=== PATIENT | male | born 1950 | race Caucasian/White ===

== ENCOUNTER → 2019-11-12 00:01 | Outpatient (RCR) | payer MEDICARE, SELFPAY | LOC: ONCMED 05:52 | PROVIDERS: Family Provider Family Medicine; Visit Provider Internal Medicine Hematology & Oncology | DX: C25.0 Malignant neoplasm of head of pancreas (principal); C77.2 Secondary and unspecified malignant neoplasm of intra-abdominal lymph nodes; I25.2 Old myocardial infarction; I25.10 Atherosclerotic heart disease of native coronary artery without angina pectoris; E87.6 Hypokalemia; Z95.5 Presence of coronary angioplasty implant and graft; Z79.02 Long term (current) use of antithrombotics/antiplatelets; Z79.82 Long term (current) use of aspirin; Z79.899 Other long term (current) drug therapy; Z90.410 Acquired total absence of pancreas; Z92.21 Personal history of antineoplastic chemotherapy | CPT/HCPCS: 36591; 80053; 82607; 82728; 83540; 83550; 85025; 99214; J1642 ==

== ENCOUNTER 2019-12-13 05:48 | Outpatient (RCR) | payer MEDICARE, SELFPAY ==
--- NOTE | 2019-11-25 | CT_ITS ---
Radation Therapy Planning CT images; total exam DLP: 935.27 mGy-cm MTDD
[2019-12-09 15:35] LABS: Alanine Aminotransferase 93 U/L (0-41); Albumin Level 3.7 g/dL (3.5-5.2); Alkaline Phosphatase 125 IU/L (40-130); Anion Gap 13.9 (5-19); Aspartate Amino Transferase 142 U/L (0-40); Blood Urea Nitrogen 6 mg/dL (8-23); Calcium 9.1 mg/dL (8.5-10.5); Carbon Dioxide 25 mmol/L (22-29); Chloride 105 mmol/L (98-107); Globulin 2.5 g/dL (1.3-4.6); Glucose 139 mg/dL (74-106); Potassium 3.9 mmol/L (3.5-5.1); Sodium 140 mmol/L (136-145); Total Bilirubin 0.3 mg/dL (0.15-1.2); Total Protein 6.2 g/dL (6.6-8.7)
[2019-12-09 15:36] LABS: Basophils % 0.8 %; Eosinophils # 0.1 10^3/uL (0.0-0.8); Eosinophils % 2.4 %; Hemoglobin 9.4 g/dL (11.7-16.6); Lymphocytes # 0.7 10^3/uL (0.8-4.8); Lymphocytes % 19.3 %; Mean Corpuscular HGB Conc 31.3 g/dL (30.0-36.0); Mean Corpuscular Hemoglobin 30.4 pg (28.0-34.0); Mean Corpuscular Volume 97.1 fL (80-94); Mean Platelet Volume 10.8 fL (7.4-10.4); Monocytes # 0.5 10^3/uL (0.2-0.9); Monocytes % 12.7 %; Neutrophils # 2.5 10^3/uL (1.8-7.7); Neutrophils % 64.8 %; Nucleated Red Blood Cells % 0 %; Platelet Count 150 10^3/cmm (130-400); Red Blood Count 3.09 10^6/uL (4.1-5.3); Red Cell Distribution Width 14.6 % (12.1-15.1); White Blood Count 3.8 10^3/uL (4.0-10.0)
--- NOTE | 2019-12-11 15:32 | ONCRAD TMN_ITS ---
Radiation Oncology Weekly Treatment Management Patient: Elieser Powell MR#: [id number] : 1950 Age: 69 Sex: Male Dictated by: Dr. Emile Ulloa Date of Service: 12/11/2019 Referring Physician(s) : Dr. 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 ID: [id number], Energy: 6X, Dose/Fx (cGy): 180, #Fx: 3 , Dose Correction (cGy): 0, Total Dose (cGy): 540, Start Date: 12/09/2019, Elapsed Days: 2 Current Complaints/Interval History: Constitutional Denies lack of appetite, fatigue, fever and night sweats. Integumentary No redness to the skin in the area of treatment Gastrointestinal Denies abdominal pain, diarrhea, nausea and vomiting. Current Medications: Aspirin, atorvastatin Calcium, carvedilol, chlorproMAZINE HCl, claritin, gas Relief, humuLIN R, imodium A-D, k-Tab, lansoprazole, lisinopril, lomotil, lomotil, lORazepam, neulasta, potassium Chloride ER, prochlorperazine Maleate, prochlorperazine Maleate, ticagrelor, zofran. Allergies: No Known Allergies Vital Signs: Performed on 12/11/2019 10:03 AM BMI - 24.12 kg/m2 (high), Height - 67.00 in, Weight - 154.0 lbs, Temperature - 97.8 f, Pulse - 49, Respiration - 18, O2 Sat - 100 %, Pain - 0 and BP - 143/ 74 mm(hg)(high/). Physical Exam: Appears stable, no skin erythema or desquamation. Performance Status: 1 - No physically strenuous activity, but ambulatory and able to carry out light or sedentary work (e.g. office work, light house work). (ECOG) Lab: None pending in Radiation Oncology. Imaging: No new diagnostic imaging was performed since the last weekly treatment visit. All radiation therapy related imaging (including but not limited to CBCT generated images) was reviewed. Appropriate changes, if any, were made to assure accurate target localization. Impression/Plan: Tolerating treatment well. Continue treatment as planned. CPT: 36238 Signed by: Dr. Emile Ulloa>12/11/2019 3:30:43 PM <<Signature on File>>
== END 2019-12-13 23:59 | disposition home or self-care (01) ==
LOC: ONCMED 05:48
PROVIDERS: Internal Medicine Hematology & Oncology; Family Provider Family Medicine; Visit Provider Radiology Radiation Oncology
DX: Z51.0 Encounter for antineoplastic radiation therapy (principal); C25.0 Malignant neoplasm of head of pancreas; C77.2 Secondary and unspecified malignant neoplasm of intra-abdominal lymph nodes; L30.9 Dermatitis, unspecified; K21.9 Gastro-esophageal reflux disease without esophagitis; E78.00 Pure hypercholesterolemia, unspecified; I25.2 Old myocardial infarction; Z79.82 Long term (current) use of aspirin; Z79.4 Long term (current) use of insulin; Z90.410 Acquired total absence of pancreas; Z95.5 Presence of coronary angioplasty implant and graft; Z92.21 Personal history of antineoplastic chemotherapy
CPT/HCPCS: 36591; 77280; 77290; 77300; 77301; 77334; 77338; 77386; 77470; 80053; 85025; 99205; Q9967

== ENCOUNTER 2020-01-10 05:43 | Outpatient (RCR) | payer MEDICARE, SELFPAY ==
[2019-12-16 11:41] LABS: Basophils % 0.5 %; Eosinophils # 0.1 10^3/uL (0.0-0.8); Eosinophils % 2.9 %; Hemoglobin 9.5 g/dL (11.7-16.6); Lymphocytes # 0.5 10^3/uL (0.8-4.8); Lymphocytes % 12.2 %; Mean Corpuscular HGB Conc 31.7 g/dL (30.0-36.0); Mean Corpuscular Hemoglobin 30.3 pg (28.0-34.0); Mean Corpuscular Volume 95.5 fL (80-94); Mean Platelet Volume 10.9 fL (7.4-10.4); Monocytes # 0.4 10^3/uL (0.2-0.9); Monocytes % 10.1 %; Neutrophils # 2.8 10^3/uL (1.8-7.7); Nucleated Red Blood Cells % 0 %; Platelet Count 138 10^3/cmm (130-400); Red Blood Count 3.14 10^6/uL (4.1-5.3); Red Cell Distribution Width 14.6 % (12.1-15.1); White Blood Count 3.8 10^3/uL (4.0-10.0)
[2019-12-16 11:53] LABS: Alanine Aminotransferase 43 U/L (0-41); Albumin Level 3.2 g/dL (3.5-5.2); Alkaline Phosphatase 106 IU/L (40-130); Anion Gap 12.8 (5-19); Aspartate Amino Transferase 39 U/L (0-40); Blood Urea Nitrogen 6 mg/dL (8-23); Carbon Dioxide 25 mmol/L (22-29); Chloride 104 mmol/L (98-107); Globulin 2.8 g/dL (1.3-4.6); Glucose 128 mg/dL (74-106); Potassium 3.8 mmol/L (3.5-5.1); Sodium 138 mmol/L (136-145); Total Bilirubin 0.2 mg/dL (0.15-1.2)
--- NOTE | 2019-12-17 11:48 | ONCRAD TMN_ITS ---
Radiation Oncology Weekly Treatment Management Patient: Elieser Powell MR#: [id number] : 1950> Age: 69> Sex: Male Dictated by: Dr. Emile Ulloa Date of Service: 12/17/2019 Referring Physician(s) : Dr. 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 ID: [id number], Energy: 6X, Dose/Fx (cGy): 180, #Fx: , Dose Correction (cGy): 0, Total Dose (cGy): 1,260, Start Date: 12/09/2019, Elapsed Days: 8 Current Complaints/Interval History: Constitutional Complains of mild fatigue. Denies lack of appetite, fever and night sweats. Gastrointestinal Complains of occasional diarrhea which is characterized as loose, semisolid. Denies abdominal pain, constipation, heartburn / dyspepsia, melena / GI bleeding, nausea and vomiting. Current Medications: Aspirin, carvedilol, chlorproMAZINE HCl, claritin, gas Relief, humuLIN R, imodium A-D, k-Tab, lansoprazole, lisinopril, lomotil, lomotil, lORazepam, neulasta, potassium Chloride ER, prochlorperazine Maleate, prochlorperazine Maleate, ticagrelor, zofran. Allergies: No Known Allergies Vital Signs: Performed on 12/17/2019 10:05 AM Height - 67.00 in, Weight - 162.2 lbs (high), BSA - 1.85 sq.m, BMI - 25.40, Temperature - 97.8 f (low), Pulse - 54 /min (low), Respiration - 20 /min, O2 Sat - 100 %, Pain - 0 and BP - 138/ 76 mm(hg). Physical Exam: Appears stable, no skin erythema or desquamation. Performance Status: 1 - No physically strenuous activity, but ambulatory and able to carry out light or sedentary work (e.g. office work, light house work). (ECOG) Lab: Test performed on 12/16/2019 11:05 AM WBC - 3.8 10 3/ul (low), RBC - 3.14 10 6/ul (low), HGB - 9.5 g/dl (low), HCT - 30.0 % (low), MCV - 95.5 fl (high), MPV - 10.9 fl (high), Lymphocytes - 0.5 10 3/ul (low), BUN - 6 mg/dl (low), Creatinine - 0.6 mg/dl (low), Glucose - 128 mg/dl (high), Protein, Total - 6.0 g/dl (low), Albumin - 3.2 g/dl (low) and ALT (SGPT) - 43 u/l (high). Imaging: No new diagnostic imaging was performed since the last weekly treatment visit. All radiation therapy related imaging (including but not limited to CBCT generated images) was reviewed. Appropriate changes, if any, were made to assure accurate target localization. Impression/Plan: Tolerating treatment well with expected side effects. Continue treatment as planned. CPT: 12089 Signed by: Dr. Emile Ulloa>12/17/2019 11:46:10 AM <<Signature on File>>
--- NOTE | 2019-12-18 09:44 | ONC FU_ITS ---
Re[facility] Velaz[facility] Patient Note Patient: Elieser Powell < Unit #: [id number]: 1950 Dictated By: Anamaria AnguianoDate of Visit: Dec 17, 2019 Onc MED Follow-Up/Prog Note Chief Complaint: Pancreatic cancer History of Present Illness: Mr. Powell is a 69-year-old gentleman with history of progressive weakness and fatigue, acid reflux and loss of appetite. He subsequently noted change in his stool and urine color and jaundice. He also had about 25 pounds weight loss due to poor appetite and early fullness. Patient underwent CT scan of abdomen on 03/25/2019 which showed 3.3 x 2.9 x 2.9 cm soft tissue mass involving inferior pancreatic head and uncinate process. This mass was causing obstruction of common bile duct and probably also pancreatic duct and pancreatic mass abuts and distorts and may invade the medial duodenal C-loop. Patient was referred to [place] where he underwent endoscopic ultrasound and FNA done on 03/29/2019 and it confirmed adenocarcinoma subsequently underwent metal bile duct stent placement with that his jaundice improved but continued to have early fullness nausea finally underwent duodenal stent placement. Mr Powell was referred to Dr. Barbosa and as per patient, Dr. Barbosa suggested neoadjuvant chemotherapy prior to the surgery. Patient and his family decided to take second opinion and went to [facility] for evaluation. He then underwent an attempted ERCP at [facility], which was not possible due to significant luminal stenosis. The endoscopic ultrasound revealed obstructing 3.2 cm pancreatic head mass and the biopsy was positive for adenocarcinoma. Due to inability to perform ERCP, patient underwent percutaneous internal biliary stent. Later patient developed nausea vomiting for which he was readmitted to [facility] in [place] on 04/03/2019 and diagnosed with gastric outlet obstruction for that he underwent EGD with duodenal stent placement on 04/12/2019 . He then underwent pancreas protocol CT scan at [facility] as per patient he was told there could be vascular involvement with tumor so neoadjuvant chemotherapy with folfirinox was recommended. He began his first cycle on 05/27/2019. On 07/03/2019 he was admitted to [facility] with high-grade fever and diarrhea jaundice and abnormal LFTs subsequently diagnosed with sepsis being hypotensive patient was treated with IV antibiotics and CT scan of abdomen pelvis done on 07/04/2019 which showed marked biliary tract dilatation subsequently patient was transferred to [facility] in [place] for further management but his condition continued to improve GI was consulted but his LFTs continued to improve and he was discharged home on Cipro and Flagyl. Patient said he went back to [facility] and this time he underwent ERCP and not sure whether stent was replaced or cleaned. He had MRI MRCP done on 07/17/2019 which showed marked biliary tract dilatation with moderate dilatation of pancreatic duct similar to CT scan of 07/04/2019 and metallic stents obscure with radiation of pancreatic mass. Patient was on oral antibiotics ciprofloxacin and Flagyl till 07/27/2019. Mr Powell completed 6 cycles of neoadjuvant chemotherapy with folfirinox on 09/04/2019. He then underwent pancreaticoduodenectomy, resection and reconstruction of' superior mesenteric vein portal vein using Bovine pericardium patch and abdominal lymphadenectomy on 10/02/2019. His postop course was complicated by NSTEMI and he required intra-aortic balloon pump and ultimately underwent cardiac cath with placement of 4 stents (2 overlapping stents in the left main/proximal LAD and 2 overlapping stents in the RCA). Now on Brilinta and aspirin. 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 Lymphovascular, including large vessel and perineural invasion identified. Tumor invades into adjoining portal vein And superior mesenteric vein but various margins are negative for the tumor. Tumor present at uncinate margin, as foci of vascular invasion. Tumor is less than 1 cm from posterior surface; A small focus of perineural invasion is identified less than 1 cm from the bile duct margin. Pancreatic parenchymal, proximal and distal duodenal resection margins are negative for the tumor. Metastatic carcinoma involving 4 out of 25 lymph nodes ypN2. Adjuvant chemotherapy/chemoradiation was recommended at [facility], but at the same time cardiology had a concern about bone marrow suppressing chemotherapy regimens and recommended avoiding these regimens as patient will require at least 6 months of continued DAPT due to recent NSTEMI and high risk PCI. Based on his final pathology report after Whipple's procedure, patient is a high risk for local recurrence and distant recurrence as there was a minimum response to the neoadjuvant chemotherapy. Lymph node positive disease with close surgical margins was identified. At that point, Mr Powell was referred to radiation oncology for adjuvant radiation therapy. He was also under consideration of low-dose Xeloda concurrently with radiation as patient is not a candidate for adjuvant chemotherapy due to high risk for bone marrow suppression and treatment rendered complication. Considering Risk versus benefit, Dr Root recommended modified dose Xeloda concurrent with radiation therapy and monitor his blood counts on weekly basis and adjust chemotherapy dose accordingly to minimize bone marrow suppression. He began concurrent therapy with radiation and dose reduced Xeloda on 12/10/2019. Mr. Powell is here today for follow-up. He has been on Xeloda 625 mg twice daily on the days of radiation since December 10, 2019. Overall he seems to be tolerating it well although he has had some increase in his stools. He states that some of the time they are actually diarrhea and sometimes just increased stools with normal formation. He denies any fever or chills. He has had no mouth sores, sore throat or difficulty swallowing. He denies any nausea or vomiting. He denies any abdominal pain or cramping. He states the bowel movements overall seem to be about the same but he has tried Imodium for the diarrhea and does not seem to think it is helping tremendously but does have Lomotil but has not tried it yet. He is getting his prescription filled and plans to try it if he has any further episodes of diarrhea. He states currently his bowels are normal. He states his appetite is better. He is eating some better overall. His energy is fair. He denies any urinary symptoms. He denies any peripheral neuropathy symptoms. He denies any pain currently. His ECOG is 1. Past Medical History: Eczema Gastroesophageal reflux disease Hypercholesterolemia Past Surgical History: Stent replacement in the biliary duct in 2019 Fna of pancreas in 2019 Eyelid surgery in 1959 Tonsillectomy in 1954 Allergies: No Known Allergies. Medications: Aspirin 1 Tablet (of 81 mg) Tablet Oral daily Carvedilol 1 Tablet (of 6.25 mg) Oral daily Claritin 1 Tablet (of 10 mg) Oral daily PRN Gas Relief 1 Capsule (of 180 mg) Oral PRN Imodium A-D 1 Capsule (of 2 mg) Oral PRN K-Tab 1 Tablet (of 10 meq) Tablet, controlled release Oral daily PRN Lisinopril 1 Tablet (of 5 mg) Oral daily Lomotil 1 Tablet (of 2.5-0.025 mg) Oral daily PRN LORazepam 0.5 - 1 Tablet (of 1 mg) Oral t.i.d. PRN Prochlorperazine Maleate 1 Tablet (of 10 mg) Oral q 4 hours PRN Ticagrelor 1 Tablet (of 90 mg) Oral b.i.d. Zofran 1 Tablet (of 4 mg) Oral q 6 hours PRN Family History: Mr. Powell's mother at age 92: Alzheimer's Disease, and cervical cancer. Mr. Powell's father at age 63: heart disease. Social History: Mr. Powell is and he is retired. Mr. Powell has never smoked. He has no history of drinking. He has indicated exposure to the following products: marijuana. Review Of Symptoms: Constitutional Denies fevers, chills, night sweats, excessive fatigue. Allergic/Immunologic No reactions. Eyes Denies significant visual changes. No diplopia. No amaurosis. ENMT Denies changes in hearing, sore throat, mouth sores, difficulty or changes in swallowing ability, and/or sinus drainage. Endocrine No diabetes, thyroid disease or hormone replacement. Denies hot flashes or night sweats. Hematologic/Lymphatic Denies easy bruising or bleeding. The patient denies any tender or palpable lymph nodes. Respiratory Denies dyspnea on exertion, chest pain, cough or hemoptysis. Denies orthopnea. Cardiovascular Denies anginal chest pain, palpitations or orthopnea. Gastrointestinal Denies nausea, vomiting, diarrhea, GI bleeding, or constipation with treatment. Denies heartburn or early satiety. Genitourinary (M) Denies hematuria, dysuria, increased frequency, urgency, hesitancy or incontinence. Musculoskeletal Denies joint pain, swelling or redness. No decreased range of motion. Integumentary Denies chronic rashes, inflammation, ulcerations or skin changes. Neurologic Denies headache, blurred vision, and no areas of focal weakness or numbness. Normal gait. No current sensory problems. Psychiatric Denies insomnia, depression, kathya or mood swings. Constitutional Complains of mild fatigue. Denies lack of appetite, fever and night sweats. Gastrointestinal Complains of occasional diarrhea which is characterized as loose, semisolid. Denies abdominal pain, constipation, heartburn / dyspepsia, melena / GI bleeding, nausea and vomiting. Genitourinary (M) Complains of nocturia gets up 1 to 3 times per night. Denies dysuria, frequency, hematuria and urgency. Vital Signs: Performed on Dec 17, 2019 11:19 Height - 67.00 in Weight - 162.2 lbs Temperature - 97.8 F Pulse - 54 Respiration - 20 BP - 138/76 mm(hg) O2 Sat - 100 % Pain - 0 Performed on Dec 17, 2019 11:19 BMI - 25.404 kg/m2 (HIGH) Performed on Dec 17, 2019 10:05 Height - 67.00 in Weight - 162.2 lbs (HIGH) BSA - 1.85 sq.m BMI - 25.40 Temperature - 97.8 F (LOW) Pulse - 54 /min (LOW) Respiration - 20 /min BP - 138/76 mm(hg) O2 Sat - 100 % Pain - 0,1 - No physically strenuous activity, but ambulatory and able to carry out light or sedentary work (e.g. office work, light house work). (ECOG) Physical Examination: Constitutional Alert, oriented, no acute distress. Skin pink, warm and dry. Head Normocephalic; atraumatic. Eyes Conjunctivae and sclerae are clear and without icterus. Pupils are reactive and equal. ENMT Sinuses are nontender. No oral exudates, ulcers, masses, thrush or mucositis. Oropharynx clear. Tongue normal. Neck Supple without masses or thyromegaly. No jugular venous distension. Hematologic/Lymphatic No petechiae or purpura. No tender or palpable lymph nodes in the cervical or supraclavicular areas. Respiratory Lungs are clear to auscultation without rhonchi or wheezing. Cardiovascular Regular rate and rhythm of heart without murmurs,clicks, gallops or rubs. Abdomen Non-tender, non-distended, no masses, ascites. Good bowel sounds noted in all quads. Back/Spine Non-tender to palpation. Extremities No visible deformities, no cyanosis, clubbing or edema. Musculoskeletal No tenderness or swelling, normal range of motion without obvious weakness. Integumentary No rashes or lesions. Neurologic No sensory or motor deficits, normal cerebellar function, normal gait. Psychiatric Alert and oriented times three. Coherent speech. Verbalizes understanding of our discussions today. Laboratory:Test performed on Dec 16, 2019 11:05 Sodium 138 mmol/L Potassium 3.8 mmol/L Chloride 104 mmol/L CO2 25 mmol/L Anion Gap 12.8 BUN 6 mg/dL Creatinine 0.6 mg/dL Cr Clearance (Est) 117.6600 mL/min Glucose 128 mg/dL Calcium 9.0 mg/dL Protein, Total 6.0 g/dL Albumin 3.2 g/dL Globulin 2.8 g/dL Bilirubin, Total 0.2 mg/dL ALT (SGPT) 43 U/L AST (SGOT) 39 U/L Alkaline Phosphatase 106 IU/L WBC 3.8 10 3/uL RBC 3.14 10 6/uL HGB 9.5 g/dL HCT 30.0 % MCV 95.5 fL MCH 30.3 pg MCHC 31.7 g/dL RDW 14.6 % Platelet Count 138 10 3/cmm MPV 10.9 fL Neutrophils 2.8 10 3/uL Lymphocytes 0.5 10 3/uL Monocytes 0.4 10 3/uL Eosinophils 0.1 10 3/uL Basophils 0.0 10 3/uL Neutrophil % 74.0 % Lymphocyte % 12.2 % Monocyte % 10.1 % Eosinophil % 2.9 % Basophils % 0.5 % Impression: Status post pancreaticoduodenectomy, resection and reconstruction of superior mesenteric vein/portal vein using bovine pericardium patch. Abdominal lymph node dissection and excision of left hepatic lobe lesion and peritoneal lesion and myofascial abdominal wall flap on 10/02/2019 final pathology report showed ypT3 and 4 out of 25 positive lymph node ypN2 Postop course was complicated by NSTEMI status post complex PCI to andTXD in September 2019. Adenocarcinoma involving head of pancreas and uncinate process per EUS guided FNA done on 03/29/2019 and metal bile duct stent placement for obstructive jaundice with resolution of jaundice CT scan of abdomen pelvis done on 03/25/2019 showed pancreatic head/uncinate process mass measuring 3.3 x 2.9 x 3.9 cm causing biliary system dilatation scan due to pancreatic head mass. Possible invasion into medial duodenal C-loop. No adenopathy or ascites noted Gastric outlet obstruction Status post duodenal stent placement Mr Powell was seen by Dr. Barbosa, surgeon and neoadjuvant chemotherapy was recommended prior to the surgery. He obtained a second opinion from [facility]. On 04/30/2019, he was evaluated at [facility] GI surgery clinic and underwent a pancreas protocol CT scan. The patient reports that he was told that tumor may be involving adjustment vascular structures so neoadjuvant chemotherapy with folfirinox was recommended. Mr Powell began his first cycle of FOLFIRINOX on 05/27/2019. Cycle 2 was given on 06/10/2019. He completed 6 cycles of neoadjuvant chemotherapy on 09/04/2019. Mr Powell completed 6 cycles of neoadjuvant chemotherapy with folfirinox on 09/04/2019. He then underwent pancreaticoduodenectomy, resection and reconstruction of' superior mesenteric vein portal vein using Bovine pericardium patch and abdominal lymphadenectomy on 10/02/2019. His postop course was complicated by NSTEMI and he required intra-aortic balloon pump and ultimately underwent cardiac cath with placement of 4 stents (2 overlapping stents in the left main/proximal LAD and 2 overlapping stents in the RCA). Now on Brilinta and aspirin. 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 Lymphovascular, including large vessel and perineural invasion identified. Tumor invades into adjoining portal vein And superior mesenteric vein but various margins are negative for the tumor. Tumor present at uncinate margin, as foci of vascular invasion. Tumor is less than 1 cm from posterior surface. A small focus of perineural invasion is identified less than 1 cm from the bile duct margin. Pancreatic parenchymal, proximal and distal duodenal resection margins are negative for the tumor. Metastatic carcinoma involving 4 out of 25 lymph nodes ypN2. Adjuvant chemotherapy/chemoradiation was recommended at [facility], but at the same time cardiology had a concern about bone marrow suppressing chemotherapy regimens and recommended avoiding these regimens as patient will require at least 6 months of continued DAPT due to recent NSTEMI and high risk PCI. Based on his final pathology report after Whipple's procedure, patient is a high risk for local recurrence and distant recurrence as there was a minimum response to the neoadjuvant chemotherapy. Lymph node positive disease with close surgical margins was identified. At that point, Mr Powell was referred to radiation oncology for adjuvant radiation therapy. He was also under consideration of low-dose Xeloda concurrently with radiation as patient is not a candidate for adjuvant chemotherapy due to high risk for bone marrow suppression and treatment rendered complication. Considering Risk versus benefit, Dr Root recommended modified dose Xeloda concurrent with radiation therapy and monitor his blood counts on weekly basis and adjust chemotherapy dose accordingly to minimize bone marrow suppression. He began concurrent therapy with radiation and dose reduced Xeloda on 12/10/2019. He is following with Dr Jefferson, local human resources representative, for follow-up of NSTEMI status post PCI to LAD and LM. Plan: 1. Proceed with current dosing of Xeloda at 650 mg twice daily on the days of radiation only. We will plan for this dose 1 more week to see how his diarrhea plays out. 2. He may use Compazine or Zofran as needed for nausea. 3. We have discussed him using Lomotil as needed for diarrhea. He can still use the Imodium if he feels he gets any benefit from it. If that is not working he is instructed to let us know. 4. We did discuss that if he has diarrhea that he will need hydration if the diarrhea is significant. He verbalized understanding. 5. He states Dr. Jefferson had requested a fasting lipid panel and wondered if we could do that with the labs that we obtained here. We have arranged for him to do fasting labs next week with his CBC CMP. This is for evaluation of his CAD. He states Dr. Jefferson stopped his atorvastatin presumably due to elevated liver function. 6. Labs from December 16, 2019 were reviewed in detail and discussed with Mr. Powell and a copy was given to him. WBC 3.8, hemoglobin 9.5, platelets 138,000 ANC is 2800. Potassium 3.8. Random glucose 128 creatinine 0.6 albumin 3.2 ALT is improved at 43 AST is 39 alk phos is 106. 7. Mr. Powell was instructed to continue his potassium supplement as his potassium is holding well currently. 8. He inquired about participating in cardiac rehab and I told him I thought this was an excellent idea he may just need modified exercising but would least be monitored under cardiac rehab. This would help build up his strength and possibly help him tolerate treatment better overall. We encourage patients to participate in cancer rehab but it is not a monitored setting and with his recent NSTEMI, he requires cardiac monitoring. 9. We will plan to see him back in 1 week with CBC CMP for evaluation of Xeloda. 10. He instructed to contact us in the interim should questions or problems arise. Signed By: Anamaria Anguiano-, CN Danielle Root MD <<Signature on File>>
[2019-12-23 09:38] LABS: Basophils % 0.3 %; Eosinophils # 0.2 10^3/uL (0.0-0.8); Eosinophils % 5.2 %; Hematocrit 30.1 % (42.0-52.0); Hemoglobin 9.5 g/dL (11.7-16.6); Lymphocytes # 0.4 10^3/uL (0.8-4.8); Lymphocytes % 11.7 %; Mean Corpuscular HGB Conc 31.6 g/dL (30.0-36.0); Mean Corpuscular Hemoglobin 29.9 pg (28.0-34.0); Mean Corpuscular Volume 94.7 fL (80-94); Mean Platelet Volume 10.7 fL (7.4-10.4); Monocytes # 0.4 10^3/uL (0.2-0.9); Monocytes % 11.7 %; Neutrophils # 2.2 10^3/uL (1.8-7.7); Neutrophils % 70.8 %; Nucleated Red Blood Cells % 0 %; Platelet Count 139 10^3/cmm (130-400); Red Blood Count 3.18 10^6/uL (4.1-5.3); Red Cell Distribution Width 14.8 % (12.1-15.1); White Blood Count 3.1 10^3/uL (4.0-10.0)
[2019-12-23 10:01] LABS: Alanine Aminotransferase 29 U/L (0-41); Albumin Level 3.3 g/dL (3.5-5.2); Alkaline Phosphatase 105 IU/L (40-130); Aspartate Amino Transferase 30 U/L (0-40); Blood Urea Nitrogen 5 mg/dL (8-23); Calcium 8.9 mg/dL (8.5-10.5); Carbon Dioxide 24 mmol/L (22-29); Chloride 104 mmol/L (98-107); Chol HDL Ratio 2.49 mg/dL (1.0-5.00); Cholesterol 102 mg/dL (0-200); Ferritin 31 ng/mL (30-400); Globulin 2.3 g/dL (1.3-4.6); Glucose 120 mg/dL (65-115); HDL Cholesterol 41 mg/dL (60-100); Iron 48 ug/dL (59-158); LDL Cholesterol Calculated 45 mg/dL (50-129); Percent Saturation 18.1 % (20-50); Sodium 140 mmol/L (136-145); Total Bilirubin 0.2 mg/dL (0.15-1.2); Total Iron Binding Capacity 264 mcg/dl; Total Protein 5.6 g/dL (6.6-8.7); Triglycerides 79 mg/dL (0-150); Unsaturated Iron Binding 216 ug/dL (112-347)
[2019-12-23 10:35] LABS: Estmated Average Glucose 123; Hemoglobin A1C 5.9 % (4.0-6.0)
--- NOTE | 2019-12-24 12:08 | ONCRAD TMN_ITS ---
Radiation Oncology Weekly Treatment Management Patient: Elieser Powell MR#: [id number] : 1950> Age: 69> Sex: Male Dictated by: Dr. Emile Ulloa Date of Service: 12/24/2019 Referring Physician(s) : Dr. 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 ID: [id number], Energy: 6X, Dose/Fx (cGy): 180, #Fx: , Dose Correction (cGy): 0, Total Dose (cGy): 2,160, Start Date: 12/09/2019, Elapsed Days: 15 Current Complaints/Interval History: Constitutional Complains of mild fatigue. Denies lack of appetite, fever and night sweats. Integumentary No redness to the area of treatment Gastrointestinal Notes occasional diarrhea with loose stool. Denies abdominal pain, heartburn / dyspepsia, GI bleeding, nausea and vomiting. Genitourinary (M) Complains of nocturia gets up about 1 time per night. Denies dysuria, frequency and urgency. Current Medications: Aspirin, carvedilol, chlorproMAZINE HCl, claritin, gas Relief, humuLIN R, imodium A-D, k-Tab, lansoprazole, lisinopril, lomotil, lomotil, lORazepam, neulasta, potassium Chloride ER, prochlorperazine Maleate, prochlorperazine Maleate, ticagrelor, zofran. Allergies: No Known Allergies Vital Signs: Performed on 12/24/2019 11:53 AM Height - 67.00 in, Weight - 163.6 lbs, BSA - 1.86 sq.m, BMI - 25.62, Temperature - 97.4 f (low), Pulse - 45 /min (low), Respiration - 18 /min, O2 Sat - 100 %, Pain - 0 and BP - 148/ 81 mm(hg)(high/). Physical Exam: Appears stable, no skin erythema or desquamation. Performance Status: 1 - No physically strenuous activity, but ambulatory and able to carry out light or sedentary work (e.g. office work, light house work). (ECOG) Lab: Test performed on 12/23/2019 8:50 AM WBC - 3.1 10 3/ul (low), RBC - 3.18 10 6/ul (low), HGB - 9.5 g/dl (low), HCT - 30.1 % (low), MCV - 94.7 fl (high), MPV - 10.7 fl (high), Lymphocytes - 0.4 10 3/ul (low), Potassium - 3.0 mmol/l (low), BUN - 5 mg/dl (low), Creatinine - 0.5 mg/dl (low), Cr Clearance (Est) - 141.0200 ml/min (high), Glucose - 120 mg/dl (high), Protein, Total - 5.6 g/dl (low), Albumin - 3.3 g/dl (low), Iron - 48 ug/dl (low), LDL Cholesterol - 45 mg/dl (low) and HDL Cholesterol - 41 mg/dl (low). Imaging: No new diagnostic imaging was performed since the last weekly treatment visit. All radiation therapy related imaging (including but not limited to CBCT generated images) was reviewed. Appropriate changes, if any, were made to assure accurate target localization. Impression/Plan: Tolerating treatment well with expected side effects. Continue treatment as planned. CPT: 14177 Signed by: Dr. Emile Ulloa>12/24/2019 12:07:57 PM <<Signature on File>>
[2019-12-24 13:40] LABS: Magnesium 2.1 mg/dL (1.7-2.3)
--- NOTE | 2019-12-24 16:10 | ONC FU_ITS ---
Rebekah Velazquez Patient Note Patient: Elieser Powell < Unit #: [id number]: 1950 Dictated By: Anamaria AnguianoDate of Visit: Dec 24, 2019 Onc MED Follow-Up/Prog Note Chief Complaint: Pancreatic cancer History of Present Illness: Mr. Powell is a 69-year-old gentleman with history of progressive weakness and fatigue, acid reflux and loss of appetite. He subsequently noted change in his stool and urine color and jaundice. He also had about 25 pounds weight loss due to poor appetite and early fullness. Patient underwent CT scan of abdomen on 03/25/2019 which showed 3.3 x 2.9 x 2.9 cm soft tissue mass involving inferior pancreatic head and uncinate process. This mass was causing obstruction of common bile duct and probably also pancreatic duct and pancreatic mass abuts and distorts and may invade the medial duodenal C-loop. Patient was referred to [place] where he underwent endoscopic ultrasound and FNA done on 03/29/2019 and it confirmed adenocarcinoma subsequently underwent metal bile duct stent placement with that his jaundice improved but continued to have early fullness nausea finally underwent duodenal stent placement. Mr Powell was referred to Dr. Barbosa and as per patient, Dr. Barbosa suggested neoadjuvant chemotherapy prior to the surgery. Patient and his family decided to take second opinion and went to [facility] for evaluation. He then underwent an attempted ERCP at [facility], which was not possible due to significant luminal stenosis. The endoscopic ultrasound revealed obstructing 3.2 cm pancreatic head mass and the biopsy was positive for adenocarcinoma. Due to inability to perform ERCP, patient underwent percutaneous internal biliary stent. Later patient developed nausea vomiting for which he was readmitted to [facility] in [place] on 04/03/2019 and diagnosed with gastric outlet obstruction for that he underwent EGD with duodenal stent placement on 04/12/2019 . He then underwent pancreas protocol CT scan at [facility] as per patient he was told there could be vascular involvement with tumor so neoadjuvant chemotherapy with folfirinox was recommended. He began his first cycle on 05/27/2019. On 07/03/2019 he was admitted to [facility] with high-grade fever and diarrhea jaundice and abnormal LFTs subsequently diagnosed with sepsis being hypotensive patient was treated with IV antibiotics and CT scan of abdomen pelvis done on 07/04/2019 which showed marked biliary tract dilatation subsequently patient was transferred to [facility] in [place] for further management but his condition continued to improve GI was consulted but his LFTs continued to improve and he was discharged home on Cipro and Flagyl. Patient said he went back to [facility] and this time he underwent ERCP and not sure whether stent was replaced or cleaned. He had MRI MRCP done on 07/17/2019 which showed marked biliary tract dilatation with moderate dilatation of pancreatic duct similar to CT scan of 07/04/2019 and metallic stents obscure with radiation of pancreatic mass. Patient was on oral antibiotics ciprofloxacin and Flagyl till 07/27/2019. Mr Powell completed 6 cycles of neoadjuvant chemotherapy with folfirinox on 09/04/2019. He then underwent pancreaticoduodenectomy, resection and reconstruction of' superior mesenteric vein portal vein using Bovine pericardium patch and abdominal lymphadenectomy on 10/02/2019. His postop course was complicated by NSTEMI and he required intra-aortic balloon pump and ultimately underwent cardiac cath with placement of 4 stents (2 overlapping stents in the left main/proximal LAD and 2 overlapping stents in the RCA). Now on Brilinta and aspirin. 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 Lymphovascular, including large vessel and perineural invasion identified. Tumor invades into adjoining portal vein And superior mesenteric vein but various margins are negative for the tumor. Tumor present at uncinate margin, as foci of vascular invasion. Tumor is less than 1 cm from posterior surface; A small focus of perineural invasion is identified less than 1 cm from the bile duct margin. Pancreatic parenchymal, proximal and distal duodenal resection margins are negative for the tumor. Metastatic carcinoma involving 4 out of 25 lymph nodes ypN2. Adjuvant chemotherapy/chemoradiation was recommended at [place], but at the same time cardiology had a concern about bone marrow suppressing chemotherapy regimens and recommended avoiding these regimens as patient will require at least 6 months of continued DAPT due to recent NSTEMI and high risk PCI. Based on his final pathology report after Whipple's procedure, patient is a high risk for local recurrence and distant recurrence as there was a minimum response to the neoadjuvant chemotherapy. Lymph node positive disease with close surgical margins was identified. At that point, Mr Powell was referred to radiation oncology for adjuvant radiation therapy. He was also under consideration of low-dose Xeloda concurrently with radiation as patient is not a candidate for adjuvant chemotherapy due to high risk for bone marrow suppression and treatment rendered complication. Considering Risk versus benefit, Dr Root recommended modified dose Xeloda concurrent with radiation therapy and monitor his blood counts on weekly basis and adjust chemotherapy dose accordingly to minimize bone marrow suppression. He began concurrent therapy with radiation and dose reduced Xeloda on 12/10/2019. Mr. Powell is here today for follow-up. He has been on Xeloda 625 mg twice daily on the days of radiation since December 10, 2019. Overall he seems to be tolerating it well although he has had some increase in his stools. He states that some of the time they are actually diarrhea and sometimes just increased stools with normal formation. He denies any fever or chills. He has had no mouth sores, sore throat or difficulty swallowing. He denies any nausea or vomiting. He denies any abdominal pain or cramping. He states the bowel movements overall seem to be betteral Lomotil but has not tried it yet. He is getting his prescription filled and plans to try it if he has any further episodes of diarrhea. He states currently his bowels are normal. He states his appetite is better. He is eating some better overall. His energy is fair-he remains very acti He denies any urinary symptoms. He denies any peripheral neuropathy symptoms. He denies any pain currently. His ECOG is 1. Past Medical History: Eczema Gastroesophageal reflux disease Hypercholesterolemia Past Surgical History: Stent replacement in the biliary duct in 2019 Fna of pancreas in 2019 Eyelid surgery in 1959 Tonsillectomy in 5 Allergies: No Known Allergies. Medications: Aspirin 1 Tablet (of 81 mg) Tablet Oral daily Carvedilol 1 Tablet (of 6.25 mg) Oral daily Claritin 1 Tablet (of 10 mg) Oral daily PRN Gas Relief 1 Capsule (of 180 mg) Oral PRN Imodium A-D 1 Capsule (of 2 mg) Oral PRN K-Tab 1 Tablet (of 10 meq) Tablet, controlled release Oral daily PRN Lisinopril 1 Tablet (of 5 mg) Oral daily Lomotil 1 Tablet (of 2.5-0.025 mg) Oral daily PRN LORazepam 0.5 - 1 Tablet (of 1 mg) Oral t.i.d. PRN Prochlorperazine Maleate 1 Tablet (of 10 mg) Oral q 4 hours PRN Ticagrelor 1 Tablet (of 90 mg) Oral b.i.d. Zofran 1 Tablet (of 4 mg) Oral q 6 hours PRN Family History: Mr. Powell's mother at age 92: Alzheimer's Disease, and cervical cancer. Mr. Powell's father at age 63: heart disease. Social History: Mr. Powell is and he is retired. Mr. Powell has never smoked. He has no history of drinking. He has indicated exposure to the following products: marijuana. Review Of Symptoms: Constitutional Denies fevers, chills, night sweats, excessive fatigue. Allergic/Immunologic No reactions. Eyes Denies significant visual changes. No diplopia. No amaurosis. ENMT Denies changes in hearing, sore throat, mouth sores, difficulty or changes in swallowing ability, and/or sinus drainage. Hematologic/Lymphatic Denies easy bruising or bleeding. The patient denies any tender or palpable lymph nodes. Respiratory Denies dyspnea on exertion, chest pain, cough or hemoptysis. Denies orthopnea. Cardiovascular Denies anginal chest pain, palpitations or orthopnea. Gastrointestinal Denies nausea, vomiting, diarrhea, GI bleeding, or constipation with treatment. Denies heartburn or early satiety. Genitourinary (M) Denies hematuria, dysuria, increased frequency, urgency, hesitancy or incontinence. Musculoskeletal Denies joint pain, swelling or redness. No decreased range of motion. Denies leg cramps. Legs get tired, but much better after he started wearing 'CORINA hose . Integumentary Denies chronic rashes, inflammation, ulcerations or skin changes. Neurologic Denies headache, blurred vision, and no areas of focal weakness or numbness. Normal gait. No current sensory problems. Psychiatric Denies insomnia, depression, kathya or mood swings. Constitutional Complains of mild fatigue. Denies lack of appetite, fever and night sweats. Integumentary No redness to the area of treatment Gastrointestinal Complains of intermittent constipation. Complains of occasional diarrhea. Denies abdominal pain, heartburn / dyspepsia, melena / GI bleeding, nausea and vomiting. Genitourinary (M) Complains of nocturia gets up about 1 time per night. Denies dysuria, frequency and urgency. Vital Signs: Performed on Dec 24, 2019 11:53 Height - 67.00 in Weight - 163.6 lbs BSA - 1.86 sq.m BMI - 25.62 Temperature - 97.4 F (LOW) Pulse - 45 /min (LOW) Respiration - 18 /min BP - 148/81 mm(hg) (HIGH) O2 Sat - 100 % Pain - 0 Performed on Dec 24, 2019 11:38 Height - 67.00 in Weight - 163.6 lbs Temperature - 97.4 F Pulse - 45 Respiration - 18 BP - 148/81 mm(hg) (HIGH) O2 Sat - 100 % Pain - 0 Performed on Dec 24, 2019 11:38 BMI - 25.624 kg/m2 (HIGH),1 - No physically strenuous activity, but ambulatory and able to carry out light or sedentary work (e.g. office work, light house work). (ECOG) Physical Examination: Constitutional Alert, oriented, no acute distress. Skin pink, warm and dry. Head Normocephalic; atraumatic. Eyes Conjunctivae and sclerae are clear and without icterus. Pupils are reactive and equal. ENMT Sinuses are nontender. No oral exudates, ulcers, masses, thrush or mucositis. Oropharynx clear. Tongue normal. Neck Supple without masses or thyromegaly. No jugular venous distension. Hematologic/Lymphatic No petechiae or purpura. No tender or palpable lymph nodes in the cervical or supraclavicular areas. Respiratory Lungs are clear to auscultation without rhonchi or wheezing. Cardiovascular Regular rate and rhythm of heart without murmurs,clicks, gallops or rubs. Abdomen Non-tender, non-distended, no masses, ascites. Good bowel sounds noted in all quads. Back/Spine Non-tender to palpation. Extremities No visible deformities, no cyanosis, clubbing or edema. Musculoskeletal No tenderness or swelling, normal range of motion without obvious weakness. Integumentary No rashes or lesions. Neurologic No sensory or motor deficits, normal cerebellar function, normal gait. Psychiatric Alert and oriented times three. Coherent speech. Verbalizes understanding of our discussions today. Laboratory:Test performed on Dec 23, 2019 08:50 Cholesterol, Total 102 mg/dL Ferritin 31 ng/mL Iron 48 ug/dL Sodium 140 mmol/L Potassium 3.0 mmol/L Triglycerides 79 mg/dL Chloride 104 mmol/L LDL Cholesterol 45 mg/dL CO2 24 mmol/L UIBC 216 ug/dL Anion Gap 15.0 HDL Cholesterol 41 mg/dL BUN 5 mg/dL Cholesterol/HDL Ratio 2.49 mg/dL Creatinine 0.5 mg/dL LDL / HDL Ratio 1.10 RATIO Cr Clearance (Est) 141.0200 mL/min Glucose 120 mg/dL Calcium 8.9 mg/dL Protein, Total 5.6 g/dL Albumin 3.3 g/dL Globulin 2.3 g/dL Bilirubin, Total 0.2 mg/dL ALT (SGPT) 29 U/L AST (SGOT) 30 U/L Alkaline Phosphatase 105 IU/L Hemoglobin A1C % 5.9 % WBC 3.1 10 3/uL RBC 3.18 10 6/uL HGB 9.5 g/dL HCT 30.1 % MCV 94.7 fL MCH 29.9 pg MCHC 31.6 g/dL RDW 14.8 % Platelet Count 139 10 3/cmm MPV 10.7 fL Neutrophils 2.2 10 3/uL Lymphocytes 0.4 10 3/uL Monocytes 0.4 10 3/uL Eosinophils 0.2 10 3/uL Basophils 0.0 10 3/uL Neutrophil % 70.8 % Lymphocyte % 11.7 % Monocyte % 11.7 % Eosinophil % 5.2 % Basophils % 0.3 % Test performed on Sep 03, 2019 09:55 Magnesium 1.7 mg/dL Impression: Status post pancreaticoduodenectomy, resection and reconstruction of superior mesenteric vein/portal vein using bovine pericardium patch. Abdominal lymph node dissection and excision of left hepatic lobe lesion and peritoneal lesion and myofascial abdominal wall flap on 10/02/2019 final pathology report showed ypT3 and 4 out of 25 positive lymph node ypN2 Postop course was complicated by NSTEMI status post complex PCI to LM andLAD in September 2019 Adenocarcinoma involving head of pancreas and uncinate process per EUS guided FNA done on 03/29/2019 and metal bile duct stent placement for obstructive jaundice with resolution of jaundice CT scan of abdomen pelvis done on 03/25/2019 showed pancreatic head/uncinate process mass measuring 3.3 x 2.9 x 3.9 cm causing biliary system dilatation scan due to pancreatic head mass. Possible invasion into medial duodenal C-loop. No adenopathy or ascites noted Gastric outlet obstruction Status post duodenal stent placement Mr Powell was seen by Dr. Barbosa, surgeon and neoadjuvant chemotherapy was recommended prior to the surgery. He obtained a second opinion from [facility]. On 04/30/2019, he was evaluated at [facility] surgery clinic and underwent a pancreas protocol CT scan. The patient reports that he was told that tumor may be involving adjustment vascular structures so neoadjuvant chemotherapy with folfirinox was recommended. Mr Powell began his first cycle of FOLFIRINOX on 05/27/2019. Cycle 2 was given on 06/10/2019. He completed 6 cycles of neoadjuvant chemotherapy on 09/04/2019. Mr Powell completed 6 cycles of neoadjuvant chemotherapy with folfirinox on 09/04/2019. He then underwent pancreaticoduodenectomy, resection and reconstruction of' superior mesenteric vein portal vein using Bovine pericardium patch and abdominal lymphadenectomy on 10/02/2019. His postop course was complicated by NSTEMI and he required intra-aortic balloon pump and ultimately underwent cardiac cath with placement of 4 stents (2 overlapping stents in the left main/proximal LAD and 2 overlapping stents in the RCA). Now on Brilinta and aspirin. 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 Lymphovascular, including large vessel and perineural invasion identified. Tumor invades into adjoining portal vein And superior mesenteric vein but various margins are negative for the tumor. Tumor present at uncinate margin, as foci of vascular invasion. Tumor is less than 1 cm from posterior surface. A small focus of perineural invasion is identified less than 1 cm from the bile duct margin. Pancreatic parenchymal, proximal and distal duodenal resection margins are negative for the tumor. Metastatic carcinoma involving 4 out of 25 lymph nodes ypN2. Adjuvant chemotherapy/chemoradiation was recommended at [place], but at the same time cardiology had a concern about bone marrow suppressing chemotherapy regimens and recommended avoiding these regimens as patient will require at least 6 months of continued DAPT due to recent NSTEMI and high risk PCI. Based on his final pathology report after Whipple's procedure, patient is a high risk for local recurrence and distant recurrence as there was a minimum response to the neoadjuvant chemotherapy. Lymph node positive disease with close surgical margins was identified. At that point, Mr Powell was referred to radiation oncology for adjuvant radiation therapy. He was also under consideration of low-dose Xeloda concurrently with radiation as patient is not a candidate for adjuvant chemotherapy due to high risk for bone marrow suppression and treatment rendered complication. Considering Risk versus benefit, Dr Root recommended modified dose Xeloda concurrent with radiation therapy and monitor his blood counts on weekly basis and adjust chemotherapy dose accordingly to minimize bone marrow suppression. He began concurrent therapy with radiation and dose reduced Xeloda on 12/10/2019. He is following with Dr Jefferson, local [employer], for follow-up of NSTEMI status post PCI to LAD and LM. Mr Escamilla is tolerating chemotheapy well thus far. Plan: 1. Proceed with current dosing of Xeloda at 650 mg twice daily on the days of radiation only. He has 3 more weeks of treatment after today. 2. We have discussed him using Lomotil as needed for diarrhea. He can still use the Imodium if he feels he gets any benefit from it. If that is not working he was instructed to let us know. He and Mrs Cobb were instructd to call [facility] as soon as the diarrhea startes. 4. We did discuss that if he has diarrhea that he will need hydration if the diarrhea is significant. He verbalized understanding. 5. He states Dr. Jefferson had requested a fasting lipid panel and wondered if we could do that with the labs that we obtained here. We have arranged for him to do fasting labs next week with his CBC CMP. This is for evaluation of his CAD. He states Dr. Jefferson stopped his atorvastatin presumably due to elevated liver function. 6. Labs from December 16, 2019 were reviewed in detail and discussed with Mr. Powell and a copy was given to him. WBC 3.8, hemoglobin 9.5, platelets 138,000 ANC is 2800. Potassium 3.8. Random glucose 128 creatinine 0.6 albumin 3.2 ALT is improved at 43 AST is 39 alk phos is 106. 7. Mr. Powell was instructed to continue his potassium supplement unless he gets s/s of low potassium-such as leg cramps or palpitations or worsening fatigue. 8. We will plan to see him back in 1 week with CBC CMP for evaluation of Xeloda. 9. He instructed to contact us in the interim should questions or problems arise. 10. He was 9.5 today and his irons are just borderline low. His iron level is 48 and iron saturation was 18.5% his ferritin 31. He wanted to try to improve the iron levels with diet first and if that is not working he may consider treatment at that time. Signed By: Viry AnguianoNAndry-, AOCNP Danielle Root MD <<Signature on File>>
[2019-12-30 11:10] LABS: Basophils % 0.6 %; Eosinophils # 0.2 10^3/uL (0.0-0.8); Eosinophils % 7.4 %; Hematocrit 29.1 % (42.0-52.0); Hemoglobin 9.3 g/dL (11.7-16.6); Lymphocytes # 0.3 10^3/uL (0.8-4.8); Lymphocytes % 7.7 %; Mean Corpuscular Hemoglobin 30.5 pg (28.0-34.0); Mean Corpuscular Volume 95.4 fL (80-94); Mean Platelet Volume 10.5 fL (7.4-10.4); Monocytes # 0.4 10^3/uL (0.2-0.9); Monocytes % 12.4 %; Neutrophils # 2.3 10^3/uL (1.8-7.7); Neutrophils % 71.6 %; Nucleated Red Blood Cells % 0 %; Platelet Count 147 10^3/cmm (130-400); Red Blood Count 3.05 10^6/uL (4.1-5.3); Red Cell Distribution Width 15.5 % (12.1-15.1); White Blood Count 3.2 10^3/uL (4.0-10.0)
[2019-12-30 11:29] LABS: Alanine Aminotransferase 32 U/L (0-41); Albumin Level 3.2 g/dL (3.5-5.2); Alkaline Phosphatase 94 IU/L (40-130); Anion Gap 11.7 (5-19); Aspartate Amino Transferase 33 U/L (0-40); Blood Urea Nitrogen 8 mg/dL (8-23); Calcium 8.7 mg/dL (8.5-10.5); Carbon Dioxide 25 mmol/L (22-29); Chloride 105 mmol/L (98-107); Globulin 2.5 g/dL (1.3-4.6); Glucose 107 mg/dL (65-115); Potassium 3.7 mmol/L (3.5-5.1); Sodium 138 mmol/L (136-145); Total Bilirubin 0.2 mg/dL (0.15-1.2); Total Protein 5.7 g/dL (6.6-8.7)
--- NOTE | 2019-12-31 13:05 | ONCRAD TMN_ITS ---
Radiation Oncology Weekly Treatment Management Patient: Elieser Powell MR#: [id number] : 1950> Age: 69> Sex: Male Dictated by: Dr. Emile Ulloa Date of Service: 12/31/2019 Referring Physician(s) : Dr. 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 ID: [id number], Energy: 6X, Dose/Fx (cGy): 180, #Fx: , Dose Correction (cGy): 0, Total Dose (cGy): 2,880, Start Date: 12/09/2019, Elapsed Days: 22 Current Complaints/Interval History: Constitutional Complains of mild fatigue. Denies lack of appetite, fever, night sweats and change in weight. Integumentary Has slight redness to the incisional scar with tenderness Respiratory Denies cough, dyspnea, hiccoughs and wheezing. Gastrointestinal Complains of intermittent diarrhea. Denies abdominal pain, constipation, heartburn / dyspepsia, nausea and vomiting. Current Medications: Aspirin, carvedilol, chlorproMAZINE HCl, claritin, gas Relief, humuLIN R, imodium A-D, k-Tab, lansoprazole, lisinopril, lomotil, lomotil, lORazepam, neulasta, potassium Chloride ER, prochlorperazine Maleate, prochlorperazine Maleate, ticagrelor, zofran. Allergies: No Known Allergies Vital Signs: Performed on 12/31/2019 10:00 AM Height - 67.00 in, Weight - 164.4 lbs (high), BSA - 1.86 sq.m, BMI - 25.75, Temperature - 97.4 f (low), Pulse - 56 /min (low), Respiration - 16 /min, O2 Sat - 98 %, Pain - 0, Fatigue - 2 and BP - 155/ 84 mm(hg)(high/). Physical Exam: Appears stable, skin erythema w/o desquamation along incisional scar on upper abdomen. Performance Status: 1 - No physically strenuous activity, but ambulatory and able to carry out light or sedentary work (e.g. office work, light house work). (ECOG) Lab: No Test performed on 12/23/2019 8:50 AM WBC - 3.1 10 3/ul (low), RBC - 3.18 10 6/ul (low), HGB - 9.5 g/dl (low), HCT - 30.1 % (low), MCV - 94.7 fl (high), MPV - 10.7 fl (high), Lymphocytes - 0.4 10 3/ul (low), Potassium - 3.0 mmol/l (low), BUN - 5 mg/dl (low), Creatinine - 0.5 mg/dl (low), Cr Clearance (Est) - 141.0200 ml/min (high), Glucose - 120 mg/dl (high), Protein, Total - 5.6 g/dl (low), Albumin - 3.3 g/dl (low), Iron - 48 ug/dl (low), LDL Cholesterol - 45 mg/dl (low) and HDL Cholesterol - 41 mg/dl (low). Imaging: No new diagnostic imaging was performed since the last weekly treatment visit. All radiation therapy related imaging (including but not limited to CBCT generated images) was reviewed. Appropriate changes, if any, were made to assure accurate target localization. Impression/Plan: Tolerating treatment well with expected side effects. Continue treatment as planned. Apply aquaphor to incisional scar area. Imodium prn diarrhea CPT: 97529 Signed by: Dr. Emile Ulloa>12/31/2019 1:04:31 PM <<Signature on File>>
--- NOTE | 2020-01-02 13:10 | ONC FU_ITS ---
Rebekah Velazquez Patient Note Patient: Elieser Powell < Unit #: [id number]: 1950 Dictated By: Anamaria AnguianoDate of Visit: Dec 31, 2019 Onc MED Follow-Up/Prog Note Chief Complaint: Pancreatic cancer History of Present Illness: Mr. Powell is a 69-year-old gentleman with history of progressive weakness and fatigue, acid reflux and loss of appetite. He subsequently noted change in his stool and urine color and jaundice. He also had about 25 pounds weight loss due to poor appetite and early fullness. Patient underwent CT scan of abdomen on 03/25/2019 which showed 3.3 x 2.9 x 2.9 cm soft tissue mass involving inferior pancreatic head and uncinate process. This mass was causing obstruction of common bile duct and probably also pancreatic duct and pancreatic mass abuts and distorts and may invade the medial duodenal C-loop. Patient was referred to [place] where he underwent endoscopic ultrasound and FNA done on 03/29/2019 and it confirmed adenocarcinoma subsequently underwent metal bile duct stent placement with that his jaundice improved but continued to have early fullness nausea finally underwent duodenal stent placement. Mr Powell was referred to Dr. Barbosa and as per patient, Dr. Barbosa suggested neoadjuvant chemotherapy prior to the surgery. Patient and his family decided to take second opinion and went to [facility] for evaluation. He then underwent an attempted ERCP at [facility], which was not possible due to significant luminal stenosis. The endoscopic ultrasound revealed obstructing 3.2 cm pancreatic head mass and the biopsy was positive for adenocarcinoma. Due to inability to perform ERCP, patient underwent percutaneous internal biliary stent. Later patient developed nausea vomiting for which he was readmitted to [facility] in [place] on 04/03/2019 and diagnosed with gastric outlet obstruction for that he underwent EGD with duodenal stent placement on 04/12/2019 . He then underwent pancreas protocol CT scan at [facility] as per patient he was told there could be vascular involvement with tumor so neoadjuvant chemotherapy with folfirinox was recommended. He began his first cycle on 05/27/2019. On 07/03/[address] [facility] with high-grade fever and diarrhea jaundice and abnormal LFTs subsequently diagnosed with sepsis being hypotensive patient was treated with IV antibiotics and CT scan of abdomen pelvis done on 07/04/2019 which showed marked biliary tract dilatation subsequently patient was transferred to [facility] in [place] for further management but his condition continued to improve GI was consulted but his LFTs continued to improve and he was discharged home on Cipro and Flagyl. Patient said he went back to [facility] and this time he underwent ERCP and not sure whether stent was replaced or cleaned. He had MRI MRCP done on 07/17/2019 which showed marked biliary tract dilatation with moderate dilatation of pancreatic duct similar to CT scan of 07/04/2019 and metallic stents obscure with radiation of pancreatic mass. Patient was on oral antibiotics ciprofloxacin and Flagyl till 07/27/2019. Mr Powell completed 6 cycles of neoadjuvant chemotherapy with folfirinox on 09/04/2019. He then underwent pancreaticoduodenectomy, resection and reconstruction of' superior mesenteric vein portal vein using Bovine pericardium patch and abdominal lymphadenectomy on 10/02/2019. His postop course was complicated by NSTEMI and he required intra-aortic balloon pump and ultimately underwent cardiac cath with placement of 4 stents (2 overlapping stents in the left main/proximal LAD and 2 overlapping stents in the RCA). Now on Brilinta and aspirin. 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 Lymphovascular, including large vessel and perineural invasion identified. Tumor invades into adjoining portal vein And superior mesenteric vein but various margins are negative for the tumor. Tumor present at uncinate margin, as foci of vascular invasion. Tumor is less than 1 cm from posterior surface; A small focus of perineural invasion is identified less than 1 cm from the bile duct margin. Pancreatic parenchymal, proximal and distal duodenal resection margins are negative for the tumor. Metastatic carcinoma involving 4 out of 25 lymph nodes ypN2. Adjuvant chemotherapy/chemoradiation was recommended at [facility], but at the same time cardiology had a concern about bone marrow suppressing chemotherapy regimens and recommended avoiding these regimens as patient will require at least 6 months of continued DAPT due to recent NSTEMI and high risk PCI. Based on his final pathology report after Whipple's procedure, patient is a high risk for local recurrence and distant recurrence as there was a minimum response to the neoadjuvant chemotherapy. Lymph node positive disease with close surgical margins was identified. At that point, Mr Powell was referred to radiation oncology for adjuvant radiation therapy. He was also under consideration of low-dose Xeloda concurrently with radiation as patient is not a candidate for adjuvant chemotherapy due to high risk for bone marrow suppression and treatment rendered complication. Considering Risk versus benefit, Dr Root recommended modified dose Xeloda concurrent with radiation therapy and monitor his blood counts on weekly basis and adjust chemotherapy dose accordingly to minimize bone marrow suppression. He began concurrent therapy with radiation and dose reduced Xeloda on 12/10/2019. Mr. Powell is here today for follow-up. He has been on Xeloda 625 mg twice daily on the days of radiation since December 10, 2019. Overall he seems to be tolerating it well although he has had some increase in his stools. He states the Lomotil has helped with his diarrhea and he feels it is controlled at present. He has no new concerns today and states he is feeling good overall. His energy is fair-he remains very active. He denies any urinary symptoms. He denies any peripheral neuropathy symptoms. He denies any pain currently. He has not had mouth sores or any skin changes. His ECOG is 1. Past Medical History: Eczema Gastroesophageal reflux disease Hypercholesterolemia Past Surgical History: Stent replacement in the biliary duct in 2019 Fna of pancreas in 2019 Eyelid surgery in 1960 Tonsillectomy in 1955 Allergies: No Known Allergies. Medications: Aspirin 1 Tablet (of 81 mg) Tablet Oral daily Carvedilol 1 Tablet (of 6.25 mg) Oral daily Claritin 1 Tablet (of 10 mg) Oral daily PRN Gas Relief 1 Capsule (of 180 mg) Oral PRN Imodium A-D 1 Capsule (of 2 mg) Oral PRN K-Tab 1 Tablet (of 10 meq) Tablet, controlled release Oral daily PRN Lisinopril 1 Tablet (of 5 mg) Oral daily Lomotil 1 Tablet (of 2.5-0.025 mg) Oral daily PRN LORazepam 0.5 - 1 Tablet (of 1 mg) Oral t.i.d. PRN Prochlorperazine Maleate 1 Tablet (of 10 mg) Oral q 4 hours PRN Ticagrelor 1 Tablet (of 90 mg) Oral b.i.d. Zofran 1 Tablet (of 4 mg) Oral q 6 hours PRN Family History: Mr. Powell's mother at age 92: Alzheimer's Disease, and cervical cancer. Mr. Powell's father at age 63: heart disease. Social History: Mr. Powell is and he is retired. Mr. Powell has never smoked. He has no history of drinking. He has indicated exposure to the following products: marijuana. Review Of Symptoms: Constitutional Denies fevers, chills, night sweats, excessive fatigue. Allergic/Immunologic No reactions. Eyes Denies significant visual changes. No diplopia. No amaurosis. ENMT Denies changes in hearing, sore throat, mouth sores, difficulty or changes in swallowing ability, and/or sinus drainage. Hematologic/Lymphatic Denies easy bruising or bleeding. The patient denies any tender or palpable lymph nodes. Respiratory Denies dyspnea on exertion, chest pain, cough or hemoptysis. Denies orthopnea. Cardiovascular Denies anginal chest pain, palpitations or orthopnea. Gastrointestinal Denies nausea, vomiting, diarrhea, GI bleeding, or constipation with treatment. Denies heartburn or early satiety. Genitourinary (M) Denies hematuria, dysuria, increased frequency, urgency, hesitancy or incontinence. Musculoskeletal Denies joint pain, swelling or redness. No decreased range of motion. Denies leg cramps. Legs get tired, but much better after he started wearing 'CORINA hose . Integumentary Denies chronic rashes, inflammation, ulcerations or skin changes. Neurologic Denies headache, blurred vision, and no areas of focal weakness or numbness. Normal gait. No current sensory problems. Psychiatric Denies insomnia, depression, kathya or mood swings. Constitutional Complains of mild fatigue. Denies lack of appetite, fever, night sweats and change in weight. Integumentary Has slight redness to the insicional line with tenderness Cardiovascular Denies chest pain. Respiratory Denies cough, dyspnea, hiccoughs and wheezing. Gastrointestinal Complains of intermittent diarrhea. Denies abdominal pain, constipation, heartburn / dyspepsia, nausea and vomiting. Vital Signs: Performed on Dec 31, 2019 11:07 Height - 67.00 in Weight - 164.4 lbs Temperature - 97.4 F Pulse - 56 Respiration - 16 BP - 155/84 mm(hg) (HIGH) O2 Sat - 98 % Pain - 0 Fatigue - 2 Performed on Dec 31, 2019 11:07 BMI - 25.749 kg/m2 (HIGH) Performed on Dec 31, 2019 10:00 Height - 67.00 in Weight - 164.4 lbs (HIGH) BSA - 1.86 sq.m BMI - 25.75 Temperature - 97.4 F (LOW) Pulse - 56 /min (LOW) Respiration - 16 /min BP - 155/84 mm(hg) (HIGH) O2 Sat - 98 % Pain - 0 Fatigue - 2,1 - No physically strenuous activity, but ambulatory and able to carry out light or sedentary work (e.g. office work, light house work). (ECOG) Physical Examination: Constitutional Alert, oriented, no acute distress. Skin pink, warm and dry. Head Normocephalic; atraumatic. Eyes Conjunctivae and sclerae are clear and without icterus. Pupils are reactive and equal. ENMT Sinuses are nontender. No oral exudates, ulcers, masses, thrush or mucositis. Oropharynx clear. Tongue normal. Neck Supple without masses or thyromegaly. No jugular venous distension. Hematologic/Lymphatic No petechiae or purpura. No tender or palpable lymph nodes in the cervical or supraclavicular areas. Respiratory Lungs are clear to auscultation without rhonchi or wheezing. Cardiovascular Regular rate and rhythm of heart without murmurs,clicks, gallops or rubs. Abdomen Non-tender, non-distended, no masses, ascites. Good bowel sounds noted in all quads. Back/Spine Non-tender to palpation. Extremities No visible deformities, no cyanosis, clubbing or edema. Musculoskeletal No tenderness or swelling, normal range of motion without obvious weakness. Integumentary No rashes or lesions. Neurologic No sensory or motor deficits, normal cerebellar function, normal gait. Psychiatric Alert and oriented times three. Coherent speech. Verbalizes understanding of our discussions today. Laboratory:Test performed on Dec 23, 2019 08:50 Cholesterol, Total 102 mg/dL Ferritin 31 ng/mL Iron 48 ug/dL Sodium 140 mmol/L Potassium 3.0 mmol/L Triglycerides 79 mg/dL Chloride 104 mmol/L LDL Cholesterol 45 mg/dL CO2 24 mmol/L UIBC 216 ug/dL Anion Gap 15.0 HDL Cholesterol 41 mg/dL BUN 5 mg/dL Cholesterol/HDL Ratio 2.49 mg/dL Creatinine 0.5 mg/dL LDL / HDL Ratio 1.10 RATIO Cr Clearance (Est) 141.0200 mL/min Glucose 120 mg/dL Calcium 8.9 mg/dL Protein, Total 5.6 g/dL Albumin 3.3 g/dL Globulin 2.3 g/dL Bilirubin, Total 0.2 mg/dL ALT (SGPT) 29 U/L AST (SGOT) 30 U/L Alkaline Phosphatase 105 IU/L Hemoglobin A1C % 5.9 % WBC 3.1 10 3/uL RBC 3.18 10 6/uL HGB 9.5 g/dL HCT 30.1 % MCV 94.7 fL MCH 29.9 pg MCHC 31.6 g/dL RDW 14.8 % Platelet Count 139 10 3/cmm MPV 10.7 fL Neutrophils 2.2 10 3/uL Lymphocytes 0.4 10 3/uL Monocytes 0.4 10 3/uL Eosinophils 0.2 10 3/uL Basophils 0.0 10 3/uL Neutrophil % 70.8 % Lymphocyte % 11.7 % Monocyte % 11.7 % Eosinophil % 5.2 % Basophils % 0.3 % Impression: Status post pancreaticoduodenectomy, resection and reconstruction of superior mesenteric vein/portal vein using bovine pericardium patch. Abdominal lymph node dissection and excision of left hepatic lobe lesion and peritoneal lesion and myofascial abdominal wall flap on 10/02/2019 final pathology report showed ypT3 and 4 out of 25 positive lymph node ypN2 Postop course was complicated by NSTEMI status post complex PCI to LM and LAD in September 2019 Adenocarcinoma involving head of pancreas and uncinate process per EUS guided FNA done on 03/29/2019 and metal bile duct stent placement for obstructive jaundice with resolution of jaundice CT scan of abdomen pelvis done on 03/25/2019 showed pancreatic head/uncinate process mass measuring 3.3 x 2.9 x 3.9 cm causing biliary system dilatation scan due to pancreatic head mass. Possible invasion into medial duodenal C-loop. No adenopathy or ascites noted Gastric outlet obstruction Status post duodenal stent placement Mr Powell was seen by Dr. Barbosa, surgeon and neoadjuvant chemotherapy was recommended prior to the surgery. He obtained a second opinion from [facility]. On 04/30/2019, he was evaluated at [facility] GI surgery clinic and underwent a pancreas protocol CT scan. The patient reports that he was told that tumor may be involving adjustment vascular structures so neoadjuvant chemotherapy with folfirinox was recommended. Mr Powell began his first cycle of FOLFIRINOX on 05/27/2019. Cycle 2 was given on 06/10/2019. He completed 6 cycles of neoadjuvant chemotherapy on 09/04/2019. Mr Powell completed 6 cycles of neoadjuvant chemotherapy with folfirinox on 09/04/2019. He then underwent pancreaticoduodenectomy, resection and reconstruction of' superior mesenteric vein portal vein using Bovine pericardium patch and abdominal lymphadenectomy on 10/02/2019. His postop course was complicated by NSTEMI and he required intra-aortic balloon pump and ultimately underwent cardiac cath with placement of 4 stents (2 overlapping stents in the left main/proximal LAD and 2 overlapping stents in the RCA). Now on Brilinta and aspirin. 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 Lymphovascular, including large vessel and perineural invasion identified. Tumor invades into adjoining portal vein And superior mesenteric vein but various margins are negative for the tumor. Tumor present at uncinate margin, as foci of vascular invasion. Tumor is less than 1 cm from posterior surface. A small focus of perineural invasion is identified less than 1 cm from the bile duct margin. Pancreatic parenchymal, proximal and distal duodenal resection margins are negative for the tumor. Metastatic carcinoma involving 4 out of 25 lymph nodes ypN2. Adjuvant chemotherapy/chemoradiation was recommended at [facility], but at the same time cardiology had a concern about bone marrow suppressing chemotherapy regimens and recommended avoiding these regimens as patient will require at least 6 months of continued DAPT due to recent NSTEMI and high risk PCI. Based on his final pathology report after Whipple's procedure, patient is a high risk for local recurrence and distant recurrence as there was a minimum response to the neoadjuvant chemotherapy. Lymph node positive disease with close surgical margins was identified. At that point, Mr Powlel was referred to radiation oncology for adjuvant radiation therapy. He was also under consideration of low-dose Xeloda concurrently with radiation as patient is not a candidate for adjuvant chemotherapy due to high risk for bone marrow suppression and treatment rendered complication. Considering Risk versus benefit, Dr Root recommended modified dose Xeloda concurrent with radiation therapy and monitor his blood counts on weekly basis and adjust chemotherapy dose accordingly to minimize bone marrow suppression. He began concurrent therapy with radiation and dose reduced Xeloda on 12/10/2019. He is following with Dr Jefferson, local [employer], for follow-up of NSTEMI status post PCI to LAD and LM. Mr Powell is tolerating chemotheapy well thus far. Plan: 1. Proceed with current dosing of Xeloda at 650 mg twice daily on the days of radiation only. He has 2 more weeks of treatment after today. 2. We have discussed him using Lomotil as needed for diarrhea. He can still use the Imodium if he feels he gets any benefit from it. If that is not working he was instructed to let us know. He and Mrs Cobb were instructd to call [facility] as soon as the diarrhea startes. 4. We did discuss that if he has diarrhea that he will need hydration if the diarrhea is significant. He verbalized understanding. 5. Labs from December 30, 2019 were reviewed in detail and discussed with Mr. Powell and a copy was given to him. WBC 3.2, hemoglobin 9.3, platelets 147,000 ANC is 2300. Potassium 3.7. Random glucose 107 creatinine 0.6 albumin 3.2. 6. We will plan to see him back in 1 week with CBC CMP for evaluation of Xeloda. 7. He was instructed to contact us in the interim should questions or problems arise. Signed By: Anamaria Anguiano MD <<Signature on File>>
[2020-01-06 11:46] LABS: Basophils % 0.3 %; Eosinophils # 0.2 10^3/uL (0.0-0.8); Hematocrit 29.6 % (42.0-52.0); Hemoglobin 9.4 g/dL (11.7-16.6); Lymphocytes # 0.2 10^3/uL (0.8-4.8); Lymphocytes % 6.6 %; Mean Corpuscular HGB Conc 31.8 g/dL (30.0-36.0); Mean Corpuscular Hemoglobin 30.7 pg (28.0-34.0); Mean Corpuscular Volume 96.7 fL (80-94); Mean Platelet Volume 10.5 fL (7.4-10.4); Monocytes # 0.5 10^3/uL (0.2-0.9); Monocytes % 12.9 %; Neutrophils # 2.7 10^3/uL (1.8-7.7); Neutrophils % 74.9 %; Nucleated Red Blood Cells % 0 %; Platelet Count 155 10^3/cmm (130-400); Red Blood Count 3.06 10^6/uL (4.1-5.3); Red Cell Distribution Width 16.1 % (12.1-15.1); White Blood Count 3.6 10^3/uL (4.0-10.0)
[2020-01-06 11:58] LABS: Alanine Aminotransferase 21 U/L (0-41); Albumin Level 3.2 g/dL (3.5-5.2); Alkaline Phosphatase 89 IU/L (40-130); Anion Gap 12.7 (5-19); Aspartate Amino Transferase 22 U/L (0-40); Blood Urea Nitrogen 6 mg/dL (8-23); Calcium 8.8 mg/dL (8.5-10.5); Carbon Dioxide 25 mmol/L (22-29); Chloride 105 mmol/L (98-107); Globulin 2.7 g/dL (1.3-4.6); Glucose 107 mg/dL (65-115); Potassium 3.7 mmol/L (3.5-5.1); Sodium 139 mmol/L (136-145); Total Bilirubin 0.2 mg/dL (0.15-1.2); Total Protein 5.9 g/dL (6.6-8.7)
[2020-01-06 12:08] LABS: Cancer Antigen 19 9 25.48 U/mL (0-35)
--- NOTE | 2020-01-08 09:16 | ONC FU_ITS ---
Dr. Root follow up note Patient: Elieser Powell < Unit #: [id number]: 1950 Dicatated By: Danielle Root M.D.Date of Visit:Jan 07, 2020 Onc Med Follow-up/Prog Note History of Present Illness: Mr. Powell is a 69-year-old gentleman with history of progressive weakness and fatigue, acid reflux and loss of appetite. He subsequently noted change in his stool and urine color and jaundice. He also had about 25 pounds weight loss due to poor appetite and early fullness. Patient underwent CT scan of abdomen on 03/25/2019 which showed 3.3 x 2.9 x 2.9 cm soft tissue mass involving inferior pancreatic head and uncinate process. This mass was causing obstruction of common bile duct and probably also pancreatic duct and pancreatic mass abuts and distorts and may invade the medial duodenal C-loop. Patient was referred to [facility] where he underwent endoscopic ultrasound and FNA done on 03/29/2019 and it confirmed adenocarcinoma subsequently underwent metal bile duct stent placement with that his jaundice improved but continued to have early fullness nausea finally underwent duodenal stent placement. Mr Powell was referred to Dr. Barbosa and as per patient, Dr. Barbosa suggested neoadjuvant chemotherapy prior to the surgery. Patient and his family decided to take second opinion and went to [facility] for evaluation. He then underwent an attempted ERCP at [facility], which was not possible due to significant luminal stenosis. The endoscopic ultrasound revealed obstructing 3.2 cm pancreatic head mass and the biopsy was positive for adenocarcinoma. Due to inability to perform ERCP, patient underwent percutaneous internal biliary stent. Later patient developed nausea vomiting for which he was readmitted to [facility] in [place] on 04/03/2019 and diagnosed with gastric outlet obstruction for that he underwent EGD with duodenal stent placement on 04/12/2019 . He then underwent pancreas protocol CT scan at [facility] as per patient he was told there could be vascular involvement with tumor so neoadjuvant chemotherapy with folfirinox was recommended. He began his first cycle on 05/27/2019. On 07/03/2019 he was admitted to [facility] with high-grade fever and diarrhea jaundice and abnormal LFTs subsequently diagnosed with sepsis being hypotensive patient was treated with IV antibiotics and CT scan of abdomen pelvis done on 07/04/2019 which showed marked biliary tract dilatation subsequently patient was transferred to [facility] in [place] for further management but his condition continued to improve GI was consulted but his LFTs continued to improve and he was discharged home on Cipro and Flagyl. Patient said he went back to [facility] and this time he underwent ERCP and not sure whether stent was replaced or cleaned. He had MRI MRCP done on 07/17/2019 which showed marked biliary tract dilatation with moderate dilatation of pancreatic duct similar to CT scan of 07/04/2019 and metallic stents obscure with radiation of pancreatic mass. Patient was on oral antibiotics ciprofloxacin and Flagyl till 07/27/2019. Mr Powell completed 6 cycles of neoadjuvant chemotherapy with folfirinox on 09/04/2019. He then underwent pancreaticoduodenectomy, resection and reconstruction of' superior mesenteric vein portal vein using Bovine pericardium patch and abdominal lymphadenectomy on 10/02/2019. His postop course was complicated by NSTEMI and he required intra-aortic balloon pump and ultimately underwent cardiac cath with placement of 4 stents (2 overlapping stents in the left main/proximal LAD and 2 overlapping stents in the RCA). Now on Brilinta and aspirin. 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 Lymphovascular, including large vessel and perineural invasion identified. Tumor invades into adjoining portal vein And superior mesenteric vein but various margins are negative for the tumor. Tumor present at uncinate margin, as foci of vascular invasion. Tumor is less than 1 cm from posterior surface; A small focus of perineural invasion is identified less than 1 cm from the bile duct margin. Pancreatic parenchymal, proximal and distal duodenal resection margins are negative for the tumor. Metastatic carcinoma involving 4 out of 25 lymph nodes ypN2. Adjuvant chemotherapy/chemoradiation was recommended at [place], but at the same time cardiology had a concern about bone marrow suppressing chemotherapy regimens and recommended avoiding these regimens as patient will require at least 6 months of continued DAPT due to recent NSTEMI and high risk PCI. Based on his final pathology report after Whipple's procedure, patient is a high risk for local recurrence and distant recurrence as there was a minimum response to the neoadjuvant chemotherapy. Lymph node positive disease with close surgical margins was identified. At that point, Mr Powell was referred to radiation oncology for adjuvant radiation therapy. He was also under consideration of low-dose Xeloda concurrently with radiation as patient is not a candidate for adjuvant chemotherapy due to high risk for bone marrow suppression and treatment rendered complication. Considering Risk versus benefit, recommended modified dose Xeloda concurrent with radiation therapy and monitor his blood counts on weekly basis and adjust chemotherapy dose accordingly to minimize bone marrow suppression. He began concurrent therapy with radiation and dose reduced Xeloda on 12/10/2019. He has been on Xeloda 625 mg twice daily on the days of radiation Came for follow-up, denies any specific complaints except generalized weakness and fatigue but no fever or chills, no nausea or vomiting, no melena or hematochezia, off and on diarrhea but under control with antidiarrheal. Tolerating combined chemoradiation with modified dose oral Xeloda well. No chest pain, no shortness of breath no palpitation. Patient will complete his combined chemoradiation therapy next week. Medications: Aspirin 1 Tablet (of 81 mg) Tablet Oral daily, Carvedilol 1 Tablet (of 6.25 mg) Oral daily, Claritin 1 Tablet (of 10 mg) Oral daily PRN, Gas Relief 1 Capsule (of 180 mg) Oral PRN, Imodium A-D 1 Capsule (of 2 mg) Oral PRN, K-Tab 1 Tablet (of 10 meq) Tablet, controlled release Oral daily PRN, Lisinopril 1 Tablet (of 5 mg) Oral daily, Lomotil 1 Tablet (of 2.5-0.025 mg) Oral daily PRN, LORazepam 0.5 - 1 Tablet (of 1 mg) Oral t.i.d. PRN, Prochlorperazine Maleate 1 Tablet (of 10 mg) Oral q 4 hours PRN, Ticagrelor 1 Tablet (of 90 mg) Oral b.i.d., Xeloda 1 Tablet (of 150 mg) Oral b.i.d., Xeloda 1 Tablet (of 500 mg) Oral b.i.d., Zofran 1 Tablet (of 4 mg) Oral q 6 hours PRN Allergies: No Known Allergies. Review of Systems: Constitutional - Appetite is fair and weight is decreasing. No fever, chills, hot flashes, or night sweats. Energy level is poor, ENMT - No sinus congestion/drainage. No mouth sores. No sore throat or difficulty swallowing, Hematologic/Lymphatic - No abnormal bruising or bleeding, Respiratory - No shortness of breath. No cough. No pleuritic pain or hemoptysis, Cardiovascular - No angina pain. No palpitations, Gastrointestinal - No nausea or vomiting. Negative for heartburn and acid reflux. Positive for loose, greasy stool, Genitourinary (M) - No dysuria or hematuria. No urinary frequency. No urgency. Pt reports occasional incontinence, Musculoskeletal - No joint or bone pain, Neurologic - No headache or dizziness. No numbness/paresthesias or other focal neurologic symptoms, Psychiatric - No anxiety or depression. No insomnia. Vital Signs: Performed on Jan 07, 2020 10:57 Height - 67.00 in Weight - 159.6 lbs (LOW) BSA - 1.84 sq.m BMI - 25.00 Temperature - 97.7 F (LOW) Pulse - 48 /min (LOW) Respiration - 18 /min BP - 148/80 mm(hg) (HIGH) O2 Sat - 100 % Pain - 0 Performance Status: 1 - No physically strenuous activity, but ambulatory and able to carry out light or sedentary work (e.g. office work, light house work). (ECOG) Physical Examination: ENMT - No oral exudates, ulcers, masses, thrush or mucositis. Oropharynx clear. Tongue normal, Respiratory - Lungs are clear to auscultation without rhonchi or wheezing, Cardiovascular - Regular rate and rhythm of heart, Abdomen - Non-tender, non-distended, Good bowel sounds. No guarding or rebound tenderness. No pulsatile masses, Extremities - no edema. Lab/Imaging: Test performed on Dec 23, 2019 08:50 Ferritin 31 ng/mL Cholesterol, Total 102 mg/dL Iron 48 ug/dL Sodium 140 mmol/L Potassium 3.0 mmol/L Triglycerides 79 mg/dL Chloride 104 mmol/L LDL Cholesterol 45 mg/dL CO2 24 mmol/L UIBC 216 ug/dL Anion Gap 15.0 HDL Cholesterol 41 mg/dL BUN 5 mg/dL Cholesterol/HDL Ratio 2.49 mg/dL Creatinine 0.5 mg/dL LDL / HDL Ratio 1.10 RATIO Cr Clearance (Est) 141.0200 mL/min Glucose 120 mg/dL Calcium 8.9 mg/dL Protein, Total 5.6 g/dL Albumin 3.3 g/dL Globulin 2.3 g/dL Bilirubin, Total 0.2 mg/dL ALT (SGPT) 29 U/L AST (SGOT) 30 U/L Alkaline Phosphatase 105 IU/L Hemoglobin A1C % 5.9 % WBC 3.1 10 3/uL RBC 3.18 10 6/uL HGB 9.5 g/dL HCT 30.1 % MCV 94.7 fL MCH 29.9 pg MCHC 31.6 g/dL RDW 14.8 % Platelet Count 139 10 3/cmm MPV 10.7 fL Neutrophils 2.2 10 3/uL Lymphocytes 0.4 10 3/uL Monocytes 0.4 10 3/uL Eosinophils 0.2 10 3/uL Basophils 0.0 10 3/uL Neutrophil % 70.8 % Lymphocyte % 11.7 % Monocyte % 11.7 % Eosinophil % 5.2 % Basophils % 0.3 % Test performed on Sep 03, 2019 09:55 Magnesium 1.7 mg/dL Impression: Status post pancreaticoduodenectomy, resection and reconstruction of superior mesenteric vein/portal vein using bovine pericardium patch. Abdominal lymph node dissection and excision of left hepatic lobe lesion and peritoneal lesion and myofascial abdominal wall flap on 10/02/2019 final pathology report showed ypT3 and 4 out of 25 positive lymph node ypN2 Postop course was complicated by NSTEMI status post complex PCI to LM andLAD in September 2019 Adenocarcinoma involving head of pancreas and uncinate process per EUS guided FNA done on 03/29/2019 and metal bile duct stent placement for obstructive jaundice with resolution of jaundice CT scan of abdomen pelvis done on 03/25/2019 showed pancreatic head/uncinate process mass measuring 3.3 x 2.9 x 3.9 cm causing biliary system dilatation scan due to pancreatic head mass. Possible invasion into medial duodenal C-loop. No adenopathy or ascites noted Gastric outlet obstruction Status post duodenal stent placement Mr Powell was seen by Dr. Barbosa, surgeon and neoadjuvant chemotherapy was recommended prior to the surgery. He obtained a second opinion from [facility]. On 04/30/2019, he was evaluated at [facility] GI surgery clinic and underwent a pancreas protocol CT scan. The patient reports that he was told that tumor may be involving adjustment vascular structures so neoadjuvant chemotherapy with folfirinox was recommended. Mr Powell began his first cycle of FOLFIRINOX on 05/27/2019. Cycle 2 was given on 06/10/2019. He completed 6 cycles of neoadjuvant chemotherapy on 09/04/2019. Mr Powell completed 6 cycles of neoadjuvant chemotherapy with folfirinox on 09/04/2019. He then underwent pancreaticoduodenectomy, resection and reconstruction of' superior mesenteric vein portal vein using Bovine pericardium patch and abdominal lymphadenectomy on 10/02/2019. His postop course was complicated by NSTEMI and he required intra-aortic balloon pump and ultimately underwent cardiac cath with placement of 4 stents (2 overlapping stents in the left main/proximal LAD and 2 overlapping stents in the RCA). Now on Brilinta and aspirin. 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 Lymphovascular, including large vessel and perineural invasion identified. Tumor invades into adjoining portal vein And superior mesenteric vein but various margins are negative for the tumor. Tumor present at uncinate margin, as foci of vascular invasion. Tumor is less than 1 cm from posterior surface. A small focus of perineural invasion is identified less than 1 cm from the bile duct margin. Pancreatic parenchymal, proximal and distal duodenal resection margins are negative for the tumor. Metastatic carcinoma involving 4 out of 25 lymph nodes ypN2. Adjuvant chemotherapy/chemoradiation was recommended at [place], but at the same time cardiology had a concern about bone marrow suppressing chemotherapy regimens and recommended avoiding these regimens as patient will require at least 6 months of continued DAPT due to recent NSTEMI and high risk PCI. Based on his final pathology report after Whipple's procedure, patient is a high risk for local recurrence and distant recurrence as there was a minimum response to the neoadjuvant chemotherapy. Lymph node positive disease with close surgical margins was identified. At that point, Mr Powell was referred to radiation oncology for adjuvant radiation therapy. He was also under consideration of low-dose Xeloda concurrently with radiation as patient is not a candidate for adjuvant chemotherapy due to high risk for bone marrow suppression and treatment rendered complication. Considering Risk versus benefit, Dr Root recommended modified dose Xeloda concurrent with radiation therapy and monitor his blood counts on weekly basis and adjust chemotherapy dose accordingly to minimize bone marrow suppression. He began concurrent therapy with radiation and dose reduced Xeloda on 12/10/2019. He is following with Dr Jefferson, local technician assistant, for follow-up of NSTEMI status post PCI to LAD and LM. Mr Powell is tolerating chemotheapy well thus far. Plan: . Discussed with patient regarding his labs white blood count 3.6 hemoglobin 9.4 crit 29.6 platelets 155,000 ANC 2700 CMP within normal limits CA 19???9 25.48 which is within normal limits Clinically, patient is doing well, tolerating combined chemoradiation with modified dose of Xeloda well but with expected side effects., Patient will complete his combined chemoradiation next week. His blood counts looks reasonable, patient has persistent anemia, his anemia workup done on 12/23/2019 showed ferritin 31, iron 48 which is low, patient has mild to moderate symptoms due to anemia, his anemia workup is consistent with iron deficiency, also due to chemoradiation. But patient has underlying cardiac condition so We will consider dose of Injectafer 750 mg IV ???1 and also start him on [id number] multivitamins. Hopefully with this his hemoglobin will improve, And follow his H&H and if hemoglobin drops below 8 consider blood transfusion. Return to clinic in 1 week with CBC CMP and for dose of Injectafer, will obtain approval from his insurance. And also monitor his potassium level, patient is on potassium supplements and if stay within normal limits then repeat in 2 weeks and if stay within normal range may consider changing potassium supplement to as needed. Signed By: Danielle Root M.D. <<Signature on File>>
--- NOTE | 2020-01-08 15:07 | ONCRAD TMN_ITS ---
Radiation Oncology Weekly Treatment Management Patient: Elieser Powell MR#: [id number] : 1950> Age: 69> Sex: Male Dictated by: Dr. Emile Ulloa Date of Service: 01/08/2020 Referring Physician(s) : Dr. 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 ID: [id number], Energy: 6X, Dose/Fx (cGy): 180, #Fx: , Dose Correction (cGy): 0, Total Dose (cGy): 3,960, Start Date: 12/09/2019, Elapsed Days: 30 Current Complaints/Interval History: Constitutional Complains of mild fatigue. Denies lack of appetite, fever, night sweats and change in weight. Gastrointestinal Complains of occasional diarrhea which is characterized as loose, semisolid. Denies abdominal pain, constipation, heartburn / dyspepsia, nausea and vomiting. Current Medications: Aspirin, carvedilol, chlorproMAZINE HCl, claritin, gas Relief, humuLIN R, imodium A-D, k-Tab, lansoprazole, lisinopril, lomotil, lomotil, lORazepam, neulasta, potassium Chloride ER, prochlorperazine Maleate, prochlorperazine Maleate, ticagrelor, xeloda, xeloda, zofran. Allergies: No Known Allergies Vital Signs: Performed on 01/08/2020 10:48 AM BMI - 25.091 kg/m2 (high), Height - 67.00 in, Weight - 160.2 lbs, Temperature - 97.2 f, Pulse - 55, Respiration - 18, O2 Sat - 100 %, Pain - 0 and BP - 138/ 78 mm(hg). Physical Exam: Appears stable, no skin erythema or desquamation. Abdomen soft and nontender Performance Status: 1 - No physically strenuous activity, but ambulatory and able to carry out light or sedentary work (e.g. office work, light house work). (ECOG) Lab: Test performed on 12/23/2019 8:50 AM WBC - 3.1 10 3/ul (low), RBC - 3.18 10 6/ul (low), HGB - 9.5 g/dl (low), HCT - 30.1 % (low), MCV - 94.7 fl (high), MPV - 10.7 fl (high), Lymphocytes - 0.4 10 3/ul (low), Potassium - 3.0 mmol/l (low), BUN - 5 mg/dl (low), Creatinine - 0.5 mg/dl (low), Cr Clearance (Est) - 141.0200 ml/min (high), Glucose - 120 mg/dl (high), Protein, Total - 5.6 g/dl (low), Albumin - 3.3 g/dl (low), Iron - 48 ug/dl (low), LDL Cholesterol - 45 mg/dl (low) and HDL Cholesterol - 41 mg/dl (low). Imaging: No new diagnostic imaging was performed since the last weekly treatment visit. All radiation therapy related imaging (including but not limited to CBCT generated images) was reviewed. Appropriate changes, if any, were made to assure accurate target localization. Impression/Plan: Tolerating treatment well. Continue treatment as planned. CPT: 04908 Signed by: Dr. Emile Ulloa>01/08/2020 3:05:31 PM <<Signature on File>>
== END 2020-01-11 23:59 | disposition home or self-care (01) ==
LOC: ONCMED 05:43
PROVIDERS: Nurse Practitioner; Absent Provider Radiology Radiation Oncology; Family Provider Family Medicine; Visit Provider Radiology Radiation Oncology
DX: Z51.0 Encounter for antineoplastic radiation therapy (principal); C25.0 Malignant neoplasm of head of pancreas; C77.2 Secondary and unspecified malignant neoplasm of intra-abdominal lymph nodes; D50.9 Iron deficiency anemia, unspecified; I25.2 Old myocardial infarction; Z79.899 Other long term (current) drug therapy; I25.10 Atherosclerotic heart disease of native coronary artery without angina pectoris; K21.9 Gastro-esophageal reflux disease without esophagitis; E78.00 Pure hypercholesterolemia, unspecified; L30.9 Dermatitis, unspecified; F12.90 Cannabis use, unspecified, uncomplicated; Z79.02 Long term (current) use of antithrombotics/antiplatelets; Z79.82 Long term (current) use of aspirin; Z95.5 Presence of coronary angioplasty implant and graft; Z90.410 Acquired total absence of pancreas
CPT/HCPCS: 36591; 77336; 77386; 80053; 80061; 82728; 83036; 83540; 83550; 83735; 85025; 86301; 99214; G0463

== ENCOUNTER 2020-01-31 05:45 | Outpatient (RCR) | payer MEDICARE, SELFPAY ==
--- NOTE | 2020-01-13 11:48 | ONCRAD TMN_ITS ---
Radiation Oncology Weekly Treatment Management Patient: Elieser Powell MR#: [id number] : 1950 Age: 69 Sex: Male Dictated by: Dr. Emile Ulloa Date of Service: 01/13/2020 Referring Physician(s) : Dr. 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 ID: [id number], Energy: 6X, Dose/Fx (cGy): 180, #Fx: 25 / 25, Dose Correction (cGy): 0, Total Dose (cGy): 4,500, Start Date: 12/09/2019, End Date: 01/13/2020, Elapsed Days: 35 Current Complaints/Interval History: Constitutional Complains of mild fatigue. Denies lack of appetite, fever and night sweats. Gastrointestinal Complains of occasional diarrhea which is characterized as loose, semisolid. Complains of nausea occasionally. Denies abdominal pain, constipation, melena / GI bleeding and vomiting. Current Medications: Aspirin, carvedilol, chlorproMAZINE HCl, claritin, gas Relief, humuLIN R, imodium A-D, k-Tab, lansoprazole, lisinopril, lomotil, lomotil, lORazepam, neulasta, potassium Chloride ER, prochlorperazine Maleate, prochlorperazine Maleate, ticagrelor, xeloda, xeloda, zofran. Allergies: No Known Allergies Vital Signs: Performed on 01/13/2020 11:03 AM BMI - 24.746 kg/m2 (high), Height - 67.00 in, Weight - 158.0 lbs, Temperature - 98.2 f, Pulse - 49, Respiration - 20, O2 Sat - 99 %, Pain - 0 and BP - 135/ 82 mm(hg). Physical Exam: Appears stable, no skin erythema or desquamation. Performance Status: 1 - No physically strenuous activity, but ambulatory and able to carry out light or sedentary work (e.g. office work, light house work). (ECOG) Lab: None pending in Radiation Oncology. Imaging: No new diagnostic imaging was performed since the last weekly treatment visit. All radiation therapy related imaging (including but not limited to CBCT generated images) was reviewed. Appropriate changes, if any, were made to assure accurate target localization. Impression/Plan: Tolerating treatment well with expected side effects. Continue treatment as planned. Recommended Prilosec x 2 weeks. Imodium prn watery diarrhea. CPT: 64829 Signed by: Dr. Emile Ulloa>01/13/2020 11:46:56 AM <<Signature on File>>
[2020-01-13 12:06] LABS: Basophils % 0.6 %; Eosinophils # 0.2 10^3/uL (0.0-0.8); Eosinophils % 5.7 %; Hematocrit 27.2 % (42.0-52.0); Hemoglobin 8.9 g/dL (11.7-16.6); Lymphocytes # 0.2 10^3/uL (0.8-4.8); Lymphocytes % 5.4 %; Mean Corpuscular HGB Conc 32.7 g/dL (30.0-36.0); Mean Corpuscular Hemoglobin 31.1 pg (28.0-34.0); Mean Corpuscular Volume 95.1 fL (80-94); Mean Platelet Volume 10.1 fL (7.4-10.4); Monocytes # 0.5 10^3/uL (0.2-0.9); Monocytes % 16.2 %; Neutrophils # 2.4 10^3/uL (1.8-7.7); Neutrophils % 71.8 %; Nucleated Red Blood Cells % 0 %; Platelet Count 131 10^3/cmm (130-400); Red Blood Count 2.86 10^6/uL (4.1-5.3); Red Cell Distribution Width 16.6 % (12.1-15.1); White Blood Count 3.3 10^3/uL (4.0-10.0)
[2020-01-13 12:23] LABS: Alanine Aminotransferase 20 U/L (0-41); Albumin Level 3.4 g/dL (3.5-5.2); Alkaline Phosphatase 94 IU/L (40-130); Anion Gap 12.5 (5-19); Aspartate Amino Transferase 23 U/L (0-40); Blood Urea Nitrogen 8 mg/dL (8-23); Calcium 8.7 mg/dL (8.5-10.5); Carbon Dioxide 25 mmol/L (22-29); Chloride 106 mmol/L (98-107); Globulin 2.2 g/dL (1.3-4.6); Glucose 99 mg/dL (65-115); Potassium 3.5 mmol/L (3.5-5.1); Sodium 140 mmol/L (136-145); Total Bilirubin 0.2 mg/dL (0.15-1.2); Total Protein 5.6 g/dL (6.6-8.7)
--- NOTE | 2020-01-19 14:46 | ONC FU_ITS ---
Rebekah Velazquez Patient Note Patient: Elieser Powell < Unit #: [id number]: 1950 Dictated By: Anamaria AnguianoDate of Visit: Jan 14, 2020 Onc MED Follow-Up/Prog Note Chief Complaint: Pancreatic cancer History of Present Illness: Mr. oPwell is a 69-year-old gentleman with history of progressive weakness and fatigue, acid reflux and loss of appetite. He subsequently noted change in his stool and urine color and jaundice. He also had about 25 pounds weight loss due to poor appetite and early fullness. Patient underwent CT scan of abdomen on 03/25/2019 which showed 3.3 x 2.9 x 2.9 cm soft tissue mass involving inferior pancreatic head and uncinate process. This mass was causing obstruction of common bile duct and probably also pancreatic duct and pancreatic mass abuts and distorts and may invade the medial duodenal C-loop. Patient was referred to [place] where he underwent endoscopic ultrasound and FNA done on 03/29/2019 and it confirmed adenocarcinoma subsequently underwent metal bile duct stent placement with that his jaundice improved but continued to have early fullness nausea finally underwent duodenal stent placement. Mr Powell was referred to Dr. Barbosa and as per patient, Dr. Barbosa suggested neoadjuvant chemotherapy prior to the surgery. Patient and his family decided to take second opinion and went to [facility] for evaluation. He then underwent an attempted ERCP at [facility], which was not possible due to significant luminal stenosis. The endoscopic ultrasound revealed obstructing 3.2 cm pancreatic head mass and the biopsy was positive for adenocarcinoma. Due to inability to perform ERCP, patient underwent percutaneous internal biliary stent. Later patient developed nausea vomiting for which he was readmitted to [facility] in [place] on 04/03/2019 and diagnosed with gastric outlet obstruction for that he underwent EGD with duodenal stent placement on 04/12/2019 . He then underwent pancreas protocol CT scan at [facility] as per patient he was told there could be vascular involvement with tumor so neoadjuvant chemotherapy with folfirinox was recommended. He began his first cycle on 05/27/2019. On 07/03/2019 he was admitted to [facility] with high-grade fever and diarrhea jaundice and abnormal LFTs subsequently diagnosed with sepsis being hypotensive patient was treated with IV antibiotics and CT scan of abdomen pelvis done on 07/04/2019 which showed marked biliary tract dilatation subsequently patient was transferred to [facility] in [place] for further management but his condition continued to improve GI was consulted but his LFTs continued to improve and he was discharged home on Cipro and Flagyl. Patient said he went back to [facility] and this time he underwent ERCP and not sure whether stent was replaced or cleaned. He had MRI MRCP done on 07/17/2019 which showed marked biliary tract dilatation with moderate dilatation of pancreatic duct similar to CT scan of 07/04/2019 and metallic stents obscure with radiation of pancreatic mass. Patient was on oral antibiotics ciprofloxacin and Flagyl till 07/27/2019. Mr Powell completed 6 cycles of neoadjuvant chemotherapy with folfirinox on 09/04/2019. He then underwent pancreaticoduodenectomy, resection and reconstruction of' superior mesenteric vein portal vein using Bovine pericardium patch and abdominal lymphadenectomy on 10/02/2019. His postop course was complicated by NSTEMI and he required intra-aortic balloon pump and ultimately underwent cardiac cath with placement of 4 stents (2 overlapping stents in the left main/proximal LAD and 2 overlapping stents in the RCA). Now on Brilinta and aspirin. 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 Lymphovascular, including large vessel and perineural invasion identified. Tumor invades into adjoining portal vein And superior mesenteric vein but various margins are negative for the tumor. Tumor present at uncinate margin, as foci of vascular invasion. Tumor is less than 1 cm from posterior surface; A small focus of perineural invasion is identified less than 1 cm from the bile duct margin. Pancreatic parenchymal, proximal and distal duodenal resection margins are negative for the tumor. Metastatic carcinoma involving 4 out of 25 lymph nodes ypN2. Adjuvant chemotherapy/chemoradiation was recommended at [place], but at the same time cardiology had a concern about bone marrow suppressing chemotherapy regimens and recommended avoiding these regimens as patient will require at least 6 months of continued DAPT due to recent NSTEMI and high risk PCI. Based on his final pathology report after Whipple's procedure, patient is a high risk for local recurrence and distant recurrence as there was a minimum response to the neoadjuvant chemotherapy. Lymph node positive disease with close surgical margins was identified. At that point, Mr Powell was referred to radiation oncology for adjuvant radiation therapy. He was also under consideration of low-dose Xeloda concurrently with radiation as patient is not a candidate for adjuvant chemotherapy due to high risk for bone marrow suppression and treatment rendered complication. Considering Risk versus benefit, recommended modified dose Xeloda concurrent with radiation therapy and monitor his blood counts on weekly basis and adjust chemotherapy dose accordingly to minimize bone marrow suppression. He began concurrent therapy with radiation and dose reduced Xeloda on 12/10/2019. Mr Powell has been on Xeloda 625 mg twice daily on the days of radiation and has tolerated it well overall. He will complete his combination therapy on of this week. He is here today for follow-up and review of his labs from January 13, 2020. He has no new concerns. He has developed a little fatigue and slight shortness of breath. He states that he rested a little more frequently than normal. He denies any fever or chills. He denies any mouth sores, sore throat or difficulty swallowing. He states his bowels have been well controlled and he does not feel he has been having any diarrhea. He states he is eating good. His energy is good and that he can get things done around the house but has to rest intermittently. He denies any pain. He has had no nausea or vomiting. He denies any skin changes. His ECOG is 1. Past Medical History: Eczema Gastroesophageal reflux disease Hypercholesterolemia Past Surgical History: Stent replacement in the biliary duct in 2019 Fna of pancreas in 2019 Eyelid surgery in 1959 Tonsillectomy in 1954 Allergies: No Known Allergies. Medications: Aspirin 1 Tablet (of 81 mg) Tablet Oral daily Carvedilol 1 Tablet (of 6.25 mg) Oral daily Claritin 1 Tablet (of 10 mg) Oral daily PRN Gas Relief 1 Capsule (of 180 mg) Oral PRN Imodium A-D 1 Capsule (of 2 mg) Oral PRN K-Tab 1 Tablet (of 10 meq) Tablet, controlled release Oral daily PRN Lisinopril 1 Tablet (of 5 mg) Oral daily Lomotil 1 Tablet (of 2.5-0.025 mg) Oral daily PRN LORazepam 0.5 - 1 Tablet (of 1 mg) Oral t.i.d. PRN Multivitamin Adult Tablet Oral Prochlorperazine Maleate 1 Tablet (of 10 mg) Oral q 4 hours PRN Ticagrelor 1 Tablet (of 90 mg) Oral b.i.d. Xeloda 1 Tablet (of 150 mg) Oral b.i.d. Xeloda 1 Tablet (of 500 mg) Oral b.i.d. Zofran 1 Tablet (of 4 mg) Oral q 6 hours PRN Family History: Mr. Powell's mother at age 92: Alzheimer's Disease, and cervical cancer. Mr. Powell's father at age 63: heart disease. Social History: Mr. Powell is and he is retired. Mr. Powell has never smoked. He has no history of drinking. He has indicated exposure to the following products: marijuana. Review Of Symptoms: Constitutional Denies fevers, chills, night sweats, excessive fatigue. Allergic/Immunologic No reactions. Eyes Denies significant visual changes. No diplopia. No amaurosis. ENMT Denies changes in hearing, sore throat, mouth sores, difficulty or changes in swallowing ability, and/or sinus drainage. Endocrine No diabetes, thyroid disease or hormone replacement. Denies hot flashes or night sweats. Hematologic/Lymphatic Denies easy bruising or bleeding. The patient denies any tender or palpable lymph nodes. Respiratory Denies dyspnea on exertion, chest pain, cough or hemoptysis. Denies orthopnea. Cardiovascular Denies anginal chest pain, palpitations or orthopnea. Gastrointestinal Denies nausea, vomiting, diarrhea, GI bleeding, or constipation with treatment. Denies heartburn or early satiety. Genitourinary (M) Denies hematuria, dysuria, increased frequency, urgency, hesitancy or incontinence. Musculoskeletal Denies joint pain, swelling or redness. No decreased range of motion. Denies leg cramps. Legs get tired, but much better after he started wearing 'CORINA hose . Integumentary Denies chronic rashes, inflammation, ulcerations or skin changes. Neurologic Denies headache, blurred vision, and no areas of focal weakness or numbness. Normal gait. No current sensory problems. Psychiatric Denies insomnia, depression, ktahya or mood swings. Vital Signs: Performed on Jan 14, 2020 14:11 Height - 67.00 in Weight - 157.6 lbs (LOW) BSA - 1.83 sq.m BMI - 24.68 Temperature - 97.7 F (LOW) Pulse - 52 /min (LOW) Respiration - 18 /min BP - 146/76 mm(hg) (HIGH) O2 Sat - 99 % Pain - 0,1 - No physically strenuous activity, but ambulatory and able to carry out light or sedentary work (e.g. office work, light house work). (ECOG) Physical Examination: Constitutional Alert, oriented, no acute distress. Skin pink, warm and dry. Head Normocephalic; atraumatic. Eyes Conjunctivae and sclerae are clear and without icterus. Pupils are reactive and equal. ENMT Sinuses are nontender. No oral exudates, ulcers, masses, thrush or mucositis. Oropharynx clear. Tongue normal. Neck Supple without masses or thyromegaly. No jugular venous distension. Hematologic/Lymphatic No petechiae or purpura. No tender or palpable lymph nodes in the cervical or supraclavicular areas. Respiratory Lungs are clear to auscultation without rhonchi or wheezing. Cardiovascular Regular rate and rhythm of heart without murmurs,clicks, gallops or rubs. Abdomen Non-tender, non-distended, no masses, ascites. Good bowel sounds noted in all quads. Back/Spine Non-tender to palpation. Extremities No visible deformities, no cyanosis, clubbing or edema. Musculoskeletal No tenderness or swelling, normal range of motion without obvious weakness. Integumentary No rashes or lesions. Neurologic No sensory or motor deficits, normal cerebellar function, normal gait. Psychiatric Alert and oriented times three. Coherent speech. Verbalizes understanding of our discussions today. Laboratory:see below Impression: Status post pancreaticoduodenectomy, resection and reconstruction of superior mesenteric vein/portal vein using bovine pericardium patch. Abdominal lymph node dissection and excision of left hepatic lobe lesion and peritoneal lesion and myofascial abdominal wall flap on 10/02/2019 final pathology report showed ypT3 and 4 out of 25 positive lymph node ypN2 Postop course was complicated by NSTEMI status post complex PCI to LM andLAD in September 2019 Adenocarcinoma involving head of pancreas and uncinate process per EUS guided FNA done on 03/29/2019 and metal bile duct stent placement for obstructive jaundice with resolution of jaundice CT scan of abdomen pelvis done on 03/25/2019 showed pancreatic head/uncinate process mass measuring 3.3 x 2.9 x 3.9 cm causing biliary system dilatation scan due to pancreatic head mass. Possible invasion into medial duodenal C-loop. No adenopathy or ascites noted Gastric outlet obstruction Status post duodenal stent placement Mr Powell was seen by Dr. Barbosa, surgeon and neoadjuvant chemotherapy was recommended prior to the surgery. He obtained a second opinion from [facility]. On 04/30/2019, he was evaluated at [facility] GI surgery clinic and underwent a pancreas protocol CT scan. The patient reports that he was told that tumor may be involving adjustment vascular structures so neoadjuvant chemotherapy with folfirinox was recommended. Mr Powell began his first cycle of FOLFIRINOX on 05/27/2019. Cycle 2 was given on 06/10/2019. He completed 6 cycles of neoadjuvant chemotherapy on 09/04/2019. Mr Powell completed 6 cycles of neoadjuvant chemotherapy with folfirinox on 09/04/2019. He then underwent pancreaticoduodenectomy, resection and reconstruction of' superior mesenteric vein portal vein using Bovine pericardium patch and abdominal lymphadenectomy on 10/02/2019. His postop course was complicated by NSTEMI and he required intra-aortic balloon pump and ultimately underwent cardiac cath with placement of 4 stents (2 overlapping stents in the left main/proximal LAD and 2 overlapping stents in the RCA). Now on Brilinta and aspirin. 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 Lymphovascular, including large vessel and perineural invasion identified. Tumor invades into adjoining portal vein And superior mesenteric vein but various margins are negative for the tumor. Tumor present at uncinate margin, as foci of vascular invasion. Tumor is less than 1 cm from posterior surface. A small focus of perineural invasion is identified less than 1 cm from the bile duct margin. Pancreatic parenchymal, proximal and distal duodenal resection margins are negative for the tumor. Metastatic carcinoma involving 4 out of 25 lymph nodes ypN2. Adjuvant chemotherapy/chemoradiation was recommended at [place], but at the same time cardiology had a concern about bone marrow suppressing chemotherapy regimens and recommended avoiding these regimens as patient will require at least 6 months of continued DAPT due to recent NSTEMI and high risk PCI. Based on his final pathology report after Whipple's procedure, patient is a high risk for local recurrence and distant recurrence as there was a minimum response to the neoadjuvant chemotherapy. Lymph node positive disease with close surgical margins was identified. At that point, Mr Powell was referred to radiation oncology for adjuvant radiation therapy. He was also under consideration of low-dose Xeloda concurrently with radiation as patient is not a candidate for adjuvant chemotherapy due to high risk for bone marrow suppression and treatment rendered complication. Considering Risk versus benefit, Dr Root recommended modified dose Xeloda concurrent with radiation therapy and monitor his blood counts on weekly basis and adjust chemotherapy dose accordingly to minimize bone marrow suppression. He began concurrent therapy with radiation and dose reduced Xeloda on 12/10/2019. He is following with Dr Jefferson, local terminal block assembler, for follow-up of NSTEMI status post PCI to LAD and LM. Mr Powell is tolerating chemotheapy well thus far. He has two days left. He has had iron deficieny anemia develop and could benefit from Injectafer but will plan for 1 dose due to his cardiac history. We are awaiting approval from his insurance for the Injectafer. Plan: 1. Proceed with current dosing of Xeloda at 650 mg twice daily on the days of radiation only. He has 2 more days of treatment after today. 2. We have discussed him using Lomotil as needed for diarrhea. He can still use the Imodium if he feels he gets any benefit from it. If that is not working he was instructed to let us know. 3. We are waiting on [place] for 1 dose of Injectafer for iron deficiency anemia. 4. Labs from January 13, 2020 were reviewed in detail and discussed with Mr. Powell and a copy was given to him. WBC 3.3, hemoglobin 8.9, platelets 131,000 ANC is 2400. Potassium 3.5. Random glucose 99 creatinine 0.6 albumin 3.4. 5. We will plan to see him back in 1 week with CBC CMP for evaluation of Xeloda completion and reassess his blood counts. Hopefully, we will have more information on approval for Injectafer at that time. 6. He was instructed to contact us in the interim should questions or problems arise. 7. Mr Powell will be due for followup imaging in February 2020. Signed By: Anamaria Anguiano-, AOCNTasia Root MD <<Signature on File>>
[2020-01-23] MEDS: alteplase 1 mg/mL SDV 2 mL 2 MG INTRACATH (12:19)
[2020-01-23 13:01] LABS: Basophils % 0.7 %; Eosinophils # 0.2 10^3/uL (0.0-0.8); Eosinophils % 4.9 %; Hematocrit 23.9 % (42.0-52.0); Hemoglobin 7.7 g/dL (11.7-16.6); Lymphocytes # 0.3 10^3/uL (0.8-4.8); Lymphocytes % 8.9 %; Mean Corpuscular HGB Conc 32.2 g/dL (30.0-36.0); Mean Corpuscular Hemoglobin 31.3 pg (28.0-34.0); Mean Corpuscular Volume 97.2 fL (80-94); Mean Platelet Volume 10.6 fL (7.4-10.4); Monocytes # 0.3 10^3/uL (0.2-0.9); Monocytes % 10.8 %; Neutrophils # 2.3 10^3/uL (1.8-7.7); Neutrophils % 74.4 %; Nucleated Red Blood Cells % 0 %; Platelet Count 116 10^3/cmm (130-400); Red Blood Count 2.46 10^6/uL (4.1-5.3); Red Cell Distribution Width 17.4 % (12.1-15.1); White Blood Count 3.1 10^3/uL (4.0-10.0)
[2020-01-23 13:13] LABS: Alanine Aminotransferase 21 U/L (0-41); Alkaline Phosphatase 96 IU/L (40-130); Anion Gap 12.5 (5-19); Aspartate Amino Transferase 26 U/L (0-40); Blood Urea Nitrogen 7 mg/dL (8-23); Calcium 8.4 mg/dL (8.5-10.5); Carbon Dioxide 25 mmol/L (22-29); Chloride 107 mmol/L (98-107); Globulin 1.9 g/dL (1.3-4.6); Glucose 162 mg/dL (65-115); Osmolality Calculated 291 mOsm/kg (285-295); Potassium 3.5 mmol/L (3.5-5.1); Sodium 141 mmol/L (136-145); Total Bilirubin 0.2 mg/dL (0.15-1.2); Total Protein 4.9 g/dL (6.6-8.7)
--- NOTE | 2020-01-23 16:12 | ONC FU_ITS ---
Dr. Root follow up note Patient: Elieser Powell < Unit #: [id number]: 1950 Dicatated By: Danielle Root M.D.Date of Visit:Jan 23, 2020 Onc Med Follow-up/Prog Note History of Present Illness: Mr. Powell is a 69-year-old gentleman with history of progressive weakness and fatigue, acid reflux and loss of appetite. He subsequently noted change in his stool and urine color and jaundice. He also had about 25 pounds weight loss due to poor appetite and early fullness. Patient underwent CT scan of abdomen on 03/25/2019 which showed 3.3 x 2.9 x 2.9 cm soft tissue mass involving inferior pancreatic head and uncinate process. This mass was causing obstruction of common bile duct and probably also pancreatic duct and pancreatic mass abuts and distorts and may invade the medial duodenal C-loop. Patient was referred to [place] where he underwent endoscopic ultrasound and FNA done on 03/29/2019 and it confirmed adenocarcinoma subsequently underwent metal bile duct stent placement with that his jaundice improved but continued to have early fullness nausea finally underwent duodenal stent placement. Mr Powell was referred to Dr. Barbosa and as per patient, Dr. Barbosa suggested neoadjuvant chemotherapy prior to the surgery. Patient and his family decided to take second opinion and went to [facility] for evaluation. He then underwent an attempted ERCP at [facility], which was not possible due to significant luminal stenosis. The endoscopic ultrasound revealed obstructing 3.2 cm pancreatic head mass and the biopsy was positive for adenocarcinoma. Due to inability to perform ERCP, patient underwent percutaneous internal biliary stent. Later patient developed nausea vomiting for which he was readmitted to [facility] in [place] on 04/03/2019 and diagnosed with gastric outlet obstruction for that he underwent EGD with duodenal stent placement on 04/12/2019 . He then underwent pancreas protocol CT scan at [facility] as per patient he was told there could be vascular involvement with tumor so neoadjuvant chemotherapy with folfirinox was recommended. He began his first cycle on 05/27/2019. On 07/03/2019 he was admitted to [facility] with high-grade fever and diarrhea jaundice and abnormal LFTs subsequently diagnosed with sepsis being hypotensive patient was treated with IV antibiotics and CT scan of abdomen pelvis done on 07/04/2019 which showed marked biliary tract dilatation subsequently patient was transferred to [facility] in [place] for further management but his condition continued to improve GI was consulted but his LFTs continued to improve and he was discharged home on Cipro and Flagyl. Patient said he went back to [facility] and this time he underwent ERCP and not sure whether stent was replaced or cleaned. He had MRI MRCP done on 07/17/2019 which showed marked biliary tract dilatation with moderate dilatation of pancreatic duct similar to CT scan of 07/04/2019 and metallic stents obscure with radiation of pancreatic mass. Patient was on oral antibiotics ciprofloxacin and Flagyl till 07/27/2019. Mr Powell completed 6 cycles of neoadjuvant chemotherapy with folfirinox on 09/04/2019. He then underwent pancreaticoduodenectomy, resection and reconstruction of' superior mesenteric vein portal vein using Bovine pericardium patch and abdominal lymphadenectomy on 10/02/2019. His postop course was complicated by NSTEMI and he required intra-aortic balloon pump and ultimately underwent cardiac cath with placement of 4 stents (2 overlapping stents in the left main/proximal LAD and 2 overlapping stents in the RCA). Now on Brilinta and aspirin. 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 Lymphovascular, including large vessel and perineural invasion identified. Tumor invades into adjoining portal vein And superior mesenteric vein but various margins are negative for the tumor. Tumor present at uncinate margin, as foci of vascular invasion. Tumor is less than 1 cm from posterior surface; A small focus of perineural invasion is identified less than 1 cm from the bile duct margin. Pancreatic parenchymal, proximal and distal duodenal resection margins are negative for the tumor. Metastatic carcinoma involving 4 out of 25 lymph nodes ypN2. Adjuvant chemotherapy/chemoradiation was recommended at [place], but at the same time cardiology had a concern about bone marrow suppressing chemotherapy regimens and recommended avoiding these regimens as patient will require at least 6 months of continued DAPT due to recent NSTEMI and high risk PCI. Based on his final pathology report after Whipple's procedure, patient is a high risk for local recurrence and distant recurrence as there was a minimum response to the neoadjuvant chemotherapy. Lymph node positive disease with close surgical margins was identified. At that point, Mr Powell was referred to radiation oncology for adjuvant radiation therapy. He was also under consideration of low-dose Xeloda concurrently with radiation as patient is not a candidate for adjuvant chemotherapy due to high risk for bone marrow suppression and treatment rendered complication. Considering Risk versus benefit, recommended modified dose Xeloda concurrent with radiation therapy and monitor his blood counts on weekly basis and adjust chemotherapy dose accordingly to minimize bone marrow suppression. He began concurrent therapy with radiation and dose reduced Xeloda on 12/10/2019.completed on 01/16/2020. came for follow-up, denies any specific complaints, except off and on dark colored stools. But no melena hematochezia no jaundice, no shortness of breath or palpitation at rest or on exertion. No fever or chills no nausea or vomiting but still has mild off and on diarrhea and excessive gas. Patient has completed combined chemoradiation with modified dose oral Xeloda on 01/16/2020 Medications: Aspirin 1 Tablet (of 81 mg) Tablet Oral daily, Carvedilol 1 Tablet (of 6.25 mg) Oral daily, Claritin 1 Tablet (of 10 mg) Oral daily PRN, Gas Relief 1 Capsule (of 180 mg) Oral PRN, Imodium A-D 1 Capsule (of 2 mg) Oral PRN, K-Tab 1 Tablet (of 10 meq) Tablet, controlled release Oral daily PRN, Lisinopril 1 Tablet (of 5 mg) Oral daily, Lomotil 1 Tablet (of 2.5-0.025 mg) Oral daily PRN, LORazepam 0.5 - 1 Tablet (of 1 mg) Oral t.i.d. PRN, Multivitamin Adult 1 Tablet Oral daily, Prochlorperazine Maleate 1 Tablet (of 10 mg) Oral q 4 hours PRN, Ticagrelor 1 Tablet (of 90 mg) Oral b.i.d., Xeloda 1 Tablet (of 150 mg) Oral b.i.d., Xeloda 1 Tablet (of 500 mg) Oral b.i.d., Zofran 1 Tablet (of 4 mg) Oral q 6 hours PRN Allergies: No Known Allergies. Review of Systems: Constitutional - Appetite is fair and weight has increased slightly. No fever, chills, hot flashes, or night sweats. Energy level is fair today, ENMT - No sinus congestion/drainage. No mouth sores. No sore throat or difficulty swallowing, Hematologic/Lymphatic - No abnormal bruising or bleeding, Respiratory - No shortness of breath. No cough. No pleuritic pain or hemoptysis, Cardiovascular - No angina pain. No palpitations, Gastrointestinal - No nausea or vomiting. Negative for heartburn and acid reflux. Positive for diarrhea, Genitourinary (M) - No dysuria or hematuria. No urinary frequency. No urgency. Pt reports occasional incontinence, Musculoskeletal - No joint or bone pain, Neurologic - No headache or dizziness. No numbness/paresthesias or other focal neurologic symptoms, Psychiatric - No anxiety or depression. No insomnia. Vital Signs: Performed on Jan 23, 2020 12:30 Height - 67.00 in Weight - 164.6 lbs (HIGH) BSA - 1.86 sq.m BMI - 25.78 Temperature - 97.4 F (LOW) Pulse - 58 /min (LOW) Respiration - 16 /min BP - 130/71 mm(hg) O2 Sat - 100 % Pain - 0 Performance Status: 0 - Fully active, able to carry on all predisease activities without restrictions. (ECOG) Physical Examination: ENMT - No oral exudates, ulcers, masses, thrush or mucositis. Oropharynx clear. Tongue normal, Respiratory - Lungs are clear t, Cardiovascular - Regular rate and rhythm of heart, Extremities - no edema. Lab/Imaging: Test performed on Dec 23, 2019 08:50 Ferritin 31 ng/mL Cholesterol, Total 102 mg/dL Iron 48 ug/dL Sodium 140 mmol/L Potassium 3.0 mmol/L Triglycerides 79 mg/dL Chloride 104 mmol/L LDL Cholesterol 45 mg/dL CO2 24 mmol/L UIBC 216 ug/dL Anion Gap 15.0 HDL Cholesterol 41 mg/dL BUN 5 mg/dL Cholesterol/HDL Ratio 2.49 mg/dL Creatinine 0.5 mg/dL LDL / HDL Ratio 1.10 RATIO Cr Clearance (Est) 141.0200 mL/min Glucose 120 mg/dL Calcium 8.9 mg/dL Protein, Total 5.6 g/dL Albumin 3.3 g/dL Globulin 2.3 g/dL Bilirubin, Total 0.2 mg/dL ALT (SGPT) 29 U/L AST (SGOT) 30 U/L Alkaline Phosphatase 105 IU/L Hemoglobin A1C % 5.9 % WBC 3.1 10 3/uL RBC 3.18 10 6/uL HGB 9.5 g/dL HCT 30.1 % MCV 94.7 fL MCH 29.9 pg MCHC 31.6 g/dL RDW 14.8 % Platelet Count 139 10 3/cmm MPV 10.7 fL Neutrophils 2.2 10 3/uL Lymphocytes 0.4 10 3/uL Monocytes 0.4 10 3/uL Eosinophils 0.2 10 3/uL Basophils 0.0 10 3/uL Neutrophil % 70.8 % Lymphocyte % 11.7 % Monocyte % 11.7 % Eosinophil % 5.2 % Basophils % 0.3 % Test performed on Sep 03, 2019 09:55 Magnesium 1.7 mg/dL Impression: Status post pancreaticoduodenectomy, resection and reconstruction of superior mesenteric vein/portal vein using bovine pericardium patch. Abdominal lymph node dissection and excision of left hepatic lobe lesion and peritoneal lesion and myofascial abdominal wall flap on 10/02/2019 final pathology report showed ypT3 and 4 out of 25 positive lymph node ypN2 Postop course was complicated by NSTEMI status post complex PCI to [facility] in September 2019 Adenocarcinoma involving head of pancreas and uncinate process per EUS guided FNA done on 03/29/2019 and metal bile duct stent placement for obstructive jaundice with resolution of jaundice CT scan of abdomen pelvis done on 03/25/2019 showed pancreatic head/uncinate process mass measuring 3.3 x 2.9 x 3.9 cm causing biliary system dilatation scan due to pancreatic head mass. Possible invasion into medial duodenal C-loop. No adenopathy or ascites noted Gastric outlet obstruction Status post duodenal stent placement Mr Powell was seen by Dr. Barbosa, surgeon and neoadjuvant chemotherapy was recommended prior to the surgery. He obtained a second opinion from [facility]. On 04/30/2019, he was evaluated at [facility] GI surgery clinic and underwent a pancreas protocol CT scan. The patient reports that he was told that tumor may be involving adjustment vascular structures so neoadjuvant chemotherapy with folfirinox was recommended. Mr Powell began his first cycle of FOLFIRINOX on 05/27/2019. Cycle 2 was given on 06/10/2019. He completed 6 cycles of neoadjuvant chemotherapy on 09/04/2019. Mr Powell completed 6 cycles of neoadjuvant chemotherapy with folfirinox on 09/04/2019. He then underwent pancreaticoduodenectomy, resection and reconstruction of' superior mesenteric vein portal vein using Bovine pericardium patch and abdominal lymphadenectomy on 10/02/2019. His postop course was complicated by NSTEMI and he required intra-aortic balloon pump and ultimately underwent cardiac cath with placement of 4 stents (2 overlapping stents in the left main/proximal LAD and 2 overlapping stents in the RCA). Now on Brilinta and aspirin. 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 Lymphovascular, including large vessel and perineural invasion identified. Tumor invades into adjoining portal vein And superior mesenteric vein but various margins are negative for the tumor. Tumor present at uncinate margin, as foci of vascular invasion. Tumor is less than 1 cm from posterior surface. A small focus of perineural invasion is identified less than 1 cm from the bile duct margin. Pancreatic parenchymal, proximal and distal duodenal resection margins are negative for the tumor. Metastatic carcinoma involving 4 out of 25 lymph nodes ypN2. Adjuvant chemotherapy/chemoradiation was recommended at [place], but at the same time cardiology had a concern about bone marrow suppressing chemotherapy regimens and recommended avoiding these regimens as patient will require at least 6 months of continued DAPT due to recent NSTEMI and high risk PCI. Based on his final pathology report after Whipple's procedure, patient is a high risk for local recurrence and distant recurrence as there was a minimum response to the neoadjuvant chemotherapy. Lymph node positive disease with close surgical margins was identified. At that point, Mr Powell was referred to radiation oncology for adjuvant radiation therapy. He was also under consideration of low-dose Xeloda concurrently with radiation as patient is not a candidate for adjuvant chemotherapy due to high risk for bone marrow suppression and treatment rendered complication. Considering Risk versus benefit, recommended modified dose Xeloda concurrent with radiation therapy and monitor his blood counts on weekly basis and adjust chemotherapy dose accordingly to minimize bone marrow suppression. 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 Mr Andre is tolerating chemotheapy well thus far. He has two days left. He has had iron deficieny anemia develop and could benefit from Injectafer but will plan for 1 dose due to his cardiac history. We are awaiting approval from his insurance for the Injectafer. Plan: Discussed with patient regarding his labs white blood count 3.1 hemoglobin 7.7 hematocrit 23.9 platelets 116,000 CMP within normal limit except glucose 162 Clinically, patient is doing well, now recovering from adjuvant combined chemoradiation therapy for resected pancreatic cancer. Patient has functional iron deficiency anemia for which he is being treated with Injectafer 750 mg IV ???1 today, his follow-up lab shows further drop in his hemoglobin from 8.9 g to 7.7 g, patient denies any gross bleeding or jaundice, but complaining of darker stools, patient never had EGD or colonoscopy done, so we'll refer him for EGD and colonoscopy evaluation to rule out GI source of chronic blood loss causing iron deficiency anemia. Patient has underlying coronary artery disease, status post [place], now with progressive anemia, patient was offered packed RBCs as his hemoglobin is below 8 g but patient is reluctant to consider blood transfusion in fact denies any significant symptoms due to anemia. Patient was advised to rest well not to exert too much until hemoglobin improves we will repeat his CBC in a week if it shows further drop in his hemoglobin may consider blood transfusion otherwise continue monitor and he will return to clinic in one month with CBC and iron studies in the meantime we'll refer him to gastroenterology for colonoscopy and EGD. Patient is supposed to go back to [facility] GI Surgery Department for evaluation at the end of this month and also schedule see Dr. Jefferson cardiology here for evaluation. As for the pancreatic cancer is concern, patient has completed adjuvant combined chemoradiation with modified dose of oral Xeloda on 01/16/2020. Patient said he is scheduled to get his follow-up scans at [facility] during his next visit. Signed By: Danielle Root M.D. <<Signature on File>>
[2020-01-31 08:55] LABS: Basophils % 0.7 %; Eosinophils # 0.1 10^3/uL (0.0-0.8); Hematocrit 25.6 % (42.0-52.0); Hemoglobin 8.1 g/dL (11.7-16.6); Lymphocytes # 0.2 10^3/uL (0.8-4.8); Mean Corpuscular HGB Conc 31.6 g/dL (30.0-36.0); Mean Corpuscular Hemoglobin 31.6 pg (28.0-34.0); Mean Platelet Volume 10.6 fL (7.4-10.4); Monocytes # 0.3 10^3/uL (0.2-0.9); Neutrophils # 2.3 10^3/uL (1.8-7.7); Neutrophils % 75.6 %; Nucleated Red Blood Cells % 0 %; Platelet Count 118 10^3/cmm (130-400); Red Blood Count 2.56 10^6/uL (4.1-5.3); Red Cell Distribution Width 18.2 % (12.1-15.1)
== END 2020-02-11 23:59 | disposition home or self-care (01) ==
LOC: ONCMED 05:45
PROVIDERS: Absent Provider Radiology Radiation Oncology; Family Provider Family Medicine; PCP Family Medicine; Visit Provider Internal Medicine Hematology & Oncology
DX: Z51.0 Encounter for antineoplastic radiation therapy (principal); C25.0 Malignant neoplasm of head of pancreas; T82.594A Other mechanical complication of infusion catheter, initial encounter; Y80.1 Therapeutic (nonsurgical) and rehabilitative physical medicine devices associated with adverse incidents; D50.9 Iron deficiency anemia, unspecified; R19.7 Diarrhea, unspecified; Z90.410 Acquired total absence of pancreas; I25.2 Old myocardial infarction; K21.9 Gastro-esophageal reflux disease without esophagitis; E78.00 Pure hypercholesterolemia, unspecified; F12.90 Cannabis use, unspecified, uncomplicated; Z79.899 Other long term (current) drug therapy; Z79.82 Long term (current) use of aspirin; Z95.5 Presence of coronary angioplasty implant and graft
CPT/HCPCS: 36415; 36591; 36593; 77300; 77336; 77338; 77386; 80053; 85025; 96365; 96375; 99214; J1439; J2997

== ENCOUNTER 2020-02-27 07:28 | Outpatient (RCR) | payer MEDICARE, SELFPAY ==
[2020-02-27 13:57] LABS: Basophils % 0.5 %; Eosinophils # 0.1 10^3/uL (0.0-0.8); Eosinophils % 1.9 %; Hematocrit 27.4 % (42.0-52.0); Hemoglobin 8.5 g/dL (11.7-16.6); Lymphocytes # 0.3 10^3/uL (0.8-4.8); Lymphocytes % 7.2 %; Mean Corpuscular Hemoglobin 31.6 pg (28.0-34.0); Mean Corpuscular Volume 101.9 fL (80-94); Mean Platelet Volume 9.8 fL (7.4-10.4); Monocytes # 0.5 10^3/uL (0.2-0.9); Monocytes % 11.3 %; Neutrophils # 3.3 10^3/uL (1.8-7.7); Neutrophils % 78.9 %; Nucleated Red Blood Cells % 0 %; Platelet Count 158 10^3/cmm (130-400); Red Blood Count 2.69 10^6/uL (4.1-5.3); Red Cell Distribution Width 17.1 % (12.1-15.1); White Blood Count 4.2 10^3/uL (4.0-10.0)
[2020-02-27 16:06] LABS: Anion Gap 11.1 (5-19); Blood Urea Nitrogen 11 mg/dL (8-23); Calcium 8.9 mg/dL (8.5-10.5); Carbon Dioxide 26 mmol/L (22-29); Chloride 105 mmol/L (98-107); Glucose 102 mg/dL (65-115); Osmolality Calculated 282 mOsm/kg (285-295); Potassium 4.1 mmol/L (3.5-5.1); Sodium 138 mmol/L (136-145)
[2020-02-27 20:11] LABS: Vitamin B12 324 pg/mL (232-1245)
--- NOTE | 2020-02-28 17:16 | ONC FU_ITS ---
Dr. Root follow up note Patient: Elieser Powell < Unit #: [id number]: [id number] Dicatated By: Danielle Root M.D.Date of Visit:Feb 27, 2020 Onc Med Follow-up/Prog Note History of Present Illness: Mr. Powell is a 69-year-old gentleman with history of progressive weakness and fatigue, acid reflux and loss of appetite. He subsequently noted change in his stool and urine color and jaundice. He also had about 25 pounds weight loss due to poor appetite and early fullness. Patient underwent CT scan of abdomen on 03/25/2019 which showed 3.3 x 2.9 x 2.9 cm soft tissue mass involving inferior pancreatic head and uncinate process. This mass was causing obstruction of common bile duct and probably also pancreatic duct and pancreatic mass abuts and distorts and may invade the medial duodenal C-loop. Patient was referred to [place] where he underwent endoscopic ultrasound and FNA done on 03/29/2019 and it confirmed adenocarcinoma subsequently underwent metal bile duct stent placement with that his jaundice improved but continued to have early fullness nausea finally underwent duodenal stent placement. Mr Powell was referred to Dr. Barbosa and as per patient, Dr. Barbosa suggested neoadjuvant chemotherapy prior to the surgery. Patient and his family decided to take second opinion and went to [facility] for evaluation. He then underwent an attempted ERCP at [facility], which was not possible due to significant luminal stenosis. The endoscopic ultrasound revealed obstructing 3.2 cm pancreatic head mass and the biopsy was positive for adenocarcinoma. Due to inability to perform ERCP, patient underwent percutaneous internal biliary stent. Later patient developed nausea vomiting for which he was readmitted to [facility] in [place] on 04/03/2019 and diagnosed with gastric outlet obstruction for that he underwent EGD with duodenal stent placement on 04/12/2019 . He then underwent pancreas protocol CT scan at [facility] as per patient he was told there could be vascular involvement with tumor so neoadjuvant chemotherapy with folfirinox was recommended. He began his first cycle on 05/27/2019. On 07/03/2019 he was admitted to [facility] with high-grade fever and diarrhea jaundice and abnormal LFTs subsequently diagnosed with sepsis being hypotensive patient was treated with IV antibiotics and CT scan of abdomen pelvis done on 07/04/2019 which showed marked biliary tract dilatation subsequently patient was transferred to [facility] in [place] for further management but his condition continued to improve GI was consulted but his LFTs continued to improve and he was discharged home on Cipro and Flagyl. Patient said he went back to [facility] and this time he underwent ERCP and not sure whether stent was replaced or cleaned. He had MRI MRCP done on 07/17/2019 which showed marked biliary tract dilatation with moderate dilatation of pancreatic duct similar to CT scan of 07/04/2019 and metallic stents obscure with radiation of pancreatic mass. Patient was on oral antibiotics ciprofloxacin and Flagyl till 07/27/2019. Mr Powell completed 6 cycles of neoadjuvant chemotherapy with folfirinox on 09/04/2019. He then underwent pancreaticoduodenectomy, resection and reconstruction of' superior mesenteric vein portal vein using Bovine pericardium patch and abdominal lymphadenectomy on 10/02/2019. His postop course was complicated by NSTEMI and he required intra-aortic balloon pump and ultimately underwent cardiac cath with placement of 4 stents (2 overlapping stents in the left main/proximal LAD and 2 overlapping stents in the RCA). Now on Brilinta and aspirin. 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 Lymphovascular, including large vessel and perineural invasion identified. Tumor invades into adjoining portal vein And superior mesenteric vein but various margins are negative for the tumor. Tumor present at uncinate margin, as foci of vascular invasion. Tumor is less than 1 cm from posterior surface; A small focus of perineural invasion is identified less than 1 cm from the bile duct margin. Pancreatic parenchymal, proximal and distal duodenal resection margins are negative for the tumor. Metastatic carcinoma involving 4 out of 25 lymph nodes ypN2. Adjuvant chemotherapy/chemoradiation was recommended at [place], but at the same time cardiology had a concern about bone marrow suppressing chemotherapy regimens and recommended avoiding these regimens as patient will require at least 6 months of continued DAPT due to recent NSTEMI and high risk PCI. Based on his final pathology report after Whipple's procedure, patient is a high risk for local recurrence and distant recurrence as there was a minimum response to the neoadjuvant chemotherapy. Lymph node positive disease with close surgical margins was identified. At that point, Mr Powell was referred to radiation oncology for adjuvant radiation therapy. He was also under consideration of low-dose Xeloda concurrently with radiation as patient is not a candidate for adjuvant chemotherapy due to high risk for bone marrow suppression and treatment rendered complication. Considering Risk versus benefit, recommended modified dose Xeloda concurrent with radiation therapy and monitor his blood counts on weekly basis and adjust chemotherapy dose accordingly to minimize bone marrow suppression. He began concurrent therapy with radiation and dose reduced Xeloda on 12/10/2019.completed on 01/16/2020. Came for follow-up, denies any specific complaints except off and on diarrhea otherwise no fever or chills, no nausea or vomiting, no abdominal pain, no jaundice, no melena or hematochezia, no new bony pains. No shortness of breath or palpitation. Tolerated Injectafer given on 01/23/2020 well Medications: Aspirin 1 Tablet (of 81 mg) Tablet Oral daily, Carvedilol 1 Tablet (of 6.25 mg) Oral daily, Claritin 1 Tablet (of 10 mg) Oral daily PRN, Gas Relief 1 Capsule (of 180 mg) Oral PRN, Imodium A-D 1 Capsule (of 2 mg) Oral PRN, Lisinopril 1 Tablet (of 5 mg) Oral daily, Lomotil 1 Tablet (of 2.5-0.025 mg) Oral daily PRN, Multivitamin Adult 1 Tablet Oral daily, Prochlorperazine Maleate 1 Tablet (of 10 mg) Oral q 4 hours PRN Allergies: No Known Allergies. Review of Systems: Constitutional - Appetite is fair and weight has increased slightly. No fever, chills, hot flashes, or night sweats. Energy level is fair today, ENMT - No sinus congestion/drainage. No mouth sores. No sore throat or difficulty swallowing, Hematologic/Lymphatic - No abnormal bruising or bleeding, Respiratory - No shortness of breath. No cough. No pleuritic pain or hemoptysis, Cardiovascular - No angina pain. No palpitations, Gastrointestinal - No nausea or vomiting. Negative for heartburn and acid reflux. Positive for diarrhea, Genitourinary (M) - No dysuria or hematuria. No urinary frequency. No urgency. Pt reports occasional incontinence, Musculoskeletal - No joint or bone pain, Neurologic - No headache or dizziness. No numbness/paresthesias or other focal neurologic symptoms, Psychiatric - No anxiety or depression. No insomnia, Constitutional - Denies lack of appetite, fatigue and night sweats, Integumentary - Denies rash, Cardiovascular - Denies chest pain, dyspnea and palpitations, Respiratory - Denies cough and dyspnea, Gastrointestinal - Denies abdominal pain, change in bowel habits, heartburn / dyspepsia, nausea and vomiting, Genitourinary (M) - Denies frequency, hematuria and incontinence, Musculoskeletal - Denies bone pain, joint pain and muscle weakness, Neurologic - Denies dizziness and headaches, Psychiatric - Denies depression. Vital Signs: Performed on Feb 27, 2020 15:11 Weight - 154 lbs Temperature - 97.5 F Pulse - 56 Respiration - 16 BP - 126/65 6 mL O2 Sat - 100 % Pain - 0 Performed on Feb 27, 2020 15:02 Height - 67.00 in Weight - 154 lbs (LOW) BSA - 1.81 sq.m BMI - 24.12 Temperature - 97.5 F (LOW) Pulse - 56 /min (LOW) Respiration - 16 /min BP - 126/65 mm(hg) O2 Sat - 100 % Pain - 0 Performance Status: 0 - Fully active, able to carry on all predisease activities without restrictions. (ECOG) Physical Examination: ENMT - denies any mouth sores or thrush, Respiratory - patient denies any shortness of breath or wheezing, Cardiovascular - patient denies tachycardia, Abdomen - patient denies abdominal pain or fullness, Extremities - no visible edema. Lab/Imaging: Test performed on Jan 31, 2020 08:38 WBC 3.0 10 3/uL RBC 2.56 10 6/uL HGB 8.1 g/dL HCT 25.6 % MCV 100.0 fL MCH 31.6 pg MCHC 31.6 g/dL RDW 18.2 % Platelet Count 118 10 3/cmm MPV 10.6 fL Neutrophils 2.3 10 3/uL Lymphocytes 0.2 10 3/uL Monocytes 0.3 10 3/uL Eosinophils 0.1 10 3/uL Basophils 0.0 10 3/uL Neutrophil % 75.6 % Lymphocyte % 8.0 % Monocyte % 11.0 % Eosinophil % 4.0 % Basophils % 0.7 % Test performed on Jan 23, 2020 12:41 Sodium 141 mmol/L Potassium 3.5 mmol/L Chloride 107 mmol/L CO2 25 mmol/L Anion Gap 12.5 BUN 7 mg/dL Creatinine 0.6 mg/dL Cr Clearance (Est) 119.25 mL/min Glucose 162 mg/dL Calcium 8.4 mg/dL Protein, Total 4.9 g/dL Albumin 3.0 g/dL Globulin 1.9 g/dL Bilirubin, Total 0.2 mg/dL ALT (SGPT) 21 U/L AST (SGOT) 26 U/L Alkaline Phosphatase 96 IU/L Test performed on Dec 23, 2019 08:50 Ferritin 31 ng/mL Cholesterol, Total 102 mg/dL Iron 48 ug/dL Triglycerides 79 mg/dL LDL Cholesterol 45 mg/dL UIBC 216 ug/dL HDL Cholesterol 41 mg/dL Cholesterol/HDL Ratio 2.49 mg/dL LDL / HDL Ratio 1.10 RATIO Hemoglobin A1C % 5.9 % Test performed on Sep 03, 2019 09:55 Magnesium 1.7 mg/dL Impression: Status post pancreaticoduodenectomy, resection and reconstruction of superior mesenteric vein/portal vein using bovine pericardium patch. Abdominal lymph node dissection and excision of left hepatic lobe lesion and peritoneal lesion and myofascial abdominal wall flap on 10/02/2019 final pathology report showed ypT3 and 4 out of 25 positive lymph node ypN2 Postop course was complicated by NSTEMI status post complex PCI to LM andLAD in September 2019 Adenocarcinoma involving head of pancreas and uncinate process per EUS guided FNA done on 03/29/2019 and metal bile duct stent placement for obstructive jaundice with resolution of jaundice CT scan of abdomen pelvis done on 03/25/2019 showed pancreatic head/uncinate process mass measuring 3.3 x 2.9 x 3.9 cm causing biliary system dilatation scan due to pancreatic head mass. Possible invasion into medial duodenal C-loop. No adenopathy or ascites noted Gastric outlet obstruction Status post duodenal stent placement Mr Powell was seen by Dr. Barbosa, surgeon and neoadjuvant chemotherapy was recommended prior to the surgery. He obtained a second opinion from [facility]. On 04/30/2019, he was evaluated at [facility] GI surgery clinic and underwent a pancreas protocol CT scan. The patient reports that he was told that tumor may be involving adjustment vascular structures so neoadjuvant chemotherapy with folfirinox was recommended. Mr Powell began his first cycle of FOLFIRINOX on 05/27/2019. Cycle 2 was given on 06/10/2019. He completed 6 cycles of neoadjuvant chemotherapy on 09/04/2019. Mr Powell completed 6 cycles of neoadjuvant chemotherapy with folfirinox on 09/04/2019. He then underwent pancreaticoduodenectomy, resection and reconstruction of' superior mesenteric vein portal vein using Bovine pericardium patch and abdominal lymphadenectomy on 10/02/2019. His postop course was complicated by NSTEMI and he required intra-aortic balloon pump and ultimately underwent cardiac cath with placement of 4 stents (2 overlapping stents in the left main/proximal LAD and 2 overlapping stents in the RCA). Now on Brilinta and aspirin. 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 Lymphovascular, including large vessel and perineural invasion identified. Tumor invades into adjoining portal vein And superior mesenteric vein but various margins are negative for the tumor. Tumor present at uncinate margin, as foci of vascular invasion. Tumor is less than 1 cm from posterior surface. A small focus of perineural invasion is identified less than 1 cm from the bile duct margin. Pancreatic parenchymal, proximal and distal duodenal resection margins are negative for the tumor. Metastatic carcinoma involving 4 out of 25 lymph nodes ypN2. Adjuvant chemotherapy/chemoradiation was recommended at [place], but at the same time cardiology had a concern about bone marrow suppressing chemotherapy regimens and recommended avoiding these regimens as patient will require at least 6 months of continued DAPT due to recent NSTEMI and high risk PCI. Based on his final pathology report after Whipple's procedure, patient is a high risk for local recurrence and distant recurrence as there was a minimum response to the neoadjuvant chemotherapy. Lymph node positive disease with close surgical margins was identified. At that point, Mr Powell was referred to radiation oncology for adjuvant radiation therapy. He was also under consideration of low-dose Xeloda concurrently with radiation as patient is not a candidate for adjuvant chemotherapy due to high risk for bone marrow suppression and treatment rendered complication. Considering Risk versus benefit, recommended modified dose Xeloda concurrent with radiation therapy and monitor his blood counts on weekly basis and adjust chemotherapy dose accordingly to minimize bone marrow suppression. He began concurrent therapy with radiation and dose reduced Xeloda on 12/10/2019.and completed on 01/16/2020 He is following with Dr Jefferson, local dairy farm worker, for follow-up of NSTEMI status post PCI to LAD and LM. Mr Powell is tolerating chemotheapy well thus far. He has two days left. He has had iron deficieny anemia develop and could benefit from Injectafer but will plan for 1 dose due to his cardiac history. We are awaiting approval from his insurance for the Injectafer. Plan: Discussed with patient regarding his labs white blood count 4.2 hemoglobin 8.5 hematocrit 27.4 platelets 158,000 Clinically, patient is doing well, no new signs symptom suggestive of recurrence of disease. Patient was supposed to go GI surgical oncology clinic at [facility] last week but appointment has been rescheduled for May 2020 for follow-up scans and evaluation. And patient will also see his dairy farm worker there, in the meantime he has seen Dr. Jefferson, dairy farm worker in [place] regarding his cardiac care. As far as anemia is concerned, hemoglobin has improved some with Injectafer but clinically he has well compensated anemia so we'll continue to monitor his blood counts, and will also check his B12 level if no we'll consider supplement. If is no improvement then will consider bone marrow evaluation to rule out underlying myelodysplasia. As far as of unknown diabetes concern could be due to malabsorption due to pancreatic enzyme deficiency, and due to certain foods, patient was advised to monitor his diet and avoid food causing diarrhea but if it persist then will consider pancreas enzyme supplement. Patient said he will discuss with his surgeon at [place]. We will also check his BMP and if potassium level is normal then he will take potassium supplement on as-needed basis otherwise we will continue and patient return to clinic in one month with CBC CMP Signed By: Danielle Root M.D. <<Signature on File>>
== END 2020-03-12 23:59 | disposition home or self-care (01) ==
LOC: ONCMED 07:28
PROVIDERS: Family Provider Family Medicine; PCP Family Medicine; Visit Provider Internal Medicine Hematology & Oncology
DX: C25.0 Malignant neoplasm of head of pancreas (principal); Z85.068 Personal history of other malignant neoplasm of small intestine; I25.2 Old myocardial infarction; D64.9 Anemia, unspecified; E53.8 Deficiency of other specified B group vitamins; Z90.411 Acquired partial absence of pancreas; Z90.49 Acquired absence of other specified parts of digestive tract; Z92.21 Personal history of antineoplastic chemotherapy; Z92.3 Personal history of irradiation; Z79.899 Other long term (current) drug therapy
CPT/HCPCS: 36591; 80048; 82607; 85025; 99214

== ENCOUNTER 2020-03-27 07:05 | Outpatient (RCR) | payer MEDICARE, SELFPAY ==
[2020-03-27 08:51] LABS: Basophils % 0.2 %; Eosinophils # 0.2 10^3/uL (0.0-0.8); Eosinophils % 3.3 %; Hematocrit 28.5 % (42.0-52.0); Hemoglobin 9.1 g/dL (11.7-16.6); Lymphocytes # 0.3 10^3/uL (0.8-4.8); Lymphocytes % 6.7 %; Mean Corpuscular HGB Conc 31.9 g/dL (30.0-36.0); Mean Corpuscular Hemoglobin 32.6 pg (28.0-34.0); Mean Corpuscular Volume 102.2 fL (80-94); Mean Platelet Volume 9.3 fL (7.4-10.4); Monocytes # 0.5 10^3/uL (0.2-0.9); Monocytes % 11.3 %; Neutrophils # 3.5 10^3/uL (1.8-7.7); Neutrophils % 78.3 %; Nucleated Red Blood Cells % 0 %; Platelet Count 152 10^3/cmm (130-400); Red Blood Count 2.79 10^6/uL (4.1-5.3); White Blood Count 4.5 10^3/uL (4.0-10.0)
[2020-03-27 09:06] LABS: Alanine Aminotransferase 38 U/L (0-41); Albumin Level 3.6 g/dL (3.5-5.2); Alkaline Phosphatase 149 IU/L (40-130); Aspartate Amino Transferase 47 U/L (0-40); Blood Urea Nitrogen 5 mg/dL (8-23); Carbon Dioxide 23 mmol/L (22-29); Chloride 106 mmol/L (98-107); Globulin 2.6 g/dL (1.3-4.6); Glucose 150 mg/dL (65-115); Osmolality Calculated 287 mOsm/kg (285-295); Sodium 139 mmol/L (136-145); Total Bilirubin 0.2 mg/dL (0.15-1.2); Total Protein 6.2 g/dL (6.6-8.7)
[2020-03-27 09:18] LABS: Cancer Antigen 19 9 46.17 U/mL (0-35)
--- NOTE | 2020-03-27 14:26 | ONC FU_ITS ---
Dr. Root follow up note Patient: Elieser Powell Unit #: [id number]: [id number] Dicatated By: Danielle Root M.D.Date of Visit:March 27, 2020 Onc Med Follow-up/Prog Note History of Present Illness: Mr. Powell is a 70-year-old gentleman with history of progressive weakness and fatigue, acid reflux and loss of appetite. He subsequently noted change in his stool and urine color and jaundice. He also had about 25 pounds weight loss due to poor appetite and early fullness. Patient underwent CT scan of abdomen on 03/25/2019 which showed 3.3 x 2.9 x 2.9 cm soft tissue mass involving inferior pancreatic head and uncinate process. This mass was causing obstruction of common bile duct and probably also pancreatic duct and pancreatic mass abuts and distorts and may invade the medial duodenal C-loop. Patient was referred to [facility] where he underwent endoscopic ultrasound and FNA done on 03/29/2019 and it confirmed adenocarcinoma subsequently underwent metal bile duct stent placement with that his jaundice improved but continued to have early fullness nausea finally underwent duodenal stent placement. Mr Powell was referred to Dr. Barbosa and as per patient, Dr. Barbosa suggested neoadjuvant chemotherapy prior to the surgery. Patient and his family decided to take second opinion and went to [facility] for evaluation. He then underwent an attempted ERCP at [facility], which was not possible due to significant luminal stenosis. The endoscopic ultrasound revealed obstructing 3.2 cm pancreatic head mass and the biopsy was positive for adenocarcinoma. Due to inability to perform ERCP, patient underwent percutaneous internal biliary stent. Later patient developed nausea vomiting for which he was readmitted to [facility] in [place] on 04/03/2019 and diagnosed with gastric outlet obstruction for that he underwent EGD with duodenal stent placement on 04/12/2019 . He then underwent pancreas protocol CT scan at [facility] as per patient he was told there could be vascular involvement with tumor so neoadjuvant chemotherapy with folfirinox was recommended. He began his first cycle on 05/27/2019. On 07/03/2019 he was admitted to [facility] with high-grade fever and diarrhea jaundice and abnormal LFTs subsequently diagnosed with sepsis being hypotensive patient was treated with IV antibiotics and CT scan of abdomen pelvis done on 07/04/2019 which showed marked biliary tract dilatation subsequently patient was transferred to [facility] in [place] for further management but his condition continued to improve GI was consulted but his LFTs continued to improve and he was discharged home on Cipro and Flagyl. Patient said he went back to [facility] and this time he underwent ERCP and not sure whether stent was replaced or cleaned. He had MRI MRCP done on 07/17/2019 which showed marked biliary tract dilatation with moderate dilatation of pancreatic duct similar to CT scan of 07/04/2019 and metallic stents obscure with radiation of pancreatic mass. Patient was on oral antibiotics ciprofloxacin and Flagyl till 07/27/2019. Mr Powell completed 6 cycles of neoadjuvant chemotherapy with folfirinox on 09/04/2019. He then underwent pancreaticoduodenectomy, resection and reconstruction of' superior mesenteric vein portal vein using Bovine pericardium patch and abdominal lymphadenectomy on 10/02/2019. His postop course was complicated by NSTEMI and he required intra-aortic balloon pump and ultimately underwent cardiac cath with placement of 4 stents (2 overlapping stents in the left main/proximal LAD and 2 overlapping stents in the RCA). Now on Brilinta and aspirin. 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 Lymphovascular, including large vessel and perineural invasion identified. Tumor invades into adjoining portal vein And superior mesenteric vein but various margins are negative for the tumor. Tumor present at uncinate margin, as foci of vascular invasion. Tumor is less than 1 cm from posterior surface; A small focus of perineural invasion is identified less than 1 cm from the bile duct margin. Pancreatic parenchymal, proximal and distal duodenal resection margins are negative for the tumor. Metastatic carcinoma involving 4 out of 25 lymph nodes ypN2. Adjuvant chemotherapy/chemoradiation was recommended at [facility], but at the same time cardiology had a concern about bone marrow suppressing chemotherapy regimens and recommended avoiding these regimens as patient will require at least 6 months of continued DAPT due to recent NSTEMI and high risk PCI. Based on his final pathology report after Whipple's procedure, patient is a high risk for local recurrence and distant recurrence as there was a minimum response to the neoadjuvant chemotherapy. Lymph node positive disease with close surgical margins was identified. At that point, Mr Powell was referred to radiation oncology for adjuvant radiation therapy. He was also under consideration of low-dose Xeloda concurrently with radiation as patient is not a candidate for adjuvant chemotherapy due to high risk for bone marrow suppression and treatment rendered complication. Considering Risk versus benefit, recommended modified dose Xeloda concurrent with radiation therapy and monitor his blood counts on weekly basis and adjust chemotherapy dose accordingly to minimize bone marrow suppression. He began concurrent therapy with radiation and dose reduced Xeloda on 12/10/2019.completed on 01/16/2020. Tolerated Injectafer given on 01/23/2020 , for functional iron deficiency anemia Came for follow-up, denies any specific complaints, chronic diarrhea has improved, take Lomotil or Imodium once a week. Gaining weight, appetite is good. Denies any fever chills denies any nausea vomiting. Denies any jaundice. Overall feeling much better and more energetic. He has follow-up appointment with surgery at [facility] in [place] in May 2020 Medications: Aspirin 1 Tablet (of 81 mg) Tablet Oral daily, Brilinta 1 Tablet (of 90 mg) Oral b.i.d., Carvedilol 1 Tablet (of 6.25 mg) Oral daily, Claritin 1 Tablet (of 10 mg) Oral daily PRN, Gas Relief 1 Capsule (of 180 mg) Oral PRN, Imodium A-D 1 Capsule (of 2 mg) Oral PRN, Lisinopril 1 Tablet (of 5 mg) Oral daily, Lomotil 1 Tablet (of 2.5-0.025 mg) Oral daily PRN, Multivitamin Adult 1 Tablet Oral daily Allergies: No Known Allergies. Review of Systems: Constitutional - Appetite is fair and weight has increased slightly. No fever, chills, hot flashes, or night sweats. Energy level is fair today, ENMT - No sinus congestion/drainage. No mouth sores. No sore throat or difficulty swallowing, Hematologic/Lymphatic - No abnormal bruising or bleeding, Respiratory - No shortness of breath. No cough. No pleuritic pain or hemoptysis, Cardiovascular - No angina pain. No palpitations, Gastrointestinal - No nausea or vomiting. Negative for heartburn and acid reflux. Positive for diarrhea, Genitourinary (M) - No dysuria or hematuria. No urinary frequency. No urgency. Pt reports occasional incontinence, Musculoskeletal - No joint or bone pain, Neurologic - No headache or dizziness. No numbness/paresthesias or other focal neurologic symptoms, Psychiatric - No anxiety or depression. No insomnia. Vital Signs: Performed on March 27, 2020 09:43 Height - 67.00 in Weight - 156.6 lbs (HIGH) BSA - 1.82 sq.m BMI - 24.53 Temperature - 98.5 F Pulse - 61 /min Respiration - 18 /min BP - 135/73 mm(hg) O2 Sat - 93 % (LOW) Pain - 0 Performance Status: 0 - Fully active, able to carry on all predisease activities without restrictions. (ECOG) Physical Examination: ENMT - no mouth sores, Respiratory - Lungs are clear, Cardiovascular - Regular rate and rhythm of heart, Abdomen - soft, bowel sounds present, Extremities - no edema or rash. Lab/Imaging: Test performed on March 27, 2020 08:30 Sodium 139 mmol/L Potassium 4.0 mmol/L Chloride 106 mmol/L CO2 23 mmol/L Anion Gap 14.0 BUN 5 mg/dL Creatinine 0.7 mg/dL Cr Clearance (Est) 95.84 mL/min Glucose 150 mg/dL Calcium 9.0 mg/dL Protein, Total 6.2 g/dL Albumin 3.6 g/dL Globulin 2.6 g/dL Bilirubin, Total 0.2 mg/dL ALT (SGPT) 38 U/L AST (SGOT) 47 U/L Alkaline Phosphatase 149 IU/L WBC 4.5 10 3/uL RBC 2.79 10 6/uL HGB 9.1 g/dL HCT 28.5 % MCV 102.2 fL MCH 32.6 pg MCHC 31.9 g/dL RDW 15.0 % Platelet Count 152 10 3/cmm MPV 9.3 fL Neutrophils 3.5 10 3/uL Lymphocytes 0.3 10 3/uL Monocytes 0.5 10 3/uL Eosinophils 0.2 10 3/uL Basophils 0.0 10 3/uL Neutrophil % 78.3 % Lymphocyte % 6.7 % Monocyte % 11.3 % Eosinophil % 3.3 % Basophils % 0.2 % CA 19-9 46.17 U/mL Test performed on Feb 27, 2020 13:41 Vitamin B12 324 pg/mL Test performed on Dec 23, 2019 08:50 Ferritin 31 ng/mL Cholesterol, Total 102 mg/dL Iron 48 ug/dL Triglycerides 79 mg/dL LDL Cholesterol 45 mg/dL UIBC 216 ug/dL HDL Cholesterol 41 mg/dL Cholesterol/HDL Ratio 2.49 mg/dL LDL / HDL Ratio 1.10 RATIO Hemoglobin A1C % 5.9 % Impression: Status post pancreaticoduodenectomy, resection and reconstruction of superior mesenteric vein/portal vein using bovine pericardium patch. Abdominal lymph node dissection and excision of left hepatic lobe lesion and peritoneal lesion and myofascial abdominal wall flap on 10/02/2019 final pathology report showed ypT3 and 4 out of 25 positive lymph node ypN2 Postop course was complicated by NSTEMI status post complex PCI to LM andLAD in September 2019 Adenocarcinoma involving head of pancreas and uncinate process per EUS guided FNA done on 03/29/2019 and metal bile duct stent placement for obstructive jaundice with resolution of jaundice CT scan of abdomen pelvis done on 03/25/2019 showed pancreatic head/uncinate process mass measuring 3.3 x 2.9 x 3.9 cm causing biliary system dilatation scan due to pancreatic head mass. Possible invasion into medial duodenal C-loop. No adenopathy or ascites noted Gastric outlet obstruction Status post duodenal stent placement Mr Powell was seen by Dr. Barbosa, surgeon and neoadjuvant chemotherapy was recommended prior to the surgery. He obtained a second opinion from [facility]. On 04/30/2019, he was evaluated at [facility] GI surgery clinic and underwent a pancreas protocol CT scan. The patient reports that he was told that tumor may be involving adjustment vascular structures so neoadjuvant chemotherapy with folfirinox was recommended. Mr Powell began his first cycle of FOLFIRINOX on 05/27/2019. Cycle 2 was given on 06/10/2019. He completed 6 cycles of neoadjuvant chemotherapy on 09/04/2019. Mr Powell completed 6 cycles of neoadjuvant chemotherapy with folfirinox on 09/04/2019. He then underwent pancreaticoduodenectomy, resection and reconstruction of' superior mesenteric vein portal vein using Bovine pericardium patch and abdominal lymphadenectomy on 10/02/2019. His postop course was complicated by NSTEMI and he required intra-aortic balloon pump and ultimately underwent cardiac cath with placement of 4 stents (2 overlapping stents in the left main/proximal LAD and 2 overlapping stents in the RCA). Now on Brilinta and aspirin. 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 Lymphovascular, including large vessel and perineural invasion identified. Tumor invades into adjoining portal vein And superior mesenteric vein but various margins are negative for the tumor. Tumor present at uncinate margin, as foci of vascular invasion. Tumor is less than 1 cm from posterior surface. A small focus of perineural invasion is identified less than 1 cm from the bile duct margin. Pancreatic parenchymal, proximal and distal duodenal resection margins are negative for the tumor. Metastatic carcinoma involving 4 out of 25 lymph nodes ypN2. Adjuvant chemotherapy/chemoradiation was recommended at [facility], but at the same time cardiology had a concern about bone marrow suppressing chemotherapy regimens and recommended avoiding these regimens as patient will require at least 6 months of continued DAPT due to recent NSTEMI and high risk PCI. Based on his final pathology report after Whipple's procedure, patient is a high risk for local recurrence and distant recurrence as there was a minimum response to the neoadjuvant chemotherapy. Lymph node positive disease with close surgical margins was identified. At that point, Mr Powell was referred to radiation oncology for adjuvant radiation therapy. He was also under consideration of low-dose Xeloda concurrently with radiation as patient is not a candidate for adjuvant chemotherapy due to high risk for bone marrow suppression and treatment rendered complication. Considering Risk versus benefit, recommended modified dose Xeloda concurrent with radiation therapy and monitor his blood counts on weekly basis and adjust chemotherapy dose accordingly to minimize bone marrow suppression. He began concurrent therapy with radiation and dose reduced Xeloda on 12/10/2019.and completed on 01/16/2020 He is following with Dr [facility], local school childcare [facility], for follow-up of NSTEMI status post PCI to LAD and LM. He has had iron deficieny anemia develop , improved with Injectafer Plan: Discussed with patient regarding his labs white blood count 4.5 hemoglobin 9.1 hematocrit 28.5 platelets 152,000 CMP within normal limit except glucose 152 and AST 47 and CA 19???9 is 46.17 compared to 25.8 on 01/06/2020 Clinically, patient is doing well, with no new signs symptoms suggestive of recurrence of disease but his follow-up lab shows is a mild increase in his CA 19???9, today, it is 46.17 compared to 25.48 on 01/06/2020 with normal range is less than 35. Patient has a follow-up appointment with GI surgery at [facility] in May 2020 and is scheduled for follow-up scans. Overall patient is feeling better, with improvement in performance status, and gaining weight. His hemoglobin is also improving since he was given Injectafer. He will return to clinic 1 week after his visit to GI surgery in [place]. With CBC CMP Signed By: Danielle Root M.D. <<Signature on File>>
== END 2020-04-12 23:59 | disposition home or self-care (01) ==
LOC: ONCMED 07:05
PROVIDERS: PCP Family Medicine; Visit Provider Internal Medicine Hematology & Oncology
DX: C25.0 Malignant neoplasm of head of pancreas (principal); C77.8 Secondary and unspecified malignant neoplasm of lymph nodes of multiple regions; E78.00 Pure hypercholesterolemia, unspecified; K21.9 Gastro-esophageal reflux disease without esophagitis; Z92.21 Personal history of antineoplastic chemotherapy; Z92.3 Personal history of irradiation; Z79.899 Other long term (current) drug therapy
CPT/HCPCS: 36591; 80053; 85025; 86301; G0463

== ENCOUNTER 2020-06-03 11:17 | Outpatient (CLI) | payer MEDICARE, SELFPAY ==
[2020-06-03 12:24] LABS: Basophils % 0.6 %; Eosinophils # 0.2 10^3/uL (0.0-0.8); Eosinophils % 3.1 %; Lymphocytes # 0.4 10^3/uL (0.8-4.8); Lymphocytes % 8.2 %; Mean Corpuscular HGB Conc 31.3 g/dL (30.0-36.0); Mean Corpuscular Volume 96.1 fL (80-94); Mean Platelet Volume 9.8 fL (7.4-10.4); Monocytes # 0.5 10^3/uL (0.2-0.9); Monocytes % 10.8 %; Neutrophils # 3.78 10^3/uL (1.8-7.7); Neutrophils % 77.1 %; Nucleated Red Blood Cells % 0 %; Platelet Count 170 10^3/cmm (130-400); Red Blood Count 3.33 10^6/uL (4.1-5.3); Red Cell Distribution Width 14.6 % (12.1-15.1); White Blood Count 4.9 10^3/uL (4.0-10.0)
[2020-06-03 12:37] LABS: Alanine Aminotransferase 27 U/L (0-41); Alkaline Phosphatase 125 IU/L (40-130); Aspartate Amino Transferase 31 U/L (0-40); Blood Urea Nitrogen 11 mg/dL (8-23); Calcium 8.9 mg/dL (8.5-10.5); Carbon Dioxide 23 mmol/L (22-29); Chloride 107 mmol/L (98-107); Globulin 2.4 g/dL (1.3-4.6); Glucose 160 mg/dL (65-115); Osmolality Calculated 289 mOsm/kg (285-295); Sodium 140 mmol/L (136-145); Total Bilirubin 0.2 mg/dL (0.15-1.2); Total Protein 6.4 g/dL (6.6-8.7)
--- NOTE | 2020-06-03 15:41 | ONC FU_ITS ---
Dr. Root follow up note Patient: Mauricio Powell Unit #: [id number]: [id number] Dicatated By: Danielle Root M.D.Date of Visit:Jun 03, 2020 Onc Med Follow-up/Prog Note History of Present Illness: Mr. Powell is a 70-year-old gentleman with history of progressive weakness and fatigue, acid reflux and loss of appetite. He subsequently noted change in his stool and urine color and jaundice. He also had about 25 pounds weight loss due to poor appetite and early fullness. Patient underwent CT scan of abdomen on 03/25/2019 which showed 3.3 x 2.9 x 2.9 cm soft tissue mass involving inferior pancreatic head and uncinate process. This mass was causing obstruction of common bile duct and probably also pancreatic duct and pancreatic mass abuts and distorts and may invade the medial duodenal C-loop. Patient was referred to [place] where he underwent endoscopic ultrasound and FNA done on 03/29/2019 and it confirmed adenocarcinoma subsequently underwent metal bile duct stent placement with that his jaundice improved but continued to have early fullness nausea finally underwent duodenal stent placement. Mr Powell was referred to Dr. Barbosa and as per patient, Dr. Barbosa suggested neoadjuvant chemotherapy prior to the surgery. Patient and his family decided to take second opinion and went to [facility] for evaluation. He then underwent an attempted ERCP at [facility], which was not possible due to significant luminal stenosis. The endoscopic ultrasound revealed obstructing 3.2 cm pancreatic head mass and the biopsy was positive for adenocarcinoma. Due to inability to perform ERCP, patient underwent percutaneous internal biliary stent. Later patient developed nausea vomiting for which he was readmitted to [facility] in [place] on 04/03/2019 and diagnosed with gastric outlet obstruction for that he underwent EGD with duodenal stent placement on 04/12/2019 . He then underwent pancreas protocol CT scan at [facility] as per patient he was told there could be vascular involvement with tumor so neoadjuvant chemotherapy with folfirinox was recommended. He began his first cycle on 05/27/2019. On 07/03/2019 he was admitted to [facility] with high-grade fever and diarrhea jaundice and abnormal LFTs subsequently diagnosed with sepsis being hypotensive patient was treated with IV antibiotics and CT scan of abdomen pelvis done on 07/04/2019 which showed marked biliary tract dilatation subsequently patient was transferred to [facility] in [place] for further management but his condition continued to improve GI was consulted but his LFTs continued to improve and he was discharged home on Cipro and Flagyl. Patient said he went back to [facility] and this time he underwent ERCP and not sure whether stent was replaced or cleaned. He had MRI MRCP done on 07/17/2019 which showed marked biliary tract dilatation with moderate dilatation of pancreatic duct similar to CT scan of 07/04/2019 and metallic stents obscure with radiation of pancreatic mass. Patient was on oral antibiotics ciprofloxacin and Flagyl till 07/27/2019. Mr Powell completed 6 cycles of neoadjuvant chemotherapy with folfirinox on 09/04/2019. He then underwent pancreaticoduodenectomy, resection and reconstruction of' superior mesenteric vein portal vein using Bovine pericardium patch and abdominal lymphadenectomy on 10/02/2019. His postop course was complicated by NSTEMI and he required intra-aortic balloon pump and ultimately underwent cardiac cath with placement of 4 stents (2 overlapping stents in the left main/proximal LAD and 2 overlapping stents in the RCA). Now on Brilinta and aspirin. 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 Lymphovascular, including large vessel and perineural invasion identified. Tumor invades into adjoining portal vein And superior mesenteric vein but various margins are negative for the tumor. Tumor present at uncinate margin, as foci of vascular invasion. Tumor is less than 1 cm from posterior surface; A small focus of perineural invasion is identified less than 1 cm from the bile duct margin. Pancreatic parenchymal, proximal and distal duodenal resection margins are negative for the tumor. Metastatic carcinoma involving 4 out of 25 lymph nodes ypN2. Adjuvant chemotherapy/chemoradiation was recommended at [facility], but at the same time cardiology had a concern about bone marrow suppressing chemotherapy regimens and recommended avoiding these regimens as patient will require at least 6 months of continued DAPT due to recent NSTEMI and high risk PCI. Based on his final pathology report after Whipple's procedure, patient is a high risk for local recurrence and distant recurrence as there was a minimum response to the neoadjuvant chemotherapy. Lymph node positive disease with close surgical margins was identified. At that point, Mr Powell was referred to radiation oncology for adjuvant radiation therapy. He was also under consideration of low-dose Xeloda concurrently with radiation as patient is not a candidate for adjuvant chemotherapy due to high risk for bone marrow suppression and treatment rendered complication. Considering Risk versus benefit, recommended modified dose Xeloda concurrent with radiation therapy and monitor his blood counts on weekly basis and adjust chemotherapy dose accordingly to minimize bone marrow suppression. He began concurrent therapy with radiation and dose reduced Xeloda on 12/10/2019.completed on 01/16/2020. Tolerated Injectafer given on 01/23/2020 , for functional iron deficiency anemia Came for follow-up, denies any specific complaints, no fever chills, no nausea or vomiting, no diarrhea constipation patient has seen Dr. Anthony, surgical oncologist at [facility] recently underwent scans of the abdomen, as per patient did not show any evidence of disease and he was told he is cancer free. As per patient he was given prescription for Creon for possible pancreatic insufficiency causing chronic diarrhea and with that his diarrhea resolved but then he started taking rosuvastatin with that patient had generalized weakness and fatigue and diarrhea recurred patient said during that time his lisinopril dose was also doubled. Other than that no fever chills, no nausea or vomiting, no diarrhea constipation now, no jaundice, no abdominal pain, eating well and gaining weight. Medications: Albuterol Sulfate (sensor) 1 (108 (90 base) mcg/act) Aerosol Powder, Breath Activated Inhalation daily PRN, Aspirin 1 Tablet (of 81 mg) Tablet Oral daily, Brilinta 1 Tablet (of 90 mg) Oral b.i.d., Carvedilol 1 Tablet (of 6.25 mg) Oral b.i.d., Claritin 1 Tablet (of 10 mg) Oral daily PRN, Creon 1 Capsule (of 16957 Units) Capsule Delayed Release Particles Oral t.i.d., Gas Relief 1 Capsule (of 180 mg) Oral PRN, Imodium A-D 1 Capsule (of 2 mg) Oral PRN, Lisinopril 1 Tablet (of 5 mg) Oral b.i.d., Lomotil 1 Tablet (of 2.5-0.025 mg) Oral daily PRN, Multivitamin Adult 1 Tablet Oral daily, Rosuvastatin Calcium 1 Tablet (of 10 mg) Oral at bedtime Allergies: No Known Allergies. Review of Systems: Constitutional - Appetite is fair and weight has increased slightly. No fever, chills, hot flashes, or night sweats. Energy level is fair today, ENMT - No sinus congestion/drainage. No mouth sores. No sore throat or difficulty swallowing, Hematologic/Lymphatic - No abnormal bruising or bleeding, Respiratory - No shortness of breath. No cough. No pleuritic pain or hemoptysis, Cardiovascular - No angina pain. No palpitations, Gastrointestinal - No nausea or vomiting. Negative for heartburn and acid reflux. Positive for diarrhea, Genitourinary (M) - No dysuria or hematuria. No urinary frequency. No urgency. Pt reports occasional incontinence, Musculoskeletal - No joint or bone pain, Neurologic - No headache or dizziness. No numbness/paresthesias or other focal neurologic symptoms, Psychiatric - No anxiety or depression. No insomnia. Vital Signs: Performed on Jun 03, 2020 12:51 Height - 67.00 in Weight - 154.2 lbs (LOW) BSA - 1.81 sq.m BMI - 24.15 Temperature - 99.4 F (HIGH) Pulse - 57 /min (LOW) Respiration - 18 /min BP - 115/61 mm(hg) O2 Sat - 99 % Pain - 0 Performance Status: 0 - Fully active, able to carry on all predisease activities without restrictions. (ECOG) Physical Examination: ENMT - No mouth sores, no thrush, no jaundice, Respiratory - Lungs are clear, Cardiovascular - Regular rate and rhythm of heart, Abdomen - Soft, bowel sounds present, Extremities - No visible edema. Lab/Imaging: Test performed on March 27, 2020 08:30 Sodium 139 mmol/L Potassium 4.0 mmol/L Chloride 106 mmol/L CO2 23 mmol/L Anion Gap 14.0 BUN 5 mg/dL Creatinine 0.7 mg/dL Cr Clearance (Est) 95.84 mL/min Glucose 150 mg/dL Calcium 9.0 mg/dL Protein, Total 6.2 g/dL Albumin 3.6 g/dL Globulin 2.6 g/dL Bilirubin, Total 0.2 mg/dL ALT (SGPT) 38 U/L AST (SGOT) 47 U/L Alkaline Phosphatase 149 IU/L WBC 4.5 10 3/uL RBC 2.79 10 6/uL HGB 9.1 g/dL HCT 28.5 % MCV 102.2 fL MCH 32.6 pg MCHC 31.9 g/dL RDW 15.0 % Platelet Count 152 10 3/cmm MPV 9.3 fL Neutrophils 3.5 10 3/uL Lymphocytes 0.3 10 3/uL Monocytes 0.5 10 3/uL Eosinophils 0.2 10 3/uL Basophils 0.0 10 3/uL Neutrophil % 78.3 % Lymphocyte % 6.7 % Monocyte % 11.3 % Eosinophil % 3.3 % Basophils % 0.2 % CA 19-9 46.17 U/mL Test performed on Feb 27, 2020 13:41 Vitamin B12 324 pg/mL Test performed on Dec 23, 2019 08:50 Ferritin 31 ng/mL Cholesterol, Total 102 mg/dL Iron 48 ug/dL Triglycerides 79 mg/dL LDL Cholesterol 45 mg/dL UIBC 216 ug/dL HDL Cholesterol 41 mg/dL Cholesterol/HDL Ratio 2.49 mg/dL LDL / HDL Ratio 1.10 RATIO Hemoglobin A1C % 5.9 % Impression: Status post pancreaticoduodenectomy, resection and reconstruction of superior mesenteric vein/portal vein using bovine pericardium patch. Abdominal lymph node dissection and excision of left hepatic lobe lesion and peritoneal lesion and myofascial abdominal wall flap on 10/02/2019 final pathology report showed ypT3 and 4 out of 25 positive lymph node ypN2 Postop course was complicated by NSTEMI status post complex PCI to andLAD in September 2019 Adenocarcinoma involving head of pancreas and uncinate process per EUS guided FNA done on 03/29/2019 and metal bile duct stent placement for obstructive jaundice with resolution of jaundice CT scan of abdomen pelvis done on 03/25/2019 showed pancreatic head/uncinate process mass measuring 3.3 x 2.9 x 3.9 cm causing biliary system dilatation scan due to pancreatic head mass. Possible invasion into medial duodenal C-loop. No adenopathy or ascites noted Gastric outlet obstruction Status post duodenal stent placement Mr Powell was seen by Dr. Barbosa, surgeon and neoadjuvant chemotherapy was recommended prior to the surgery. He obtained a second opinion from [facility]. On 04/30/2019, he was evaluated at [facility] GI surgery clinic and underwent a pancreas protocol CT scan. The patient reports that he was told that tumor may be involving adjustment vascular structures so neoadjuvant chemotherapy with folfirinox was recommended. Mr Powell began his first cycle of FOLFIRINOX on 05/27/2019. Cycle 2 was given on 06/10/2019. He completed 6 cycles of neoadjuvant chemotherapy on 09/04/2019. Mr Powell completed 6 cycles of neoadjuvant chemotherapy with folfirinox on 09/04/2019. He then underwent pancreaticoduodenectomy, resection and reconstruction of' superior mesenteric vein portal vein using Bovine pericardium patch and abdominal lymphadenectomy on 10/02/2019. His postop course was complicated by NSTEMI and he required intra-aortic balloon pump and ultimately underwent cardiac cath with placement of 4 stents (2 overlapping stents in the left main/proximal LAD and 2 overlapping stents in the RCA). Now on Brilinta and aspirin. 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 Lymphovascular, including large vessel and perineural invasion identified. Tumor invades into adjoining portal vein And superior mesenteric vein but various margins are negative for the tumor. Tumor present at uncinate margin, as foci of vascular invasion. Tumor is less than 1 cm from posterior surface. A small focus of perineural invasion is identified less than 1 cm from the bile duct margin. Pancreatic parenchymal, proximal and distal duodenal resection margins are negative for the tumor. Metastatic carcinoma involving 4 out of 25 lymph nodes ypN2. Adjuvant chemotherapy/chemoradiation was recommended at [facility], but at the same time cardiology had a concern about bone marrow suppressing chemotherapy regimens and recommended avoiding these regimens as patient will require at least 6 months of continued DAPT due to recent NSTEMI and high risk PCI. Based on his final pathology report after Whipple's procedure, patient is a high risk for local recurrence and distant recurrence as there was a minimum response to the neoadjuvant chemotherapy. Lymph node positive disease with close surgical margins was identified. At that point, Mr Powell was referred to radiation oncology for adjuvant radiation therapy. He was also under consideration of low-dose Xeloda concurrently with radiation as patient is not a candidate for adjuvant chemotherapy due to high risk for bone marrow suppression and treatment rendered complication. Considering Risk versus benefit, recommended modified dose Xeloda concurrent with radiation therapy and monitor his blood counts on weekly basis and adjust chemotherapy dose accordingly to minimize bone marrow suppression. He began concurrent therapy with radiation and dose reduced Xeloda on 12/10/2019.and completed on 01/16/2020 He is following with Dr Jefferson, local weight shifter, for follow-up of NSTEMI status post PCI to LAD and LM. He has had iron deficieny anemia develop , improved with Injectafer Plan: Discussed with patient regarding his labs white blood count 4.9 hemoglobin 10 g compared to 9.1 g on March 27, 2020 hematocrit 32 platelets 170,000 CMP within normal limits Clinically, patient is doing well with no new signs symptom suggestive of recurrence of disease, in fact recently underwent follow-up work-up including abdominal scans at [facility], as per patient Dr. Anthony, his surgical oncologist has informed them that there is no sign of disease. Patient had chronic diarrhea and recently started on Creon, pancreatic enzyme supplement, with that diarrhea resolved and patient is feeling much better As far as mild/moderate anemia is concerned patient was given dose of Injectafer on January 23, 2020 since then his hemoglobin has been improving gradually from 7.7 g on January 23, 2020 and now 10 g. We will continue to monitor Return to clinic in 3 months with CBC CMP. Patient said he will go back to [facility] in 6 months for follow-up with Dr. Anthony. Signed By: Danielle Root M.D. <<Signature on File>>
== END 2020-06-03 11:18 | disposition home or self-care (01) ==
LOC: ONCMED 11:22
PROVIDERS: PCP Family Medicine; Visit Provider Internal Medicine Hematology & Oncology
DX: Z08 Encounter for follow-up examination after completed treatment for malignant neoplasm (principal); Z85.07 Personal history of malignant neoplasm of pancreas; D50.9 Iron deficiency anemia, unspecified; I25.2 Old myocardial infarction; Z79.899 Other long term (current) drug therapy; Z90.49 Acquired absence of other specified parts of digestive tract
CPT/HCPCS: 36591; 80053; 85025; G0463

== ENCOUNTER 2020-07-03 06:00 | Outpatient (CLI) | payer MEDICARE, SELFPAY | END 2020-07-03 06:01 | disposition home or self-care (01) | LOC: ONCMED 07-06 10:47 | PROVIDERS: PCP Family Medicine; Visit Provider Internal Medicine Medical Oncology | DX: Z45.2 Encounter for adjustment and management of vascular access device (principal) | CPT/HCPCS: 96523 ==

== ENCOUNTER 2020-08-03 05:52 | Outpatient (CLI) | payer MEDICARE, SELFPAY | END 2020-08-03 05:53 | disposition home or self-care (01) | LOC: ONCMED 05:54 | PROVIDERS: PCP Family Medicine; Visit Provider Internal Medicine Hematology & Oncology | DX: Z45.2 Encounter for adjustment and management of vascular access device (principal) | CPT/HCPCS: 96523 ==

== ENCOUNTER 2020-08-25 14:00 | Outpatient (CLI) | payer MEDICARE, SELFPAY ==
[2020-08-25 14:34] LABS: Basophils % 0.2 %; Eosinophils # 0.2 10^3/uL (0.0-0.8); Eosinophils % 4.2 %; Hematocrit 33.3 % (42.0-52.0); Hemoglobin 10.7 g/dL (11.7-16.6); Lymphocytes # 0.5 10^3/uL (0.8-4.8); Lymphocytes % 13.3 %; Mean Corpuscular HGB Conc 32.1 g/dL (30.0-36.0); Mean Corpuscular Hemoglobin 30.7 pg (28.0-34.0); Mean Corpuscular Volume 95.4 fL (80-94); Mean Platelet Volume 9.6 fL (7.4-10.4); Monocytes # 0.7 10^3/uL (0.2-0.9); Monocytes % 16.5 %; Neutrophils # 2.66 10^3/uL (1.8-7.7); Neutrophils % 65.6 %; Nucleated Red Blood Cells % 0 %; Platelet Count 145 10^3/cmm (130-400); Red Blood Count 3.49 10^6/uL (4.1-5.3); Red Cell Distribution Width 15.4 % (12.1-15.1); White Blood Count 4.1 10^3/uL (4.0-10.0)
[2020-08-25 14:47] LABS: Alanine Aminotransferase 34 U/L (0-41); Albumin Level 3.7 g/dL (3.5-5.2); Alkaline Phosphatase 134 IU/L (40-130); Anion Gap 15.9 (5-19); Aspartate Amino Transferase 41 U/L (0-40); Blood Urea Nitrogen 9 mg/dL (8-23); Calcium 8.9 mg/dL (8.5-10.5); Carbon Dioxide 21 mmol/L (22-29); Chloride 108 mmol/L (98-107); Globulin 2.6 g/dL (1.3-4.6); Glucose 114 mg/dL (65-115); Osmolality Calculated 292 mOsm/kg (285-295); Potassium 3.9 mmol/L (3.5-5.1); Sodium 141 mmol/L (136-145); Total Bilirubin 0.2 mg/dL (0.15-1.2); Total Protein 6.3 g/dL (6.6-8.7)
--- NOTE | 2020-08-25 17:09 | ONC FU_ITS ---
Dr. Root follow up note Patient: Mauricio Powell Unit #: [id number]: 1950 Dicatated By: Danielle Root M.D.Date of Visit:Aug 25, 2020 Onc Med Follow-up/Prog Note History of Present Illness: Mr. Powell is a 70-year-old gentleman with history of progressive weakness and fatigue, acid reflux and loss of appetite. He subsequently noted change in his stool and urine color and jaundice. He also had about 25 pounds weight loss due to poor appetite and early fullness. Patient underwent CT scan of abdomen on 03/25/2019 which showed 3.3 x 2.9 x 2.9 cm soft tissue mass involving inferior pancreatic head and uncinate process. This mass was causing obstruction of common bile duct and probably also pancreatic duct and pancreatic mass abuts and distorts and may invade the medial duodenal C-loop. Patient was referred to [place] where he underwent endoscopic ultrasound and FNA done on 03/29/2019 and it confirmed adenocarcinoma subsequently underwent metal bile duct stent placement with that his jaundice improved but continued to have early fullness nausea finally underwent duodenal stent placement. Mr Powell was referred to Dr. Barbosa and as per patient, Dr. Barbosa suggested neoadjuvant chemotherapy prior to the surgery. Patient and his family decided to take second opinion and went to [facility] for evaluation. He then underwent an attempted ERCP at [facility], which was not possible due to significant luminal stenosis. The endoscopic ultrasound revealed obstructing 3.2 cm pancreatic head mass and the biopsy was positive for adenocarcinoma. Due to inability to perform ERCP, patient underwent percutaneous internal biliary stent. Later patient developed nausea vomiting for which he was readmitted to [facility] in [place] on 04/03/2019 and diagnosed with gastric outlet obstruction for that he underwent EGD with duodenal stent placement on 04/12/2019 . He then underwent pancreas protocol CT scan at [facility] as per patient he was told there could be vascular involvement with tumor so neoadjuvant chemotherapy with folfirinox was recommended. He began his first cycle on 05/27/2019. On 07/03/2019 he was admitted to [facility] with high-grade fever and diarrhea jaundice and abnormal LFTs subsequently diagnosed with sepsis being hypotensive patient was treated with IV antibiotics and CT scan of abdomen pelvis done on 07/04/2019 which showed marked biliary tract dilatation subsequently patient was transferred to [facility] in [place] for further management but his condition continued to improve GI was consulted but his LFTs continued to improve and he was discharged home on Cipro and Flagyl. Patient said he went back to [facility] and this time he underwent ERCP and not sure whether stent was replaced or cleaned. He had MRI MRCP done on 07/17/2019 which showed marked biliary tract dilatation with moderate dilatation of pancreatic duct similar to CT scan of 07/04/2019 and metallic stents obscure with radiation of pancreatic mass. Patient was on oral antibiotics ciprofloxacin and Flagyl till 07/27/2019. Mr Powell completed 6 cycles of neoadjuvant chemotherapy with folfirinox on 09/04/2019. He then underwent pancreaticoduodenectomy, resection and reconstruction of' superior mesenteric vein portal vein using Bovine pericardium patch and abdominal lymphadenectomy on 10/02/2019. His postop course was complicated by NSTEMI and he required intra-aortic balloon pump and ultimately underwent cardiac cath with placement of 4 stents (2 overlapping stents in the left main/proximal LAD and 2 overlapping stents in the RCA). Now on Brilinta and aspirin. 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 Lymphovascular, including large vessel and perineural invasion identified. Tumor invades into adjoining portal vein And superior mesenteric vein but various margins are negative for the tumor. Tumor present at uncinate margin, as foci of vascular invasion. Tumor is less than 1 cm from posterior surface; A small focus of perineural invasion is identified less than 1 cm from the bile duct margin. Pancreatic parenchymal, proximal and distal duodenal resection margins are negative for the tumor. Metastatic carcinoma involving 4 out of 25 lymph nodes ypN2. Adjuvant chemotherapy/chemoradiation was recommended at [place], but at the same time cardiology had a concern about bone marrow suppressing chemotherapy regimens and recommended avoiding these regimens as patient will require at least 6 months of continued DAPT due to recent NSTEMI and high risk PCI. Based on his final pathology report after Whipple's procedure, patient is a high risk for local recurrence and distant recurrence as there was a minimum response to the neoadjuvant chemotherapy. Lymph node positive disease with close surgical margins was identified. At that point, Mr Powell was referred to radiation oncology for adjuvant radiation therapy. He was also under consideration of low-dose Xeloda concurrently with radiation as patient is not a candidate for adjuvant chemotherapy due to high risk for bone marrow suppression and treatment rendered complication. Considering Risk versus benefit, recommended modified dose Xeloda concurrent with radiation therapy and monitor his blood counts on weekly basis and adjust chemotherapy dose accordingly to minimize bone marrow suppression. He began concurrent therapy with radiation and dose reduced Xeloda on 12/10/2019.completed on 01/16/2020. Tolerated Injectafer given on 01/23/2020 , for functional iron deficiency anemia patient has seen Dr. Anthony, surgical oncologist at [facility] recently underwent scans of the abdomen, as per patient did not show any evidence of disease and he was told he is cancer free. As per patient he was given prescription for Creon for possible pancreatic insufficiency causing chronic diarrhea Came for follow-up, denies any specific complaints, no fever chills, no nausea or vomiting, no diarrhea constipation, no abdominal pain, no jaundice, appetite is good, more energetic. Medications: Albuterol Sulfate (sensor) 1 (108 (90 base) mcg/act) Aerosol Powder, Breath Activated Inhalation daily PRN, Brilinta 1 Tablet (of 90 mg) Oral b.i.d., Carvedilol 1 Tablet (of 6.25 mg) Oral b.i.d., Claritin 1 Tablet (of 10 mg) Oral daily PRN, Creon 1 Capsule (of 20214 Units) Capsule Delayed Release Particles Oral t.i.d., Gas Relief 1 Capsule (of 180 mg) Oral PRN, Imodium A-D 1 Capsule (of 2 mg) Oral PRN, Lomotil 1 Tablet (of 2.5-0.025 mg) Oral daily PRN, Multivitamin Adult 1 Tablet Oral daily, Rosuvastatin Calcium 1 Tablet (of 5 mg) Oral at bedtime, Sacubitril-Valsartan 1 Tablet (of 24-26 mg) Oral b.i.d. Allergies: No Known Allergies. Review of Systems: Review of Systems is not available for this patient. Vital Signs: Performed on Aug 25, 2020 15:27 Height - 67.00 in Weight - 158.2 lbs (HIGH) BSA - 1.83 sq.m BMI - 24.78 Temperature - 98.6 F Pulse - 55 /min (LOW) Respiration - 18 /min BP - 108/67 mm(hg) O2 Sat - 99 % Pain - 0 Performance Status: 0 - Fully active, able to carry on all predisease activities without restrictions. (ECOG) Physical Examination: ENMT - No mouth sores, no thrush, no jaundice, Respiratory - Lungs are clear to auscultation, Cardiovascular - Regular rate and rhythm of heart, Abdomen - Soft, bowel sounds present, Extremities - No visible edema. Lab/Imaging: Test performed on Jun 03, 2020 11:38 Sodium 140 mmol/L Potassium 4.0 mmol/L Chloride 107 mmol/L CO2 23 mmol/L Anion Gap 14.0 BUN 11 mg/dL Creatinine 0.8 mg/dL Cr Clearance (Est) 82.57 mL/min Glucose 160 mg/dL Calcium 8.9 mg/dL Protein, Total 6.4 g/dL Albumin 4.0 g/dL Globulin 2.4 g/dL Bilirubin, Total 0.2 mg/dL ALT (SGPT) 27 U/L AST (SGOT) 31 U/L Alkaline Phosphatase 125 IU/L WBC 4.9 10 3/uL RBC 3.33 10 6/uL HGB 10.0 g/dL HCT 32.0 % MCV 96.1 fL MCH 30.0 pg MCHC 31.3 g/dL RDW 14.6 % Platelet Count 170 10 3/cmm MPV 9.8 fL Neutrophils 3.78 10 3/uL Lymphocytes 0.4 10 3/uL Monocytes 0.5 10 3/uL Eosinophils 0.2 10 3/uL Basophils 0.0 10 3/uL Neutrophil % 77.1 % Lymphocyte % 8.2 % Monocyte % 10.8 % Eosinophil % 3.1 % Basophils % 0.6 % NRBC % 0 % Test performed on March 27, 2020 08:30 CA 19-9 46.17 U/mL Test performed on Feb 27, 2020 13:41 Vitamin B12 324 pg/mL Impression: Status post pancreaticoduodenectomy, resection and reconstruction of superior mesenteric vein/portal vein using bovine pericardium patch. Abdominal lymph node dissection and excision of left hepatic lobe lesion and peritoneal lesion and myofascial abdominal wall flap on 10/02/2019 final pathology report showed ypT3 and 4 out of 25 positive lymph node ypN2 Postop course was complicated by NSTEMI status post complex PCI to LM andLAD in September 2019 Adenocarcinoma involving head of pancreas and uncinate process per EUS guided FNA done on 03/29/2019 and metal bile duct stent placement for obstructive jaundice with resolution of jaundice CT scan of abdomen pelvis done on 03/25/2019 showed pancreatic head/uncinate process mass measuring 3.3 x 2.9 x 3.9 cm causing biliary system dilatation scan due to pancreatic head mass. Possible invasion into medial duodenal C-loop. No adenopathy or ascites noted Gastric outlet obstruction Status post duodenal stent placement Mr Powell was seen by Dr. Barbosa, surgeon and neoadjuvant chemotherapy was recommended prior to the surgery. He obtained a second opinion from [facility]. On 04/30/2019, he was evaluated at [facility] GI surgery clinic and underwent a pancreas protocol CT scan. The patient reports that he was told that tumor may be involving adjustment vascular structures so neoadjuvant chemotherapy with folfirinox was recommended. Mr Powell began his first cycle of FOLFIRINOX on 05/27/2019. Cycle 2 was given on 06/10/2019. He completed 6 cycles of neoadjuvant chemotherapy on 09/04/2019. Mr Powell completed 6 cycles of neoadjuvant chemotherapy with folfirinox on 09/04/2019. He then underwent pancreaticoduodenectomy, resection and reconstruction of' superior mesenteric vein portal vein using Bovine pericardium patch and abdominal lymphadenectomy on 10/02/2019. His postop course was complicated by NSTEMI and he required intra-aortic balloon pump and ultimately underwent cardiac cath with placement of 4 stents (2 overlapping stents in the left main/proximal LAD and 2 overlapping stents in the RCA). Now on Brilinta and aspirin. 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 Lymphovascular, including large vessel and perineural invasion identified. Tumor invades into adjoining portal vein And superior mesenteric vein but various margins are negative for the tumor. Tumor present at uncinate margin, as foci of vascular invasion. Tumor is less than 1 cm from posterior surface. A small focus of perineural invasion is identified less than 1 cm from the bile duct margin. Pancreatic parenchymal, proximal and distal duodenal resection margins are negative for the tumor. Metastatic carcinoma involving 4 out of 25 lymph nodes ypN2. Adjuvant chemotherapy/chemoradiation was recommended at [facility], but at the same time cardiology had a concern about bone marrow suppressing chemotherapy regimens and recommended avoiding these regimens as patient will require at least 6 months of continued DAPT due to recent NSTEMI and high risk PCI. Based on his final pathology report after Whipple's procedure, patient is a high risk for local recurrence and distant recurrence as there was a minimum response to the neoadjuvant chemotherapy. Lymph node positive disease with close surgical margins was identified. At that point, Mr Powell was referred to radiation oncology for adjuvant radiation therapy. He was also under consideration of low-dose Xeloda concurrently with radiation as patient is not a candidate for adjuvant chemotherapy due to high risk for bone marrow suppression and treatment rendered complication. Considering Risk versus benefit, recommended modified dose Xeloda concurrent with radiation therapy and monitor his blood counts on weekly basis and adjust chemotherapy dose accordingly to minimize bone marrow suppression. He began concurrent therapy with radiation and dose reduced Xeloda on 12/10/2019.and completed on 01/16/2020 He is following with Dr Jefferson, local noteman, for follow-up of NSTEMI status post PCI to LAD and LM. He has had iron deficieny anemia develop , improved with Injectafer Plan: Discussed with patient regarding his labs white blood count 4.1 hemoglobin 10.7 hematocrit 33.3 platelets 145,000 CMP within normal limits Clinically, patient is doing well with no signs symptom suggestive of recurrence of disease his follow-up labs shows hemoglobin continued to improve. Patient return to clinic in 3 months with CBC CMP in the meantime, as per patient he has follow-up appointment with Dr. Anthony at [facility] in the first week of November, and will get follow-up scan at that time. Signed By: Danielle Root M.D. <<Signature on File>>
== END 2020-08-25 14:01 | disposition home or self-care (01) ==
LOC: ONCMED 14:03
PROVIDERS: PCP Family Medicine; Visit Provider Internal Medicine Hematology & Oncology
DX: C25.0 Malignant neoplasm of head of pancreas (principal); C77.8 Secondary and unspecified malignant neoplasm of lymph nodes of multiple regions; Z23 Encounter for immunization; D50.9 Iron deficiency anemia, unspecified; I25.2 Old myocardial infarction; Z79.899 Other long term (current) drug therapy; Z92.3 Personal history of irradiation; Z90.411 Acquired partial absence of pancreas; Z90.49 Acquired absence of other specified parts of digestive tract
CPT/HCPCS: 36591; 80053; 85025; 90471; 90686; G0463

== ENCOUNTER 2020-10-28 10:16 | Outpatient (CLI) | payer MEDICARE, SELFPAY | END 2020-10-28 10:17 | disposition home or self-care (01) | LOC: ONCMED 10:19 | PROVIDERS: PCP Family Medicine; Visit Provider Internal Medicine Hematology & Oncology | DX: Z45.2 Encounter for adjustment and management of vascular access device (principal) | CPT/HCPCS: 96523 ==

== ENCOUNTER 2020-11-19 14:53 | Outpatient (CLI) | payer MEDICARE, SELFPAY ==
--- NOTE | 2020-11-19 15:00 | USCV_ITS ---
Mauricio Powell Age: 70 Gender: M : 1950 Exam Date: 11/19/2020 15:20 Ordering Phys: Alec Jefferson MD ([email or web address]) Technologist: All Brown [place] [facility] [place]ication: CHEST PAIN BP: 121 / 57 HR: 49 Rhythm: Sinus Technical Quality: Good MEASUREMENTS (Male / Female) Normal Values 2D ECHO LV Diastolic Diameter PLAX 5.3 cm 4.2 - 5.9 / 3.9 - 5.3 cm LV Systolic Diameter PLAX 3.5 cm LV Chamber Size 4.5 cm IVS Diastolic Thickness 1.5 cm 0.6 - 1.0 / 0.6 - 0.9 cm IVS Systolic Thickness 1.7 cm LVPW Diastolic Thickness 0.9 cm 0.6 - 1.0 / 0.6 - 0.9 cm LVPW Systolic Thickness 1.6 cm RV Chamber Size 3.7 cm LVOT Diameter 2.0 cm LV Ejection Fraction 2D Teich 62.7 % LV Ejection Fraction MOD 2C 30.5 % LV Ejection Fraction 2C AL 27.8 % LA Diameter 3.7 cm LA Width 3.8 cm LA Height 4.3 cm RA Width 3.1 cm RA Height 3.8 cm Aorta at Sinotubular Diameter 2.6 cm M-MODE LV Diastolic Diameter MM 7.0 cm 4.2 - 5.9 / 3.9 - 5.3 cm LV Systolic Diameter MM 5.0 cm LV Ejection Fraction MM Teich 54.3 % IVS Diastolic Thickness MM 0.9 cm 0.6 - 1.0 / 0.6 - 0.9 cm IVS Systolic Thickness MM 1.2 cm LVPW Diastolic Thickness MM 0.9 cm 0.6 - 1.0 / 0.6 - 0.9 cm LVPW Systolic Thickness MM 1.7 cm Aortic Annulus Diameter 3.3 cm LA Ao Ratio MM 1.1 MV E Point Septal Separation 0.9 cm DOPPLER AV Peak Velocity 169.0 cm/s LVOT Peak Velocity 104.0 cm/s AV Area Cont Eq vti 1.6 cm squared AV Area Cont Eq pk 1.9 cm squared MV Area PHT 2.1 cm squared Mitral E to A Ratio 0.7 MV E' Velocity 29.0 cm/s Mitral E to MV E' Ratio 7.2 Mitral E to LV E' Lateral Ratio 6.2 Mitral E to LV E' Septal Ratio 8.6 TR Peak Velocity 232.0 cm/s TR Peak Gradient 21.5 mmHg Right Atrial Pressure 3.0 mmHg Pulmonary Artery Systolic Pressu 24.5 mmHg PV Peak Velocity 53.0 cm/s RV Acceleration Time 0.1 s RV Ejection Time 0.3 s RV AcT/ET 0.3 FINDINGS Left Ventricle Diffuse hypokinesia of the left ventricle with ejection fraction of 40 to 45%.Mild left ventricular hypertrophy. Grade I/IV diastolic dysfunction (abnormal relaxation filling pattern), normal to mildly elevated filling pressures. Right Ventricle The right ventricle is normal in size and function. Right Atrium The right atrium is normal in size. Left Atrium The left atrium is normal in size. Mitral Valve Thickened mitral valve. Mild-moderate mitral valve regurgitation. Aortic Valve Thickened aortic valve. Aortic valve sclerosis. Tricuspid Valve Thickened tricuspid valve. Mild tricuspid valve regurgitation. Estimated pulmonary artery peak systolic pressure of 25 mmHg Pulmonic Valve No gross abnormalities noted Pericardium Normal pericardium without effusion. Aorta Normal ascending aorta dimension. CONCLUSIONS Diffuse hypokinesia of the left ventricle with an ejection fraction of 40 to 45%. Mild left ventricular hypertrophy. Grade I/IV diastolic dysfunction (abnormal relaxation filling pattern), normal to mildly elevated filling pressures. Thickened mitral valve. Mild-moderate mitral valve regurgitation. Thickened tricuspid valve. Mild tricuspid valve regurgitation. Estimated pulmonary artery peak systolic pressure of 25 mmHg. There is no pericardial effusion. There are no intracardiac masses. No previous study is available for comparison. Dr Alec Jefferson MD [facility] (Electronically Signed) Final Date: 19 November 2020 19:34 S
== END 2020-11-19 14:54 | disposition home or self-care (01) ==
LOC: RAD 14:58
PROVIDERS: PCP Family Medicine; Visit Provider Internal Medicine Cardiovascular Disease
DX: R07.89 Other chest pain (principal); I08.1 Rheumatic disorders of both mitral and tricuspid valves
CPT/HCPCS: 93306

== ENCOUNTER 2020-12-09 13:51 | Outpatient (CLI) | payer MEDICARE, SELFPAY ==
[2020-12-09 14:30] LABS: Basophils % 0.7 %; Eosinophils # 0.1 10^3/uL (0.0-0.8); Eosinophils % 3.1 %; Hematocrit 34.3 % (42.0-52.0); Hemoglobin 11.2 g/dL (11.7-16.6); Lymphocytes # 0.7 10^3/uL (0.8-4.8); Lymphocytes % 15.5 %; Mean Corpuscular HGB Conc 32.7 g/dL (30.0-36.0); Mean Corpuscular Hemoglobin 30.9 pg (28.0-34.0); Mean Corpuscular Volume 94.5 fL (80-94); Monocytes # 0.5 10^3/uL (0.2-0.9); Monocytes % 9.9 %; Neutrophils % 70.6 %; Nucleated Red Blood Cells % 0 %; Platelet Count 141 10^3/cmm (130-400); Red Blood Count 3.63 10^6/uL (4.1-5.3); Red Cell Distribution Width 14.3 % (12.1-15.1); White Blood Count 4.5 10^3/uL (4.0-10.0)
[2020-12-09 14:58] LABS: Alanine Aminotransferase 35 U/L (0-41); Albumin Level 3.8 g/dL (3.5-5.2); Alkaline Phosphatase 132 IU/L (40-130); Anion Gap 11.1 (5-19); Aspartate Amino Transferase 33 U/L (0-40); Blood Urea Nitrogen 11 mg/dL (8-23); Calcium 9.1 mg/dL (8.5-10.5); Carbon Dioxide 27 mmol/L (22-29); Chloride 107 mmol/L (98-107); Globulin 2.8 g/dL (1.3-4.6); Glucose 145 mg/dL (65-115); Osmolality Calculated 294 mOsm/kg (285-295); Potassium 4.1 mmol/L (3.5-5.1); Sodium 141 mmol/L (136-145); Total Bilirubin 0.2 mg/dL (0.15-1.2); Total Protein 6.6 g/dL (6.6-8.7)
--- NOTE | 2020-12-10 08:59 | ONC FU_ITS ---
Dr. Root follow up note Patient: Mauricio Powell Unit #: [id number]: 1950 Dicatated By: Danielle Root M.D.Date of Visit:Dec 09, 2020 Onc Med Follow-up/Prog Note History of Present Illness: Mr. Powell is a 70-year-old gentleman with history of progressive weakness and fatigue, acid reflux and loss of appetite. He subsequently noted change in his stool and urine color and jaundice. He also had about 25 pounds weight loss due to poor appetite and early fullness. Patient underwent CT scan of abdomen on 03/25/2019 which showed 3.3 x 2.9 x 2.9 cm soft tissue mass involving inferior pancreatic head and uncinate process. This mass was causing obstruction of common bile duct and probably also pancreatic duct and pancreatic mass abuts and distorts and may invade the medial duodenal C-loop. Patient was referred to [facility] where he underwent endoscopic ultrasound and FNA done on 03/29/2019 and it confirmed adenocarcinoma subsequently underwent metal bile duct stent placement with that his jaundice improved but continued to have early fullness nausea finally underwent duodenal stent placement. Mr Powell was referred to Dr. Barbosa and as per patient, Dr. Barbosa suggested neoadjuvant chemotherapy prior to the surgery. Patient and his family decided to take second opinion and went to [facility] for evaluation. He then underwent an attempted ERCP at [facility], which was not possible due to significant luminal stenosis. The endoscopic ultrasound revealed obstructing 3.2 cm pancreatic head mass and the biopsy was positive for adenocarcinoma. Due to inability to perform ERCP, patient underwent percutaneous internal biliary stent. Later patient developed nausea vomiting for which he was readmitted to [facility] in [place] on 04/03/2019 and diagnosed with gastric outlet obstruction for that he underwent EGD with duodenal stent placement on 04/12/2019 . He then underwent pancreas protocol CT scan at [facility] as per patient he was told there could be vascular involvement with tumor so neoadjuvant chemotherapy with folfirinox was recommended. He began his first cycle on 05/27/2019. On 07/03/[address] [facility] with high-grade fever and diarrhea jaundice and abnormal LFTs subsequently diagnosed with sepsis being hypotensive patient was treated with IV antibiotics and CT scan of abdomen pelvis done on 07/04/2019 which showed marked biliary tract dilatation subsequently patient was transferred to [facility] in [place] for further management but his condition continued to improve GI was consulted but his LFTs continued to improve and he was discharged home on Cipro and Flagyl. Patient said he went back to [facility] and this time he underwent ERCP and not sure whether stent was replaced or cleaned. He had MRI MRCP done on 07/17/2019 which showed marked biliary tract dilatation with moderate dilatation of pancreatic duct similar to CT scan of 07/04/2019 and metallic stents obscure with radiation of pancreatic mass. Patient was on oral antibiotics ciprofloxacin and Flagyl till 07/27/2019. Mr Powell completed 6 cycles of neoadjuvant chemotherapy with folfirinox on 09/04/2019. He then underwent pancreaticoduodenectomy, resection and reconstruction of' superior mesenteric vein portal vein using Bovine pericardium patch and abdominal lymphadenectomy on 10/02/2019. His postop course was complicated by NSTEMI and he required intra-aortic balloon pump and ultimately underwent cardiac cath with placement of 4 stents (2 overlapping stents in the left main/proximal LAD and 2 overlapping stents in the RCA). Now on Brilinta and aspirin. 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 Lymphovascular, including large vessel and perineural invasion identified. Tumor invades into adjoining portal vein And superior mesenteric vein but various margins are negative for the tumor. Tumor present at uncinate margin, as foci of vascular invasion. Tumor is less than 1 cm from posterior surface; A small focus of perineural invasion is identified less than 1 cm from the bile duct margin. Pancreatic parenchymal, proximal and distal duodenal resection margins are negative for the tumor. Metastatic carcinoma involving 4 out of 25 lymph nodes ypN2. Adjuvant chemotherapy/chemoradiation was recommended at [facility], but at the same time cardiology had a concern about bone marrow suppressing chemotherapy regimens and recommended avoiding these regimens as patient will require at least 6 months of continued DAPT due to recent NSTEMI and high risk PCI. Based on his final pathology report after Whipple's procedure, patient is a high risk for local recurrence and distant recurrence as there was a minimum response to the neoadjuvant chemotherapy. Lymph node positive disease with close surgical margins was identified. At that point, Mr Powell was referred to radiation oncology for adjuvant radiation therapy. He was also under consideration of low-dose Xeloda concurrently with radiation as patient is not a candidate for adjuvant chemotherapy due to high risk for bone marrow suppression and treatment rendered complication. Considering Risk versus benefit, recommended modified dose Xeloda concurrent with radiation therapy and monitor his blood counts on weekly basis and adjust chemotherapy dose accordingly to minimize bone marrow suppression. He began concurrent therapy with radiation and dose reduced Xeloda on 12/10/2019.completed on 01/16/2020. Tolerated Injectafer given on 01/23/2020 , for functional iron deficiency anemia patient has seen Dr. Anthony, surgical oncologist at [facility] recently underwent scans of the abdomen, as per patient did not show any evidence of disease and he was told he is cancer free. As per patient he was given prescription for Creon for possible pancreatic insufficiency causing chronic diarrhea Came for follow-up, denies any specific complaints, no fever chills, no nausea or vomiting, no diarrhea constipation, no abdominal pain, no jaundice, no diarrhea or constipation, patient has seen Dr. Anthony couple of weeks ago at [facility] and underwent radiological studies of abdomen, as per patient he was informed that there is no evidence of disease and he would go back to see him in 6 months. Patient has also seen Dr. 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 Medications: Albuterol Sulfate (sensor) 1 (108 (90 base) mcg/act) Aerosol Powder, Breath Activated Inhalation daily PRN, Brilinta 1 Tablet (of 90 mg) Oral b.i.d., Carvedilol 1 Tablet (of 6.25 mg) Oral b.i.d., Claritin 1 Tablet (of 10 mg) Oral daily PRN, Creon 1 Capsule (of 17223 Units) Capsule Delayed Release Particles Oral t.i.d., Gas Relief 1 Capsule (of 180 mg) Oral PRN, Imodium A-D 1 Capsule (of 2 mg) Oral PRN, Lomotil 1 Tablet (of 2.5-0.025 mg) Oral daily PRN, Multivitamin Adult 1 Tablet Oral daily, Rosuvastatin Calcium 1 Tablet (of 5 mg) Oral at bedtime, Sacubitril-Valsartan 1 Tablet (of 24-26 mg) Oral b.i.d. Allergies: No Known Allergies. Review of Systems: Review of Systems is not available for this patient. Vital Signs: Performed on Dec 09, 2020 15:27 Height - 67.00 in Weight - 164.1 lbs (HIGH) BSA - 1.86 sq.m BMI - 25.70 Temperature - 97.4 F (LOW) Pulse - 54 /min (LOW) Respiration - 16 /min BP - 134/68 mm(hg) O2 Sat - 99 % Pain - 0 Performance Status: 0 - Fully active, able to carry on all predisease activities without restrictions. (ECOG) Physical Examination: ENMT - No mouth sores, no thrush, no jaundice, Respiratory - Lungs are clear to auscultation, Cardiovascular - Regular rate and rhythm of heart, Abdomen - Soft, bowel sounds present, Extremities - No visible edema. Lab/Imaging: Test performed on Aug 25, 2020 14:18 Sodium 141 mmol/L Potassium 3.9 mmol/L Chloride 108 mmol/L CO2 21 mmol/L Anion Gap 15.9 BUN 9 mg/dL Creatinine 0.8 mg/dL Cr Clearance (Est) 84.72 mL/min Glucose 114 mg/dL Osmolality - Calculated 292 mOsm/kg Calcium 8.9 mg/dL Protein, Total 6.3 g/dL Albumin 3.7 g/dL Globulin 2.6 g/dL Bilirubin, Total 0.2 mg/dL ALT (SGPT) 34 U/L AST (SGOT) 41 U/L Alkaline Phosphatase 134 IU/L WBC 4.1 10 3/uL RBC 3.49 10 6/uL HGB 10.7 g/dL HCT 33.3 % MCV 95.4 fL MCH 30.7 pg MCHC 32.1 g/dL RDW 15.4 % Platelet Count 145 10 3/cmm MPV 9.6 fL Neutrophils 2.66 10 3/uL Lymphocytes 0.5 10 3/uL Monocytes 0.7 10 3/uL Eosinophils 0.2 10 3/uL Basophils 0.0 10 3/uL Neutrophil % 65.6 % Lymphocyte % 13.3 % Monocyte % 16.5 % Eosinophil % 4.2 % Basophils % 0.2 % NRBC % 0 % Impression: Status post pancreaticoduodenectomy, resection and reconstruction of superior mesenteric vein/portal vein using bovine pericardium patch. Abdominal lymph node dissection and excision of left hepatic lobe lesion and peritoneal lesion and myofascial abdominal wall flap on 10/02/2019 final pathology report showed ypT3 and 4 out of 25 positive lymph node ypN2 Postop course was complicated by NSTEMI status post complex PCI to LM andLAD in September 2019 Adenocarcinoma involving head of pancreas and uncinate process per EUS guided FNA done on 03/29/2019 and metal bile duct stent placement for obstructive jaundice with resolution of jaundice CT scan of abdomen pelvis done on 03/25/2019 showed pancreatic head/uncinate process mass measuring 3.3 x 2.9 x 3.9 cm causing biliary system dilatation scan due to pancreatic head mass. Possible invasion into medial duodenal C-loop. No adenopathy or ascites noted Gastric outlet obstruction Status post duodenal stent placement Mr Powell was seen by Dr. Barbosa, surgeon and neoadjuvant chemotherapy was recommended prior to the surgery. He obtained a second opinion from [facility]. On 04/30/2019, he was evaluated at [facility] GI surgery clinic and underwent a pancreas protocol CT scan. The patient reports that he was told that tumor may be involving adjustment vascular structures so neoadjuvant chemotherapy with folfirinox was recommended. Mr Powell began his first cycle of FOLFIRINOX on 05/27/2019. Cycle 2 was given on 06/10/2019. He completed 6 cycles of neoadjuvant chemotherapy on 09/04/2019. Mr Powell completed 6 cycles of neoadjuvant chemotherapy with folfirinox on 09/04/2019. He then underwent pancreaticoduodenectomy, resection and reconstruction of' superior mesenteric vein portal vein using Bovine pericardium patch and abdominal lymphadenectomy on 10/02/2019. His postop course was complicated by NSTEMI and he required intra-aortic balloon pump and ultimately underwent cardiac cath with placement of 4 stents (2 overlapping stents in the left main/proximal LAD and 2 overlapping stents in the RCA). Now on Brilinta and aspirin. 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 Lymphovascular, including large vessel and perineural invasion identified. Tumor invades into adjoining portal vein And superior mesenteric vein but various margins are negative for the tumor. Tumor present at uncinate margin, as foci of vascular invasion. Tumor is less than 1 cm from posterior surface. A small focus of perineural invasion is identified less than 1 cm from the bile duct margin. Pancreatic parenchymal, proximal and distal duodenal resection margins are negative for the tumor. Metastatic carcinoma involving 4 out of 25 lymph nodes ypN2. Adjuvant chemotherapy/chemoradiation was recommended at [facility], but at the same time cardiology had a concern about bone marrow suppressing chemotherapy regimens and recommended avoiding these regimens as patient will require at least 6 months of continued DAPT due to recent NSTEMI and high risk PCI. Based on his final pathology report after Whipple's procedure, patient is a high risk for local recurrence and distant recurrence as there was a minimum response to the neoadjuvant chemotherapy. Lymph node positive disease with close surgical margins was identified. At that point, Mr Powell was referred to radiation oncology for adjuvant radiation therapy. He was also under consideration of low-dose Xeloda concurrently with radiation as patient is not a candidate for adjuvant chemotherapy due to high risk for bone marrow suppression and treatment rendered complication. Considering Risk versus benefit, recommended modified dose Xeloda concurrent with radiation therapy and monitor his blood counts on weekly basis and adjust chemotherapy dose accordingly to minimize bone marrow suppression. He began concurrent therapy with radiation and dose reduced Xeloda on 12/10/2019.and completed on 01/16/2020 He is following with Dr Jefferson, local carpet yarn winder operator, for follow-up of NSTEMI status post PCI to LAD and LM. He has had iron deficieny anemia develop , improved with Injectafer Plan: Discussed with patient regarding his labs white blood count 4.5 hemoglobin 11.2 hematocrit 34.3 platelets 141,000 CMP within normal limits Clinically, patient doing well with no signs symptom suggestive of recurrence of disease, patient was recently seen by Dr. Anthony GI surgical oncologist at [facility], as per patient he underwent radiological studies, which confirmed no evidence of disease. And his follow-up lab work-up is also within desirable range and with further improvement in his mild anemia e.g. hemoglobin 11.2 g compared to 10 g on June 03, 2020. Patient will return to clinic in 4 months with CBC CMP. Signed By: Danielle Root M.D. <<Signature on File>>
== END 2020-12-09 13:52 | disposition home or self-care (01) ==
LOC: ONCMED 13:53
PROVIDERS: PCP Family Medicine; Visit Provider Internal Medicine Hematology & Oncology
DX: Z08 Encounter for follow-up examination after completed treatment for malignant neoplasm (principal); Z85.07 Personal history of malignant neoplasm of pancreas; I25.2 Old myocardial infarction; D50.9 Iron deficiency anemia, unspecified; Z92.21 Personal history of antineoplastic chemotherapy; Z90.411 Acquired partial absence of pancreas; Z90.49 Acquired absence of other specified parts of digestive tract; Z92.3 Personal history of irradiation
CPT/HCPCS: 36591; 80053; 85025; G0463

== ENCOUNTER 2021-01-08 09:54 | Outpatient (CLI) | payer MEDICARE, SELFPAY | END 2021-01-08 09:55 | disposition home or self-care (01) | LOC: ONCMED 09:57 | PROVIDERS: PCP Family Medicine; Visit Provider Nurse Practitioner | DX: Z45.2 Encounter for adjustment and management of vascular access device (principal) | CPT/HCPCS: 96523 ==

== ENCOUNTER 2021-02-05 09:47 | Outpatient (CLI) | payer MEDICARE, SELFPAY | END 2021-02-05 09:48 | disposition home or self-care (01) | PROVIDERS: PCP Family Medicine; Visit Provider Internal Medicine Hematology & Oncology | DX: Z45.2 Encounter for adjustment and management of vascular access device (principal) | CPT/HCPCS: 96523 ==

== ENCOUNTER 2021-03-05 09:54 | Outpatient (CLI) | payer MEDICARE, SELFPAY | END 2021-03-05 09:55 | disposition home or self-care (01) | LOC: ONCMED 09:55 | PROVIDERS: PCP Family Medicine; Visit Provider Internal Medicine Hematology & Oncology | DX: Z45.2 Encounter for adjustment and management of vascular access device (principal) | CPT/HCPCS: 96523 ==

== ENCOUNTER 2021-04-08 10:46 | Outpatient (CLI) | payer MEDICARE, SELFPAY ==
[2021-04-08 12:33] LABS: Basophils % 0.7 %; Eosinophils # 0.2 10^3/uL (0.0-0.8); Eosinophils % 4.5 %; Hematocrit 34.6 % (42.0-52.0); Hemoglobin 11.1 g/dL (11.7-16.6); Lymphocytes # 0.7 10^3/uL (0.8-4.8); Lymphocytes % 15.2 %; Mean Corpuscular HGB Conc 32.1 g/dL (30.0-36.0); Mean Corpuscular Hemoglobin 30.7 pg (28.0-34.0); Mean Corpuscular Volume 95.6 fL (80-94); Mean Platelet Volume 10.5 fL (7.4-10.4); Monocytes # 0.6 10^3/uL (0.2-0.9); Monocytes % 12.7 %; Neutrophils # 2.94 10^3/uL (1.8-7.7); Neutrophils % 66.7 %; Nucleated Red Blood Cells % 0 %; Platelet Count 147 10^3/cmm (130-400); Red Blood Count 3.62 10^6/uL (4.1-5.3); Red Cell Distribution Width 14.2 % (12.1-15.1); White Blood Count 4.4 10^3/uL (4.0-10.0)
[2021-04-08 12:55] LABS: Alanine Aminotransferase 42 U/L (0-41); Albumin Level 4.2 g/dL (3.5-5.2); Alkaline Phosphatase 154 IU/L (40-130); Aspartate Amino Transferase 39 U/L (0-40); Blood Urea Nitrogen 12 mg/dL (8-23); Calcium 8.4 mg/dL (8.5-10.5); Carbon Dioxide 20 mmol/L (22-29); Chloride 108 mmol/L (98-107); Globulin 2.2 g/dL (1.3-4.6); Glucose 118 mg/dL (65-115); Osmolality Calculated 289 mOsm/kg (285-295); Sodium 139 mmol/L (136-145); Total Bilirubin 0.3 mg/dL (0.15-1.2); Total Protein 6.4 g/dL (6.6-8.7)
--- NOTE | 2021-04-08 16:29 | ONC FU_ITS ---
Dr. Root follow up note Patient: Mauricio Powell Unit #: [id number]: 1950 Dicatated By: Danielle Root M.D.Date of Visit:April 08, 2021 Onc Med Follow-up/Prog Note History of Present Illness: Mr. Powell is a 70-year-old gentleman with history of progressive weakness and fatigue, acid reflux and loss of appetite. He subsequently noted change in his stool and urine color and jaundice. He also had about 25 pounds weight loss due to poor appetite and early fullness. Patient underwent CT scan of abdomen on 03/25/2019 which showed 3.3 x 2.9 x 2.9 cm soft tissue mass involving inferior pancreatic head and uncinate process. This mass was causing obstruction of common bile duct and probably also pancreatic duct and pancreatic mass abuts and distorts and may invade the medial duodenal C-loop. Patient was referred to [facility] where he underwent endoscopic ultrasound and FNA done on 03/29/2019 and it confirmed adenocarcinoma subsequently underwent metal bile duct stent placement with that his jaundice improved but continued to have early fullness nausea finally underwent duodenal stent placement. Mr Powell was referred to Dr. Barbosa and as per patient, Dr. Barbosa suggested neoadjuvant chemotherapy prior to the surgery. Patient and his family decided to take second opinion and went to [facility] for evaluation. He then underwent an attempted ERCP at [facility], which was not possible due to significant luminal stenosis. The endoscopic ultrasound revealed obstructing 3.2 cm pancreatic head mass and the biopsy was positive for adenocarcinoma. Due to inability to perform ERCP, patient underwent percutaneous internal biliary stent. Later patient developed nausea vomiting for which he was readmitted to [facility] in [place] on 04/03/2019 and diagnosed with gastric outlet obstruction for that he underwent EGD with duodenal stent placement on 04/12/2019 . He then underwent pancreas protocol CT scan at [facility] as per patient he was told there could be vascular involvement with tumor so neoadjuvant chemotherapy with folfirinox was recommended. He began his first cycle on 05/27/2019. On 07/03/2019 he was admitted to [facility] with high-grade fever and diarrhea jaundice and abnormal LFTs subsequently diagnosed with sepsis being hypotensive patient was treated with IV antibiotics and CT scan of abdomen pelvis done on 07/04/2019 which showed marked biliary tract dilatation subsequently patient was transferred to [facility] in [place] for further management but his condition continued to improve GI was consulted but his LFTs continued to improve and he was discharged home on Cipro and Flagyl. Patient said he went back to [facility] and this time he underwent ERCP and not sure whether stent was replaced or cleaned. He had MRI MRCP done on 07/17/2019 which showed marked biliary tract dilatation with moderate dilatation of pancreatic duct similar to CT scan of 07/04/2019 and metallic stents obscure with radiation of pancreatic mass. Patient was on oral antibiotics ciprofloxacin and Flagyl till 07/27/2019. Mr Powell completed 6 cycles of neoadjuvant chemotherapy with folfirinox on 09/04/2019. He then underwent pancreaticoduodenectomy, resection and reconstruction of' superior mesenteric vein portal vein using Bovine pericardium patch and abdominal lymphadenectomy on 10/02/2019. His postop course was complicated by NSTEMI and he required intra-aortic balloon pump and ultimately underwent cardiac cath with placement of 4 stents (2 overlapping stents in the left main/proximal LAD and 2 overlapping stents in the RCA). Now on Brilinta and aspirin. 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 Lymphovascular, including large vessel and perineural invasion identified. Tumor invades into adjoining portal vein And superior mesenteric vein but various margins are negative for the tumor. Tumor present at uncinate margin, as foci of vascular invasion. Tumor is less than 1 cm from posterior surface; A small focus of perineural invasion is identified less than 1 cm from the bile duct margin. Pancreatic parenchymal, proximal and distal duodenal resection margins are negative for the tumor. Metastatic carcinoma involving 4 out of 25 lymph nodes ypN2. Adjuvant chemotherapy/chemoradiation was recommended at [facility], but at the same time cardiology had a concern about bone marrow suppressing chemotherapy regimens and recommended avoiding these regimens as patient will require at least 6 months of continued DAPT due to recent NSTEMI and high risk PCI. Based on his final pathology report after Whipple's procedure, patient is a high risk for local recurrence and distant recurrence as there was a minimum response to the neoadjuvant chemotherapy. Lymph node positive disease with close surgical margins was identified. At that point, Mr Powell was referred to radiation oncology for adjuvant radiation therapy. He was also under consideration of low-dose Xeloda concurrently with radiation as patient is not a candidate for adjuvant chemotherapy due to high risk for bone marrow suppression and treatment rendered complication. Considering Risk versus benefit, recommended modified dose Xeloda concurrent with radiation therapy and monitor his blood counts on weekly basis and adjust chemotherapy dose accordingly to minimize bone marrow suppression. He began concurrent therapy with radiation and dose reduced Xeloda on 12/10/2019.completed on 01/16/2020. Tolerated Injectafer given on 01/23/2020 , for functional iron deficiency anemia patient has seen Dr. Anthony, surgical oncologist at [facility] recently underwent scans of the abdomen, as per patient did not show any evidence of disease and he was told he is cancer free. As per patient he was given prescription for Creon for possible pancreatic insufficiency causing chronic diarrhea Came for follow-up, denies any specific complaints, no fever chills, no nausea or vomiting, no diarrhea or constipation, no abdominal pain, no jaundice, appetite is good Medications: Albuterol Sulfate (sensor) 1 (108 (90 base) mcg/act) Aerosol Powder, Breath Activated Inhalation daily PRN, Brilinta 1 Tablet (of 90 mg) Oral b.i.d., Carvedilol 1 Tablet (of 6.25 mg) Oral b.i.d., Claritin 1 Tablet (of 10 mg) Oral daily PRN, Creon 1 Capsule (of 46671 Units) Capsule Delayed Release Particles Oral t.i.d., Gas Relief 1 Capsule (of 180 mg) Oral PRN, Imodium A-D 1 Capsule (of 2 mg) Oral PRN, Lomotil 1 Tablet (of 2.5-0.025 mg) Oral daily PRN, Multivitamin Adult 1 Tablet Oral daily, Rosuvastatin Calcium 1 Tablet (of 5 mg) Oral at bedtime, Sacubitril-Valsartan 1 Tablet (of 24-26 mg) Oral b.i.d. Allergies: No Known Allergies. Review of Systems: Review of Systems is not available for this patient. Vital Signs: Performed on April 08, 2021 15:45 Height - 67.00 in Weight - 161.8 lbs (LOW) BSA - 1.85 sq.m BMI - 25.34 Temperature - 97.9 F (LOW) Pulse - 77 /min Respiration - 18 /min BP - 109/62 mm(hg) O2 Sat - 99 % Pain - 0 Performance Status: 0 - Fully active, able to carry on all predisease activities without restrictions. (ECOG) Physical Examination: ENMT - No mouth sores, no thrush, no jaundice, Respiratory - Lungs are clear to auscultation, Cardiovascular - Regular rate and rhythm of heart, Abdomen - Soft, bowel sounds present, Extremities - No visible edema or rash. Lab/Imaging: Test performed on Dec 09, 2020 14:11 Sodium 141 mmol/L Potassium 4.1 mmol/L Chloride 107 mmol/L CO2 27 mmol/L Anion Gap 11.1 BUN 11 mg/dL Creatinine 0.9 mg/dL Cr Clearance (Est) 78.11 mL/min Glucose 145 mg/dL Osmolality - Calculated 294 mOsm/kg Calcium 9.1 mg/dL Protein, Total 6.6 g/dL Albumin 3.8 g/dL Globulin 2.8 g/dL Bilirubin, Total 0.2 mg/dL ALT (SGPT) 35 U/L AST (SGOT) 33 U/L Alkaline Phosphatase 132 IU/L WBC 4.5 10 3/uL RBC 3.63 10 6/uL HGB 11.2 g/dL HCT 34.3 % MCV 94.5 fL MCH 30.9 pg MCHC 32.7 g/dL RDW 14.3 % Platelet Count 141 10 3/cmm MPV 10.0 fL Neutrophils 3.20 10 3/uL Lymphocytes 0.7 10 3/uL Monocytes 0.5 10 3/uL Eosinophils 0.1 10 3/uL Basophils 0.0 10 3/uL Neutrophil % 70.6 % Lymphocyte % 15.5 % Monocyte % 9.9 % Eosinophil % 3.1 % Basophils % 0.7 % NRBC % 0 % Impression: Status post pancreaticoduodenectomy, resection and reconstruction of superior mesenteric vein/portal vein using bovine pericardium patch. Abdominal lymph node dissection and excision of left hepatic lobe lesion and peritoneal lesion and myofascial abdominal wall flap on 10/02/2019 final pathology report showed ypT3 and 4 out of 25 positive lymph node ypN2 Postop course was complicated by NSTEMI status post complex PCI to LM andLAD in September 2019 Adenocarcinoma involving head of pancreas and uncinate process per EUS guided FNA done on 03/29/2019 and metal bile duct stent placement for obstructive jaundice with resolution of jaundice CT scan of abdomen pelvis done on 03/25/2019 showed pancreatic head/uncinate process mass measuring 3.3 x 2.9 x 3.9 cm causing biliary system dilatation scan due to pancreatic head mass. Possible invasion into medial duodenal C-loop. No adenopathy or ascites noted Gastric outlet obstruction Status post duodenal stent placement Mr Powell was seen by Dr. Barbosa, surgeon and neoadjuvant chemotherapy was recommended prior to the surgery. He obtained a second opinion from [facility]. On 04/30/2019, he was evaluated at [facility] GI surgery clinic and underwent a pancreas protocol CT scan. The patient reports that he was told that tumor may be involving adjustment vascular structures so neoadjuvant chemotherapy with folfirinox was recommended. Mr Powell began his first cycle of FOLFIRINOX on 05/27/2019. Cycle 2 was given on 06/10/2019. He completed 6 cycles of neoadjuvant chemotherapy on 09/04/2019. Mr Powell completed 6 cycles of neoadjuvant chemotherapy with folfirinox on 09/04/2019. He then underwent pancreaticoduodenectomy, resection and reconstruction of' superior mesenteric vein portal vein using Bovine pericardium patch and abdominal lymphadenectomy on 10/02/2019. His postop course was complicated by NSTEMI and he required intra-aortic balloon pump and ultimately underwent cardiac cath with placement of 4 stents (2 overlapping stents in the left main/proximal LAD and 2 overlapping stents in the RCA). Now on Brilinta and aspirin. 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 Lymphovascular, including large vessel and perineural invasion identified. Tumor invades into adjoining portal vein And superior mesenteric vein but various margins are negative for the tumor. Tumor present at uncinate margin, as foci of vascular invasion. Tumor is less than 1 cm from posterior surface. A small focus of perineural invasion is identified less than 1 cm from the bile duct margin. Pancreatic parenchymal, proximal and distal duodenal resection margins are negative for the tumor. Metastatic carcinoma involving 4 out of 25 lymph nodes ypN2. Adjuvant chemotherapy/chemoradiation was recommended at [facility], but at the same time cardiology had a concern about bone marrow suppressing chemotherapy regimens and recommended avoiding these regimens as patient will require at least 6 months of continued DAPT due to recent NSTEMI and high risk PCI. Based on his final pathology report after Whipple's procedure, patient is a high risk for local recurrence and distant recurrence as there was a minimum response to the neoadjuvant chemotherapy. Lymph node positive disease with close surgical margins was identified. At that point, Mr Powell was referred to radiation oncology for adjuvant radiation therapy. He was also under consideration of low-dose Xeloda concurrently with radiation as patient is not a candidate for adjuvant chemotherapy due to high risk for bone marrow suppression and treatment rendered complication. Considering Risk versus benefit, recommended modified dose Xeloda concurrent with radiation therapy and monitor his blood counts on weekly basis and adjust chemotherapy dose accordingly to minimize bone marrow suppression. He began concurrent therapy with radiation and dose reduced Xeloda on 12/10/2019.and completed on 01/16/2020 He is following with Dr Jefferson, local nut tightener, for follow-up of NSTEMI status post PCI to LAD and LM. He has had iron deficieny anemia develop , improved with Injectafer Plan: Discussed with patient regarding his labs white blood count 4.4 hemoglobin 11.1 g compared to 11.2 g previously, hematocrit 34.6 platelets 147,000 CMP within normal limits except ALT 42 compared to 35 previously alk phos 164 Clinically, patient doing well with no new signs symptom suggestive of recurrence of disease, his follow-up lab work-up is within normal range except mildly elevated ALT and alk phos patient denies any abdominal pain or discomfort or jaundice, patient denies alcohol use. Patient said he is going back to [facility] in May 2021 for follow-up scans, in that case we will see him back in 3 months with CBC CMP and CA 19???9 and follow-up scan reports from [facility] in the meantime we will continue with monthly port maintenance Signed By: Danielle Root M.D. <<Signature on File>>
== END 2021-04-08 10:47 | disposition home or self-care (01) ==
LOC: ONCMED 10:50
PROVIDERS: PCP Family Medicine; Visit Provider Internal Medicine Hematology & Oncology
DX: Z08 Encounter for follow-up examination after completed treatment for malignant neoplasm (principal); Z85.07 Personal history of malignant neoplasm of pancreas; R18.8 Other ascites; K31.1 Adult hypertrophic pyloric stenosis; Z79.899 Other long term (current) drug therapy; Z92.21 Personal history of antineoplastic chemotherapy
CPT/HCPCS: 36591; 80053; 85025; 99214

== ENCOUNTER 2021-05-07 11:02 | Outpatient (CLI) | payer MEDICARE, SELFPAY | END 2021-05-07 11:03 | disposition home or self-care (01) | LOC: ONCMED 11:05 | PROVIDERS: PCP Family Medicine; Visit Provider Internal Medicine Hematology & Oncology | DX: Z45.2 Encounter for adjustment and management of vascular access device (principal) | CPT/HCPCS: 96523 ==

== ENCOUNTER 2021-06-08 13:41 | Outpatient (CLI) | payer MEDICARE, SELFPAY ==
[2021-06-08 14:52] LABS: Basophils % 0.9 %; Eosinophils # 0.2 10^3/uL (0.0-0.8); Eosinophils % 4.2 %; Hematocrit 34.4 % (42.0-52.0); Hemoglobin 10.9 g/dL (11.7-16.6); Lymphocytes % 22.7 %; Mean Corpuscular HGB Conc 31.7 g/dL (30.0-36.0); Mean Corpuscular Hemoglobin 30.6 pg (28.0-34.0); Mean Corpuscular Volume 96.6 fL (80-94); Mean Platelet Volume 10.3 fL (7.4-10.4); Monocytes # 0.5 10^3/uL (0.2-0.9); Monocytes % 11.4 %; Neutrophils # 2.59 10^3/uL (1.8-7.7); Neutrophils % 60.6 %; Nucleated Red Blood Cells % 0 %; Platelet Count 149 10^3/cmm (130-400); Red Blood Count 3.56 10^6/uL (4.1-5.3); Red Cell Distribution Width 14.2 % (12.1-15.1); White Blood Count 4.3 10^3/uL (4.0-10.0)
[2021-06-08 15:28] LABS: Alanine Aminotransferase 27 U/L (0-41); Albumin Level 3.9 g/dL (3.5-5.2); Alkaline Phosphatase 141 IU/L (40-130); Anion Gap 17.7 (5-19); Aspartate Amino Transferase 26 U/L (0-40); Blood Urea Nitrogen 18 mg/dL (8-23); Calcium 8.5 mg/dL (8.5-10.5); Carbon Dioxide 21 mmol/L (22-29); Chloride 105 mmol/L (98-107); Globulin 2.6 g/dL (1.3-4.6); Glucose 101 mg/dL (65-115); Osmolality Calculated 290 mOsm/kg (285-295); Potassium 4.7 mmol/L (3.5-5.1); Sodium 139 mmol/L (136-145); Thyroid Stimulating Hormone 3.19 uIU/mL (0.27-4.20); Total Bilirubin 0.3 mg/dL (0.15-1.2); Total Protein 6.5 g/dL (6.6-8.7)
[2021-06-08 15:56] LABS: INR 1.08 (0.8-1.2)
[2021-06-08 15:58] LABS: Partial Thromboplastin Time 51.3 SECONDS (23.9-36.7)
[2021-06-08 20:01] LABS: Estmated Average Glucose 151; Hemoglobin A1C 6.9 % (4.0-6.0)
== END 2021-06-08 13:42 | disposition home or self-care (01) ==
PROVIDERS: PCP Family Medicine; Visit Provider Internal Medicine Hematology & Oncology
DX: C25.0 Malignant neoplasm of head of pancreas (principal); C77.8 Secondary and unspecified malignant neoplasm of lymph nodes of multiple regions; D50.9 Iron deficiency anemia, unspecified; Z79.899 Other long term (current) drug therapy
CPT/HCPCS: 36591; 80053; 83036; 84443; 85025; 85610; 85730

== ENCOUNTER → 2021-06-18 15:30 | Outpatient (BNVA) | payer MEDICARE, SELFPAY | PROVIDERS: PCP Family Medicine; Visit Provider Nurse Practitioner Family | DX: Z20.822 Contact with and (suspected) exposure to COVID-19 (principal); J06.9 Acute upper respiratory infection, unspecified | CPT/HCPCS: 87635 ==

== ENCOUNTER 2021-06-22 12:09 | Outpatient (CLI) | payer MEDICARE, SELFPAY ==
[2021-06-22 13:02] VITALS: BP 97/60; PULSE 61; RESP 18; TEMP 36.5; O2SAT 97
[2021-06-22 14:26] VITALS: BP 85/55; PULSE 55; RESP 14; TEMP 36.5; O2SAT 98
== END 2021-06-22 15:39 | disposition home or self-care (01) ==
PROVIDERS: PCP Family Medicine; Visit Provider Nurse Practitioner Family
DX: U07.1 COVID-19 (principal)
CPT/HCPCS: 96365

== ENCOUNTER 2021-07-08 13:28 | Outpatient (CLI) | payer MEDICARE, SELFPAY ==
[2021-07-08 14:18] LABS: Basophils % 0.7 %; Eosinophils # 0.2 10^3/uL (0.0-0.8); Eosinophils % 2.8 %; Hematocrit 33.4 % (42.0-52.0); Hemoglobin 10.9 g/dL (11.7-16.6); Lymphocytes # 0.9 10^3/uL (0.8-4.8); Mean Corpuscular HGB Conc 32.6 g/dL (30.0-36.0); Mean Corpuscular Hemoglobin 30.6 pg (28.0-34.0); Mean Corpuscular Volume 93.8 fl (80-94); Mean Platelet Volume 10.2 fL (7.4-10.4); Monocytes # 0.7 10^3/uL (0.2-0.9); Monocytes % 12.6 %; Neutrophils # 3.95 10^3/uL (1.8-7.7); Neutrophils % 67.9 %; Nucleated Red Blood Cells % 0 %; Platelet Count 162 10^3/cmm (130-400); Red Blood Count 3.56 10^6/uL (4.1-5.3); Red Cell Distribution Width 14.2 % (12.1-15.1); White Blood Count 5.8 10^3/uL (4.0-10.0)
[2021-07-08 15:07] LABS: Alanine Aminotransferase 39 U/L (0-41); Albumin Level 3.9 g/dL (3.5-5.2); Alkaline Phosphatase 126 IU/L (40-130); Anion Gap 12.7 (5-19); Aspartate Amino Transferase 32 U/L (0-40); Blood Urea Nitrogen 12 mg/dL (8-23); Calcium 8.7 mg/dL (8.5-10.5); Cancer Antigen 19 9 532.6 U/mL (0-35); Carbon Dioxide 25 mmol/L (22-29); Chloride 105 mmol/L (98-107); Globulin 2.7 g/dL (1.3-4.6); Glucose 92 mg/dL (65-115); Osmolality Calculated 285 mOsm/kg (285-295); Potassium 4.7 mmol/L (3.5-5.1); Sodium 138 mmol/L (136-145); Total Bilirubin 0.3 mg/dL (0.15-1.2); Total Protein 6.6 g/dL (6.6-8.7)
--- NOTE | 2021-07-08 17:55 | ONC FU_ITS ---
Dr. Root follow up note Patient: Mauricio Powell Unit #: [id number]: [id number] Dicatated By: Danielle Root M.D.Date of Visit:Jul 08, 2021 Onc Med Follow-up/Prog Note History of Present Illness: Mr. Powell is a 71-year-old gentleman with history of progressive weakness and fatigue, acid reflux and loss of appetite. He subsequently noted change in his stool and urine color and jaundice. He also had about 25 pounds weight loss due to poor appetite and early fullness. Patient underwent CT scan of abdomen on 03/25/2019 which showed 3.3 x 2.9 x 2.9 cm soft tissue mass involving inferior pancreatic head and uncinate process. This mass was causing obstruction of common bile duct and probably also pancreatic duct and pancreatic mass abuts and distorts and may invade the medial duodenal C-loop. Patient was referred to [facility] where he underwent endoscopic ultrasound and FNA done on 03/29/2019 and it confirmed adenocarcinoma subsequently underwent metal bile duct stent placement with that his jaundice improved but continued to have early fullness nausea finally underwent duodenal stent placement. Mr Powell was referred to Dr. Barbosa and as per patient, Dr. Barbosa suggested neoadjuvant chemotherapy prior to the surgery. Patient and his family decided to take second opinion and went to [facility] for evaluation. He then underwent an attempted ERCP at [facility], which was not possible due to significant luminal stenosis. The endoscopic ultrasound revealed obstructing 3.2 cm pancreatic head mass and the biopsy was positive for adenocarcinoma. Due to inability to perform ERCP, patient underwent percutaneous internal biliary stent. Later patient developed nausea vomiting for which he was readmitted to [facility] in [place] on 04/03/2019 and diagnosed with gastric outlet obstruction for that he underwent EGD with duodenal stent placement on 04/12/2019 . He then underwent pancreas protocol CT scan at [facility] as per patient he was told there could be vascular involvement with tumor so neoadjuvant chemotherapy with folfirinox was recommended. He began his first cycle on 05/27/2019. On 07/03/2019 he was admitted to [facility] with high-grade fever and diarrhea jaundice and abnormal LFTs subsequently diagnosed with sepsis being hypotensive patient was treated with IV antibiotics and CT scan of abdomen pelvis done on 07/04/2019 which showed marked biliary tract dilatation subsequently patient was transferred to [facility] in [place] for further management but his condition continued to improve GI was consulted but his LFTs continued to improve and he was discharged home on Cipro and Flagyl. Patient said he went back to [facility] and this time he underwent ERCP and not sure whether stent was replaced or cleaned. He had MRI MRCP done on 07/17/2019 which showed marked biliary tract dilatation with moderate dilatation of pancreatic duct similar to CT scan of 07/04/2019 and metallic stents obscure with radiation of pancreatic mass. Patient was on oral antibiotics ciprofloxacin and Flagyl till 07/27/2019. Mr Powell completed 6 cycles of neoadjuvant chemotherapy with folfirinox on 09/04/2019. He then underwent pancreaticoduodenectomy, resection and reconstruction of' superior mesenteric vein portal vein using Bovine pericardium patch and abdominal lymphadenectomy on 10/02/2019. His postop course was complicated by NSTEMI and he required intra-aortic balloon pump and ultimately underwent cardiac cath with placement of 4 stents (2 overlapping stents in the left main/proximal LAD and 2 overlapping stents in the RCA). Now on Brilinta and aspirin. 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 Lymphovascular, including large vessel and perineural invasion identified. Tumor invades into adjoining portal vein And superior mesenteric vein but various margins are negative for the tumor. Tumor present at uncinate margin, as foci of vascular invasion. Tumor is less than 1 cm from posterior surface; A small focus of perineural invasion is identified less than 1 cm from the bile duct margin. Pancreatic parenchymal, proximal and distal duodenal resection margins are negative for the tumor. Metastatic carcinoma involving 4 out of 25 lymph nodes ypN2. Adjuvant chemotherapy/chemoradiation was recommended at [place], but at the same time cardiology had a concern about bone marrow suppressing chemotherapy regimens and recommended avoiding these regimens as patient will require at least 6 months of continued DAPT due to recent NSTEMI and high risk PCI. Based on his final pathology report after Whipple's procedure, patient is a high risk for local recurrence and distant recurrence as there was a minimum response to the neoadjuvant chemotherapy. Lymph node positive disease with close surgical margins was identified. At that point, Mr Powell was referred to radiation oncology for adjuvant radiation therapy. He was also under consideration of low-dose Xeloda concurrently with radiation as patient is not a candidate for adjuvant chemotherapy due to high risk for bone marrow suppression and treatment rendered complication. Considering Risk versus benefit, recommended modified dose Xeloda concurrent with radiation therapy and monitor his blood counts on weekly basis and adjust chemotherapy dose accordingly to minimize bone marrow suppression. He began concurrent therapy with radiation and dose reduced Xeloda on 12/10/2019.completed on 01/16/2020. Tolerated Injectafer given on 01/23/2020 , for functional iron deficiency anemia patient has seen Dr. Anthony, surgical oncologist at [facility] recently underwent scans of the abdomen, as per patient did not show any evidence of disease and he was told he is cancer free. 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 Similar in size to the prior CT scan done on May 24, 2021. No additional suspicious liver lesions are identified. Postsurgical changes of Whipple procedure without findings of recurrent disease within the operative bed. As per patient his CA 19???9 was more than 400 and liver biopsy was recommended and ultrasound BX liver biopsy was attempted but on ultrasound no liver lesion was identified, now, as per patient CT-guided biopsy is under consideration if not successful may be laparoscopic approach may be considered. Came for follow-up, denies any specific complaints, no fever chills, no nausea or vomiting, no diarrhea or constipation, no abdominal pain, no jaundice, patient is concerned about liver lesions and now awaiting for CT-guided liver lesion biopsy. Patient denies any weight loss, denies any new bony pains denies any jaundice Medications: Albuterol Sulfate (sensor) 1 (108 (90 base) mcg/act) Aerosol Powder, Breath Activated Inhalation daily PRN, Brilinta 1 Tablet (of 90 mg) Oral b.i.d., Carvedilol 1 Tablet (of 6.25 mg) Oral b.i.d., Claritin 1 Tablet (of 10 mg) Oral daily PRN, Creon 1 Capsule (of 29358 Units) Capsule Delayed Release Particles Oral t.i.d., Gas Relief 1 Capsule (of 180 mg) Oral PRN, Imodium A-D 1 Capsule (of 2 mg) Oral PRN, Lomotil 1 Tablet (of 2.5-0.025 mg) Oral daily PRN, Multivitamin Adult 1 Tablet Oral daily, Rosuvastatin Calcium 1 Tablet (of 5 mg) Oral at bedtime, Sacubitril-Valsartan 1 Tablet (of 24-26 mg) Oral b.i.d. Allergies: No Known Allergies. Review of Systems: Review of Systems is not available for this patient. Vital Signs: Performed on Jul 08, 2021 15:32 Height - 67.00 in Weight - 160.4 lbs (LOW) BSA - 1.84 sq.m BMI - 25.12 Temperature - 98.3 F (LOW) Pulse - 53 /min (LOW) Respiration - 18 /min BP - 107/65 mm(hg) O2 Sat - 99 % Pain - 0 Fatigue - 2 Performance Status: 0 - Fully active, able to carry on all predisease activities without restrictions. (ECOG) Physical Examination: ENMT - No mouth sores, no thrush, no jaundice, Respiratory - Lungs are clear to auscultation, Cardiovascular - Regular rate and rhythm of heart, Abdomen - Soft, bowel sounds present, Extremities - No visible edema. Lab/Imaging: Test performed on Jun 08, 2021 14:10 Est Avg Glucose (eAG) 151 mg/dL Hemoglobin A1C % 6.9 % Impression: Status post pancreaticoduodenectomy, resection and reconstruction of superior mesenteric vein/portal vein using bovine pericardium patch. Abdominal lymph node dissection and excision of left hepatic lobe lesion and peritoneal lesion and myofascial abdominal wall flap on 10/02/2019 final pathology report showed ypT3 and 4 out of 25 positive lymph node ypN2 Postop course was complicated by NSTEMI status post complex PCI to LM andLAD in September 2019 Adenocarcinoma involving head of pancreas and uncinate process per EUS guided FNA done on 03/29/2019 and metal bile duct stent placement for obstructive jaundice with resolution of jaundice CT scan of abdomen pelvis done on 03/25/2019 showed pancreatic head/uncinate process mass measuring 3.3 x 2.9 x 3.9 cm causing biliary system dilatation scan due to pancreatic head mass. Possible invasion into medial duodenal C-loop. No adenopathy or ascites noted Gastric outlet obstruction Status post duodenal stent placement Mr Powell was seen by Dr. Barbosa, surgeon and neoadjuvant chemotherapy was recommended prior to the surgery. He obtained a second opinion from [facility]. On 04/30/2019, he was evaluated at [facility] GI surgery clinic and underwent a pancreas protocol CT scan. The patient reports that he was told that tumor may be involving adjustment vascular structures so neoadjuvant chemotherapy with folfirinox was recommended. Mr Powell began his first cycle of FOLFIRINOX on 05/27/2019. Cycle 2 was given on 06/10/2019. He completed 6 cycles of neoadjuvant chemotherapy on 09/04/2019. Mr Powell completed 6 cycles of neoadjuvant chemotherapy with folfirinox on 09/04/2019. He then underwent pancreaticoduodenectomy, resection and reconstruction of' superior mesenteric vein portal vein using Bovine pericardium patch and abdominal lymphadenectomy on 10/02/2019. His postop course was complicated by NSTEMI and he required intra-aortic balloon pump and ultimately underwent cardiac cath with placement of 4 stents (2 overlapping stents in the left main/proximal LAD and 2 overlapping stents in the RCA). Now on Brilinta and aspirin. 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 Lymphovascular, including large vessel and perineural invasion identified. Tumor invades into adjoining portal vein And superior mesenteric vein but various margins are negative for the tumor. Tumor present at uncinate margin, as foci of vascular invasion. Tumor is less than 1 cm from posterior surface. A small focus of perineural invasion is identified less than 1 cm from the bile duct margin. Pancreatic parenchymal, proximal and distal duodenal resection margins are negative for the tumor. Metastatic carcinoma involving 4 out of 25 lymph nodes ypN2. Adjuvant chemotherapy/chemoradiation was recommended at [place], but at the same time cardiology had a concern about bone marrow suppressing chemotherapy regimens and recommended avoiding these regimens as patient will require at least 6 months of continued DAPT due to recent NSTEMI and high risk PCI. Based on his final pathology report after Whipple's procedure, patient is a high risk for local recurrence and distant recurrence as there was a minimum response to the neoadjuvant chemotherapy. Lymph node positive disease with close surgical margins was identified. At that point, Mr Powell was referred to radiation oncology for adjuvant radiation therapy. He was also under consideration of low-dose Xeloda concurrently with radiation as patient is not a candidate for adjuvant chemotherapy due to high risk for bone marrow suppression and treatment rendered complication. Considering Risk versus benefit, recommended modified dose Xeloda concurrent with radiation therapy and monitor his blood counts on weekly basis and adjust chemotherapy dose accordingly to minimize bone marrow suppression. He began concurrent therapy with radiation and dose reduced Xeloda on 12/10/2019.and completed on 01/16/2020 He is following with Dr Jefferson, local security officer, for follow-up of NSTEMI status post PCI to LAD and LM. He has had iron deficieny anemia develop , improved with Injectafer Plan: Discussed with patient regarding his labs white blood count 5.8 hemoglobin 10.9 hematocrit 33.4 platelets 162,000 CMP within normal limits, CA 19???9 is 532 Clinically, patient doing well with no new symptoms but his follow-up MRI scan of the liver confirmed persistent liver lesion compared to CT scan of abdomen done in May 2021 and his tumor marker CA 19???9 is also progressive, clinically it appears patient has recurrence of disease based on tumor marker and presence of hepatic lesion, at this point we will consider CT PET scan, preferably at [place] and if it shows recurrence of disease beyond the liver and accessible for biopsy, may suggest biopsy from that area and we will also consider guardant 360 to identify any new targetable therapeutic mutation, if positive, may not need for biopsy on the other hand if negative, would prefer to have tissue for molecular profiling and PD-L1 status. We will discuss his case with Dr. Anthony regarding arranging CT PET scan if is okay with him And further planning Patient will return to clinic in 2 weeks with CBC CMP Signed By: Danielle Root M.D. <<Signature on File>>
== END 2021-07-08 13:29 | disposition home or self-care (01) ==
LOC: ONCMED 13:30
PROVIDERS: PCP Family Medicine; Visit Provider Internal Medicine Hematology & Oncology
DX: C25.0 Malignant neoplasm of head of pancreas (principal); K31.1 Adult hypertrophic pyloric stenosis; D50.9 Iron deficiency anemia, unspecified; Z79.899 Other long term (current) drug therapy; Z92.21 Personal history of antineoplastic chemotherapy; Z92.3 Personal history of irradiation
CPT/HCPCS: 36591; 80053; 85025; 86301; 99214

== ENCOUNTER 2021-07-09 10:00 | Outpatient (CLI) | payer MEDICARE, SELFPAY | END 2021-07-09 10:01 | disposition home or self-care (01) | LOC: ONCMED 07-12 10:46 | PROVIDERS: PCP Family Medicine; Visit Provider Internal Medicine Hematology & Oncology | DX: C25.0 Malignant neoplasm of head of pancreas (principal); C77.8 Secondary and unspecified malignant neoplasm of lymph nodes of multiple regions; D50.9 Iron deficiency anemia, unspecified; Z79.899 Other long term (current) drug therapy | CPT/HCPCS: 36591 ==

== ENCOUNTER 2021-08-06 09:02 | Outpatient (CLI) | payer MEDICARE, SELFPAY ==
[2021-08-06 09:28] LABS: Basophils % 0.4 %; Eosinophils # 0.2 10^3/uL (0.0-0.8); Eosinophils % 3.7 %; Hematocrit 32.6 % (42.0-52.0); Hemoglobin 10.6 g/dL (11.7-16.6); Lymphocytes # 0.6 10^3/uL (0.8-4.8); Lymphocytes % 13.3 %; Mean Corpuscular HGB Conc 32.5 g/dL (30.0-36.0); Mean Corpuscular Hemoglobin 31.8 pg (28.0-34.0); Mean Corpuscular Volume 97.9 fl (80-94); Mean Platelet Volume 9.9 fL (7.4-10.4); Monocytes # 0.5 10^3/uL (0.2-0.9); Monocytes % 11.6 %; Neutrophils # 3.24 10^3/uL (1.8-7.7); Neutrophils % 70.8 %; Nucleated Red Blood Cells % 0 %; Platelet Count 142 10^3/cmm (130-400); Red Blood Count 3.33 10^6/uL (4.1-5.3); White Blood Count 4.6 10^3/uL (4.0-10.0)
[2021-08-06 10:03] LABS: Alanine Aminotransferase 23 U/L (0-41); Albumin Level 3.9 g/dL (3.5-5.2); Alkaline Phosphatase 143 IU/L (40-130); Anion Gap 14.3 (5-19); Aspartate Amino Transferase 23 U/L (0-40); Blood Urea Nitrogen 13 mg/dL (8-23); Calcium 8.8 mg/dL (8.5-10.5); Carbon Dioxide 23 mmol/L (22-29); Chloride 108 mmol/L (98-107); Glucose 178 mg/dL (65-115); Osmolality Calculated 297 mOsm/kg (285-295); Potassium 4.3 mmol/L (3.5-5.1); Sodium 141 mmol/L (136-145); Total Bilirubin 0.3 mg/dL (0.15-1.2); Total Protein 6.9 g/dL (6.6-8.7)
--- NOTE | 2021-08-06 12:37 | ONC FU_ITS ---
Dr. Root follow up note Patient: Mauricio Powell Unit #: [id number]: [id number] Dicatated By: Danielle Root M.D.Date of Visit:Aug 06, 2021 Onc Med Follow-up/Prog Note History of Present Illness: Mr. Powell is a 71-year-old gentleman with history of progressive weakness and fatigue, acid reflux and loss of appetite. He subsequently noted change in his stool and urine color and jaundice. He also had about 25 pounds weight loss due to poor appetite and early fullness. Patient underwent CT scan of abdomen on 03/25/2019 which showed 3.3 x 2.9 x 2.9 cm soft tissue mass involving inferior pancreatic head and uncinate process. This mass was causing obstruction of common bile duct and probably also pancreatic duct and pancreatic mass abuts and distorts and may invade the medial duodenal C-loop. Patient was referred to [facility] where he underwent endoscopic ultrasound and FNA done on 03/29/2019 and it confirmed adenocarcinoma subsequently underwent metal bile duct stent placement with that his jaundice improved but continued to have early fullness nausea finally underwent duodenal stent placement. Mr Powell was referred to Dr. Barbosa and as per patient, Dr. Barbosa suggested neoadjuvant chemotherapy prior to the surgery. Patient and his family decided to take second opinion and went to [facility] for evaluation. He then underwent an attempted ERCP at [facility], which was not possible due to significant luminal stenosis. The endoscopic ultrasound revealed obstructing 3.2 cm pancreatic head mass and the biopsy was positive for adenocarcinoma. Due to inability to perform ERCP, patient underwent percutaneous internal biliary stent. Later patient developed nausea vomiting for which he was readmitted to [facility] in [place] on 04/03/2019 and diagnosed with gastric outlet obstruction for that he underwent EGD with duodenal stent placement on 04/12/2019 . He then underwent pancreas protocol CT scan at [facility] as per patient he was told there could be vascular involvement with tumor so neoadjuvant chemotherapy with folfirinox was recommended. He began his first cycle on 05/27/2019. On 07/03/2019 he was admitted to [facility] with high-grade fever and diarrhea jaundice and abnormal LFTs subsequently diagnosed with sepsis being hypotensive patient was treated with IV antibiotics and CT scan of abdomen pelvis done on 07/04/2019 which showed marked biliary tract dilatation subsequently patient was transferred to [facility] in [place] for further management but his condition continued to improve GI was consulted but his LFTs continued to improve and he was discharged home on Cipro and Flagyl. Patient said he went back to [facility] and this time he underwent ERCP and not sure whether stent was replaced or cleaned. He had MRI MRCP done on 07/17/2019 which showed marked biliary tract dilatation with moderate dilatation of pancreatic duct similar to CT scan of 07/04/2019 and metallic stents obscure with radiation of pancreatic mass. Patient was on oral antibiotics ciprofloxacin and Flagyl till 07/27/2019. Mr Poewll completed 6 cycles of neoadjuvant chemotherapy with folfirinox on 09/04/2019. He then underwent pancreaticoduodenectomy, resection and reconstruction of' superior mesenteric vein portal vein using Bovine pericardium patch and abdominal lymphadenectomy on 10/02/2019. His postop course was complicated by NSTEMI and he required intra-aortic balloon pump and ultimately underwent cardiac cath with placement of 4 stents (2 overlapping stents in the left main/proximal LAD and 2 overlapping stents in the RCA). Now on Brilinta and aspirin. 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 Lymphovascular, including large vessel and perineural invasion identified. Tumor invades into adjoining portal vein And superior mesenteric vein but various margins are negative for the tumor. Tumor present at uncinate margin, as foci of vascular invasion. Tumor is less than 1 cm from posterior surface; A small focus of perineural invasion is identified less than 1 cm from the bile duct margin. Pancreatic parenchymal, proximal and distal duodenal resection margins are negative for the tumor. Metastatic carcinoma involving 4 out of 25 lymph nodes ypN2. Adjuvant chemotherapy/chemoradiation was recommended at [place], but at the same time cardiology had a concern about bone marrow suppressing chemotherapy regimens and recommended avoiding these regimens as patient will require at least 6 months of continued DAPT due to recent NSTEMI and high risk PCI. Based on his final pathology report after Whipple's procedure, patient is a high risk for local recurrence and distant recurrence as there was a minimum response to the neoadjuvant chemotherapy. Lymph node positive disease with close surgical margins was identified. At that point, Mr Powell was referred to radiation oncology for adjuvant radiation therapy. He was also under consideration of low-dose Xeloda concurrently with radiation as patient is not a candidate for adjuvant chemotherapy due to high risk for bone marrow suppression and treatment rendered complication. Considering Risk versus benefit, recommended modified dose Xeloda concurrent with radiation therapy and monitor his blood counts on weekly basis and adjust chemotherapy dose accordingly to minimize bone marrow suppression. He began concurrent therapy with radiation and dose reduced Xeloda on 12/10/2019.completed on 01/16/2020. Tolerated Injectafer given on 01/23/2020 , for functional iron deficiency anemia patient has seen Dr. Anthony, surgical oncologist at [facility] recently underwent scans of the abdomen, as per patient did not show any evidence of disease and he was told he is cancer free. 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 Similar in size to the prior CT scan done on May 24, 2021. No additional suspicious liver lesions are identified. Postsurgical changes of Whipple procedure without findings of recurrent disease within the operative bed. As per patient his CA 19???9 was more than 400 and liver biopsy was recommended and ultrasound BX liver biopsy was attempted but on ultrasound no liver lesion was identified, now, as per patient CT-guided biopsy is under consideration if not successful may be laparoscopic approach may be considered. Came for follow-up, denies any specific complaints, no fever chills, no nausea or vomiting, no diarrhea or constipation, no jaundice, no abdominal pain, as per patient he has recently underwent CT PET scan at [place], and did not show significant findings but now being scheduled for CT-guided liver biopsy in the first week of August at [place], Medications: Albuterol Sulfate (sensor) 1 (108 (90 base) mcg/act) Aerosol Powder, Breath Activated Inhalation daily PRN, Brilinta 1 Tablet (of 90 mg) Oral b.i.d., Carvedilol 1 Tablet (of 6.25 mg) Oral b.i.d., Claritin 1 Tablet (of 10 mg) Oral daily PRN, Creon 1 Capsule (of 95885 Units) Capsule Delayed Release Particles Oral t.i.d., Gas Relief 1 Capsule (of 180 mg) Oral PRN, Imodium A-D 1 Capsule (of 2 mg) Oral PRN, Lomotil 1 Tablet (of 2.5-0.025 mg) Oral daily PRN, Multivitamin Adult 1 Tablet Oral daily, Rosuvastatin Calcium 1 Tablet (of 5 mg) Oral at bedtime, Sacubitril-Valsartan 1 Tablet (of 24-26 mg) Oral b.i.d. Allergies: No Known Allergies. Review of Systems: Review of Systems is not available for this patient. Vital Signs: Performed on Aug 06, 2021 11:03 Height - 67.00 in Weight - 164.2 lbs (HIGH) BSA - 1.86 sq.m BMI - 25.72 Temperature - 97.2 F (LOW) Pulse - 48 /min (LOW) Respiration - 18 /min BP - 122/73 mm(hg) O2 Sat - 99 % Pain - 0 Performance Status: 0 - Fully active, able to carry on all predisease activities without restrictions. (ECOG) Physical Examination: ENMT - No mouth sores, no thrush, no jaundice, Respiratory - Lungs are clear to auscultation, Cardiovascular - Regular rate and rhythm of heart, Abdomen - Soft, bowel sounds present, Extremities - No visible edema. Lab/Imaging: Test performed on Jun 08, 2021 14:10 Est Avg Glucose (eAG) 151 mg/dL Hemoglobin A1C % 6.9 % Impression: Status post pancreaticoduodenectomy, resection and reconstruction of superior mesenteric vein/portal vein using bovine pericardium patch. Abdominal lymph node dissection and excision of left hepatic lobe lesion and peritoneal lesion and myofascial abdominal wall flap on 10/02/2019 final pathology report showed ypT3 and 4 out of 25 positive lymph node ypN2 Postop course was complicated by NSTEMI status post complex PCI to LM andLAD in September 2019 Adenocarcinoma involving head of pancreas and uncinate process per EUS guided FNA done on 03/29/2019 and metal bile duct stent placement for obstructive jaundice with resolution of jaundice CT scan of abdomen pelvis done on 03/25/2019 showed pancreatic head/uncinate process mass measuring 3.3 x 2.9 x 3.9 cm causing biliary system dilatation scan due to pancreatic head mass. Possible invasion into medial duodenal C-loop. No adenopathy or ascites noted Gastric outlet obstruction Status post duodenal stent placement Mr Powell was seen by Dr. Barbosa, surgeon and neoadjuvant chemotherapy was recommended prior to the surgery. He obtained a second opinion from [facility]. On 04/30/2019, he was evaluated at [facility] GI surgery clinic and underwent a pancreas protocol CT scan. The patient reports that he was told that tumor may be involving adjustment vascular structures so neoadjuvant chemotherapy with folfirinox was recommended. Mr Powell began his first cycle of FOLFIRINOX on 05/27/2019. Cycle 2 was given on 06/10/2019. He completed 6 cycles of neoadjuvant chemotherapy on 09/04/2019. Mr Powell completed 6 cycles of neoadjuvant chemotherapy with folfirinox on 09/04/2019. He then underwent pancreaticoduodenectomy, resection and reconstruction of' superior mesenteric vein portal vein using Bovine pericardium patch and abdominal lymphadenectomy on 10/02/2019. His postop course was complicated by NSTEMI and he required intra-aortic balloon pump and ultimately underwent cardiac cath with placement of 4 stents (2 overlapping stents in the left main/proximal LAD and 2 overlapping stents in the RCA). Now on Brilinta and aspirin. 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 Lymphovascular, including large vessel and perineural invasion identified. Tumor invades into adjoining portal vein And superior mesenteric vein but various margins are negative for the tumor. Tumor present at uncinate margin, as foci of vascular invasion. Tumor is less than 1 cm from posterior surface. A small focus of perineural invasion is identified less than 1 cm from the bile duct margin. Pancreatic parenchymal, proximal and distal duodenal resection margins are negative for the tumor. Metastatic carcinoma involving 4 out of 25 lymph nodes ypN2. Adjuvant chemotherapy/chemoradiation was recommended at [place], but at the same time cardiology had a concern about bone marrow suppressing chemotherapy regimens and recommended avoiding these regimens as patient will require at least 6 months of continued DAPT due to recent NSTEMI and high risk PCI. Based on his final pathology report after Whipple's procedure, patient is a high risk for local recurrence and distant recurrence as there was a minimum response to the neoadjuvant chemotherapy. Lymph node positive disease with close surgical margins was identified. At that point, Mr Powell was referred to radiation oncology for adjuvant radiation therapy. He was also under consideration of low-dose Xeloda concurrently with radiation as patient is not a candidate for adjuvant chemotherapy due to high risk for bone marrow suppression and treatment rendered complication. Considering Risk versus benefit, recommended modified dose Xeloda concurrent with radiation therapy and monitor his blood counts on weekly basis and adjust chemotherapy dose accordingly to minimize bone marrow suppression. He began concurrent therapy with radiation and dose reduced Xeloda on 12/10/2019.and completed on 01/16/2020 He is following with Dr Jefferson, local lever operator, for follow-up of NSTEMI status post PCI to LAD and LM. He has had iron deficieny anemia develop , improved with Injectafer Plan: Discussed with patient regarding his labs white blood count 4.6 hemoglobin 10.6 hematocrit 32.6 platelets 142,000 CMP within normal limit except glucose 178 guardant 360, limited report was unremarkable Clinically, patient doing well with no new signs symptom but concern is progressive CA 19???9 for which, he underwent CT PET scan at [place], as per patient it did not show significant findings but patient is scheduled for CT-guided liver biopsy in first week of August, in the meantime we will obtain CT PET scan report from [place], patient is being evaluated and followed by Dr. Anthony, GI surgical oncologist at [place], patient was advised to return to clinic 2 weeks after liver biopsy for further discussion Signed By: Danielle Root M.D. <<Signature on File>>
== END 2021-08-06 09:03 | disposition home or self-care (01) ==
LOC: ONCMED 09:04
PROVIDERS: PCP Family Medicine; Visit Provider Internal Medicine Hematology & Oncology
DX: C25.0 Malignant neoplasm of head of pancreas (principal); C77.2 Secondary and unspecified malignant neoplasm of intra-abdominal lymph nodes; D50.9 Iron deficiency anemia, unspecified; I25.2 Old myocardial infarction; Z92.3 Personal history of irradiation; Z79.899 Other long term (current) drug therapy
CPT/HCPCS: 36591; 80053; 85025; 99214

== ENCOUNTER 2021-08-26 08:53 | Outpatient (CLI) | payer MEDICARE, SELFPAY ==
--- NOTE | 2021-08-26 18:18 | ONC FU_ITS ---
Dr. Root follow up note Patient: Mauricio Powell Unit #: [id number]: [id number] Dicatated By: Danielle Root M.D.Date of Visit:Aug 26, 2021 Onc Med Follow-up/Prog Note History of Present Illness: Mr. Powell is a 71-year-old gentleman with history of progressive weakness and fatigue, acid reflux and loss of appetite. He subsequently noted change in his stool and urine color and jaundice. He also had about 25 pounds weight loss due to poor appetite and early fullness. Patient underwent CT scan of abdomen on 03/25/2019 which showed 3.3 x 2.9 x 2.9 cm soft tissue mass involving inferior pancreatic head and uncinate process. This mass was causing obstruction of common bile duct and probably also pancreatic duct and pancreatic mass abuts and distorts and may invade the medial duodenal C-loop. Patient was referred to [facility] where he underwent endoscopic ultrasound and FNA done on 03/29/2019 and it confirmed adenocarcinoma subsequently underwent metal bile duct stent placement with that his jaundice improved but continued to have early fullness nausea finally underwent duodenal stent placement. Mr Powell was referred to Dr. Barbosa and as per patient, Dr. Barbosa suggested neoadjuvant chemotherapy prior to the surgery. Patient and his family decided to take second opinion and went to [facility] for evaluation. He then underwent an attempted ERCP at [facility], which was not possible due to significant luminal stenosis. The endoscopic ultrasound revealed obstructing 3.2 cm pancreatic head mass and the biopsy was positive for adenocarcinoma. Due to inability to perform ERCP, patient underwent percutaneous internal biliary stent. Later patient developed nausea vomiting for which he was readmitted to [facility] in [place] on 04/03/2019 and diagnosed with gastric outlet obstruction for that he underwent EGD with duodenal stent placement on 04/12/2019 . He then underwent pancreas protocol CT scan at [facility] as per patient he was told there could be vascular involvement with tumor so neoadjuvant chemotherapy with folfirinox was recommended. He began his first cycle on 05/27/2019. On 07/03/2019 he was admitted to with high-grade fever and diarrhea jaundice and abnormal LFTs subsequently diagnosed with sepsis being hypotensive patient was treated with IV antibiotics and CT scan of abdomen pelvis done on 07/04/2019 which showed marked biliary tract dilatation subsequently patient was transferred to [facility] in [place] for further management but his condition continued to improve GI was consulted but his LFTs continued to improve and he was discharged home on Cipro and Flagyl. Patient said he went back to [facility] and this time he underwent ERCP and not sure whether stent was replaced or cleaned. He had MRI MRCP done on 07/17/2019 which showed marked biliary tract dilatation with moderate dilatation of pancreatic duct similar to CT scan of 07/04/2019 and metallic stents obscure with radiation of pancreatic mass. Patient was on oral antibiotics ciprofloxacin and Flagyl till 07/27/2019. Mr Powell completed 6 cycles of neoadjuvant chemotherapy with folfirinox on 09/04/2019. He then underwent pancreaticoduodenectomy, resection and reconstruction of' superior mesenteric vein portal vein using Bovine pericardium patch and abdominal lymphadenectomy on 10/02/2019. His postop course was complicated by NSTEMI and he required intra-aortic balloon pump and ultimately underwent cardiac cath with placement of 4 stents (2 overlapping stents in the left main/proximal LAD and 2 overlapping stents in the RCA). Now on Brilinta and aspirin. 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 Lymphovascular, including large vessel and perineural invasion identified. Tumor invades into adjoining portal vein And superior mesenteric vein but various margins are negative for the tumor. Tumor present at uncinate margin, as foci of vascular invasion. Tumor is less than 1 cm from posterior surface; A small focus of perineural invasion is identified less than 1 cm from the bile duct margin. Pancreatic parenchymal, proximal and distal duodenal resection margins are negative for the tumor. Metastatic carcinoma involving 4 out of 25 lymph nodes ypN2. Adjuvant chemotherapy/chemoradiation was recommended at [facility], but at the same time cardiology had a concern about bone marrow suppressing chemotherapy regimens and recommended avoiding these regimens as patient will require at least 6 months of continued DAPT due to recent NSTEMI and high risk PCI. Based on his final pathology report after Whipple's procedure, patient is a high risk for local recurrence and distant recurrence as there was a minimum response to the neoadjuvant chemotherapy. Lymph node positive disease with close surgical margins was identified. At that point, Mr Powell was referred to radiation oncology for adjuvant radiation therapy. He was also under consideration of low-dose Xeloda concurrently with radiation as patient is not a candidate for adjuvant chemotherapy due to high risk for bone marrow suppression and treatment rendered complication. Considering Risk versus benefit, recommended modified dose Xeloda concurrent with radiation therapy and monitor his blood counts on weekly basis and adjust chemotherapy dose accordingly to minimize bone marrow suppression. He began concurrent therapy with radiation and dose reduced Xeloda on 12/10/2019.completed on 01/16/2020. Tolerated Injectafer given on 01/23/2020 , for functional iron deficiency anemia patient has seen Dr. Anthony, surgical oncologist at [facility] recently underwent scans of the abdomen, as per patient did not show any evidence of disease and he was told he is cancer free. As per patient he was given prescription for Creon for possible pancreatic insufficiency causing chronic diarrhea Patient being followed at GI surgical oncology clinic at [facility] and underwent follow-up MRI scan of abdomen liver on June 30, 2021 which showed 2 hepatic lesions with features suspicious for metastatic disease involving segment 6 and 2 respectively. Similar in size to the prior CT scan done on May 24, 2021. No additional suspicious liver lesions are identified. Postsurgical changes of Whipple procedure without findings of recurrent disease within the operative bed. As per patient his CA 19???9 was more than 400 and liver biopsy was recommended and ultrasound BX liver biopsy was attempted but on ultrasound no liver lesion was identified, now, as per patient CT-guided biopsy is under consideration if not successful may be laparoscopic approach may be considered. CT-guided liver biopsy done on August 16, 2021 shows metastatic adenocarcinoma, moderately differentiated, involving liver parenchyma compatible with patient's known history of pancreatic cancer CT PET scan done on July 27, 2021 shows new liver lesions in the hepatic segments of 2 and 6 suspicious for metastatic disease Came for follow-up, patient denies any specific complaints, no fever chills, no nausea or vomiting, no diarrhea or constipation, no abdominal pain, no jaundice, no weight loss, recently underwent CT-guided liver biopsy and he is here to discuss further planning Medications: Albuterol Sulfate (sensor) 1 (108 (90 base) mcg/act) Aerosol Powder, Breath Activated Inhalation daily PRN, Brilinta 1 Tablet (of 90 mg) Oral b.i.d., Carvedilol 1 Tablet (of 6.25 mg) Oral b.i.d., Claritin 1 Tablet (of 10 mg) Oral daily PRN, Creon 1 Capsule (of 78243 Units) Capsule Delayed Release Particles Oral t.i.d., Gas Relief 1 Capsule (of 180 mg) Oral PRN, Imodium A-D 1 Capsule (of 2 mg) Oral PRN, Lomotil 1 Tablet (of 2.5-0.025 mg) Oral daily PRN, Multivitamin Adult 1 Tablet Oral daily, Rosuvastatin Calcium 1 Tablet (of 5 mg) Oral at bedtime, Sacubitril-Valsartan 1 Tablet (of 24-26 mg) Oral b.i.d. Allergies: No Known Allergies. Review of Systems: Review of Systems is not available for this patient. Vital Signs: Performed on Aug 26, 2021 09:02 Height - 67.00 in Weight - 163.6 lbs (LOW) BSA - 1.86 sq.m BMI - 25.62 Temperature - 97.2 F (LOW) Pulse - 55 /min (LOW) Respiration - 18 /min BP - 133/76 mm(hg) O2 Sat - 99 % Pain - 0 Fatigue - 0 Performance Status: 0 - Fully active, able to carry on all predisease activities without restrictions. (ECOG) Physical Examination: ENMT - No mouth sores, no thrush, no jaundice, Respiratory - Lungs are clear to auscultation, Cardiovascular - Regular rate and rhythm of heart, Abdomen - Soft, bowel sounds present, Extremities - No visible edema. Lab/Imaging: Test performed on Jun 08, 2021 14:10 Est Avg Glucose (eAG) 151 mg/dL Hemoglobin A1C % 6.9 % Impression: Recurrent pancreatic cancer per CT-guided liver biopsy done on August 16, 2021 which confirmed metastatic adenocarcinoma, moderately differentiated, involving liver parenchyma, compatible with patient's known pancreatic primary And elevated CA 19???9 CT PET scan done At [facility] on July 27, 2021 shows new liver lesion in the hepatic segments 2 and 6 suspicious for metastatic disease Status post pancreaticoduodenectomy, resection and reconstruction of superior mesenteric vein/portal vein using bovine pericardium patch. Abdominal lymph node dissection and excision of left hepatic lobe lesion and peritoneal lesion and myofascial abdominal wall flap on 10/02/2019 final pathology report showed ypT3 and 4 out of 25 positive lymph node ypN2 Postop course was complicated by NSTEMI status post complex PCI to LM andLAD in September 2019 Adenocarcinoma involving head of pancreas and uncinate process per EUS guided FNA done on 03/29/2019 and metal bile duct stent placement for obstructive jaundice with resolution of jaundice CT scan of abdomen pelvis done on 03/25/2019 showed pancreatic head/uncinate process mass measuring 3.3 x 2.9 x 3.9 cm causing biliary system dilatation scan due to pancreatic head mass. Possible invasion into medial duodenal C-loop. No adenopathy or ascites noted Gastric outlet obstruction Status post duodenal stent placement Mr Powell was seen by Dr. Barbosa, surgeon and neoadjuvant chemotherapy was recommended prior to the surgery. He obtained a second opinion from [facility]. On 04/30/2019, he was evaluated at [facility] GI surgery clinic and underwent a pancreas protocol CT scan. The patient reports that he was told that tumor may be involving adjustment vascular structures so neoadjuvant chemotherapy with folfirinox was recommended. Mr Powell began his first cycle of FOLFIRINOX on 05/27/2019. Cycle 2 was given on 06/10/2019. He completed 6 cycles of neoadjuvant chemotherapy on 09/04/2019. Mr Powell completed 6 cycles of neoadjuvant chemotherapy with folfirinox on 09/04/2019. He then underwent pancreaticoduodenectomy, resection and reconstruction of' superior mesenteric vein portal vein using Bovine pericardium patch and abdominal lymphadenectomy on 10/02/2019. His postop course was complicated by NSTEMI and he required intra-aortic balloon pump and ultimately underwent cardiac cath with placement of 4 stents (2 overlapping stents in the left main/proximal LAD and 2 overlapping stents in the RCA). Now on Brilinta and aspirin. 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 Lymphovascular, including large vessel and perineural invasion identified. Tumor invades into adjoining portal vein And superior mesenteric vein but various margins are negative for the tumor. Tumor present at uncinate margin, as foci of vascular invasion. Tumor is less than 1 cm from posterior surface. A small focus of perineural invasion is identified less than 1 cm from the bile duct margin. Pancreatic parenchymal, proximal and distal duodenal resection margins are negative for the tumor. Metastatic carcinoma involving 4 out of 25 lymph nodes ypN2. Adjuvant chemotherapy/chemoradiation was recommended at [facility], but at the same time cardiology had a concern about bone marrow suppressing chemotherapy regimens and recommended avoiding these regimens as patient will require at least 6 months of continued DAPT due to recent NSTEMI and high risk PCI. Based on his final pathology report after Whipple's procedure, patient is a high risk for local recurrence and distant recurrence as there was a minimum response to the neoadjuvant chemotherapy. Lymph node positive disease with close surgical margins was identified. At that point, Mr Powell was referred to radiation oncology for adjuvant radiation therapy. He was also under consideration of low-dose Xeloda concurrently with radiation as patient is not a candidate for adjuvant chemotherapy due to high risk for bone marrow suppression and treatment rendered complication. Considering Risk versus benefit, recommended modified dose Xeloda concurrent with radiation therapy and monitor his blood counts on weekly basis and adjust chemotherapy dose accordingly to minimize bone marrow suppression. He began concurrent therapy with radiation and dose reduced Xeloda on 12/10/2019.and completed on 01/16/2020 He is following with Dr Jefferson, local case assistant, for follow-up of NSTEMI status post PCI to LAD and LM. He has had iron deficieny anemia develop , improved with Injectafer Plan: Discussed with patient regarding his recently done liver biopsy which confirmed recurrence of pancreatic cancer his CT PET scan done on July 27, 2021 showed 2 hepatic lesions one in segment 2 and another in [address]-guided biopsy of liver lesion on August 16, 2021 of which confirmed metastatic disease,, clinically, patient is doing well with no new signs symptoms, at this point, will request pathology at [facility] regarding molecular profiling on the recent liver biopsy to identify targetable mutations and also PD-L1 status. Also do guardant 360 and in the meantime we will consider starting him on modified FOLFIRINOX, follow-up with tumor marker CA 19???[address] PET scan after 3 cycles if it shows good response but persistent liver lesions, may consider stereotactic radiation to achieve radiological remission/cytoreduction and then if molecular profile shows BRCA1/2 mutation, may consider maintenance therapy with parp inhibitors. Patient has history of coronary artery disease, now being followed by Dr. Jefferson, will discuss with him regarding any concern with 5-FU therapy which is part of FOLFIRINOX regimen, if there is a concern, we may consider gemcitabine/Abraxane. We will also obtain baseline CBC CMP and CA 19???9 and then he will return to clinic in 1 week to start his systemic therapy, if cleared by cardiology, with FOLFIRINOX otherwise gemcitabine/Abraxane And if molecular profiling shows targetable mutation or other changes, we will review and plan Signed By: Danielle Root M.D. <<Signature on File>>
== END 2021-08-26 08:54 | disposition home or self-care (01) ==
PROVIDERS: PCP Family Medicine; Visit Provider Internal Medicine Hematology & Oncology
DX: C25.0 Malignant neoplasm of head of pancreas (principal); C78.7 Secondary malignant neoplasm of liver and intrahepatic bile duct; K31.1 Adult hypertrophic pyloric stenosis; D50.9 Iron deficiency anemia, unspecified; Z79.899 Other long term (current) drug therapy; Z92.21 Personal history of antineoplastic chemotherapy
CPT/HCPCS: 36591; 90471; 90686; 99214

== ENCOUNTER 2021-08-31 09:37 | Outpatient (RCR) | payer MEDICARE, SELFPAY ==
[2021-08-31 13:42] LABS: Basophils % 0.7 %; Eosinophils # 0.1 10^3/uL (0.0-0.8); Eosinophils % 2.5 %; Hematocrit 34.2 % (42.0-52.0); Hemoglobin 10.8 g/dL (11.7-16.6); Lymphocytes # 0.7 10^3/uL (0.8-4.8); Lymphocytes % 16.3 %; Mean Corpuscular HGB Conc 31.6 g/dL (30.0-36.0); Mean Corpuscular Hemoglobin 30.4 pg (28.0-34.0); Mean Corpuscular Volume 96.3 fl (80-94); Mean Platelet Volume 10.4 fL (7.4-10.4); Monocytes # 0.4 10^3/uL (0.2-0.9); Monocytes % 9.5 %; Neutrophils # 3.15 10^3/uL (1.8-7.7); Nucleated Red Blood Cells % 0 %; Platelet Count 196 10^3/cmm (130-400); Red Blood Count 3.55 10^6/uL (4.1-5.3); Red Cell Distribution Width 14.3 % (12.1-15.1); White Blood Count 4.4 10^3/uL (4.0-10.0)
[2021-08-31 14:24] LABS: Alanine Aminotransferase 19 U/L (0-41); Albumin Level 3.8 g/dL (3.5-5.2); Alkaline Phosphatase 171 IU/L (40-130); Anion Gap 13.4 (5-19); Aspartate Amino Transferase 26 U/L (0-40); Blood Urea Nitrogen 10 mg/dL (8-23); Calcium 8.7 mg/dL (8.5-10.5); Carbon Dioxide 26 mmol/L (22-29); Chloride 106 mmol/L (98-107); Globulin 2.8 g/dL (1.3-4.6); Glucose 161 mg/dL (65-115); Osmolality Calculated 295 mOsm/kg (285-295); Potassium 4.4 mmol/L (3.5-5.1); Sodium 141 mmol/L (136-145); Total Bilirubin 0.2 mg/dL (0.15-1.2); Total Protein 6.6 g/dL (6.6-8.7)
== END 2021-09-12 23:59 | disposition home or self-care (01) ==
LOC: ONCMED 09:37
PROVIDERS: PCP Family Medicine; Visit Provider Internal Medicine Hematology & Oncology
DX: C25.0 Malignant neoplasm of head of pancreas (principal); C77.8 Secondary and unspecified malignant neoplasm of lymph nodes of multiple regions
CPT/HCPCS: 36591; 80053; 85025; 86301

== ENCOUNTER 2021-10-12 06:32 | Outpatient (RCR) | payer MEDICARE, SELFPAY ==
[2021-09-14 14:32] LABS: Basophils % 0.4 %; Eosinophils # 0.2 10^3/uL (0.0-0.8); Eosinophils % 3.4 %; Hematocrit 34.8 % (42.0-52.0); Hemoglobin 11.3 g/dL (11.7-16.6); Lymphocytes # 0.8 10^3/uL (0.8-4.8); Lymphocytes % 14.7 %; Mean Corpuscular HGB Conc 32.5 g/dL (30.0-36.0); Mean Corpuscular Hemoglobin 31.3 pg (28.0-34.0); Mean Corpuscular Volume 96.4 fl (80-94); Mean Platelet Volume 10.2 fL (7.4-10.4); Monocytes # 0.5 10^3/uL (0.2-0.9); Monocytes % 9.2 %; Neutrophils # 3.97 10^3/uL (1.8-7.7); Neutrophils % 71.9 %; Nucleated Red Blood Cells % 0 %; Platelet Count 159 10^3/cmm (130-400); Red Blood Count 3.61 10^6/uL (4.1-5.3); Red Cell Distribution Width 14.5 % (12.1-15.1); White Blood Count 5.5 10^3/uL (4.0-10.0)
[2021-09-14 15:02] LABS: Alanine Aminotransferase 35 U/L (0-41); Alkaline Phosphatase 185 IU/L (40-130); Anion Gap 13.4 (5-19); Aspartate Amino Transferase 41 U/L (0-40); Blood Urea Nitrogen 9 mg/dL (8-23); Calcium 8.9 mg/dL (8.5-10.5); Carbon Dioxide 23 mmol/L (22-29); Chloride 107 mmol/L (98-107); Globulin 2.7 g/dL (1.3-4.6); Glucose 90 mg/dL (65-115); Osmolality Calculated 286 mOsm/kg (285-295); Potassium 4.4 mmol/L (3.5-5.1); Sodium 139 mmol/L (136-145); Total Bilirubin 0.4 mg/dL (0.15-1.2); Total Protein 6.7 g/dL (6.6-8.7)
[2021-09-15] MEDS: fosaprepitant 150 MG in sodium chloride 0.9% 150 ML 300 MG IV (09:27)
[2021-09-15] MEDS: palonosetron 0.25 mg/5 mL SDV IV (09:58)
[2021-09-15] MEDS: dextrose 5% 250 ML 75 ML IV (09:58)
[2021-09-15] MEDS: prochlorperazine 10 mg Tablet PO (15:45)
[2021-09-23 08:31] LABS: Basophils % 0.3 %; Eosinophils # 0.1 10^3/uL (0.0-0.8); Eosinophils % 3.8 %; Hematocrit 33.3 % (42.0-52.0); Lymphocytes # 0.6 10^3/uL (0.8-4.8); Lymphocytes % 17.8 %; Mean Corpuscular Hemoglobin 30.6 pg (28.0-34.0); Mean Corpuscular Volume 92.5 fl (80-94); Mean Platelet Volume 10.4 fL (7.4-10.4); Monocytes # 0.2 10^3/uL (0.2-0.9); Neutrophils # 2.32 10^3/uL (1.8-7.7); Neutrophils % 72.5 %; Nucleated Red Blood Cells % 0 %; Platelet Count 129 10^3/cmm (130-400); Red Cell Distribution Width 13.4 % (12.1-15.1); White Blood Count 3.2 10^3/uL (4.0-10.0)
[2021-09-23 08:51] LABS: Alanine Aminotransferase 29 U/L (0-41); Albumin Level 3.8 g/dL (3.5-5.2); Alkaline Phosphatase 183 IU/L (40-130); Aspartate Amino Transferase 22 U/L (0-40); Blood Urea Nitrogen 17 mg/dL (8-23); Calcium 8.7 mg/dL (8.5-10.5); Carbon Dioxide 24 mmol/L (22-29); Chloride 100 mmol/L (98-107); Globulin 2.7 g/dL (1.3-4.6); Glucose 187 mg/dL (65-115); Osmolality Calculated 282 mOsm/kg (285-295); Sodium 133 mmol/L (136-145); Total Bilirubin 0.2 mg/dL (0.15-1.2); Total Protein 6.5 g/dL (6.6-8.7)
--- NOTE | 2021-09-26 19:00 | ONC FU_ITS ---
Dr. Root follow up note Patient: Mauricio Powell Unit #: [id number]: 1950 Dicatated By: Danielle Root M.D.Date of Visit:Sep 23, 2021 Onc Med Follow-up/Prog Note History of Present Illness: Mr. Powell is a 71-year-old gentleman with history of progressive weakness and fatigue, acid reflux and loss of appetite. He subsequently noted change in his stool and urine color and jaundice. He also had about 25 pounds weight loss due to poor appetite and early fullness. Patient underwent CT scan of abdomen on 03/25/2019 which showed 3.3 x 2.9 x 2.9 cm soft tissue mass involving inferior pancreatic head and uncinate process. This mass was causing obstruction of common bile duct and probably also pancreatic duct and pancreatic mass abuts and distorts and may invade the medial duodenal C-loop. Patient was referred to [place] where he underwent endoscopic ultrasound and FNA done on 03/29/2019 and it confirmed adenocarcinoma subsequently underwent metal bile duct stent placement with that his jaundice improved but continued to have early fullness nausea finally underwent duodenal stent placement. Mr Powell was referred to Dr. Barbosa and as per patient, Dr. Barbosa suggested neoadjuvant chemotherapy prior to the surgery. Patient and his family decided to take second opinion and went to [facility] for evaluation. He then underwent an attempted ERCP at [facility], which was not possible due to significant luminal stenosis. The endoscopic ultrasound revealed obstructing 3.2 cm pancreatic head mass and the biopsy was positive for adenocarcinoma. Due to inability to perform ERCP, patient underwent percutaneous internal biliary stent. Later patient developed nausea vomiting for which he was readmitted to [facility] in [place] on 04/03/2019 and diagnosed with gastric outlet obstruction for that he underwent EGD with duodenal stent placement on 04/12/2019 . He then underwent pancreas protocol CT scan at [facility] as per patient he was told there could be vascular involvement with tumor so neoadjuvant chemotherapy with folfirinox was recommended. He began his first cycle on 05/27/2019. On 07/03/2019 he was admitted to [facility] with high-grade fever and diarrhea jaundice and abnormal LFTs subsequently diagnosed with sepsis being hypotensive patient was treated with IV antibiotics and CT scan of abdomen pelvis done on 07/04/2019 which showed marked biliary tract dilatation subsequently patient was transferred to [facility] in [place] for further management but his condition continued to improve GI was consulted but his LFTs continued to improve and he was discharged home on Cipro and Flagyl. Patient said he went back to [facility] and this time he underwent ERCP and not sure whether stent was replaced or cleaned. He had MRI MRCP done on 07/17/2019 which showed marked biliary tract dilatation with moderate dilatation of pancreatic duct similar to CT scan of 07/04/2019 and metallic stents obscure with radiation of pancreatic mass. Patient was on oral antibiotics ciprofloxacin and Flagyl till 07/27/2019. Mr Powell completed 6 cycles of neoadjuvant chemotherapy with folfirinox on 09/04/2019. He then underwent pancreaticoduodenectomy, resection and reconstruction of' superior mesenteric vein portal vein using Bovine pericardium patch and abdominal lymphadenectomy on 10/02/2019. His postop course was complicated by NSTEMI and he required intra-aortic balloon pump and ultimately underwent cardiac cath with placement of 4 stents (2 overlapping stents in the left main/proximal LAD and 2 overlapping stents in the RCA). Now on Brilinta and aspirin. 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 Lymphovascular, including large vessel and perineural invasion identified. Tumor invades into adjoining portal vein And superior mesenteric vein but various margins are negative for the tumor. Tumor present at uncinate margin, as foci of vascular invasion. Tumor is less than 1 cm from posterior surface; A small focus of perineural invasion is identified less than 1 cm from the bile duct margin. Pancreatic parenchymal, proximal and distal duodenal resection margins are negative for the tumor. Metastatic carcinoma involving 4 out of 25 lymph nodes ypN2. Adjuvant chemotherapy/chemoradiation was recommended at [facility], but at the same time cardiology had a concern about bone marrow suppressing chemotherapy regimens and recommended avoiding these regimens as patient will require at least 6 months of continued DAPT due to recent NSTEMI and high risk PCI. Based on his final pathology report after Whipple's procedure, patient is a high risk for local recurrence and distant recurrence as there was a minimum response to the neoadjuvant chemotherapy. Lymph node positive disease with close surgical margins was identified. At that point, Mr Powell was referred to radiation oncology for adjuvant radiation therapy. He was also under consideration of low-dose Xeloda concurrently with radiation as patient is not a candidate for adjuvant chemotherapy due to high risk for bone marrow suppression and treatment rendered complication. Considering Risk versus benefit, recommended modified dose Xeloda concurrent with radiation therapy and monitor his blood counts on weekly basis and adjust chemotherapy dose accordingly to minimize bone marrow suppression. He began concurrent therapy with radiation and dose reduced Xeloda on 12/10/2019.completed on 01/16/2020. Tolerated Injectafer given on 01/23/2020 , for functional iron deficiency anemia patient has seen Dr. Anthony, surgical oncologist at [facility] recently underwent scans of the abdomen, as per patient did not show any evidence of disease and he was told he is cancer free. 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 Similar in size to the prior CT scan done on May 24, 2021. No additional suspicious liver lesions are identified. Postsurgical changes of Whipple procedure without findings of recurrent disease within the operative bed. As per patient his CA 19???9 was more than 400 and liver biopsy was recommended and ultrasound BX liver biopsy was attempted but on ultrasound no liver lesion was identified, now, as per patient CT-guided biopsy is under consideration if not successful may be laparoscopic approach may be considered. CT-guided liver biopsy done on August 16, 2021 shows metastatic adenocarcinoma, moderately differentiated, involving liver parenchyma compatible with patient's known history of pancreatic cancer CT PET scan done on July 27, 2021 shows new liver lesions in the hepatic segments of 2 and 6 suspicious for metastatic disease , Patient underwent liver biopsy at [facility] which confirmed metastatic recurrent adenocarcinoma consistent with pancreatic primary,After obtaining clearance from semiconductor manufacturing technician at [facility], patient was started on systemic therapy with FOLFIRINOX on September 15, 2021 Came for follow-up, denies any specific complaint except generalized weakness and fatigue, no nausea or vomiting, no diarrhea constipation, tolerated first cycle of FOLFIRINOX well but with expected side effects Medications: Albuterol Sulfate (sensor) 1 (108 (90 base) mcg/act) Aerosol Powder, Breath Activated Inhalation daily PRN, Brilinta 1 Tablet (of 90 mg) Oral b.i.d., Carvedilol 1 Tablet (of 6.25 mg) Oral b.i.d., chlorproMAZINE HCl 1 - 2 Tablet (of 25 mg) Oral q 8 hours PRN, Claritin 1 Tablet (of 10 mg) Oral daily PRN, Creon 1 Capsule (of 66042 Units) Capsule Delayed Release Particles Oral t.i.d., Gas Relief 1 Capsule (of 180 mg) Oral PRN, Imodium A-D 1 Capsule (of 2 mg) Oral PRN, Lomotil 1 Tablet (of 2.5-0.025 mg) Oral daily PRN, Multivitamin Adult 1 Tablet Oral daily, Rosuvastatin Calcium 1 Tablet (of 5 mg) Oral at bedtime, Sacubitril-Valsartan 1 Tablet (of 24-26 mg) Oral b.i.d. Allergies: No Known Allergies. Review of Systems: Review of Systems is not available for this patient. Vital Signs: Performed on Sep 23, 2021 09:38 Height - 67.00 in Weight - 156.8 lbs (LOW) BSA - 1.82 sq.m BMI - 24.56 Temperature - 98.6 F Pulse - 69 /min Respiration - 16 /min BP - 106/65 mm(hg) O2 Sat - 99 % Pain - 0 Fatigue - 4 Performance Status: 0 - Fully active, able to carry on all predisease activities without restrictions. (ECOG) Physical Examination: ENMT - No mouth sores, no thrush, no jaundice, Respiratory - Lungs are clear to auscultation, Cardiovascular - Regular rate and rhythm of heart , Abdomen - Soft, bowel sounds present, Extremities - No visible edema. Lab/Imaging: Test performed on Aug 31, 2021 12:25 Sodium 141 mmol/L Potassium 4.4 mmol/L Chloride 106 mmol/L CO2 26 mmol/L Anion Gap 13.4 BUN 10 mg/dL Creatinine 0.8 mg/dL Cr Clearance (Est) 86.3200 mL/min Glucose 161 mg/dL Osmolality - Calculated 295 mOsm/kg Calcium 8.7 mg/dL Protein, Total 6.6 g/dL Albumin 3.8 g/dL Globulin 2.8 g/dL Bilirubin, Total 0.2 mg/dL ALT (SGPT) 19 U/L AST (SGOT) 26 U/L Alkaline Phosphatase 171 IU/L WBC 4.4 10 3/uL RBC 3.55 10 6/uL HGB 10.8 g/dL HCT 34.2 % MCV 96.3 fl MCH 30.4 pg MCHC 31.6 g/dL RDW 14.3 % Platelet Count 196 10 3/cmm MPV 10.4 fL Neutrophils 3.15 10 3/uL Lymphocytes 0.7 10 3/uL Monocytes 0.4 10 3/uL Eosinophils 0.1 10 3/uL Basophils 0.0 10 3/uL Neutrophil % 71.0 % Lymphocyte % 16.3 % Monocyte % 9.5 % Eosinophil % 2.5 % Basophils % 0.7 % NRBC % 0 % CA 19-9 763.9 U/mL Test performed on Jun 08, 2021 14:10 Est Avg Glucose (eAG) 151 mg/dL Hemoglobin A1C % 6.9 % Impression: Recurrent pancreatic cancer per CT-guided liver biopsy done on August 16, 2021 which confirmed metastatic adenocarcinoma, moderately differentiated, involving liver parenchyma, compatible with patient's known pancreatic primary And elevated CA 19???9 CT PET scan done At [facility] on July 27, 2021 shows new liver lesion in the hepatic segments 2 and 6 suspicious for metastatic disease Status post pancreaticoduodenectomy, resection and reconstruction of superior mesenteric vein/portal vein using bovine pericardium patch. Abdominal lymph node dissection and excision of left hepatic lobe lesion and peritoneal lesion and myofascial abdominal wall flap on 10/02/2019 final pathology report showed ypT3 and 4 out of 25 positive lymph node ypN2 Postop course was complicated by NSTEMI status post complex PCI to LM andLAD in September 2019 Adenocarcinoma involving head of pancreas and uncinate process per EUS guided FNA done on 03/29/2019 and metal bile duct stent placement for obstructive jaundice with resolution of jaundice CT scan of abdomen pelvis done on 03/25/2019 showed pancreatic head/uncinate process mass measuring 3.3 x 2.9 x 3.9 cm causing biliary system dilatation scan due to pancreatic head mass. Possible invasion into medial duodenal C-loop. No adenopathy or ascites noted Gastric outlet obstruction Status post duodenal stent placement Mr Powell was seen by Dr. Barbosa, surgeon and neoadjuvant chemotherapy was recommended prior to the surgery. He obtained a second opinion from [facility]. On 04/30/2019, he was evaluated at [facility] GI surgery clinic and underwent a pancreas protocol CT scan. The patient reports that he was told that tumor may be involving adjustment vascular structures so neoadjuvant chemotherapy with folfirinox was recommended. Mr Powell began his first cycle of FOLFIRINOX on 05/27/2019. Cycle 2 was given on 06/10/2019. He completed 6 cycles of neoadjuvant chemotherapy on 09/04/2019. Mr Powell completed 6 cycles of neoadjuvant chemotherapy with folfirinox on 09/04/2019. He then underwent pancreaticoduodenectomy, resection and reconstruction of' superior mesenteric vein portal vein using Bovine pericardium patch and abdominal lymphadenectomy on 10/02/2019. His postop course was complicated by NSTEMI and he required intra-aortic balloon pump and ultimately underwent cardiac cath with placement of 4 stents (2 overlapping stents in the left main/proximal LAD and 2 overlapping stents in the RCA). Now on Brilinta and aspirin. 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 Lymphovascular, including large vessel and perineural invasion identified. Tumor invades into adjoining portal vein And superior mesenteric vein but various margins are negative for the tumor. Tumor present at uncinate margin, as foci of vascular invasion. Tumor is less than 1 cm from posterior surface. A small focus of perineural invasion is identified less than 1 cm from the bile duct margin. Pancreatic parenchymal, proximal and distal duodenal resection margins are negative for the tumor. Metastatic carcinoma involving 4 out of 25 lymph nodes ypN2. Adjuvant chemotherapy/chemoradiation was recommended at [facility], but at the same time cardiology had a concern about bone marrow suppressing chemotherapy regimens and recommended avoiding these regimens as patient will require at least 6 months of continued DAPT due to recent NSTEMI and high risk PCI. Based on his final pathology report after Whipple's procedure, patient is a high risk for local recurrence and distant recurrence as there was a minimum response to the neoadjuvant chemotherapy. Lymph node positive disease with close surgical margins was identified. At that point, Mr Powell was referred to radiation oncology for adjuvant radiation therapy. He was also under consideration of low-dose Xeloda concurrently with radiation as patient is not a candidate for adjuvant chemotherapy due to high risk for bone marrow suppression and treatment rendered complication. Considering Risk versus benefit, recommended modified dose Xeloda concurrent with radiation therapy and monitor his blood counts on weekly basis and adjust chemotherapy dose accordingly to minimize bone marrow suppression. He began concurrent therapy with radiation and dose reduced Xeloda on 12/10/2019.and completed on 01/16/2020 He is following with Dr Jefferson, local semiconductor manufacturing technician, for follow-up of NSTEMI status post PCI to LAD and LM. He has had iron deficieny anemia develop , improved with Injectafer Plan: Discussed with patient regarding his labs white blood count 3.2 hemoglobin 11 hematocrit 33.3 platelets 129,000 ANC 2320 CMP within normal limit except sodium 133 Clinically, patient doing well, now being treated with FOLFIRINOX, his follow-up lab work-up shows mild pancytopenia due to chemotherapy otherwise patient tolerated well, he will return to clinic in 1 week with CBC CMP and CA 19???9. And if it looks reasonable for next cycle of chemotherapy with FOLFIRINOX. We will continue with same regimen as long as he is tolerating , As goal is to achieve maximum response and then if possible consider SBRT to hepatic lesions, followed by maintenance therapy, his vaccinations sequencing did not show any targetable mutation, PD-L1 is 0%, low tumor mutational burden, stable MSI, no evidence of BRCA one or 2 mutation. Signed By: Danielle Root M.D. <<Signature on File>>
[2021-09-28 14:55] LABS: Alanine Aminotransferase 35 U/L (0-41); Albumin Level 3.7 g/dL (3.5-5.2); Alkaline Phosphatase 193 IU/L (40-130); Anion Gap 14.8 (5-19); Aspartate Amino Transferase 28 U/L (0-40); Blood Urea Nitrogen 9 mg/dL (8-23); Calcium 8.4 mg/dL (8.5-10.5); Carbon Dioxide 20 mmol/L (22-29); Chloride 105 mmol/L (98-107); Globulin 2.5 g/dL (1.3-4.6); Glucose 124 mg/dL (65-115); Osmolality Calculated 282 mOsm/kg (285-295); Potassium 3.8 mmol/L (3.5-5.1); Sodium 136 mmol/L (136-145); Total Bilirubin 0.2 mg/dL (0.15-1.2); Total Protein 6.2 g/dL (6.6-8.7)
[2021-09-28 16:06] LABS: Basophils % 0.6 %; Eosinophils # 0.1 10^3/uL (0.0-0.8); Eosinophils % 7.1 %; Hematocrit 29.3 % (42.0-52.0); Hemoglobin 9.5 g/dL (11.7-16.6); Lymphocytes # 0.5 10^3/uL (0.8-4.8); Lymphocytes % 33.3 %; Mean Corpuscular HGB Conc 32.4 g/dL (30.0-36.0); Mean Corpuscular Hemoglobin 30.1 pg (28.0-34.0); Mean Corpuscular Volume 92.7 fl (80-94); Mean Platelet Volume 9.7 fL (7.4-10.4); Monocytes # 0.2 10^3/uL (0.2-0.9); Monocytes % 14.1 %; Neutrophils % 44.9 %; Nucleated Red Blood Cells % 0 %; Platelet Count 146 10^3/cmm (130-400); Red Blood Count 3.16 10^6/uL (4.1-5.3); Red Cell Distribution Width 13.4 % (12.1-15.1); White Blood Count 1.6 10^3/uL (4.0-10.0)
[2021-09-28 16:40] LABS: Cancer Antigen 19 9 928.6 U/mL (0-35)
[2021-10-04 08:44] LABS: Basophils # 0.1 10^3/uL (0.0-0.1); Basophils % 0.9 %; Eosinophils # 0.2 10^3/uL (0.0-0.8); Eosinophils % 2.7 %; Hematocrit 29.4 % (42.0-52.0); Hemoglobin 10.1 g/dL (11.7-16.6); Lymphocytes # 0.7 10^3/uL (0.8-4.8); Mean Corpuscular HGB Conc 34.4 g/dL (30.0-36.0); Mean Corpuscular Hemoglobin 31.4 pg (28.0-34.0); Mean Corpuscular Volume 91.3 fl (80-94); Mean Platelet Volume 9.6 fL (7.4-10.4); Monocytes # 1.2 10^3/uL (0.2-0.9); Neutrophils # 3.18 10^3/uL (1.8-7.7); Nucleated Red Blood Cells % 0 %; Platelet Count 167 10^3/cmm (130-400); Red Blood Count 3.22 10^6/uL (4.1-5.3); Red Cell Distribution Width 14.5 % (12.1-15.1); White Blood Count 5.5 10^3/uL (4.0-10.0)
[2021-10-04] MEDS: palonosetron 0.25 mg/5 mL SDV IV (08:54)
[2021-10-04] MEDS: sodium chloride 0.9% 250 ML 75 ML IV (08:55)
[2021-10-04] MEDS: dextrose 5% 250 ML 75 ML IV (08:55)
[2021-10-04] MEDS: fosaprepitant 150 MG in sodium chloride 0.9% 150 ML 300 MG IV (09:10)
[2021-10-04 09:14] LABS: Alanine Aminotransferase 34 U/L (0-41); Albumin Level 3.4 g/dL (3.5-5.2); Alkaline Phosphatase 184 IU/L (40-130); Anion Gap 15.6 (5-19); Aspartate Amino Transferase 30 U/L (0-40); Blood Urea Nitrogen 7 mg/dL (8-23); Calcium 8.1 mg/dL (8.5-10.5); Carbon Dioxide 22 mmol/L (22-29); Chloride 107 mmol/L (98-107); Globulin 2.6 g/dL (1.3-4.6); Glucose 250 mg/dL (65-115); Osmolality Calculated 298 mOsm/kg (285-295); Potassium 3.6 mmol/L (3.5-5.1); Sodium 141 mmol/L (136-145); Total Bilirubin 0.2 mg/dL (0.15-1.2)
[2021-10-06] MEDS: pegfilgrastim-bmez 6 mg/0.6 mL SYR SUBCUT (14:33)
[2021-10-12 14:48] LABS: Basophils # 0.1 10^3/uL (0.0-0.1); Eosinophils # 0.1 10^3/uL (0.0-0.8); Eosinophils % 1.6 %; Hematocrit 29.6 % (42.0-52.0); Lymphocytes # 0.5 10^3/uL (0.8-4.8); Lymphocytes % 16.6 %; Mean Corpuscular HGB Conc 33.8 g/dL (30.0-36.0); Mean Corpuscular Hemoglobin 30.7 pg (28.0-34.0); Mean Corpuscular Volume 90.8 fl (80-94); Mean Platelet Volume 11.1 fL (7.4-10.4); Monocytes # 0.5 10^3/uL (0.2-0.9); Neutrophils # 1.81 10^3/uL (1.8-7.7); Neutrophils % 58.9 %; Nucleated Red Blood Cells % 0 %; Platelet Count 87 10^3/cmm (130-400); Red Blood Count 3.26 10^6/uL (4.1-5.3); Red Cell Distribution Width 13.7 % (12.1-15.1); White Blood Count 3.1 10^3/uL (4.0-10.0)
[2021-10-12 15:47] LABS: Slide Review Slide Review Perform
--- NOTE | 2021-10-13 14:02 | ONC FU_ITS ---
Rebekah Velazquez Patient Note Patient: Mauricio Powell Unit #: [id number]: [id number] Dictated By: Anamaria AnguianoDate of Visit: Sep 29, 2021 Onc MED Follow-Up/Prog Note Chief Complaint: Pancreatic cancer History of Present Illness: Mr. Powell is a 71-year-old gentleman with history of progressive weakness and fatigue, acid reflux and loss of appetite. He subsequently noted change in his stool and urine color and jaundice. He also had about 25 pounds weight loss due to poor appetite and early fullness. Patient underwent CT scan of abdomen on 03/25/2019 which showed 3.3 x 2.9 x 2.9 cm soft tissue mass involving inferior pancreatic head and uncinate process. This mass was causing obstruction of common bile duct and probably also pancreatic duct and pancreatic mass abuts and distorts and may invade the medial duodenal C-loop. Patient was referred to [facility] where he underwent endoscopic ultrasound and FNA done on 03/29/2019 and it confirmed adenocarcinoma subsequently underwent metal bile duct stent placement with that his jaundice improved but continued to have early fullness nausea finally underwent duodenal stent placement. Mr Powell was referred to Dr. Barbosa and as per patient, Dr. Barbosa suggested neoadjuvant chemotherapy prior to the surgery. Patient and his family decided to take second opinion and went to [facility] for evaluation. He then underwent an attempted ERCP at [facility], which was not possible due to significant luminal stenosis. The endoscopic ultrasound revealed obstructing 3.2 cm pancreatic head mass and the biopsy was positive for adenocarcinoma. Due to inability to perform ERCP, patient underwent percutaneous internal biliary stent. Later patient developed nausea vomiting for which he was readmitted to [facility] in [place] on 04/03/2019 and diagnosed with gastric outlet obstruction for that he underwent EGD with duodenal stent placement on 04/12/2019 . He then underwent pancreas protocol CT scan at [facility] as per patient he was told there could be vascular involvement with tumor so neoadjuvant chemotherapy with folfirinox was recommended. He began his first cycle on 05/27/2019. On 07/03/2019 he was admitted to [facility] with high-grade fever and diarrhea jaundice and abnormal LFTs subsequently diagnosed with sepsis being hypotensive patient was treated with IV antibiotics and CT scan of abdomen pelvis done on 07/04/2019 which showed marked biliary tract dilatation subsequently patient was transferred to [facility] in [place] for further management but his condition continued to improve GI was consulted but his LFTs continued to improve and he was discharged home on Cipro and Flagyl. Patient said he went back to [facility] and this time he underwent ERCP and not sure whether stent was replaced or cleaned. He had MRI MRCP done on 07/17/2019 which showed marked biliary tract dilatation with moderate dilatation of pancreatic duct similar to CT scan of 07/04/2019 and metallic stents obscure with radiation of pancreatic mass. Patient was on oral antibiotics ciprofloxacin and Flagyl till 07/27/2019. Mr Powell completed 6 cycles of neoadjuvant chemotherapy with folfirinox on 09/04/2019. He then underwent pancreaticoduodenectomy, resection and reconstruction of' superior mesenteric vein portal vein using Bovine pericardium patch and abdominal lymphadenectomy on 10/02/2019. His postop course was complicated by NSTEMI and he required intra-aortic balloon pump and ultimately underwent cardiac cath with placement of 4 stents (2 overlapping stents in the left main/proximal LAD and 2 overlapping stents in the RCA). Now on Brilinta and aspirin. 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 Lymphovascular, including large vessel and perineural invasion identified. Tumor invades into adjoining portal vein And superior mesenteric vein but various margins are negative for the tumor. Tumor present at uncinate margin, as foci of vascular invasion. Tumor is less than 1 cm from posterior surface; A small focus of perineural invasion is identified less than 1 cm from the bile duct margin. Pancreatic parenchymal, proximal and distal duodenal resection margins are negative for the tumor. Metastatic carcinoma involving 4 out of 25 lymph nodes ypN2. Adjuvant chemotherapy/chemoradiation was recommended at [place], but at the same time cardiology had a concern about bone marrow suppressing chemotherapy regimens and recommended avoiding these regimens as patient will require at least 6 months of continued DAPT due to recent NSTEMI and high risk PCI. Based on his final pathology report after Whipple's procedure, patient is a high risk for local recurrence and distant recurrence as there was a minimum response to the neoadjuvant chemotherapy. Lymph node positive disease with close surgical margins was identified. At that point, Mr Powell was referred to radiation oncology for adjuvant radiation therapy. He was also under consideration of low-dose Xeloda concurrently with radiation as patient is not a candidate for adjuvant chemotherapy due to high risk for bone marrow suppression and treatment rendered complication. Considering Risk versus benefit, recommended modified dose Xeloda concurrent with radiation therapy and monitor his blood counts on weekly basis and adjust chemotherapy dose accordingly to minimize bone marrow suppression. He began concurrent therapy with radiation and dose reduced Xeloda on 12/10/2019 completed on 01/16/2020. He remained on observation and followup with Dr Anthony, surgical oncologist at [facility]. 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 Tolerated Injectafer given on 01/23/2020 , for functional iron deficiency anemia Mr Powell has been followed at GI surgical oncology clinic at [place]. He underwent follow-up MRI scan of abdomen/liver on June 30, 2021 which showed 2 hepatic lesions with features suspicious for metastatic disease involving segment 6 and 2 respectively. Similar in size to the prior CT scan done on May 24, 2021. No additional suspicious liver lesions are identified. Postsurgical changes of Whipple procedure without findings of recurrent disease within the operative bed. PET/CT scan done on July 27, 2021 shows new liver lesions in the hepatic segments of 2 and 6 suspicious for metastatic disease. As per patient his CA 19???9 was more than 400 and liver biopsy was recommended and ultrasound BX liver biopsy was attempted but on ultrasound no liver lesion was identified. A CT-guided liver biopsy obtained on August 16, 2021 shows metastatic adenocarcinoma, moderately differentiated, involving liver parenchyma compatible with patient's known history of pancreatic cancer. 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 He is here today for follow-up and consideration of cycle 2 FOLFIRINOX. He states he had some nausea after his last treatment but it was not too bad . He states he was really tired for 2 to 3 days after the treatment but has been splitting wood the last couple of days and tolerates this well. He has been very active around the house. He denies any fever or chills. He denies any signs or symptoms of infection. He states his nausea is gone now. He states his bowels are normal for him. He denies any diarrhea or constipation. He denies any new shortness of breath orthopnea. He denies any chest pain, palpitations or anginal symptoms. 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 His ECOG is 0. Past Medical History: Eczema Gastroesophageal reflux disease Hypercholesterolemia Past Surgical History: Flu vaccine in 2020 - left deltoid Flu vaccine [id number] in 2019 Stent replacement in the biliary duct in 2018 Fna of pancreas in 2018 Eyelid surgery in 1959 Tonsillectomy in 1954 Allergies: No Known Allergies. Medications: Albuterol Sulfate (sensor) 1 (108 (90 base) mcg/act) Aerosol Powder, Breath Activated Inhalation daily PRN Brilinta 1 Tablet (of 90 mg) Oral b.i.d. Carvedilol 1 Tablet (of 6.25 mg) Oral b.i.d. chlorproMAZINE HCl 1 - 2 Tablet (of 25 mg) Oral q 8 hours PRN Claritin 1 Tablet (of 10 mg) Oral daily PRN Creon 1 Capsule (of 16582 Units) Capsule Delayed Release Particles Oral t.i.d. Gas Relief 1 Capsule (of 180 mg) Oral PRN Imodium A-D 1 Capsule (of 2 mg) Oral PRN Lomotil 1 Tablet (of 2.5-0.025 mg) Oral daily PRN Multivitamin Adult 1 Tablet Oral daily Rosuvastatin Calcium 1 Tablet (of 5 mg) Oral at bedtime Sacubitril-Valsartan 1 Tablet (of 24-26 mg) Oral b.i.d. Family History: Mr. Powell's mother at age 92: Alzheimer's Disease, and cervical cancer. Mr. Powell's father at age 63: heart disease. Social History: Mr. Powell is and he is retired. Mr. Powell has never smoked. He has no history of drinking. He has indicated exposure to the following products: marijuana. Review Of Symptoms: <See Above> Vital Signs: Performed on Sep 29, 2021 09:21 Height - 67.00 in Weight - 130.2 lbs (LOW) BSA - 1.68 sq.m BMI - 20.39 Temperature - 97.4 F (LOW) Pulse - 60 /min Respiration - 18 /min BP - 120/72 mm(hg) O2 Sat - 99 % Pain - 0 Fatigue - 5,0 - Fully active, able to carry on all predisease activities without restrictions. (ECOG) Physical Examination: Constitutional Alert, oriented, no acute distress. Skin pink, warm and dry. Head Normocephalic; atraumatic. Eyes Conjunctivae and sclerae are clear and without icterus. Pupils are reactive and equal. ENMT Sinuses are nontender. No oral exudates, ulcers, masses, thrush or mucositis. Oropharynx clear. Tongue normal. Neck Supple without masses or thyromegaly. No jugular venous distension. Hematologic/Lymphatic No petechiae or purpura. No tender or palpable lymph nodes in the cervical or supraclavicular areas. Respiratory Lungs are clear to auscultation without rhonchi or wheezing. Cardiovascular Regular rate and rhythm of heart without murmurs,clicks, gallops or rubs. Abdomen Non-tender, non-distended, no masses, ascites. Good bowel sounds noted in all quads. Back/Spine Non-tender to palpation. Extremities No visible deformities, no cyanosis, clubbing or edema. Musculoskeletal No tenderness or swelling, normal range of motion without obvious weakness. Integumentary No rashes or lesions. Neurologic No sensory or motor deficits, normal cerebellar function, normal gait. Psychiatric Alert and oriented times three. Coherent speech. Verbalizes understanding of our discussions today. Laboratory:Test performed on Aug 31, 2021 12:25 Sodium 141 mmol/L Potassium 4.4 mmol/L Chloride 106 mmol/L CO2 26 mmol/L Anion Gap 13.4 BUN 10 mg/dL Creatinine 0.8 mg/dL Cr Clearance (Est) 86.3200 mL/min Glucose 161 mg/dL Osmolality - Calculated 295 mOsm/kg Calcium 8.7 mg/dL Protein, Total 6.6 g/dL Albumin 3.8 g/dL Globulin 2.8 g/dL Bilirubin, Total 0.2 mg/dL ALT (SGPT) 19 U/L AST (SGOT) 26 U/L Alkaline Phosphatase 171 IU/L WBC 4.4 10 3/uL RBC 3.55 10 6/uL HGB 10.8 g/dL HCT 34.2 % MCV 96.3 fl MCH 30.4 pg MCHC 31.6 g/dL RDW 14.3 % Platelet Count 196 10 3/cmm MPV 10.4 fL Neutrophils 3.15 10 3/uL Lymphocytes 0.7 10 3/uL Monocytes 0.4 10 3/uL Eosinophils 0.1 10 3/uL Basophils 0.0 10 3/uL Neutrophil % 71.0 % Lymphocyte % 16.3 % Monocyte % 9.5 % Eosinophil % 2.5 % Basophils % 0.7 % NRBC % 0 % CA 19-9 763.9 U/mL Test performed on Jun 08, 2021 14:10 Est Avg Glucose (eAG) 151 mg/dL Hemoglobin A1C % 6.9 % Impression: A. Recurrent pancreatic cancer per CT-guided liver biopsy done on August 16, 2021 which confirmed metastatic adenocarcinoma, moderately differentiated, involving liver parenchyma, compatible with patient's known pancreatic primary And elevated CA 19???9 CT PET scan done At [place] on July 27, 2021 shows new liver lesion in the hepatic segments 2 and 6 suspicious for metastatic disease B. He is following with Dr Jefferson, local leather case finisher, for follow-up of NSTEMI status post PCI to LAD and LM. C. He has had iron deficieny anemia develop , improved with Injectafer Plan/Problems Addressed at this Visit: 1. Recurrent pancreatic cancer per CT-guided liver biopsy done on August 16, 2021 which confirmed metastatic adenocarcinoma, moderately differentiated, involving liver parenchyma, compatible with patient's known pancreatic primary And elevated CA 19???9 CT PET scan done At [place] on July 27, 2021 shows new liver lesion in the hepatic segments 2 and 6 suspicious for metastatic disease Status post pancreaticoduodenectomy, resection and reconstruction of superior mesenteric vein/portal vein using bovine pericardium patch. Abdominal lymph node dissection and excision of left hepatic lobe lesion and peritoneal lesion and myofascial abdominal wall flap on 10/02/2019 final pathology report showed ypT3 and 4 out of 25 positive lymph node ypN2 Postop course was complicated by NSTEMI status post complex PCI to LM andLAD in September 2019 Adenocarcinoma involving head of pancreas and uncinate process per EUS guided FNA done on 03/29/2019 and metal bile duct stent placement for obstructive jaundice with resolution of jaundice CT scan of abdomen pelvis done on 03/25/2019 showed pancreatic head/uncinate process mass measuring 3.3 x 2.9 x 3.9 cm causing biliary system dilatation scan due to pancreatic head mass. Possible invasion into medial duodenal C-loop. No adenopathy or ascites noted Gastric outlet obstruction Status post duodenal stent placement Mr Powell was seen by Dr. Barbosa, surgeon and neoadjuvant chemotherapy was recommended prior to the surgery. He obtained a second opinion from [facility]. On 04/30/2019, he was evaluated at [facility] GI surgery clinic and underwent a pancreas protocol CT scan. The patient reports that he was told that tumor may be involving adjustment vascular structures so neoadjuvant chemotherapy with folfirinox was recommended. Mr Powell began his first cycle of FOLFIRINOX on 05/27/2019. Cycle 2 was given on 06/10/2019. He completed 6 cycles of neoadjuvant chemotherapy on 09/04/2019. Mr Powell completed 6 cycles of neoadjuvant chemotherapy with folfirinox on 09/04/2019. He then underwent pancreaticoduodenectomy, resection and reconstruction of' superior mesenteric vein portal vein using Bovine pericardium patch and abdominal lymphadenectomy on 10/02/2019. His postop course was complicated by NSTEMI and he required intra-aortic balloon pump and ultimately underwent cardiac cath with placement of 4 stents (2 overlapping stents in the left main/proximal LAD and 2 overlapping stents in the RCA). Now on Brilinta and aspirin. 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 Lymphovascular, including large vessel and perineural invasion identified. Tumor invades into adjoining portal vein And superior mesenteric vein but various margins are negative for the tumor. Tumor present at uncinate margin, as foci of vascular invasion. Tumor is less than 1 cm from posterior surface. A small focus of perineural invasion is identified less than 1 cm from the bile duct margin. Pancreatic parenchymal, proximal and distal duodenal resection margins are negative for the tumor. Metastatic carcinoma involving 4 out of 25 lymph nodes ypN2. Adjuvant chemotherapy/chemoradiation was recommended at [place], but at the same time cardiology had a concern about bone marrow suppressing chemotherapy regimens and recommended avoiding these regimens as patient will require at least 6 months of continued DAPT due to recent NSTEMI and high risk PCI. Based on his final pathology report after Whipple's procedure, patient is a high risk for local recurrence and distant recurrence as there was a minimum response to the neoadjuvant chemotherapy. Lymph node positive disease with close surgical margins was identified. At that point, Mr Powell was referred to radiation oncology for adjuvant radiation therapy. He was also under consideration of low-dose Xeloda concurrently with radiation as patient is not a candidate for adjuvant chemotherapy due to high risk for bone marrow suppression and treatment rendered complication. Considering Risk versus benefit, recommended modified dose Xeloda concurrent with radiation therapy and monitor his blood counts on weekly basis and adjust chemotherapy dose accordingly to minimize bone marrow suppression. He began concurrent therapy with radiation and dose reduced Xeloda on 12/10/2019 and completed on 01/16/2020. Mr Powell has been followed at GI surgical oncology clinic at [place]. He underwent follow-up MRI scan of abdomen/liver on June 30, 2021 which showed 2 hepatic lesions with features suspicious for metastatic disease involving segment 6 and 2 respectively. Similar in size to the prior CT scan done on May 24, 2021. No additional suspicious liver lesions are identified. Postsurgical changes of Whipple procedure without findings of recurrent disease within the operative bed. PET/CT scan done on July 27, 2021 shows new liver lesions in the hepatic segments of 2 and 6 suspicious for metastatic disease. Mr Powell reported that his CA 19???9 was more than 400 and liver biopsy was recommended and ultrasound BX liver biopsy was attempted but on ultrasound no liver lesion was identified. A CT-guided liver biopsy obtained on August 16, 2021 shows metastatic adenocarcinoma, moderately differentiated, involving liver parenchyma compatible with patient's known history of pancreatic cancer. 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 TREATMENT GOAL: We will continue with same regimen as long as he is tolerating , As goal is to achieve maximum response and then if possible consider SBRT to hepatic lesions, followed by maintenance therapy, his vaccinations sequencing did not show any targetable mutation, PD-L1 is 0%, low tumor mutational burden, stable MSI, no evidence of BRCA one or 2 mutation. A. Hold planned treatment today due to chemotherapy-induced neutropenia. His ANC today is 700. He did not have any growth factor support. B. We will obtain prior authorization for Neupogen or equivalent for 2-3 doses and request Neulasta or equivalent for his next full cycle of FOLFIRINOX. C. Today's labs reviewed in detail discussed with Mr. Powell and a copy was given to him. WBC 1.6, hemoglobin 9.5, platelets 1 48,000, ANC is 700. Potassium 3.8 random glucose 124 creatinine 0.8 and LFTs are normal alk phos is 193 which is stable. D. We will plan to recheck his labs early next week and hopefully be able to resume his chemotherapy at that time and add Neulasta with his next cycle for chemo induced neutropenia. E. Mr. Powell was encouraged to contact us in interim should questions or problems arise. He is especially advised to watch for signs or symptoms of infection and those were discussed with him. F. Will make sure that he has Levaquin 500 mg 1 daily for 7 days on hand in the event that he shows any signs or symptoms of infection arise temperature greater than or equal to 100.4. 2. Chemotherapy-induced neutropenia-acute. ANC today = 700. His ANC was 4000 on 09/14/2021, the day before his last chemotherapy treatment. A. See plan above Signed By: Anamaria Anguiano-< AOCNP Danielle Root MD <<Signature on File>>
== END 2021-10-12 23:59 | disposition home or self-care (01) ==
LOC: ONCMED 06:32
PROVIDERS: PCP Family Medicine; Visit Provider Internal Medicine Hematology & Oncology
DX: Z51.11 Encounter for antineoplastic chemotherapy (principal); C25.0 Malignant neoplasm of head of pancreas; C78.7 Secondary malignant neoplasm of liver and intrahepatic bile duct; I25.2 Old myocardial infarction; D50.9 Iron deficiency anemia, unspecified; Z79.899 Other long term (current) drug therapy
CPT/HCPCS: 36591; 80053; 85025; 86301; 96367; 96368; 96372; 96375; 96413; 96415; 96416; 96417; 96523; 99214; 99215; J0461; J0640; J1100; J1453; J2469; J7050; J9190; J9206; J9263; Q0164; Q5101; Q5120

== ENCOUNTER 2021-11-09 06:22 | Outpatient (RCR) | payer MEDICARE, SELFPAY ==
[2021-10-18 14:41] LABS: Basophils # 0.1 10^3/uL (0.0-0.1); Basophils % 0.4 %; Eosinophils # 0.1 10^3/uL (0.0-0.8); Eosinophils % 0.9 %; Hematocrit 30.4 % (42.0-52.0); Hemoglobin 10.1 g/dL (11.7-16.6); Lymphocytes % 8.1 %; Mean Corpuscular HGB Conc 33.2 g/dL (30.0-36.0); Mean Corpuscular Hemoglobin 30.5 pg (28.0-34.0); Mean Corpuscular Volume 91.8 fl (80-94); Mean Platelet Volume 10.1 fL (7.4-10.4); Monocytes # 1.1 10^3/uL (0.2-0.9); Monocytes % 8.9 %; Neutrophils # 9.65 10^3/uL (1.8-7.7); Neutrophils % 77.6 %; Nucleated Red Blood Cells % 0 %; Platelet Count 181 10^3/cmm (130-400); Red Blood Count 3.31 10^6/uL (4.1-5.3); Red Cell Distribution Width 14.6 % (12.1-15.1); White Blood Count 12.4 10^3/uL (4.0-10.0)
[2021-10-18 15:09] LABS: Alanine Aminotransferase 34 U/L (0-41); Albumin Level 3.6 g/dL (3.5-5.2); Alkaline Phosphatase 243 IU/L (40-130); Anion Gap 15.8 (5-19); Aspartate Amino Transferase 26 U/L (0-40); Blood Urea Nitrogen 5 mg/dL (8-23); Carbon Dioxide 22 mmol/L (22-29); Chloride 106 mmol/L (98-107); Globulin 2.3 g/dL (1.3-4.6); Glucose 156 mg/dL (65-115); Osmolality Calculated 290 mOsm/kg (285-295); Potassium 3.8 mmol/L (3.5-5.1); Sodium 140 mmol/L (136-145); Total Bilirubin 0.2 mg/dL (0.15-1.2); Total Protein 5.9 g/dL (6.6-8.7)
[2021-10-19 10:00] LABS: Cancer Antigen 19 9 988.6 U/mL (0-35)
[2021-10-19] MEDS: dextrose 5% 250 ML 75 ML IV (10:06)
[2021-10-19] MEDS: palonosetron 0.25 mg/5 mL SDV IV (10:06)
[2021-10-19] MEDS: fosaprepitant 150 MG in sodium chloride 0.9% 150 ML 300 MG IV (10:55)
--- NOTE | 2021-10-19 14:45 | ONC FU_ITS ---
Dr. Root follow up note Patient: Mauricio Powell Unit #: [id number]: [id number] Dicatated By: Danielle Root M.D.Date of Visit:Oct 19, 2021 Onc Med Follow-up/Prog Note History of Present Illness: Mr. Powell is a 71-year-old gentleman with history of progressive weakness and fatigue, acid reflux and loss of appetite. He subsequently noted change in his stool and urine color and jaundice. He also had about 25 pounds weight loss due to poor appetite and early fullness. Patient underwent CT scan of abdomen on 03/25/2019 which showed 3.3 x 2.9 x 2.9 cm soft tissue mass involving inferior pancreatic head and uncinate process. This mass was causing obstruction of common bile duct and probably also pancreatic duct and pancreatic mass abuts and distorts and may invade the medial duodenal C-loop. Patient was referred to [place] where he underwent endoscopic ultrasound and FNA done on 03/29/2019 and it confirmed adenocarcinoma subsequently underwent metal bile duct stent placement with that his jaundice improved but continued to have early fullness nausea finally underwent duodenal stent placement. Mr Powell was referred to Dr. Barbosa and as per patient, Dr. Barbosa suggested neoadjuvant chemotherapy prior to the surgery. Patient and his family decided to take second opinion and went to [facility] for evaluation. He then underwent an attempted ERCP at [facility], which was not possible due to significant luminal stenosis. The endoscopic ultrasound revealed obstructing 3.2 cm pancreatic head mass and the biopsy was positive for adenocarcinoma. Due to inability to perform ERCP, patient underwent percutaneous internal biliary stent. Later patient developed nausea vomiting for which he was readmitted to [facility] in [place] on 04/03/2019 and diagnosed with gastric outlet obstruction for that he underwent EGD with duodenal stent placement on 04/12/2019 . He then underwent pancreas protocol CT scan at [facility] as per patient he was told there could be vascular involvement with tumor so neoadjuvant chemotherapy with folfirinox was recommended. He began his first cycle on 05/27/2019. On 07/03/2019 he was admitted to [facility] with high-grade fever and diarrhea jaundice and abnormal LFTs subsequently diagnosed with sepsis being hypotensive patient was treated with IV antibiotics and CT scan of abdomen pelvis done on 07/04/2019 which showed marked biliary tract dilatation subsequently patient was transferred to [facility] in [place] for further management but his condition continued to improve GI was consulted but his LFTs continued to improve and he was discharged home on Cipro and Flagyl. Patient said he went back to [facility] and this time he underwent ERCP and not sure whether stent was replaced or cleaned. He had MRI MRCP done on 07/17/2019 which showed marked biliary tract dilatation with moderate dilatation of pancreatic duct similar to CT scan of 07/04/2019 and metallic stents obscure with radiation of pancreatic mass. Patient was on oral antibiotics ciprofloxacin and Flagyl till 07/27/2019. Mr Powell completed 6 cycles of neoadjuvant chemotherapy with folfirinox on 09/04/2019. He then underwent pancreaticoduodenectomy, resection and reconstruction of' superior mesenteric vein portal vein using Bovine pericardium patch and abdominal lymphadenectomy on 10/02/2019. His postop course was complicated by NSTEMI and he required intra-aortic balloon pump and ultimately underwent cardiac cath with placement of 4 stents (2 overlapping stents in the left main/proximal LAD and 2 overlapping stents in the RCA). Now on Brilinta and aspirin. 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 Lymphovascular, including large vessel and perineural invasion identified. Tumor invades into adjoining portal vein And superior mesenteric vein but various margins are negative for the tumor. Tumor present at uncinate margin, as foci of vascular invasion. Tumor is less than 1 cm from posterior surface; A small focus of perineural invasion is identified less than 1 cm from the bile duct margin. Pancreatic parenchymal, proximal and distal duodenal resection margins are negative for the tumor. Metastatic carcinoma involving 4 out of 25 lymph nodes ypN2. Adjuvant chemotherapy/chemoradiation was recommended at [facility], but at the same time cardiology had a concern about bone marrow suppressing chemotherapy regimens and recommended avoiding these regimens as patient will require at least 6 months of continued DAPT due to recent NSTEMI and high risk PCI. Based on his final pathology report after Whipple's procedure, patient is a high risk for local recurrence and distant recurrence as there was a minimum response to the neoadjuvant chemotherapy. Lymph node positive disease with close surgical margins was identified. At that point, Mr Powell was referred to radiation oncology for adjuvant radiation therapy. He was also under consideration of low-dose Xeloda concurrently with radiation as patient is not a candidate for adjuvant chemotherapy due to high risk for bone marrow suppression and treatment rendered complication. Considering Risk versus benefit, recommended modified dose Xeloda concurrent with radiation therapy and monitor his blood counts on weekly basis and adjust chemotherapy dose accordingly to minimize bone marrow suppression. He began concurrent therapy with radiation and dose reduced Xeloda on 12/10/2019 completed on 01/16/2020. He remained on observation and followup with Dr Anthony, surgical oncologist at [facility]. 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 Tolerated Injectafer given on 01/23/2020 , for functional iron deficiency anemia Mr Powell has been followed at GI surgical oncology clinic at [facility]. He underwent follow-up MRI scan of abdomen/liver on June 30, 2021 which showed 2 hepatic lesions with features suspicious for metastatic disease involving segment 6 and 2 respectively. Similar in size to the prior CT scan done on May 24, 2021. No additional suspicious liver lesions are identified. Postsurgical changes of Whipple procedure without findings of recurrent disease within the operative bed. PET/CT scan done on July 27, 2021 shows new liver lesions in the hepatic segments of 2 and 6 suspicious for metastatic disease. As per patient his CA 19???9 was more than 400 and liver biopsy was recommended and ultrasound BX liver biopsy was attempted but on ultrasound no liver lesion was identified. A CT-guided liver biopsy obtained on August 16, 2021 shows metastatic adenocarcinoma, moderately differentiated, involving liver parenchyma compatible with patient's known history of pancreatic cancer. After obtaining clearance from his sales promotion coordinator at [facility], Mr Powell was started on systemic therapy with FOLFIRINOX on September 15, 2021. Came for follow-up, denies any specific complaints, no fever chills, no nausea or vomiting, no diarrhea constipation, no melena hematochezia no hemoptysis or hematemesis, no peripheral numbness sores, no jaundice, tolerating FOLFIRINOX well otherwise Medications: Albuterol Sulfate (sensor) 1 (108 (90 base) mcg/act) Aerosol Powder, Breath Activated Inhalation daily PRN, Brilinta 1 Tablet (of 90 mg) Oral b.i.d., Carvedilol 1 Tablet (of 6.25 mg) Oral b.i.d., chlorproMAZINE HCl 1 - 2 Tablet (of 25 mg) Oral q 8 hours PRN, Claritin 1 Tablet (of 10 mg) Oral daily PRN, Creon 1 Capsule (of 04587 Units) Capsule Delayed Release Particles Oral t.i.d., Gas Relief 1 Capsule (of 180 mg) Oral PRN, Imodium A-D 1 Capsule (of 2 mg) Oral PRN, Lomotil 1 Tablet (of 2.5-0.025 mg) Oral daily PRN, Multivitamin Adult 1 Tablet Oral daily, Rosuvastatin Calcium 1 Tablet (of 5 mg) Oral at bedtime, Sacubitril-Valsartan 1 Tablet (of 24-26 mg) Oral b.i.d. Allergies: No Known Allergies. Review of Systems: Review of Systems is not available for this patient. Vital Signs: Performed on Oct 19, 2021 09:12 Height - 67.00 in Weight - 160.6 lbs (HIGH) BSA - 1.84 sq.m BMI - 25.15 Temperature - 98.6 F Pulse - 70 /min Respiration - 16 /min BP - 120/72 mm(hg) O2 Sat - 99 % Pain - 0 Fatigue - 5 Performance Status: 0 - Fully active, able to carry on all predisease activities without restrictions. (ECOG) Physical Examination: ENMT - No mouth sores, no thrush, no jaundice, Respiratory - Lungs are clear to auscultation, Cardiovascular - Regular rate and rhythm of heart, Abdomen - Soft, bowel sounds present, Extremities - No visible edema. Lab/Imaging: Test performed on Aug 31, 2021 12:25 Sodium 141 mmol/L Potassium 4.4 mmol/L Chloride 106 mmol/L CO2 26 mmol/L Anion Gap 13.4 BUN 10 mg/dL Creatinine 0.8 mg/dL Cr Clearance (Est) 86.3200 mL/min Glucose 161 mg/dL Osmolality - Calculated 295 mOsm/kg Calcium 8.7 mg/dL Protein, Total 6.6 g/dL Albumin 3.8 g/dL Globulin 2.8 g/dL Bilirubin, Total 0.2 mg/dL ALT (SGPT) 19 U/L AST (SGOT) 26 U/L Alkaline Phosphatase 171 IU/L WBC 4.4 10 3/uL RBC 3.55 10 6/uL HGB 10.8 g/dL HCT 34.2 % MCV 96.3 fl MCH 30.4 pg MCHC 31.6 g/dL RDW 14.3 % Platelet Count 196 10 3/cmm MPV 10.4 fL Neutrophils 3.15 10 3/uL Lymphocytes 0.7 10 3/uL Monocytes 0.4 10 3/uL Eosinophils 0.1 10 3/uL Basophils 0.0 10 3/uL Neutrophil % 71.0 % Lymphocyte % 16.3 % Monocyte % 9.5 % Eosinophil % 2.5 % Basophils % 0.7 % NRBC % 0 % CA 19-9 763.9 U/mL Test performed on Jun 08, 2021 14:10 Est Avg Glucose (eAG) 151 mg/dL Hemoglobin A1C % 6.9 % Impression: A. Recurrent pancreatic cancer per CT-guided liver biopsy done on August 16, 2021 which confirmed metastatic adenocarcinoma, moderately differentiated, involving liver parenchyma, compatible with patient's known pancreatic primary And elevated CA 19???9 CT PET scan done At [facility] on July 27, 2021 shows new liver lesion in the hepatic segments 2 and 6 suspicious for metastatic disease B. He is following with Dr Jefferson, local sales promotion coordinator, for follow-up of NSTEMI status post PCI to LAD and LM. C. He has had iron deficieny anemia develop , improved with Injectafer Plan: Discussed with patient regarding his labs white blood count 12.4 hemoglobin 10.1 hematocrit 30.4 platelets 181,000 ANC 9650 CMP within normal limit except glucose 156 and alk phos 243 Clinically, patient is doing well, tolerating systemic therapy with FOLFIRINOX well, will proceed with cycle #3 today and then consider follow-up CT PET scan in 2 weeks to assess response, after reviewing CT PET scan will make further planning e.g. whether to continue same regimen or switching him to Abraxane/gemcitabine if there is no response also check a CA 19???9 today Signed By: Danielle Root M.D. <<Signature on File>>
[2021-10-21] MEDS: pegfilgrastim-bmez 6 mg/0.6 mL SYR SUBCUT (14:20)
[2021-11-08 11:11] LABS: Basophils % 0.3 %; Eosinophils # 0.2 10^3/uL (0.0-0.8); Eosinophils % 1.4 %; Hematocrit 27.5 % (42.0-52.0); Hemoglobin 9.2 g/dL (11.7-16.6); Lymphocytes # 0.6 10^3/uL (0.8-4.8); Lymphocytes % 4.9 %; Mean Corpuscular HGB Conc 33.5 g/dL (30.0-36.0); Mean Corpuscular Hemoglobin 30.2 pg (28.0-34.0); Mean Corpuscular Volume 90.2 fl (80-94); Mean Platelet Volume 9.9 fL (7.4-10.4); Monocytes % 8.4 %; Neutrophils # 10.03 10^3/uL (1.8-7.7); Neutrophils % 84.4 %; Nucleated Red Blood Cells % 0 %; Platelet Count 229 10^3/cmm (130-400); Red Blood Count 3.05 10^6/uL (4.1-5.3); Red Cell Distribution Width 15.4 % (12.1-15.1); White Blood Count 11.9 10^3/uL (4.0-10.0)
[2021-11-08 11:26] LABS: Alanine Aminotransferase 21 U/L (0-41); Albumin Level 3.4 g/dL (3.5-5.2); Alkaline Phosphatase 192 IU/L (40-130); Anion Gap 10.5 (5-19); Aspartate Amino Transferase 21 U/L (0-40); Blood Urea Nitrogen 7 mg/dL (8-23); Carbon Dioxide 23 mmol/L (22-29); Chloride 107 mmol/L (98-107); Globulin 2.5 g/dL (1.3-4.6); Glucose 224 mg/dL (65-115); Osmolality Calculated 289 mOsm/kg (285-295); Potassium 3.5 mmol/L (3.5-5.1); Sodium 137 mmol/L (136-145); Total Bilirubin 0.2 mg/dL (0.15-1.2); Total Protein 5.9 g/dL (6.6-8.7)
[2021-11-09 10:38] LABS: Ferritin 81 ng/mL (30-400); Iron 40 ug/dL (59-158); Percent Saturation 15.6 % (20-50); Total Iron Binding Capacity 256 mcg/dl; Unsaturated Iron Binding 216 ug/dL (112-347)
[2021-11-09 11:38] LABS: Vitamin B12 > 2000 pg/mL (232-1245)
[2021-11-09 11:39] LABS: Folate Level > 20.0 ng/mL (4.5-32.2)
--- NOTE | 2021-11-11 15:16 | ONC FU_ITS ---
Dr. Root follow up note Patient: Mauricio Powell < Unit #: [id number]: [id number] Dicatated By: Danielle Root M.D.Date of Visit:Nov 09, 2021 Onc Med Follow-up/Prog Note History of Present Illness: Mr. Powell is a 71-year-old gentleman with history of progressive weakness and fatigue, acid reflux and loss of appetite. He subsequently noted change in his stool and urine color and jaundice. He also had about 25 pounds weight loss due to poor appetite and early fullness. Patient underwent CT scan of abdomen on 03/25/2019 which showed 3.3 x 2.9 x 2.9 cm soft tissue mass involving inferior pancreatic head and uncinate process. This mass was causing obstruction of common bile duct and probably also pancreatic duct and pancreatic mass abuts and distorts and may invade the medial duodenal C-loop. Patient was referred to [place] where he underwent endoscopic ultrasound and FNA done on 03/29/2019 and it confirmed adenocarcinoma subsequently underwent metal bile duct stent placement with that his jaundice improved but continued to have early fullness nausea finally underwent duodenal stent placement. Mr Powell was referred to Dr. Barbosa and as per patient, Dr. Barbosa suggested neoadjuvant chemotherapy prior to the surgery. Patient and his family decided to take second opinion and went to [facility] for evaluation. He then underwent an attempted ERCP at [facility], which was not possible due to significant luminal stenosis. The endoscopic ultrasound revealed obstructing 3.2 cm pancreatic head mass and the biopsy was positive for adenocarcinoma. Due to inability to perform ERCP, patient underwent percutaneous internal biliary stent. Later patient developed nausea vomiting for which he was readmitted to [facility] in [place] on 04/03/2019 and diagnosed with gastric outlet obstruction for that he underwent EGD with duodenal stent placement on 04/12/2019 . He then underwent pancreas protocol CT scan at [facility] as per patient he was told there could be vascular involvement with tumor so neoadjuvant chemotherapy with folfirinox was recommended. He began his first cycle on 05/27/2019. On 07/03/2019 he was admitted to [facility] with high-grade fever and diarrhea jaundice and abnormal LFTs subsequently diagnosed with sepsis being hypotensive patient was treated with IV antibiotics and CT scan of abdomen pelvis done on 07/04/2019 which showed marked biliary tract dilatation subsequently patient was transferred to [facility] in [place] for further management but his condition continued to improve GI was consulted but his LFTs continued to improve and he was discharged home on Cipro and Flagyl. Patient said he went back to [facility] and this time he underwent ERCP and not sure whether stent was replaced or cleaned. He had MRI MRCP done on 07/17/2019 which showed marked biliary tract dilatation with moderate dilatation of pancreatic duct similar to CT scan of 07/04/2019 and metallic stents obscure with radiation of pancreatic mass. Patient was on oral antibiotics ciprofloxacin and Flagyl till 07/27/2019. Mr Powell completed 6 cycles of neoadjuvant chemotherapy with folfirinox on 09/04/2019. He then underwent pancreaticoduodenectomy, resection and reconstruction of' superior mesenteric vein portal vein using Bovine pericardium patch and abdominal lymphadenectomy on 10/02/2019. His postop course was complicated by NSTEMI and he required intra-aortic balloon pump and ultimately underwent cardiac cath with placement of 4 stents (2 overlapping stents in the left main/proximal LAD and 2 overlapping stents in the RCA). Now on Brilinta and aspirin. 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 Lymphovascular, including large vessel and perineural invasion identified. Tumor invades into adjoining portal vein And superior mesenteric vein but various margins are negative for the tumor. Tumor present at uncinate margin, as foci of vascular invasion. Tumor is less than 1 cm from posterior surface; A small focus of perineural invasion is identified less than 1 cm from the bile duct margin. Pancreatic parenchymal, proximal and distal duodenal resection margins are negative for the tumor. Metastatic carcinoma involving 4 out of 25 lymph nodes ypN2. Adjuvant chemotherapy/chemoradiation was recommended at [place], but at the same time cardiology had a concern about bone marrow suppressing chemotherapy regimens and recommended avoiding these regimens as patient will require at least 6 months of continued DAPT due to recent NSTEMI and high risk PCI. Based on his final pathology report after Whipple's procedure, patient is a high risk for local recurrence and distant recurrence as there was a minimum response to the neoadjuvant chemotherapy. Lymph node positive disease with close surgical margins was identified. At that point, Mr Powell was referred to radiation oncology for adjuvant radiation therapy. He was also under consideration of low-dose Xeloda concurrently with radiation as patient is not a candidate for adjuvant chemotherapy due to high risk for bone marrow suppression and treatment rendered complication. Considering Risk versus benefit, recommended modified dose Xeloda concurrent with radiation therapy and monitor his blood counts on weekly basis and adjust chemotherapy dose accordingly to minimize bone marrow suppression. He began concurrent therapy with radiation and dose reduced Xeloda on 12/10/2019 completed on 01/16/2020. He remained on observation and followup with Dr Anthony, surgical oncologist at [facility]. 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 Tolerated Injectafer given on 01/23/2020 , for functional iron deficiency anemia Mr Powell has been followed at GI surgical oncology clinic at [place]. He underwent follow-up MRI scan of abdomen/liver on June 30, 2021 which showed 2 hepatic lesions with features suspicious for metastatic disease involving segment 6 and 2 respectively. Similar in size to the prior CT scan done on May 24, 2021. No additional suspicious liver lesions are identified. Postsurgical changes of Whipple procedure without findings of recurrent disease within the operative bed. PET/CT scan done on July 27, 2021 shows new liver lesions in the hepatic segments of 2 and 6 suspicious for metastatic disease. As per patient his CA 19???9 was more than 400 and liver biopsy was recommended and ultrasound BX liver biopsy was attempted but on ultrasound no liver lesion was identified. A CT-guided liver biopsy obtained on August 16, 2021 shows metastatic adenocarcinoma, moderately differentiated, involving liver parenchyma compatible with patient's known history of pancreatic cancer. After obtaining clearance from his sample mounter at [place], Mr Powell was started on systemic therapy with FOLFIRINOX on September 15, 2021. Follow-up CT PET scan done on on October 30, 2021 shows no evidence of active hepatic metastatic disease, there is 1.9 cm region of abnormal activity in the pancreatic tail with SUV of 4.8 and a vague peripancreatic lesion measuring up to 2.5 cm with SUV of 4.1, likely malignant lymph node., Tumor marker CA 19???9 checked on October 18, 2021 was 988.6 Came for follow-up, denies any specific complaint except generalized weakness and fatigue, episode of self-limiting nosebleed,. But no abdominal pain, no jaundice, no diarrhea or constipation, no mouth sores, no chest pain, no shortness of breath, no lower extremity edema, no palpitation. Tolerating FOLFIRINOX well otherwise Medications: Albuterol Sulfate (sensor) 1 (108 (90 base) mcg/act) Aerosol Powder, Breath Activated Inhalation daily PRN, Brilinta 1 Tablet (of 90 mg) Oral b.i.d., Carvedilol 1 Tablet (of 6.25 mg) Oral b.i.d., chlorproMAZINE HCl 1 - 2 Tablet (of 25 mg) Oral q 8 hours PRN, Claritin 1 Tablet (of 10 mg) Oral daily PRN, Creon 1 Capsule (of 88380 Units) Capsule Delayed Release Particles Oral t.i.d., Gas Relief 1 Capsule (of 180 mg) Oral PRN, Imodium A-D 1 Capsule (of 2 mg) Oral PRN, Lomotil 1 Tablet (of 2.5-0.025 mg) Oral daily PRN, Multivitamin Adult 1 Tablet Oral daily, Rosuvastatin Calcium 1 Tablet (of 5 mg) Oral at bedtime, Sacubitril-Valsartan 1 Tablet (of 24-26 mg) Oral b.i.d. Allergies: No Known Allergies. Review of Systems: Review of Systems is not available for this patient. Vital Signs: Performed on Nov 09, 2021 08:19 Height - 67.00 in Weight - 163.0 lbs (HIGH) BSA - 1.85 sq.m BMI - 25.53 Temperature - 98.0 F (LOW) Pulse - 66 /min Respiration - 16 /min BP - 122/73 mm(hg) O2 Sat - 99 % Pain - 0 Fatigue - 2 Performance Status: 0 - Fully active, able to carry on all predisease activities without restrictions. (ECOG) Physical Examination: ENMT - No mouth sores, no thrush, no jaundice, Respiratory - Lungs are clear to auscultation, Cardiovascular - Regular rate and rhythm of heart, Abdomen - Soft, bowel sounds present, Extremities - No visible edema. Lab/Imaging: Test performed on Aug 31, 2021 12:25 Sodium 141 mmol/L Potassium 4.4 mmol/L Chloride 106 mmol/L CO2 26 mmol/L Anion Gap 13.4 BUN 10 mg/dL Creatinine 0.8 mg/dL Cr Clearance (Est) 86.3200 mL/min Glucose 161 mg/dL Osmolality - Calculated 295 mOsm/kg Calcium 8.7 mg/dL Protein, Total 6.6 g/dL Albumin 3.8 g/dL Globulin 2.8 g/dL Bilirubin, Total 0.2 mg/dL ALT (SGPT) 19 U/L AST (SGOT) 26 U/L Alkaline Phosphatase 171 IU/L WBC 4.4 10 3/uL RBC 3.55 10 6/uL HGB 10.8 g/dL HCT 34.2 % MCV 96.3 fl MCH 30.4 pg MCHC 31.6 g/dL RDW 14.3 % Platelet Count 196 10 3/cmm MPV 10.4 fL Neutrophils 3.15 10 3/uL Lymphocytes 0.7 10 3/uL Monocytes 0.4 10 3/uL Eosinophils 0.1 10 3/uL Basophils 0.0 10 3/uL Neutrophil % 71.0 % Lymphocyte % 16.3 % Monocyte % 9.5 % Eosinophil % 2.5 % Basophils % 0.7 % NRBC % 0 % CA 19-9 763.9 U/mL Test performed on Jun 08, 2021 14:10 Est Avg Glucose (eAG) 151 mg/dL Hemoglobin A1C % 6.9 % Impression: A. Recurrent pancreatic cancer per CT-guided liver biopsy done on August 16, 2021 which confirmed metastatic adenocarcinoma, moderately differentiated, involving liver parenchyma, compatible with patient's known pancreatic primary And elevated CA 19???9 CT PET scan done At [place] on July 27, 2021 shows new liver lesion in the hepatic segments 2 and 6 suspicious for metastatic disease B. He is following with Dr Jefferson, local sample mounter, for follow-up of NSTEMI status post PCI to LAD and LM. C. He has had iron deficieny anemia develop , improved with Injectafer Plan: Discussed with patient regarding his labs white blood count 11.9 hemoglobin 9.2 hematocrit 27.5 platelets 229,000 CMP within normal limit except glucose 224 and alk phos 192 compared to 243 previously Follow-up CT PET scan done on October 30, 2021 shows resolution of hepatic metastatic disease, there is a 1.9 cm region of abnormal activity in the pancreatic tail with SUV of 4.8 and vague peripancreatic lesion roughly 2.5 cm SUV 4.1. Clinically, patient is doing reasonably well, tolerating FOLFIRINOX well but with expected side effect e.g. progressive anemia, and generalized weakness and fatigue, as per patient he is taking longer time to recover from chemotherapy now. His follow-up CT PET scan shows excellent response but somehow his his tumor marker CA 19???9 is markedly elevated, etiology unclear, patient was told possibilities could be due to active microscopic disease which is not picked up by CT PET scan, or lab handling, at this point we will repeat his tumor marker CA 19???9 from different lab and also discussed with GI oncology at [place] regarding role of MRI scan of abdomen for better assessment as he is latest CT PET scan shows only 2 active spots and upper abdomen and also refer him to radiation oncology for evaluation for SBRT or other option would be continue with FOLFIRINOX and repeat CT PET scan after 3 cycles, if resolution of these active spots/lesions then may switch him to observation or maintenance therapy. Patient has follow-up appointment with cardiology/oncology at [place] on November 18, 2021, and wishes to hold his chemotherapy till that evaluation and then decide. As for the anemia is concerned, probably multifactorial, will do anemia work-up, and consider blood transfusion if hemoglobin less than 8 g Return to clinic in 2 weeks with CBC CMP. Signed By: Danielle Root M.D. <<Signature on File>>
== END 2021-11-12 23:59 | disposition home or self-care (01) ==
LOC: ONCMED 06:22
PROVIDERS: PCP Family Medicine; Visit Provider Internal Medicine Hematology & Oncology
DX: Z51.11 Encounter for antineoplastic chemotherapy (principal); C25.0 Malignant neoplasm of head of pancreas; C78.7 Secondary malignant neoplasm of liver and intrahepatic bile duct; I25.2 Old myocardial infarction; D50.9 Iron deficiency anemia, unspecified; Z79.899 Other long term (current) drug therapy
CPT/HCPCS: 36591; 80053; 82607; 82728; 82746; 83540; 83550; 85025; 86301; 96367; 96368; 96372; 96375; 96413; 96415; 96416; 96417; 96523; 99214; 99215; J0461; J0640; J1100; J1453; J2469; J9190; J9206; J9263; Q5120

== ENCOUNTER 2021-11-26 06:29 | Outpatient (RCR) | payer MEDICARE, SELFPAY ==
[2021-11-24 13:42] LABS: Basophils # 0.1 10^3/uL (0.0-0.1); Basophils % 1.1 %; Eosinophils # 0.2 10^3/uL (0.0-0.8); Eosinophils % 4.4 %; Hematocrit 30.1 % (42.0-52.0); Hemoglobin 9.4 g/dL (11.7-16.6); Lymphocytes # 0.7 10^3/uL (0.8-4.8); Lymphocytes % 12.3 %; Mean Corpuscular HGB Conc 31.2 g/dL (30.0-36.0); Mean Corpuscular Hemoglobin 29.7 pg (28.0-34.0); Mean Corpuscular Volume 95.3 fl (80-94); Mean Platelet Volume 10.6 fL (7.4-10.4); Monocytes # 0.6 10^3/uL (0.2-0.9); Monocytes % 10.3 %; Neutrophils % 71.7 %; Nucleated Red Blood Cells % 0 %; Platelet Count 169 10^3/cmm (130-400); Red Blood Count 3.16 10^6/uL (4.1-5.3); Red Cell Distribution Width 16.4 % (12.1-15.1); White Blood Count 5.4 10^3/uL (4.0-10.0)
[2021-11-24 14:26] LABS: Alanine Aminotransferase 37 U/L (0-41); Albumin Level 3.7 g/dL (3.5-5.2); Alkaline Phosphatase 244 IU/L (40-130); Anion Gap 15.1 (5-19); Aspartate Amino Transferase 49 U/L (0-40); Blood Urea Nitrogen 8 mg/dL (8-23); Calcium 8.3 mg/dL (8.5-10.5); Carbon Dioxide 21 mmol/L (22-29); Chloride 107 mmol/L (98-107); Ferritin 31 ng/mL (30-400); Globulin 2.5 g/dL (1.3-4.6); Glucose 156 mg/dL (65-115); Iron 40 ug/dL (59-158); Osmolality Calculated 290 mOsm/kg (285-295); Percent Saturation 12.3 % (20-50); Potassium 4.1 mmol/L (3.5-5.1); Sodium 139 mmol/L (136-145); Total Bilirubin 0.2 mg/dL (0.15-1.2); Total Iron Binding Capacity 323 mcg/dl; Total Protein 6.2 g/dL (6.6-8.7); Unsaturated Iron Binding 283 ug/dL (112-347)
[2021-11-24 17:19] LABS: Cancer Antigen 19 9 930.5 U/mL (0-35)
[2021-11-24 20:26] LABS: Folate Level > 20.0 ng/mL (4.5-32.2); Vitamin B12 > 2000 pg/mL (232-1245)
--- NOTE | 2021-11-26 12:28 | ONC FU_ITS ---
Dr. Root follow up note Patient: Mauricio Powell Unit #: [id number]: [id number] Dicatated By: Danielle Root M.D.Date of Visit:Nov 26, 2021 Onc Med Follow-up/Prog Note History of Present Illness: Mr. Powell is a 71-year-old gentleman with history of progressive weakness and fatigue, acid reflux and loss of appetite. He subsequently noted change in his stool and urine color and jaundice. He also had about 25 pounds weight loss due to poor appetite and early fullness. Patient underwent CT scan of abdomen on 03/25/2019 which showed 3.3 x 2.9 x 2.9 cm soft tissue mass involving inferior pancreatic head and uncinate process. This mass was causing obstruction of common bile duct and probably also pancreatic duct and pancreatic mass abuts and distorts and may invade the medial duodenal C-loop. Patient was referred to [place] where he underwent endoscopic ultrasound and FNA done on 03/29/2019 and it confirmed adenocarcinoma subsequently underwent metal bile duct stent placement with that his jaundice improved but continued to have early fullness nausea finally underwent duodenal stent placement. Mr Powell was referred to Dr. Barbosa and as per patient, Dr. Barbosa suggested neoadjuvant chemotherapy prior to the surgery. Patient and his family decided to take second opinion and went to [facility] for evaluation. He then underwent an attempted ERCP at [facility], which was not possible due to significant luminal stenosis. The endoscopic ultrasound revealed obstructing 3.2 cm pancreatic head mass and the biopsy was positive for adenocarcinoma. Due to inability to perform ERCP, patient underwent percutaneous internal biliary stent. Later patient developed nausea vomiting for which he was readmitted to [facility] in [place] on 04/03/2019 and diagnosed with gastric outlet obstruction for that he underwent EGD with duodenal stent placement on 04/12/2019 . He then underwent pancreas protocol CT scan at [facility] as per patient he was told there could be vascular involvement with tumor so neoadjuvant chemotherapy with folfirinox was recommended. He began his first cycle on 05/27/2019. On 07/03/2019 he was admitted to [facility] with high-grade fever and diarrhea jaundice and abnormal LFTs subsequently diagnosed with sepsis being hypotensive patient was treated with IV antibiotics and CT scan of abdomen pelvis done on 07/04/2019 which showed marked biliary tract dilatation subsequently patient was transferred to [facility] in [place] for further management but his condition continued to improve GI was consulted but his LFTs continued to improve and he was discharged home on Cipro and Flagyl. Patient said he went back to [facility] and this time he underwent ERCP and not sure whether stent was replaced or cleaned. He had MRI MRCP done on 07/17/2019 which showed marked biliary tract dilatation with moderate dilatation of pancreatic duct similar to CT scan of 07/04/2019 and metallic stents obscure with radiation of pancreatic mass. Patient was on oral antibiotics ciprofloxacin and Flagyl till 07/27/2019. Mr Powell completed 6 cycles of neoadjuvant chemotherapy with folfirinox on 09/04/2019. He then underwent pancreaticoduodenectomy, resection and reconstruction of' superior mesenteric vein portal vein using Bovine pericardium patch and abdominal lymphadenectomy on 10/02/2019. His postop course was complicated by NSTEMI and he required intra-aortic balloon pump and ultimately underwent cardiac cath with placement of 4 stents (2 overlapping stents in the left main/proximal LAD and 2 overlapping stents in the RCA). Now on Brilinta and aspirin. 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 Lymphovascular, including large vessel and perineural invasion identified. Tumor invades into adjoining portal vein And superior mesenteric vein but various margins are negative for the tumor. Tumor present at uncinate margin, as foci of vascular invasion. Tumor is less than 1 cm from posterior surface; A small focus of perineural invasion is identified less than 1 cm from the bile duct margin. Pancreatic parenchymal, proximal and distal duodenal resection margins are negative for the tumor. Metastatic carcinoma involving 4 out of 25 lymph nodes ypN2. Adjuvant chemotherapy/chemoradiation was recommended at [facility], but at the same time cardiology had a concern about bone marrow suppressing chemotherapy regimens and recommended avoiding these regimens as patient will require at least 6 months of continued DAPT due to recent NSTEMI and high risk PCI. Based on his final pathology report after Whipple's procedure, patient is a high risk for local recurrence and distant recurrence as there was a minimum response to the neoadjuvant chemotherapy. Lymph node positive disease with close surgical margins was identified. At that point, Mr Powell was referred to radiation oncology for adjuvant radiation therapy. He was also under consideration of low-dose Xeloda concurrently with radiation as patient is not a candidate for adjuvant chemotherapy due to high risk for bone marrow suppression and treatment rendered complication. Considering Risk versus benefit, recommended modified dose Xeloda concurrent with radiation therapy and monitor his blood counts on weekly basis and adjust chemotherapy dose accordingly to minimize bone marrow suppression. He began concurrent therapy with radiation and dose reduced Xeloda on 12/10/2019 completed on 01/16/2020. He remained on observation and followup with Dr Anthony, surgical oncologist at [facility]. 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 Tolerated Injectafer given on 01/23/2020 , for functional iron deficiency anemia Mr Powell has been followed at GI surgical oncology clinic at [facility]. He underwent follow-up MRI scan of abdomen/liver on June 30, 2021 which showed 2 hepatic lesions with features suspicious for metastatic disease involving segment 6 and 2 respectively. Similar in size to the prior CT scan done on May 24, 2021. No additional suspicious liver lesions are identified. Postsurgical changes of Whipple procedure without findings of recurrent disease within the operative bed. PET/CT scan done on July 27, 2021 shows new liver lesions in the hepatic segments of 2 and 6 suspicious for metastatic disease. As per patient his CA 19???9 was more than 400 and liver biopsy was recommended and ultrasound BX liver biopsy was attempted but on ultrasound no liver lesion was identified. A CT-guided liver biopsy obtained on August 16, 2021 shows metastatic adenocarcinoma, moderately differentiated, involving liver parenchyma compatible with patient's known history of pancreatic cancer. 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 Follow-up CT PET scan done on on October 30, 2021 shows no evidence of active hepatic metastatic disease, there is 1.9 cm region of abnormal activity in the pancreatic tail with SUV of 4.8 and a vague peripancreatic lesion measuring up to 2.5 cm with SUV of 4.1, likely malignant lymph node., Tumor marker CA 19???9 checked on October 18, 2021 was 988.6 And repeat on November 24, 2021 was 930.5. FOLFIRINOX was discontinued after October 19, 2021 dose due to related side effect and interfering with quality of life. Came for follow-up, denies any specific complaints, no fever chills, no nausea or vomiting, no diarrhea or constipation as per patient, now he is taking longer time to recover from chemotherapy related side effects and was wondering if it can be changed to another regimen. 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 Medications: Albuterol Sulfate (sensor) 1 (108 (90 base) mcg/act) Aerosol Powder, Breath Activated Inhalation daily PRN, Brilinta 1 Tablet (of 90 mg) Oral b.i.d., Carvedilol 1 Tablet (of 6.25 mg) Oral b.i.d., chlorproMAZINE HCl 1 - 2 Tablet (of 25 mg) Oral q 8 hours PRN, Claritin 1 Tablet (of 10 mg) Oral daily PRN, Creon 1 Capsule (of 02658 Units) Capsule Delayed Release Particles Oral t.i.d., Gas Relief 1 Capsule (of 180 mg) Oral PRN, Imodium A-D 1 Capsule (of 2 mg) Oral PRN, Lomotil 1 Tablet (of 2.5-0.025 mg) Oral daily PRN, Multivitamin Adult 1 Tablet Oral daily, Rosuvastatin Calcium 1 Tablet (of 5 mg) Oral at bedtime, Sacubitril-Valsartan 1 Tablet (of 24-26 mg) Oral b.i.d. Allergies: No Known Allergies. Review of Systems: Review of Systems is not available for this patient. Vital Signs: Performed on Nov 26, 2021 08:38 Height - 67.00 in Weight - 163.8 lbs (HIGH) BSA - 1.86 sq.m BMI - 25.65 Temperature - 97.6 F (LOW) Pulse - 49 /min (LOW) Respiration - 16 /min BP - 123/73 mm(hg) O2 Sat - 99 % Pain - 0 Fatigue - 0 Performance Status: 0 - Fully active, able to carry on all predisease activities without restrictions. (ECOG) Physical Examination: ENMT - No mouth sores, no thrush, no jaundice, Respiratory - Lungs are clear to auscultation, Cardiovascular - Regular rate and rhythm of heart, Abdomen - Soft, bowel sounds present, Extremities - No visible edema. Lab/Imaging: Test performed on Aug 31, 2021 12:25 Sodium 141 mmol/L Potassium 4.4 mmol/L Chloride 106 mmol/L CO2 26 mmol/L Anion Gap 13.4 BUN 10 mg/dL Creatinine 0.8 mg/dL Cr Clearance (Est) 86.3200 mL/min Glucose 161 mg/dL Osmolality - Calculated 295 mOsm/kg Calcium 8.7 mg/dL Protein, Total 6.6 g/dL Albumin 3.8 g/dL Globulin 2.8 g/dL Bilirubin, Total 0.2 mg/dL ALT (SGPT) 19 U/L AST (SGOT) 26 U/L Alkaline Phosphatase 171 IU/L WBC 4.4 10 3/uL RBC 3.55 10 6/uL HGB 10.8 g/dL HCT 34.2 % MCV 96.3 fl MCH 30.4 pg MCHC 31.6 g/dL RDW 14.3 % Platelet Count 196 10 3/cmm MPV 10.4 fL Neutrophils 3.15 10 3/uL Lymphocytes 0.7 10 3/uL Monocytes 0.4 10 3/uL Eosinophils 0.1 10 3/uL Basophils 0.0 10 3/uL Neutrophil % 71.0 % Lymphocyte % 16.3 % Monocyte % 9.5 % Eosinophil % 2.5 % Basophils % 0.7 % NRBC % 0 % CA 19-9 763.9 U/mL Test performed on Jun 08, 2021 14:10 Est Avg Glucose (eAG) 151 mg/dL Hemoglobin A1C % 6.9 % Impression: A. Recurrent pancreatic cancer per CT-guided liver biopsy done on August 16, 2021 which confirmed metastatic adenocarcinoma, moderately differentiated, involving liver parenchyma, compatible with patient's known pancreatic primary And elevated CA 19???9 CT PET scan done At [facility] on July 27, 2021 shows new liver lesion in the hepatic segments 2 and 6 suspicious for metastatic disease B. He is following with Dr Jefferson, local odd job worker, for follow-up of NSTEMI status post PCI to LAD and LM. C. He has had iron deficieny anemia develop , improved with Injectafer Plan: Discussed with patient regarding his labs white blood count 5.4 hemoglobin 9.4 hematocrit 30.1 platelets 169,000 CMP within normal limit except glucose 156 and AST 49, anemia work-up shows iron saturation 12.3% ferritin 31 compared to 81 previously, iron 40, TIBC 323, folate more than 20, B12 more than 2000 and tumor marker CA 19???9 is 930.5 compared to 988 previously Clinically, patient is doing well with no new signs symptom, suggestive of disease progression, his follow-up labs shows improvement in his tumor marker, his recently done CT PET scan shows improvement too. Patient was tolerating FOLFIRINOX reasonably well but as per patient now is taking longer time to recover from related side effects and requesting if less stronger regimen can be used as he prefer quality of life. In that case, we will consider switching him to gemcitabine/Abraxane weekly day 1, 8 and 15 repeat every 28 days. All the side effect possible benefits associated with gemcitabine/Abraxane including but not limited to bone marrow suppression, nausea vomiting, hair loss, peripheral neuropathy especially with Abraxane, were mentioned further teaching will be done by chemotherapy nurse, will obtain approval from his insurance prior to the treatment and consider 3 cycles of gemcitabine/Abraxane based regimen, followed by CT PET scan to assess disease response. Patient return to clinic 1 week after first dose of weekly Abraxane/gemcitabine with CBC CMP. Signed By: Danielle Root M.D. <<Signature on File>>
== END 2021-12-13 23:59 | disposition home or self-care (01) ==
LOC: ONCMED 06:29
PROVIDERS: PCP Family Medicine; Visit Provider Internal Medicine Hematology & Oncology
DX: C25.0 Malignant neoplasm of head of pancreas (principal); C78.7 Secondary malignant neoplasm of liver and intrahepatic bile duct; R97.8 Other abnormal tumor markers; I25.2 Old myocardial infarction; D50.9 Iron deficiency anemia, unspecified; Z79.899 Other long term (current) drug therapy
CPT/HCPCS: 36591; 80053; 82607; 82728; 82746; 83540; 83550; 85025; 86301; 99215

== ENCOUNTER 2021-12-30 11:23 | Outpatient (RCR) | payer MEDICARE, SELFPAY ==
[2021-12-30 12:21] LABS: Alanine Aminotransferase 40 U/L (0-41); Albumin Level 4.1 g/dL (3.5-5.2); Alkaline Phosphatase 302 IU/L (40-130); Anion Gap 13.4 (5-19); Aspartate Amino Transferase 39 U/L (0-40); Blood Urea Nitrogen 9 mg/dL (8-23); Calcium 9.3 mg/dL (8.5-10.5); Carbon Dioxide 23 mmol/L (22-29); Chloride 101 mmol/L (98-107); Glucose 335 mg/dL (65-115); Osmolality Calculated 288 mOsm/kg (285-295); Potassium 4.4 mmol/L (3.5-5.1); Sodium 133 mmol/L (136-145); Total Bilirubin 0.3 mg/dL (0.15-1.2); Total Protein 7.1 g/dL (6.6-8.7)
[2021-12-30 12:25] LABS: Estmated Average Glucose 171; Hemoglobin A1C 7.6 % (4.0-6.0)
[2021-12-30 12:32] LABS: Chol HDL Ratio 2.39 mg/dL (1.0-5.00); Cholesterol 110 mg/dL (0-200); HDL Cholesterol 46 mg/dL (60-100); LDL Cholesterol Calculated 41 mg/dL (50-129); Thyroid Stimulating Hormone 5.47 uIU/mL (0.27-4.20); Triglycerides 113 mg/dL (0-150); VLDL Cholestrol Calculation 23 mg/dL (0-30)
[2021-12-30 13:12] LABS: Basophils % 0.7 %; Eosinophils # 0.1 10^3/uL (0.0-0.8); Eosinophils % 2.6 %; Hematocrit 35.2 % (42.0-52.0); Lymphocytes # 0.7 10^3/uL (0.8-4.8); Lymphocytes % 12.2 %; Mean Corpuscular HGB Conc 31.3 g/dL (30.0-36.0); Mean Corpuscular Volume 95.9 fl (80-94); Mean Platelet Volume 10.7 fL (7.4-10.4); Monocytes # 0.5 10^3/uL (0.2-0.9); Monocytes % 9.3 %; Nucleated Red Blood Cells % 0 %; Platelet Count 167 10^3/cmm (130-400); Red Blood Count 3.67 10^6/uL (4.1-5.3); Red Cell Distribution Width 15.2 % (12.1-15.1); White Blood Count 5.5 10^3/uL (4.0-10.0)
[2021-12-30 15:02] LABS: Creatinine Urine, Random 35 mg/dL (39-259); Microalbumin Random Urine 2 ug/dL (0-20)
[2021-12-30 15:03] LABS: Cancer Antigen 19 9 931.4 U/mL (0-35)
[2021-12-30 15:05] LABS: Microalbum Creatinine Ratio Ur 57 mg/dL (0-20)
--- NOTE | 2021-12-31 10:46 | ONC FU_ITS ---
Charlotte Fajardo Progress Note Patient: Mauricio Powell Unit #: [id number]: 1950 Dicatated By: Charlotte Fajardo N.P.Date of Visit:Dec 30, 2021 Onc MED Follow-up/Prog Note Chief Complaint: Pancreatic cancer History of Present Illness: Mr. Powell is a 71-year-old gentleman with history of progressive weakness and fatigue, acid reflux and loss of appetite. He subsequently noted change in his stool and urine color and jaundice. He also had about 25 pounds weight loss due to poor appetite and early fullness. Patient underwent CT scan of abdomen on 03/25/2019 which showed 3.3 x 2.9 x 2.9 cm soft tissue mass involving inferior pancreatic head and uncinate process. This mass was causing obstruction of common bile duct and probably also pancreatic duct and pancreatic mass abuts and distorts and may invade the medial duodenal C-loop. Patient was referred to [place] where he underwent endoscopic ultrasound and FNA done on 03/29/2019 and it confirmed adenocarcinoma subsequently underwent metal bile duct stent placement with that his jaundice improved but continued to have early fullness nausea finally underwent duodenal stent placement. Mr Powell was referred to Dr. Barbosa and as per patient, Dr. Barbosa suggested neoadjuvant chemotherapy prior to the surgery. Patient and his family decided to take second opinion and went to [facility] for evaluation. He then underwent an attempted ERCP at [facility], which was not possible due to significant luminal stenosis. The endoscopic ultrasound revealed obstructing 3.2 cm pancreatic head mass and the biopsy was positive for adenocarcinoma. Due to inability to perform ERCP, patient underwent percutaneous internal biliary stent. Later patient developed nausea vomiting for which he was readmitted to [facility] on 04/03/2019 and diagnosed with gastric outlet obstruction for that he underwent EGD with duodenal stent placement on 04/12/2019 . He then underwent pancreas protocol CT scan at [facility] as per patient he was told there could be vascular involvement with tumor so neoadjuvant chemotherapy with folfirinox was recommended. He began his first cycle on 05/27/2019. On 07/03/2019 he was admitted to [facility] with high-grade fever and diarrhea jaundice and abnormal LFTs subsequently diagnosed with sepsis being hypotensive patient was treated with IV antibiotics and CT scan of abdomen pelvis done on 07/04/2019 which showed marked biliary tract dilatation subsequently patient was transferred to [facility] in [place] for further management but his condition continued to improve GI was consulted but his LFTs continued to improve and he was discharged home on Cipro and Flagyl. Patient said he went back to [facility] and this time he underwent ERCP and not sure whether stent was replaced or cleaned. He had MRI MRCP done on 07/17/2019 which showed marked biliary tract dilatation with moderate dilatation of pancreatic duct similar to CT scan of 07/04/2019 and metallic stents obscure with radiation of pancreatic mass. Patient was on oral antibiotics ciprofloxacin and Flagyl till 07/27/2019. Mr Powell completed 6 cycles of neoadjuvant chemotherapy with folfirinox on 09/04/2019. He then underwent pancreaticoduodenectomy, resection and reconstruction of' superior mesenteric vein portal vein using Bovine pericardium patch and abdominal lymphadenectomy on 10/02/2019. His postop course was complicated by NSTEMI and he required intra-aortic balloon pump and ultimately underwent cardiac cath with placement of 4 stents (2 overlapping stents in the left main/proximal LAD and 2 overlapping stents in the RCA). Now on Brilinta and aspirin. 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 Lymphovascular, including large vessel and perineural invasion identified. Tumor invades into adjoining portal vein And superior mesenteric vein but various margins are negative for the tumor. Tumor present at uncinate margin, as foci of vascular invasion. Tumor is less than 1 cm from posterior surface; A small focus of perineural invasion is identified less than 1 cm from the bile duct margin. Pancreatic parenchymal, proximal and distal duodenal resection margins are negative for the tumor. Metastatic carcinoma involving 4 out of 25 lymph nodes ypN2. Adjuvant chemotherapy/chemoradiation was recommended at [place], but at the same time cardiology had a concern about bone marrow suppressing chemotherapy regimens and recommended avoiding these regimens as patient will require at least 6 months of continued DAPT due to recent NSTEMI and high risk PCI. Based on his final pathology report after Whipple's procedure, patient is a high risk for local recurrence and distant recurrence as there was a minimum response to the neoadjuvant chemotherapy. Lymph node positive disease with close surgical margins was identified. At that point, Mr Powell was referred to radiation oncology for adjuvant radiation therapy. He was also under consideration of low-dose Xeloda concurrently with radiation as patient is not a candidate for adjuvant chemotherapy due to high risk for bone marrow suppression and treatment rendered complication. Considering Risk versus benefit, recommended modified dose Xeloda concurrent with radiation therapy and monitor his blood counts on weekly basis and adjust chemotherapy dose accordingly to minimize bone marrow suppression. He began concurrent therapy with radiation and dose reduced Xeloda on 12/10/2019 completed on 01/16/2020. He remained on observation and followup with Dr Anthony, surgical oncologist at [facility]. 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 Tolerated Injectafer given on 01/23/2020 , for functional iron deficiency anemia Mr Powell has been followed at GI surgical oncology clinic at [place]. He underwent follow-up MRI scan of abdomen/liver on June 30, 2021 which showed 2 hepatic lesions with features suspicious for metastatic disease involving segment 6 and 2 respectively. Similar in size to the prior CT scan done on May 24, 2021. No additional suspicious liver lesions are identified. Postsurgical changes of Whipple procedure without findings of recurrent disease within the operative bed. PET/CT scan done on July 27, 2021 shows new liver lesions in the hepatic segments of 2 and 6 suspicious for metastatic disease. As per patient his CA 19???9 was more than 400 and liver biopsy was recommended and ultrasound BX liver biopsy was attempted but on ultrasound no liver lesion was identified. A CT-guided liver biopsy obtained on August 16, 2021 shows metastatic adenocarcinoma, moderately differentiated, involving liver parenchyma compatible with patient's known history of pancreatic cancer. After obtaining clearance from his sub arc operator at [place], Mr Powell was started on systemic therapy with FOLFIRINOX on September 15, 2021. Follow-up CT PET scan done on on October 30, 2021 shows no evidence of active hepatic metastatic disease, there is 1.9 cm region of abnormal activity in the pancreatic tail with SUV of 4.8 and a vague peripancreatic lesion measuring up to 2.5 cm with SUV of 4.1, likely malignant lymph node., Tumor marker CA 19???9 checked on October 18, 2021 was 988.6 And repeat on November 24, 2021 was 930.5. FOLFIRINOX was discontinued after October 19, 2021 dose due to related side effect and interfering with quality of life. Patient presents today for education on Abraxane and gemcitabine. He states he has been feeling well except for extreme fatigue. We are changing regimens due to his fatigue and a delay in recovery after previous treatments. Review Of Symptoms: See above Past Medical History: Eczema Gastroesophageal reflux disease Hypercholesterolemia Past Surgical History: Moderna Booster in 2021 Flu vaccine in 2020 - left deltoid Flu vaccine 0443-1949 in 2019 Stent replacement in the biliary duct in 2018 Fna of pancreas in 2018 Eyelid surgery in 1959 Tonsillectomy in 1954 Allergies: No Known Allergies. Medications: Albuterol Sulfate (sensor) 1 (108 (90 base) mcg/act) Aerosol Powder, Breath Activated Inhalation daily PRN Brilinta 1 Tablet (of 90 mg) Oral b.i.d. Carvedilol 1 Tablet (of 6.25 mg) Oral b.i.d. chlorproMAZINE HCl 1 - 2 Tablet (of 25 mg) Oral q 8 hours PRN Claritin 1 Tablet (of 10 mg) Oral daily PRN Creon 1 Capsule (of 48174 Units) Capsule Delayed Release Particles Oral t.i.d. Ferrous Sulfate 1 Tablet (of 325 (65 fe) mg) Oral daily Gas Relief 1 Capsule (of 180 mg) Oral PRN Imodium A-D 1 Capsule (of 2 mg) Oral PRN Lomotil 1 Tablet (of 2.5-0.025 mg) Oral daily PRN Multivitamin Adult 1 Tablet Oral daily Rosuvastatin Calcium 1 Tablet (of 5 mg) Oral at bedtime Sacubitril-Valsartan 1 Tablet (of 24-26 mg) Oral b.i.d. Family History: Mr. Powell's mother at age 92: Alzheimer's Disease, and cervical cancer. Mr. Powell's father at age 63: heart disease. Social History: Mr. Powell is and he is retired. Mr. Powell has never smoked. He has no history of drinking. He has indicated exposure to the following products: marijuana. Physical Examination: Performed on Dec 30, 2021 13:04: Height - 67.00 in, Weight - 163.6 lbs (LOW), BSA - 1.86 sq.m, BMI - 25.62, Temperature - 97.2 F (LOW), Pulse - 62 /min, Respiration - 18 /min, BP - 125/79 mm(hg), O2 Sat - 99 %, Pain - 0, and Fatigue - 2. Performance Status: 0 - Fully active, able to carry on all predisease activities without restrictions. (ECOG) Constitutional Alert, cooperative, oriented. Mood and affect appropriate. Appears close to chronological age. Well nourished. Well developed. Head Normocephalic; no scars. Respiratory Lungs are clear to auscultation without rhonchi or wheezing. Cardiovascular Regular rate and rhythm of heart without murmurs, gallops or rubs. Abdomen Non-tender, non-distended, no masses, ascites or hepatosplenomegaly. Good bowel sounds. No guarding or rebound tenderness. Psychiatric Alert and oriented times three. Coherent speech. Verbalizes understanding of our discussions today. Laboratory: Test performed on Dec 30, 2021 11:50 Sodium 133 mmol/L Potassium 4.4 mmol/L Chloride 101 mmol/L CO2 23 mmol/L Anion Gap 13.4 BUN 9 mg/dL Creatinine 0.7 mg/dL Cr Clearance (Est) 98.65 mL/min Glucose 335 mg/dL Osmolality - Calculated 288 mOsm/kg Calcium 9.3 mg/dL Protein, Total 7.1 g/dL Albumin 4.1 g/dL Globulin 3.0 g/dL Bilirubin, Total 0.3 mg/dL ALT (SGPT) 40 U/L AST (SGOT) 39 U/L Alkaline Phosphatase 302 IU/L WBC 5.5 10 3/uL RBC 3.67 10 6/uL HGB 11.0 g/dL HCT 35.2 % MCV 95.9 fl MCH 30.0 pg MCHC 31.3 g/dL RDW 15.2 % Platelet Count 167 10 3/cmm MPV 10.7 fL Neutrophils 4.10 10 3/uL Lymphocytes 0.7 10 3/uL Monocytes 0.5 10 3/uL Eosinophils 0.1 10 3/uL Basophils 0.0 10 3/uL Neutrophil % 75.0 % Lymphocyte % 12.2 % Monocyte % 9.3 % Eosinophil % 2.6 % Basophils % 0.7 % NRBC % 0 % CA 19-9 931.4 U/mL Impression: A. Recurrent pancreatic cancer per CT-guided liver biopsy done on August 16, 2021 which confirmed metastatic adenocarcinoma, moderately differentiated, involving liver parenchyma, compatible with patient's known pancreatic primary And elevated CA 19???9 CT PET scan done At [place] on July 27, 2021 shows new liver lesion in the hepatic segments 2 and 6 suspicious for metastatic disease B. He is following with Dr Jefferson, local sub arc operator, for follow-up of NSTEMI status post PCI to LAD and LM. C. He has had iron deficieny anemia develop , improved with Injectafer Plan: Labs were discussed with patientWhite count 5.5, hemoglobin 11.0, hematocrit 35.2, platelet count 167,000, neutrophils 4.10. CMP with a sodium of 133, glucose 335, and alk phos at 302. Other labs within normal limits his tumor marker was rechecked for baseline prior to chemo and it was 931.4. Education provided on Abraxane and gemcitabine including indications for use and side effects. Handouts were also provided for further reading. He will receive his first cycle of Abraxane and gemcitabine today. He will follow-up in 1 week with CBC and CMP. Signed By: Charlotte Fajardo N.Tasia. <<Signature on File>>
== END 2022-01-10 23:59 | disposition home or self-care (01) ==
LOC: ONCMED 11:23
PROVIDERS: PCP Family Medicine; Visit Provider Nurse Practitioner Family
DX: Z51.11 Encounter for antineoplastic chemotherapy (principal); C25.0 Malignant neoplasm of head of pancreas; C78.7 Secondary malignant neoplasm of liver and intrahepatic bile duct; I25.2 Old myocardial infarction; D50.9 Iron deficiency anemia, unspecified; Z79.899 Other long term (current) drug therapy
CPT/HCPCS: 80053; 80061; 82044; 83036; 84443; 85025; 86301; 96367; 96375; 96413; 96417; 99215; J1100; J3490; J7050; J9201; J9264

== ENCOUNTER 2022-02-08 06:41 | Outpatient (RCR) | payer MEDICARE, SELFPAY ==
[2022-01-12 09:23] LABS: Basophils % 0.3 %; Eosinophils # 0.1 10^3/uL (0.0-0.8); Eosinophils % 1.3 %; Hematocrit 28.4 % (42.0-52.0); Hemoglobin 9.3 g/dL (11.7-16.6); Lymphocytes # 0.4 10^3/uL (0.8-4.8); Lymphocytes % 9.3 %; Mean Corpuscular HGB Conc 32.7 g/dL (30.0-36.0); Mean Corpuscular Hemoglobin 30.4 pg (28.0-34.0); Mean Corpuscular Volume 92.8 fl (80-94); Mean Platelet Volume 10.2 fL (7.4-10.4); Monocytes # 0.5 10^3/uL (0.2-0.9); Monocytes % 13.4 %; Neutrophils # 2.91 10^3/uL (1.8-7.7); Neutrophils % 75.2 %; Nucleated Red Blood Cells % 0 %; Platelet Count 191 10^3/cmm (130-400); Red Blood Count 3.06 10^6/uL (4.1-5.3); Red Cell Distribution Width 13.9 % (12.1-15.1); White Blood Count 3.9 10^3/uL (4.0-10.0)
[2022-01-12 10:01] LABS: Alanine Aminotransferase 31 U/L (0-41); Albumin Level 3.2 g/dL (3.5-5.2); Alkaline Phosphatase 400 IU/L (40-130); Anion Gap 15.5 (5-19); Aspartate Amino Transferase 18 U/L (0-40); Blood Urea Nitrogen 6 mg/dL (8-23); Calcium 8.7 mg/dL (8.5-10.5); Carbon Dioxide 20 mmol/L (22-29); Chloride 100 mmol/L (98-107); Globulin 3.2 g/dL (1.3-4.6); Glucose 410 mg/dL (65-115); Osmolality Calculated 289 mOsm/kg (285-295); Potassium 3.5 mmol/L (3.5-5.1); Sodium 132 mmol/L (136-145); Total Bilirubin 0.3 mg/dL (0.15-1.2); Total Protein 6.4 g/dL (6.6-8.7)
[2022-01-12] MEDS: sodium chloride 0.9% 250 ML 75 ML IV (11:55)
[2022-01-12 12:14] LABS: Glucose 380 mg/dL (65-115)
[2022-01-12] MEDS: famotidine 20 mg/2 mL INJ IVP (12:20)
[2022-01-12] MEDS: ondansetron 2 mg/ML SDV 2 mL 8 MG IV (12:25)
[2022-01-12] MEDS: insulin lispro 100 unit/1 mL 6 UNIT SUBCUT (14:00)
--- NOTE | 2022-01-12 16:53 | ONC FU_ITS ---
Dr. Root follow up note Patient: Mauricio Powell Unit #: [id number]: [id number] Dicatated By: Danielle Root M.D.Date of Visit:Jan 12, 2022 Onc Med Follow-up/Prog Note History of Present Illness: Mr. Powell is a 71-year-old gentleman with history of progressive weakness and fatigue, acid reflux and loss of appetite. He subsequently noted change in his stool and urine color and jaundice. He also had about 25 pounds weight loss due to poor appetite and early fullness. Patient underwent CT scan of abdomen on 03/25/2019 which showed 3.3 x 2.9 x 2.9 cm soft tissue mass involving inferior pancreatic head and uncinate process. This mass was causing obstruction of common bile duct and probably also pancreatic duct and pancreatic mass abuts and distorts and may invade the medial duodenal C-loop. Patient was referred to [facility] where he underwent endoscopic ultrasound and FNA done on 03/29/2019 and it confirmed adenocarcinoma subsequently underwent metal bile duct stent placement with that his jaundice improved but continued to have early fullness nausea finally underwent duodenal stent placement. Mr Powell was referred to Dr. Barbosa and as per patient, Dr. Barbosa suggested neoadjuvant chemotherapy prior to the surgery. Patient and his family decided to take second opinion and went to [facility] for evaluation. He then underwent an attempted ERCP at [facility], which was not possible due to significant luminal stenosis. The endoscopic ultrasound revealed obstructing 3.2 cm pancreatic head mass and the biopsy was positive for adenocarcinoma. Due to inability to perform ERCP, patient underwent percutaneous internal biliary stent. Later patient developed nausea vomiting for which he was readmitted to [facility] in [place] on 04/03/2019 and diagnosed with gastric outlet obstruction for that he underwent EGD with duodenal stent placement on 04/12/2019 . He then underwent pancreas protocol CT scan at [facility] as per patient he was told there could be vascular involvement with tumor so neoadjuvant chemotherapy with folfirinox was recommended. He began his first cycle on 05/27/2019. On 07/03/2019 he was admitted to [facility] with high-grade fever and diarrhea jaundice and abnormal LFTs subsequently diagnosed with sepsis being hypotensive patient was treated with IV antibiotics and CT scan of abdomen pelvis done on 07/04/2019 which showed marked biliary tract dilatation subsequently patient was transferred to [facility] in [place] for further management but his condition continued to improve GI was consulted but his LFTs continued to improve and he was discharged home on Cipro and Flagyl. Patient said he went back to [facility] and this time he underwent ERCP and not sure whether stent was replaced or cleaned. He had MRI MRCP done on 07/17/2019 which showed marked biliary tract dilatation with moderate dilatation of pancreatic duct similar to CT scan of 07/04/2019 and metallic stents obscure with radiation of pancreatic mass. Patient was on oral antibiotics ciprofloxacin and Flagyl till 07/27/2019. Mr Powell completed 6 cycles of neoadjuvant chemotherapy with folfirinox on 09/04/2019. He then underwent pancreaticoduodenectomy, resection and reconstruction of' superior mesenteric vein portal vein using Bovine pericardium patch and abdominal lymphadenectomy on 10/02/2019. His postop course was complicated by NSTEMI and he required intra-aortic balloon pump and ultimately underwent cardiac cath with placement of 4 stents (2 overlapping stents in the left main/proximal LAD and 2 overlapping stents in the RCA). Now on Brilinta and aspirin. 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 Lymphovascular, including large vessel and perineural invasion identified. Tumor invades into adjoining portal vein And superior mesenteric vein but various margins are negative for the tumor. Tumor present at uncinate margin, as foci of vascular invasion. Tumor is less than 1 cm from posterior surface; A small focus of perineural invasion is identified less than 1 cm from the bile duct margin. Pancreatic parenchymal, proximal and distal duodenal resection margins are negative for the tumor. Metastatic carcinoma involving 4 out of 25 lymph nodes ypN2. Adjuvant chemotherapy/chemoradiation was recommended at [facility], but at the same time cardiology had a concern about bone marrow suppressing chemotherapy regimens and recommended avoiding these regimens as patient will require at least 6 months of continued DAPT due to recent NSTEMI and high risk PCI. Based on his final pathology report after Whipple's procedure, patient is a high risk for local recurrence and distant recurrence as there was a minimum response to the neoadjuvant chemotherapy. Lymph node positive disease with close surgical margins was identified. At that point, Mr Powell was referred to radiation oncology for adjuvant radiation therapy. He was also under consideration of low-dose Xeloda concurrently with radiation as patient is not a candidate for adjuvant chemotherapy due to high risk for bone marrow suppression and treatment rendered complication. Considering Risk versus benefit, recommended modified dose Xeloda concurrent with radiation therapy and monitor his blood counts on weekly basis and adjust chemotherapy dose accordingly to minimize bone marrow suppression. He began concurrent therapy with radiation and dose reduced Xeloda on 12/10/2019 completed on 01/16/2020. He remained on observation and followup with Dr Anthony, surgical oncologist at [facility]. 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 Tolerated Injectafer given on 01/23/2020 , for functional iron deficiency anemia Mr Powell has been followed at GI surgical oncology clinic at [facility]. He underwent follow-up MRI scan of abdomen/liver on June 30, 2021 which showed 2 hepatic lesions with features suspicious for metastatic disease involving segment 6 and 2 respectively. Similar in size to the prior CT scan done on May 24, 2021. No additional suspicious liver lesions are identified. Postsurgical changes of Whipple procedure without findings of recurrent disease within the operative bed. PET/CT scan done on July 27, 2021 shows new liver lesions in the hepatic segments of 2 and 6 suspicious for metastatic disease. As per patient his CA 19???9 was more than 400 and liver biopsy was recommended and ultrasound BX liver biopsy was attempted but on ultrasound no liver lesion was identified. A CT-guided liver biopsy obtained on August 16, 2021 shows metastatic adenocarcinoma, moderately differentiated, involving liver parenchyma compatible with patient's known history of pancreatic cancer. After obtaining clearance from his nurse care manager at [facility], Mr Powell was started on systemic therapy with FOLFIRINOX on September 15, 2021. Follow-up CT PET scan done on on October 30, 2021 shows no evidence of active hepatic metastatic disease, there is 1.9 cm region of abnormal activity in the pancreatic tail with SUV of 4.8 and a vague peripancreatic lesion measuring up to 2.5 cm with SUV of 4.1, likely malignant lymph node., Tumor marker CA 19???9 checked on October 18, 2021 was 988.6 And repeat on November 24, 2021 was 930.5. FOLFIRINOX was discontinued after October 19, 2021 dose due to related side effect and interfering with quality of life. Came for follow-up, denies any specific complaints, no fever chills, no nausea or vomiting, no diarrhea constipation, patient tolerated first dose of gemcitabine/Abraxane well, as per patient first 2 days after chemotherapy, he felt like normal, more energetic after that he felt fatigued, tired and generalized muscle aches and was drinking a lot of fluids and also urinating a lot. No abdominal pain, no jaundice. Patient missed his next weekly chemotherapy due to bad weather. Medications: Albuterol Sulfate (sensor) 1 (108 (90 base) mcg/act) Aerosol Powder, Breath Activated Inhalation daily PRN, Brilinta 1 Tablet (of 90 mg) Oral b.i.d., Carvedilol 1 Tablet (of 6.25 mg) Oral b.i.d., chlorproMAZINE HCl 1 - 2 Tablet (of 25 mg) Oral q 8 hours PRN, Claritin 1 Tablet (of 10 mg) Oral daily PRN, Creon 1 Capsule (of 25183 Units) Capsule Delayed Release Particles Oral t.i.d., Ferrous Sulfate 1 Tablet (of 325 (65 fe) mg) Oral daily, Gas Relief 1 Capsule (of 180 mg) Oral PRN, Imodium A-D 1 Capsule (of 2 mg) Oral PRN, Lomotil 1 Tablet (of 2.5-0.025 mg) Oral daily PRN, Multivitamin Adult 1 Tablet Oral daily, Rosuvastatin Calcium 1 Tablet (of 5 mg) Oral at bedtime, Sacubitril-Valsartan 1 Tablet (of 24-26 mg) Oral b.i.d. Allergies: No Known Allergies. Review of Systems: Review of Systems is not available for this patient. Vital Signs: Performed on Jan 12, 2022 15:13 Height - 67.00 in Temperature - 98 F (LOW) Pulse - 56 /min (LOW) Respiration - 18 /min BP - 135/78 mm(hg) O2 Sat - 97 % Pain - 0 Fatigue - 0 Performed on Jan 12, 2022 12:18 Height - 67.00 in Weight - 160.6 lbs (LOW) BSA - 1.84 sq.m BMI - 25.15 Temperature - 98.4 F Pulse - 70 /min Respiration - 16 /min BP - 129/75 mm(hg) O2 Sat - 98 % Pain - 0 Fatigue - 4 Performance Status: 0 - Fully active, able to carry on all predisease activities without restrictions. (ECOG) Physical Examination: ENMT - No mouth sores, no thrush, no jaundice, Cardiovascular - Regular rate and rhythm of heart, Chest - Clear to auscultation, Gastrointestinal - Soft, bowel sounds present, Extremities - No visible edema. Lab/Imaging: Test performed on Dec 30, 2021 11:50 Sodium 133 mmol/L Potassium 4.4 mmol/L Chloride 101 mmol/L CO2 23 mmol/L Anion Gap 13.4 BUN 9 mg/dL Creatinine 0.7 mg/dL Cr Clearance (Est) 98.65 mL/min Glucose 335 mg/dL Osmolality - Calculated 288 mOsm/kg Calcium 9.3 mg/dL Protein, Total 7.1 g/dL Albumin 4.1 g/dL Globulin 3.0 g/dL Bilirubin, Total 0.3 mg/dL ALT (SGPT) 40 U/L AST (SGOT) 39 U/L Alkaline Phosphatase 302 IU/L WBC 5.5 10 3/uL RBC 3.67 10 6/uL HGB 11.0 g/dL HCT 35.2 % MCV 95.9 fl MCH 30.0 pg MCHC 31.3 g/dL RDW 15.2 % Platelet Count 167 10 3/cmm MPV 10.7 fL Neutrophils 4.10 10 3/uL Lymphocytes 0.7 10 3/uL Monocytes 0.5 10 3/uL Eosinophils 0.1 10 3/uL Basophils 0.0 10 3/uL Neutrophil % 75.0 % Lymphocyte % 12.2 % Monocyte % 9.3 % Eosinophil % 2.6 % Basophils % 0.7 % NRBC % 0 % CA 19-9 931.4 U/mL Impression: A. Recurrent pancreatic cancer per CT-guided liver biopsy done on August 16, 2021 which confirmed metastatic adenocarcinoma, moderately differentiated, involving liver parenchyma, compatible with patient's known pancreatic primary And elevated CA 19???9 CT PET scan done At [facility] on July 27, 2021 shows new liver lesion in the hepatic segments 2 and 6 suspicious for metastatic disease B. He is following with Dr Jefferson, local nurse care manager, for follow-up of NSTEMI status post PCI to LAD and LM. C. He has had iron deficieny anemia develop , improved with Injectafer Plan: Discussed with patient regarding his labs white blood count 3.9 hemoglobin 9.3 hematocrit 28.4 platelets 191,000 ANC 2910 CMP within normal limit except glucose 410 and alk phos 400 Clinically, patient is doing reasonably well, tolerating recently started gemcitabine/Abraxane well, missed his scheduled weekly dose of gemcitabine Abraxane because of bad weather. Thus he will resume his cycle #1 day 8 chemotherapy with gemcitabine/Abraxane, we will consider Neupogen daily for 2 days every week to maintain chemotherapy dose and schedule. As far as generalized weakness and fatigue, polyuria polydipsia is concerned probably due to hyperglycemia due to steroids as well as history of pancreatectomy, at this point, will consider sliding scale with regular insulin, patient was advised to avoid sugar based food or minimize simple carbs. We will also request his PMD Dr. Pérez to monitor patient's newly diagnosed adult onset of diabetes or hyperglycemia. As far as anemia is concerned probably multifactorial, will continue to monitor and he will return to clinic in 1 week with CBC CMP if reasonable, day 15 chemotherapy with Abraxane/gemcitabine Signed By: Danielle Root M.D. <<Signature on File>>
[2022-01-14] MEDS: insulin lispro 100 unit/1 mL 8 UNIT SUBCUT (11:35)
[2022-01-19 08:50] LABS: Eosinophils % 0.7 %; Hematocrit 28.9 % (42.0-52.0); Hemoglobin 9.3 g/dL (11.7-16.6); Lymphocytes # 0.4 10^3/uL (0.8-4.8); Lymphocytes % 12.9 %; Mean Corpuscular HGB Conc 32.2 g/dL (30.0-36.0); Mean Corpuscular Hemoglobin 29.5 pg (28.0-34.0); Mean Corpuscular Volume 91.7 fl (80-94); Mean Platelet Volume 9.2 fL (7.4-10.4); Monocytes # 0.4 10^3/uL (0.2-0.9); Neutrophils # 1.98 10^3/uL (1.8-7.7); Nucleated Red Blood Cells % 0 %; Platelet Count 185 10^3/cmm (130-400); Red Blood Count 3.15 10^6/uL (4.1-5.3); White Blood Count 2.9 10^3/uL (4.0-10.0)
[2022-01-19 09:05] LABS: Alanine Aminotransferase 85 U/L (0-41); Albumin Level 3.3 g/dL (3.5-5.2); Alkaline Phosphatase 440 IU/L (40-130); Anion Gap 14.5 (5-19); Aspartate Amino Transferase 66 U/L (0-40); Blood Urea Nitrogen 8 mg/dL (8-23); Calcium 8.6 mg/dL (8.5-10.5); Carbon Dioxide 22 mmol/L (22-29); Chloride 103 mmol/L (98-107); Globulin 2.8 g/dL (1.3-4.6); Glucose 195 mg/dL (65-115); Osmolality Calculated 286 mOsm/kg (285-295); Potassium 3.5 mmol/L (3.5-5.1); Sodium 136 mmol/L (136-145); Total Bilirubin 0.2 mg/dL (0.15-1.2); Total Protein 6.1 g/dL (6.6-8.7)
--- NOTE | 2022-01-19 16:43 | ONC FU_ITS ---
Charlotte Fajardo Progress Note Patient: Mauricio Powell Unit #: [id number]: [id number] Dicatated By: Charlotte Fajardo N.P.Date of Visit:Jan 19, 2022 Onc MED Follow-up/Prog Note Chief Complaint: Pancreatic cancer History of Present Illness: Mr. Powell is a 71-year-old gentleman with history of progressive weakness and fatigue, acid reflux and loss of appetite. He subsequently noted change in his stool and urine color and jaundice. He also had about 25 pounds weight loss due to poor appetite and early fullness. Patient underwent CT scan of abdomen on 03/25/2019 which showed 3.3 x 2.9 x 2.9 cm soft tissue mass involving inferior pancreatic head and uncinate process. This mass was causing obstruction of common bile duct and probably also pancreatic duct and pancreatic mass abuts and distorts and may invade the medial duodenal C-loop. Patient was referred to [facility] where he underwent endoscopic ultrasound and FNA done on 03/29/2019 and it confirmed adenocarcinoma subsequently underwent metal bile duct stent placement with that his jaundice improved but continued to have early fullness nausea finally underwent duodenal stent placement. Mr Powell was referred to Dr. Barbosa and as per patient, Dr. Barbosa suggested neoadjuvant chemotherapy prior to the surgery. Patient and his family decided to take second opinion and went to [facility] for evaluation. He then underwent an attempted ERCP at [facility], which was not possible due to significant luminal stenosis. The endoscopic ultrasound revealed obstructing 3.2 cm pancreatic head mass and the biopsy was positive for adenocarcinoma. Due to inability to perform ERCP, patient underwent percutaneous internal biliary stent. Later patient developed nausea vomiting for which he was readmitted to [facility] on 04/03/2019 and diagnosed with gastric outlet obstruction for that he underwent EGD with duodenal stent placement on 04/12/2019 . He then underwent pancreas protocol CT scan at [facility] as per patient he was told there could be vascular involvement with tumor so neoadjuvant chemotherapy with folfirinox was recommended. He began his first cycle on 05/27/2019. On 07/03/2019 he was admitted to [facility] with high-grade fever and diarrhea jaundice and abnormal LFTs subsequently diagnosed with sepsis being hypotensive patient was treated with IV antibiotics and CT scan of abdomen pelvis done on 07/04/2019 which showed marked biliary tract dilatation subsequently patient was transferred to [facility] in [place] for further management but his condition continued to improve GI was consulted but his LFTs continued to improve and he was discharged home on Cipro and Flagyl. Patient said he went back to [facility] and this time he underwent ERCP and not sure whether stent was replaced or cleaned. He had MRI MRCP done on 07/17/2019 which showed marked biliary tract dilatation with moderate dilatation of pancreatic duct similar to CT scan of 07/04/2019 and metallic stents obscure with radiation of pancreatic mass. Patient was on oral antibiotics ciprofloxacin and Flagyl till 07/27/2019. Mr Powell completed 6 cycles of neoadjuvant chemotherapy with folfirinox on 09/04/2019. He then underwent pancreaticoduodenectomy, resection and reconstruction of' superior mesenteric vein portal vein using Bovine pericardium patch and abdominal lymphadenectomy on 10/02/2019. His postop course was complicated by NSTEMI and he required intra-aortic balloon pump and ultimately underwent cardiac cath with placement of 4 stents (2 overlapping stents in the left main/proximal LAD and 2 overlapping stents in the RCA). Now on Brilinta and aspirin. 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 Lymphovascular, including large vessel and perineural invasion identified. Tumor invades into adjoining portal vein And superior mesenteric vein but various margins are negative for the tumor. Tumor present at uncinate margin, as foci of vascular invasion. Tumor is less than 1 cm from posterior surface; A small focus of perineural invasion is identified less than 1 cm from the bile duct margin. Pancreatic parenchymal, proximal and distal duodenal resection margins are negative for the tumor. Metastatic carcinoma involving 4 out of 25 lymph nodes ypN2. Adjuvant chemotherapy/chemoradiation was recommended at [facility], but at the same time cardiology had a concern about bone marrow suppressing chemotherapy regimens and recommended avoiding these regimens as patient will require at least 6 months of continued DAPT due to recent NSTEMI and high risk PCI. Based on his final pathology report after Whipple's procedure, patient is a high risk for local recurrence and distant recurrence as there was a minimum response to the neoadjuvant chemotherapy. Lymph node positive disease with close surgical margins was identified. At that point, Mr Powell was referred to radiation oncology for adjuvant radiation therapy. He was also under consideration of low-dose Xeloda concurrently with radiation as patient is not a candidate for adjuvant chemotherapy due to high risk for bone marrow suppression and treatment rendered complication. Considering Risk versus benefit, recommended modified dose Xeloda concurrent with radiation therapy and monitor his blood counts on weekly basis and adjust chemotherapy dose accordingly to minimize bone marrow suppression. He began concurrent therapy with radiation and dose reduced Xeloda on 12/10/2019 completed on 01/16/2020. He remained on observation and followup with Dr Anthony, surgical oncologist at [facility]. 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 Tolerated Injectafer given on 01/23/2020 , for functional iron deficiency anemia Mr Powell has been followed at GI surgical oncology clinic at [facility]. He underwent follow-up MRI scan of abdomen/liver on June 30, 2021 which showed 2 hepatic lesions with features suspicious for metastatic disease involving segment 6 and 2 respectively. Similar in size to the prior CT scan done on May 24, 2021. No additional suspicious liver lesions are identified. Postsurgical changes of Whipple procedure without findings of recurrent disease within the operative bed. PET/CT scan done on July 27, 2021 shows new liver lesions in the hepatic segments of 2 and 6 suspicious for metastatic disease. As per patient his CA 19???9 was more than 400 and liver biopsy was recommended and ultrasound BX liver biopsy was attempted but on ultrasound no liver lesion was identified. A CT-guided liver biopsy obtained on August 16, 2021 shows metastatic adenocarcinoma, moderately differentiated, involving liver parenchyma compatible with patient's known history of pancreatic cancer. 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 Follow-up CT PET scan done on on October 30, 2021 shows no evidence of active hepatic metastatic disease, there is 1.9 cm region of abnormal activity in the pancreatic tail with SUV of 4.8 and a vague peripancreatic lesion measuring up to 2.5 cm with SUV of 4.1, likely malignant lymph node., Tumor marker CA 19???9 checked on October 18, 2021 was 988.6 And repeat on November 24, 2021 was 930.5. FOLFIRINOX was discontinued after October 19, 2021 dose due to related side effect and interfering with quality of life. Patient presents today accompanied by his for follow-up. He states he has been feeling pretty good. He has some mild fatigue. His ECOG is 1. His appetite has been very. He has been trying to eat well due to elevated glucose levels. He denies fever, chills, night sweats. No mouth sores. No shortness of breath, cough, chest pain. He denies any GI problems or problems. No joint or muscle pain. No headaches or dizziness. He denies numbness or tingling. Review Of Symptoms: See above. Past Medical History: Eczema Gastroesophageal reflux disease Hypercholesterolemia Past Surgical History: Moderna Booster in 2021 Flu vaccine in 2020 - left deltoid Flu vaccine 3841-3437 in 2019 Stent replacement in the biliary duct in 2018 Fna of pancreas in 2019 Eyelid surgery in 1959 Tonsillectomy in 5 Allergies: No Known Allergies. Medications: Albuterol Sulfate (sensor) 1 (108 (90 base) mcg/act) Aerosol Powder, Breath Activated Inhalation daily PRN Brilinta 1 Tablet (of 90 mg) Oral b.i.d. Carvedilol 1 Tablet (of 6.25 mg) Oral b.i.d. chlorproMAZINE HCl 1 - 2 Tablet (of 25 mg) Oral q 8 hours PRN Claritin 1 Tablet (of 10 mg) Oral daily PRN Creon 1 Capsule (of 18990 Units) Capsule Delayed Release Particles Oral t.i.d. Ferrous Sulfate 1 Tablet (of 325 (65 fe) mg) Oral daily Gas Relief 1 Capsule (of 180 mg) Oral PRN HumaLOG KwikPen Subcutaneous Take as Directed HumuLIN R (100 Units/mL) Injection Take as Directed Imodium A-D 1 Capsule (of 2 mg) Oral PRN Lomotil 1 Tablet (of 2.5-0.025 mg) Oral daily PRN Multivitamin Adult 1 Tablet Oral daily Rosuvastatin Calcium 1 Tablet (of 5 mg) Oral at bedtime Sacubitril-Valsartan 1 Tablet (of 24-26 mg) Oral b.i.d. Family History: Mr. Powell's mother at age 92: Alzheimer's Disease, and cervical cancer. Mr. Powell's father at age 63: heart disease. Social History: Mr. Powell is and he is retired. Mr. Powell has never smoked. He has no history of drinking. He has indicated exposure to the following products: marijuana. Physical Examination: Performed on Jan 19, 2022 10:43: Height - 67.00 in, Weight - 162.6 lbs (HIGH), BSA - 1.85 sq.m, BMI - 25.47, Temperature - 97.6 F (LOW), Pulse - 60 /min, Respiration - 18 /min, BP - 117/70 mm(hg), O2 Sat - 99 %, Pain - 0, and Fatigue - 4. Performance Status: 0 - Fully active, able to carry on all predisease activities without restrictions. (ECOG) Constitutional Alert, cooperative, oriented. Mood and affect appropriate. Appears close to chronological age. Well nourished. Well developed. Head Normocephalic; no scars. Respiratory Lungs are clear to auscultation without rhonchi or wheezing. Cardiovascular Regular rate and rhythm of heart without murmurs, gallops or rubs. Abdomen Non-tender, non-distended, no masses, ascites or hepatosplenomegaly. Good bowel sounds. No guarding or rebound tenderness. Extremities No visible deformities, no cyanosis, clubbing or edema. Pulses 3+ and equal bilaterally. Musculoskeletal No tenderness or swelling, normal range of motion without obvious weakness. Psychiatric Alert and oriented times three. Coherent speech. Verbalizes understanding of our discussions today. Laboratory: Test performed on Jan 19, 2022 08:37 Sodium 136 mmol/L Potassium 3.5 mmol/L Chloride 103 mmol/L CO2 22 mmol/L Anion Gap 14.5 BUN 8 mg/dL Creatinine 0.7 mg/dL Cr Clearance (Est) 98.6500 mL/min Glucose 195 mg/dL Osmolality - Calculated 286 mOsm/kg Calcium 8.6 mg/dL Protein, Total 6.1 g/dL Albumin 3.3 g/dL Globulin 2.8 g/dL Bilirubin, Total 0.2 mg/dL ALT (SGPT) 85 U/L AST (SGOT) 66 U/L Alkaline Phosphatase 440 IU/L WBC 2.9 10 3/uL RBC 3.15 10 6/uL HGB 9.3 g/dL HCT 28.9 % MCV 91.7 fl MCH 29.5 pg MCHC 32.2 g/dL RDW 14.0 % Platelet Count 185 10 3/cmm MPV 9.2 fL Neutrophils 1.98 10 3/uL Lymphocytes 0.4 10 3/uL Monocytes 0.4 10 3/uL Eosinophils 0.0 10 3/uL Basophils 0.0 10 3/uL Neutrophil % 69.0 % Lymphocyte % 12.9 % Monocyte % 15.0 % Eosinophil % 0.7 % Basophils % 1.0 % NRBC % 0 % Test performed on Dec 30, 2021 11:50 CA 19-9 931.4 U/mL Impression: A. Recurrent pancreatic cancer per CT-guided liver biopsy done on August 16, 2021 which confirmed metastatic adenocarcinoma, moderately differentiated, involving liver parenchyma, compatible with patient's known pancreatic primary And elevated CA 19???9 CT PET scan done At [facility] on July 27, 2021 shows new liver lesion in the hepatic segments 2 and 6 suspicious for metastatic disease B. He is following with Dr Jefferson, local airport tower controller, for follow-up of NSTEMI status post PCI to LAD and LM. C. He has had iron deficieny anemia develop , improved with Injectafer Plan: Patient presents today for follow-up. His labs were discussed with him his WBC 2.9, hemoglobin 9.3, hematocrit 28.9, neutrophil count is 1.98, and his platelet count is 185,000. Due to leukopenia, we will hold the cycle of chemotherapy. He will return in 1 week with CBC and CMP and if leukopenia has resolved, he will receive his next cycle of gemcitabine and Abraxane. He will also receive Neulasta 480 x 3 days following chemotherapy. He will also only receive Abraxane and gemcitabine on day 1 and day 8 of a 21-day cycle. He has been doing well with this hyperglycemia. He remains on sliding scale insulin and has been adjusting his diet to a diabetic diet. We will continue to monitor. Signed By: Charlotte Fajardo N.P. <<Signature on File>>
[2022-01-26 08:54] LABS: Basophils % 0.2 %; Eosinophils % 0.2 %; Hematocrit 28.9 % (42.0-52.0); Hemoglobin 9.3 g/dL (11.7-16.6); Lymphocytes # 0.5 10^3/uL (0.8-4.8); Lymphocytes % 6.5 %; Mean Corpuscular HGB Conc 32.2 g/dL (30.0-36.0); Mean Corpuscular Hemoglobin 29.2 pg (28.0-34.0); Mean Corpuscular Volume 90.6 fl (80-94); Mean Platelet Volume 9.4 fL (7.4-10.4); Monocytes % 11.6 %; Neutrophils # 6.78 10^3/uL (1.8-7.7); Nucleated Red Blood Cells % 0 %; Platelet Count 237 10^3/cmm (130-400); Red Blood Count 3.19 10^6/uL (4.1-5.3); Red Cell Distribution Width 14.7 % (12.1-15.1); White Blood Count 8.4 10^3/uL (4.0-10.0)
[2022-01-26 09:13] LABS: Alanine Aminotransferase 27 U/L (0-41); Alkaline Phosphatase 326 IU/L (40-130); Anion Gap 14.1 (5-19); Aspartate Amino Transferase 26 U/L (0-40); Blood Urea Nitrogen 14 mg/dL (8-23); Calcium 8.4 mg/dL (8.5-10.5); Carbon Dioxide 21 mmol/L (22-29); Chloride 104 mmol/L (98-107); Ferritin 173 ng/mL (30-400); Globulin 3.3 g/dL (1.3-4.6); Glucose 210 mg/dL (65-115); Iron 21 ug/dL (59-158); Osmolality Calculated 289 mOsm/kg (285-295); Potassium 3.1 mmol/L (3.5-5.1); Sodium 136 mmol/L (136-145); Total Bilirubin 0.3 mg/dL (0.15-1.2); Total Iron Binding Capacity 209 mcg/dl; Total Protein 6.3 g/dL (6.6-8.7); Unsaturated Iron Binding 188 ug/dL (112-347)
[2022-01-26 09:40] LABS: Cancer Antigen 19 9 414.6 U/mL (0-35)
[2022-01-26 11:54] LABS: Add Urine Microscopic? YES; Bilirubin Urine Neg (Negative); Blood Urine 2+ (Negative); Glucose Urine UA Norm (Normal); Ketones Urine Negative (Negative); Leukocyte Esterase Urine Negative (Negative); Nitrate Urine Negative (Negative); Protein Urine Neg (Negative); Urine Appearance Cloudy (CLEAR); Urine Color Yellow (Yellow); Urobilinogen Urine Norm (Negative); pH Urine 6 (5-7)
[2022-01-26 11:56] LABS: Add Urine Culture? No; Bacteria Urine 1+ /hpf; Squamous Epithelial Cell Urine 0-4 /hpf (0-5); WBC Urine 0-4 /hpf (0-5)
[2022-02-01 08:34] LABS: Basophils % 0.5 %; Eosinophils # 0.1 10^3/uL (0.0-0.8); Eosinophils % 2.3 %; Hematocrit 30.9 % (42.0-52.0); Hemoglobin 9.7 g/dL (11.7-16.6); Lymphocytes # 0.7 10^3/uL (0.8-4.8); Lymphocytes % 11.8 %; Mean Corpuscular HGB Conc 31.4 g/dL (30.0-36.0); Mean Corpuscular Hemoglobin 29.1 pg (28.0-34.0); Mean Corpuscular Volume 92.8 fl (80-94); Mean Platelet Volume 9.4 fL (7.4-10.4); Monocytes # 0.7 10^3/uL (0.2-0.9); Monocytes % 11.8 %; Neutrophils # 3.95 10^3/uL (1.8-7.7); Neutrophils % 71.1 %; Nucleated Red Blood Cells % 0 %; Platelet Count 329 10^3/cmm (130-400); Red Blood Count 3.33 10^6/uL (4.1-5.3); Red Cell Distribution Width 15.3 % (12.1-15.1); White Blood Count 5.6 10^3/uL (4.0-10.0)
[2022-02-01 08:50] LABS: Alanine Aminotransferase 23 U/L (0-41); Albumin Level 3.2 g/dL (3.5-5.2); Alkaline Phosphatase 299 IU/L (40-130); Anion Gap 14.2 (5-19); Aspartate Amino Transferase 33 U/L (0-40); Blood Urea Nitrogen 12 mg/dL (8-23); Calcium 8.8 mg/dL (8.5-10.5); Carbon Dioxide 22 mmol/L (22-29); Chloride 104 mmol/L (98-107); Globulin 3.3 g/dL (1.3-4.6); Glucose 226 mg/dL (65-115); Osmolality Calculated 289 mOsm/kg (285-295); Potassium 4.2 mmol/L (3.5-5.1); Sodium 136 mmol/L (136-145); Total Bilirubin 0.2 mg/dL (0.15-1.2); Total Protein 6.5 g/dL (6.6-8.7)
[2022-02-01] MEDS: sodium chloride 0.9% 250 ML 75 ML IV (10:08)
[2022-02-01] MEDS: famotidine 20 mg/2 mL INJ IVP (10:08)
[2022-02-01] MEDS: ondansetron 2 mg/ML SDV 2 mL 8 MG IV (10:10)
--- NOTE | 2022-02-02 15:35 | ONC FU_ITS ---
Charlotte Fajardo Progress Note Patient: Mauricio Powell Unit #: [id number]: [id number] Dicatated By: Charlotte Fajardo N.P.Date of Visit:Jan 26, 2022 Onc MED Follow-up/Prog Note Chief Complaint: Pancreatic cancer History of Present Illness: Mr. Powell is a 71-year-old gentleman with history of progressive weakness and fatigue, acid reflux and loss of appetite. He subsequently noted change in his stool and urine color and jaundice. He also had about 25 pounds weight loss due to poor appetite and early fullness. Patient underwent CT scan of abdomen on 03/25/2019 which showed 3.3 x 2.9 x 2.9 cm soft tissue mass involving inferior pancreatic head and uncinate process. This mass was causing obstruction of common bile duct and probably also pancreatic duct and pancreatic mass abuts and distorts and may invade the medial duodenal C-loop. Patient was referred to [place] where he underwent endoscopic ultrasound and FNA done on 03/29/2019 and it confirmed adenocarcinoma subsequently underwent metal bile duct stent placement with that his jaundice improved but continued to have early fullness nausea finally underwent duodenal stent placement. Mr Powell was referred to Dr. Barbosa and as per patient, Dr. Barbosa suggested neoadjuvant chemotherapy prior to the surgery. Patient and his family decided to take second opinion and went to [facility] for evaluation. He then underwent an attempted ERCP at [facility], which was not possible due to significant luminal stenosis. The endoscopic ultrasound revealed obstructing 3.2 cm pancreatic head mass and the biopsy was positive for adenocarcinoma. Due to inability to perform ERCP, patient underwent percutaneous internal biliary stent. Later patient developed nausea vomiting for which he was readmitted to [facility] on 04/03/2019 and diagnosed with gastric outlet obstruction for that he underwent EGD with duodenal stent placement on 04/12/2019 . He then underwent pancreas protocol CT scan at [facility] as per patient he was told there could be vascular involvement with tumor so neoadjuvant chemotherapy with folfirinox was recommended. He began his first cycle on 05/27/2019. On 07/03/2019 he was admitted to [facility] with high-grade fever and diarrhea jaundice and abnormal LFTs subsequently diagnosed with sepsis being hypotensive patient was treated with IV antibiotics and CT scan of abdomen pelvis done on 07/04/2019 which showed marked biliary tract dilatation subsequently patient was transferred to [facility] in [place] for further management but his condition continued to improve GI was consulted but his LFTs continued to improve and he was discharged home on Cipro and Flagyl. Patient said he went back to [facility] and this time he underwent ERCP and not sure whether stent was replaced or cleaned. He had MRI MRCP done on 07/17/2019 which showed marked biliary tract dilatation with moderate dilatation of pancreatic duct similar to CT scan of 07/04/2019 and metallic stents obscure with radiation of pancreatic mass. Patient was on oral antibiotics ciprofloxacin and Flagyl till 07/27/2019. Mr Powell completed 6 cycles of neoadjuvant chemotherapy with folfirinox on 09/04/2019. He then underwent pancreaticoduodenectomy, resection and reconstruction of' superior mesenteric vein portal vein using Bovine pericardium patch and abdominal lymphadenectomy on 10/02/2019. His postop course was complicated by NSTEMI and he required intra-aortic balloon pump and ultimately underwent cardiac cath with placement of 4 stents (2 overlapping stents in the left main/proximal LAD and 2 overlapping stents in the RCA). Now on Brilinta and aspirin. 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 Lymphovascular, including large vessel and perineural invasion identified. Tumor invades into adjoining portal vein And superior mesenteric vein but various margins are negative for the tumor. Tumor present at uncinate margin, as foci of vascular invasion. Tumor is less than 1 cm from posterior surface; A small focus of perineural invasion is identified less than 1 cm from the bile duct margin. Pancreatic parenchymal, proximal and distal duodenal resection margins are negative for the tumor. Metastatic carcinoma involving 4 out of 25 lymph nodes ypN2. Adjuvant chemotherapy/chemoradiation was recommended at [place], but at the same time cardiology had a concern about bone marrow suppressing chemotherapy regimens and recommended avoiding these regimens as patient will require at least 6 months of continued DAPT due to recent NSTEMI and high risk PCI. Based on his final pathology report after Whipple's procedure, patient is a high risk for local recurrence and distant recurrence as there was a minimum response to the neoadjuvant chemotherapy. Lymph node positive disease with close surgical margins was identified. At that point, Mr Powell was referred to radiation oncology for adjuvant radiation therapy. He was also under consideration of low-dose Xeloda concurrently with radiation as patient is not a candidate for adjuvant chemotherapy due to high risk for bone marrow suppression and treatment rendered complication. Considering Risk versus benefit, recommended modified dose Xeloda concurrent with radiation therapy and monitor his blood counts on weekly basis and adjust chemotherapy dose accordingly to minimize bone marrow suppression. He began concurrent therapy with radiation and dose reduced Xeloda on 12/10/2019 completed on 01/16/2020. He remained on observation and followup with Dr Anthony, surgical oncologist at [facility]. 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 Tolerated Injectafer given on 01/23/2020 , for functional iron deficiency anemia Mr Powell has been followed at GI surgical oncology clinic at [place]. He underwent follow-up MRI scan of abdomen/liver on June 30, 2021 which showed 2 hepatic lesions with features suspicious for metastatic disease involving segment 6 and 2 respectively. Similar in size to the prior CT scan done on May 24, 2021. No additional suspicious liver lesions are identified. Postsurgical changes of Whipple procedure without findings of recurrent disease within the operative bed. PET/CT scan done on July 27, 2021 shows new liver lesions in the hepatic segments of 2 and 6 suspicious for metastatic disease. As per patient his CA 19???9 was more than 400 and liver biopsy was recommended and ultrasound BX liver biopsy was attempted but on ultrasound no liver lesion was identified. A CT-guided liver biopsy obtained on August 16, 2021 shows metastatic adenocarcinoma, moderately differentiated, involving liver parenchyma compatible with patient's known history of pancreatic cancer. After obtaining clearance from his retail cashier at [place], Mr Powell was started on systemic therapy with FOLFIRINOX on September 15, 2021. Follow-up CT PET scan done on on October 30, 2021 shows no evidence of active hepatic metastatic disease, there is 1.9 cm region of abnormal activity in the pancreatic tail with SUV of 4.8 and a vague peripancreatic lesion measuring up to 2.5 cm with SUV of 4.1, likely malignant lymph node., Tumor marker CA 19???9 checked on October 18, 2021 was 988.6 And repeat on November 24, 2021 was 930.5. FOLFIRINOX was discontinued after October 19, 2021 dose due to related side effect and interfering with quality of life. Patient presents today for accompanied by his . He states he has not been feeling well the past few days. He has had increased fatigue and weakness. He states he got up during the night to go to the bathroom and fell and was unable to get up. This is happened a couple of times in the past few days. He states his appetite has been fair. When the weakness occurred he checked his blood sugar and it was okay. He has had some chills but no fever. He denies any night sweats. No shortness of breath, cough, chest pain. No GI problems. He feels like his urinary flow may be a little slower in his urine has been darker than usual. He denies joint pain. No headaches. Review Of Symptoms: See above. Past Medical History: Eczema Gastroesophageal reflux disease Hypercholesterolemia Past Surgical History: Moderna Booster in 2021 Flu vaccine in 2020 - left deltoid Flu vaccine 3712-3418 in 2019 Stent replacement in the biliary duct in 2018 Fna of pancreas in 2018 Eyelid surgery in 1959 Tonsillectomy in 5 Allergies: No Known Allergies. Medications: Albuterol Sulfate (sensor) 1 (108 (90 base) mcg/act) Aerosol Powder, Breath Activated Inhalation daily PRN Brilinta 1 Tablet (of 90 mg) Oral b.i.d. Carvedilol 1 Tablet (of 6.25 mg) Oral b.i.d. chlorproMAZINE HCl 1 - 2 Tablet (of 25 mg) Oral q 8 hours PRN Claritin 1 Tablet (of 10 mg) Oral daily PRN Creon 1 Capsule (of 25828 Units) Capsule Delayed Release Particles Oral t.i.d. Ferrous Sulfate 1 Tablet (of 325 (65 fe) mg) Oral daily Gas Relief 1 Capsule (of 180 mg) Oral PRN HumaLOG KwikPen Subcutaneous Take as Directed Imodium A-D 1 Capsule (of 2 mg) Oral PRN levoFLOXacin 1 Tablet (of 500 mg) Oral daily for 7 days Lomotil 1 Tablet (of 2.5-0.025 mg) Oral daily PRN Multivitamin Adult 1 Tablet Oral daily Rosuvastatin Calcium 1 Tablet (of 5 mg) Oral at bedtime Sacubitril-Valsartan 1 Tablet (of 24-26 mg) Oral b.i.d. Family History: Mr. Powell's mother at age 92: Alzheimer's Disease, and cervical cancer. Mr. Powell's father at age 63: heart disease. Social History: Mr. Powell is and he is retired. Mr. Powell has never smoked. He has no history of drinking. He has indicated exposure to the following products: marijuana. Physical Examination: Performed on Jan 26, 2022 10:14: Height - 67.00 in, Weight - 160.6 lbs (LOW), BSA - 1.84 sq.m, BMI - 25.15, Temperature - 98.4 F, Pulse - 65 /min, Respiration - 18 /min, BP - 94/57 mm(hg), O2 Sat - 97 %, Pain - 0, and Fatigue - 5. Performance Status: 1 - No physically strenuous activity, but ambulatory and able to carry out light or sedentary work (e.g. office work, light house work). (ECOG) Constitutional Alert, cooperative, oriented. Mood and affect appropriate. Appears close to chronological age. Well nourished. Well developed. Head Normocephalic; no scars. Respiratory Lungs are clear to auscultation without rhonchi or wheezing. Cardiovascular Regular rate and rhythm of heart without murmurs, gallops or rubs. Abdomen Non-tender, non-distended, no masses, ascites or hepatosplenomegaly. Good bowel sounds. No guarding or rebound tenderness. Psychiatric Alert and oriented times three. Coherent speech. Verbalizes understanding of our discussions today. Laboratory: Test performed on Feb 01, 2022 08:20 Sodium 136 mmol/L Potassium 4.2 mmol/L Chloride 104 mmol/L CO2 22 mmol/L Anion Gap 14.2 BUN 12 mg/dL Creatinine 0.8 mg/dL Cr Clearance (Est) 86.3200 mL/min Glucose 226 mg/dL Osmolality - Calculated 289 mOsm/kg Calcium 8.8 mg/dL Protein, Total 6.5 g/dL Albumin 3.2 g/dL Globulin 3.3 g/dL Bilirubin, Total 0.2 mg/dL ALT (SGPT) 23 U/L AST (SGOT) 33 U/L Alkaline Phosphatase 299 IU/L WBC 5.6 10 3/uL RBC 3.33 10 6/uL HGB 9.7 g/dL HCT 30.9 % MCV 92.8 fl MCH 29.1 pg MCHC 31.4 g/dL RDW 15.3 % Platelet Count 329 10 3/cmm MPV 9.4 fL Neutrophils 3.95 10 3/uL Lymphocytes 0.7 10 3/uL Monocytes 0.7 10 3/uL Eosinophils 0.1 10 3/uL Basophils 0.0 10 3/uL Neutrophil % 71.1 % Lymphocyte % 11.8 % Monocyte % 11.8 % Eosinophil % 2.3 % Basophils % 0.5 % NRBC % 0 % Test performed on Jan 26, 2022 10:59 Ua Color Yellow Ua Appearance Cloudy Ua Glucose Norm Ua Bilirubin Neg Ua Ketones Negative Ua Specific Bullard 1.020 Ua Blood 2+ Ua pH 6 Ua Protein Neg Ua Nitrites Negative Ua Leukocyte Esterase Negative Ua Micro: WBC 0-4 /hpf Ua Micro: RBC 5-10 /hpf Ua Micro: Squam Epith Cells 0-4 /hpf Ua Micro: Bacteria 1+ /hpf Test performed on Jan 26, 2022 08:45 Ferritin 173 ng/mL Iron 21 mcg/dL Iron Binding Capacity (TIBC) 209 mcg/dl % Iron Saturation 10.0 % UIBC 188 mcg/dL CA 19-9 414.6 U/mL Impression: A. Recurrent pancreatic cancer per CT-guided liver biopsy done on August 16, 2021 which confirmed metastatic adenocarcinoma, moderately differentiated, involving liver parenchyma, compatible with patient's known pancreatic primary And elevated CA 19???9 CT PET scan done At [place] on July 27, 2021 shows new liver lesion in the hepatic segments 2 and 6 suspicious for metastatic disease B. He is following with Dr Jefferson, local retail cashier, for follow-up of NSTEMI status post PCI to LAD and LM. C. He has had iron deficieny anemia develop , improved with Injectafer Plan: Labs were discussed with patient. His WBC was 8.4, RBC 3.19, hemoglobin 9.3, hematocrit 28.9, platelet count 237,000, neutrophil count 6.78. His sodium is 136, his potassium is 3.1 creatinine 0.8 and glucose 210. His iron studies indicate that his iron is low at 21 and percent saturation is at 10 point TIBC is 209 and ferritin is 173. His alkaline phosphatase is elevated at 326. His CA 19???9 is 414.6 which is down from 931.4 in December 2021. Patient states he is just not feeling well and does not feel like having treatment today. We will hold treatment and I will start Levaquin 500 mg p.o. daily x7 days. We will check a UA today to rule out UTI. He will return to the clinic in 1 week with CBC and CMP and if feeling better we will resume treatment seen and gemcitabine. He has been doing well with this hyperglycemia. He remains on sliding scale insulin and has been adjusting his diet to a diabetic diet. We will continue to monitor. Signed By: Charlotte Fajardo N.P. <<Signature on File>>
--- NOTE | 2022-02-03 20:43 | ONC FU_ITS ---
Charlotte Fajardo Progress Note Patient: Mauricio Powell Unit #: [id number]: [id number] Dicatated By: Charlotte Fajardo N.P.Date of Visit:Feb 01, 2022 Onc MED Follow-up/Prog Note Chief Complaint: Pancreatic cancer History of Present Illness: Mr. Powell is a 71-year-old gentleman with history of progressive weakness and fatigue, acid reflux and loss of appetite. He subsequently noted change in his stool and urine color and jaundice. He also had about 25 pounds weight loss due to poor appetite and early fullness. Patient underwent CT scan of abdomen on 03/25/2019 which showed 3.3 x 2.9 x 2.9 cm soft tissue mass involving inferior pancreatic head and uncinate process. This mass was causing obstruction of common bile duct and probably also pancreatic duct and pancreatic mass abuts and distorts and may invade the medial duodenal C-loop. Patient was referred to [place] where he underwent endoscopic ultrasound and FNA done on 03/29/2019 and it confirmed adenocarcinoma subsequently underwent metal bile duct stent placement with that his jaundice improved but continued to have early fullness nausea finally underwent duodenal stent placement. Mr Powell was referred to Dr. Barbosa and as per patient, Dr. Barbosa suggested neoadjuvant chemotherapy prior to the surgery. Patient and his family decided to take second opinion and went to [facility] for evaluation. He then underwent an attempted ERCP at [facility], which was not possible due to significant luminal stenosis. The endoscopic ultrasound revealed obstructing 3.2 cm pancreatic head mass and the biopsy was positive for adenocarcinoma. Due to inability to perform ERCP, patient underwent percutaneous internal biliary stent. Later patient developed nausea vomiting for which he was readmitted to [facility] on 04/03/2019 and diagnosed with gastric outlet obstruction for that he underwent EGD with duodenal stent placement on 04/12/2019 . He then underwent pancreas protocol CT scan at [facility] as per patient he was told there could be vascular involvement with tumor so neoadjuvant chemotherapy with folfirinox was recommended. He began his first cycle on 05/27/2019. On 07/03/2019 he was admitted to [facility] with high-grade fever and diarrhea jaundice and abnormal LFTs subsequently diagnosed with sepsis being hypotensive patient was treated with IV antibiotics and CT scan of abdomen pelvis done on 07/04/2019 which showed marked biliary tract dilatation subsequently patient was transferred to [facility] in [employer] for further management but his condition continued to improve GI was consulted but his LFTs continued to improve and he was discharged home on Cipro and Flagyl. Patient said he went back to [facility] and this time he underwent ERCP and not sure whether stent was replaced or cleaned. He had MRI MRCP done on 07/17/2019 which showed marked biliary tract dilatation with moderate dilatation of pancreatic duct similar to CT scan of 07/04/2019 and metallic stents obscure with radiation of pancreatic mass. Patient was on oral antibiotics ciprofloxacin and Flagyl till 07/27/2019. Mr Powell completed 6 cycles of neoadjuvant chemotherapy with folfirinox on 09/04/2019. He then underwent pancreaticoduodenectomy, resection and reconstruction of' superior mesenteric vein portal vein using Bovine pericardium patch and abdominal lymphadenectomy on 10/02/2019. His postop course was complicated by NSTEMI and he required intra-aortic balloon pump and ultimately underwent cardiac cath with placement of 4 stents (2 overlapping stents in the left main/proximal LAD and 2 overlapping stents in the RCA). Now on Brilinta and aspirin. 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 Lymphovascular, including large vessel and perineural invasion identified. Tumor invades into adjoining portal vein And superior mesenteric vein but various margins are negative for the tumor. Tumor present at uncinate margin, as foci of vascular invasion. Tumor is less than 1 cm from posterior surface; A small focus of perineural invasion is identified less than 1 cm from the bile duct margin. Pancreatic parenchymal, proximal and distal duodenal resection margins are negative for the tumor. Metastatic carcinoma involving 4 out of 25 lymph nodes ypN2. Adjuvant chemotherapy/chemoradiation was recommended at [place], but at the same time cardiology had a concern about bone marrow suppressing chemotherapy regimens and recommended avoiding these regimens as patient will require at least 6 months of continued DAPT due to recent NSTEMI and high risk PCI. Based on his final pathology report after Whipple's procedure, patient is a high risk for local recurrence and distant recurrence as there was a minimum response to the neoadjuvant chemotherapy. Lymph node positive disease with close surgical margins was identified. At that point, Mr Powell was referred to radiation oncology for adjuvant radiation therapy. He was also under consideration of low-dose Xeloda concurrently with radiation as patient is not a candidate for adjuvant chemotherapy due to high risk for bone marrow suppression and treatment rendered complication. Considering Risk versus benefit, recommended modified dose Xeloda concurrent with radiation therapy and monitor his blood counts on weekly basis and adjust chemotherapy dose accordingly to minimize bone marrow suppression. He began concurrent therapy with radiation and dose reduced Xeloda on 12/10/2019 completed on 01/16/2020. He remained on observation and followup with Dr Anthony, surgical oncologist at [facility]. 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 Tolerated Injectafer given on 01/23/2020 , for functional iron deficiency anemia Mr Powell has been followed at GI surgical oncology clinic at [place]. He underwent follow-up MRI scan of abdomen/liver on June 30, 2021 which showed 2 hepatic lesions with features suspicious for metastatic disease involving segment 6 and 2 respectively. Similar in size to the prior CT scan done on May 24, 2021. No additional suspicious liver lesions are identified. Postsurgical changes of Whipple procedure without findings of recurrent disease within the operative bed. PET/CT scan done on July 27, 2021 shows new liver lesions in the hepatic segments of 2 and 6 suspicious for metastatic disease. As per patient his CA 19???9 was more than 400 and liver biopsy was recommended and ultrasound BX liver biopsy was attempted but on ultrasound no liver lesion was identified. A CT-guided liver biopsy obtained on August 16, 2021 shows metastatic adenocarcinoma, moderately differentiated, involving liver parenchyma compatible with patient's known history of pancreatic cancer. After obtaining clearance from his pipe line walker at [place], Mr Powell was started on systemic therapy with FOLFIRINOX on September 15, 2021. Follow-up CT PET scan done on on October 30, 2021 shows no evidence of active hepatic metastatic disease, there is 1.9 cm region of abnormal activity in the pancreatic tail with SUV of 4.8 and a vague peripancreatic lesion measuring up to 2.5 cm with SUV of 4.1, likely malignant lymph node., Tumor marker CA 19???9 checked on October 18, 2021 was 988.6 And repeat on November 24, 2021 was 930.5. FOLFIRINOX was discontinued after October 19, 2021 dose due to related side effect and interfering with quality of life. Patient presents today for follow-up. He was given Levaquin last week due to him not feeling well and possible UTI although culture was not performed. He states he feels much better now. No further weakness or fatigue. His appetite has been fair. No fever, chills, night sweats. He denies sinus drainage or mouth sores. No shortness of breath, cough, chest pain. No GI or symptoms. He denies dysuria or urinary frequency. He states his urine appears clear yellow. No joint pain or muscle pain. No headache or dizziness. Review Of Symptoms: See above. Past Medical History: Eczema Gastroesophageal reflux disease Hypercholesterolemia Past Surgical History: Moderna Booster in 2021 Flu vaccine in 2020 - left deltoid Flu vaccine 6470-9447 in 2019 Stent replacement in the biliary duct in 2018 Fna of pancreas in 2018 Eyelid surgery in 1959 Tonsillectomy in 5 Allergies: No Known Allergies. Medications: Albuterol Sulfate (sensor) 1 (108 (90 base) mcg/act) Aerosol Powder, Breath Activated Inhalation daily PRN Brilinta 1 Tablet (of 90 mg) Oral b.i.d. Carvedilol 1 Tablet (of 6.25 mg) Oral b.i.d. chlorproMAZINE HCl 1 - 2 Tablet (of 25 mg) Oral q 8 hours PRN Claritin 1 Tablet (of 10 mg) Oral daily PRN Creon 1 Capsule (of 88998 Units) Capsule Delayed Release Particles Oral t.i.d. Ferrous Sulfate 1 Tablet (of 325 (65 fe) mg) Oral daily Gas Relief 1 Capsule (of 180 mg) Oral PRN HumaLOG KwikPen Subcutaneous Take as Directed Imodium A-D 1 Capsule (of 2 mg) Oral PRN levoFLOXacin 1 Tablet (of 500 mg) Oral daily for 7 days Lomotil 1 Tablet (of 2.5-0.025 mg) Oral daily PRN Multivitamin Adult 1 Tablet Oral daily Rosuvastatin Calcium 1 Tablet (of 5 mg) Oral at bedtime Sacubitril-Valsartan 1 Tablet (of 24-26 mg) Oral b.i.d. Family History: Mr. Powell's mother at age 92: Alzheimer's Disease, and cervical cancer. Mr. Powell's father at age 63: heart disease. Social History: Mr. Powell is and he is retired. Mr. Powell has never smoked. He has no history of drinking. He has indicated exposure to the following products: marijuana. Physical Examination: Performed on Feb 01, 2022 09:07: Height - 67.00 in, Weight - 161.4 lbs (HIGH), BSA - 1.85 sq.m, BMI - 25.28, Temperature - 96.9 F (LOW), Pulse - 68 /min, Respiration - 18 /min, BP - 124/74 mm(hg), O2 Sat - 96 %, Pain - 0, and Fatigue - 3. Performance Status: 0 - Fully active, able to carry on all predisease activities without restrictions. (ECOG) Constitutional Alert, cooperative, oriented. Mood and affect appropriate. Appears close to chronological age. Well nourished. Well developed. Head Normocephalic; no scars. Respiratory Lungs are clear to auscultation without rhonchi or wheezing. Cardiovascular Regular rate and rhythm of heart without murmurs, gallops or rubs. Abdomen Non-tender, non-distended, no masses, ascites or hepatosplenomegaly. Good bowel sounds. No guarding or rebound tenderness. Extremities No edema. Musculoskeletal No tenderness or swelling, normal range of motion without obvious weakness. Psychiatric Alert and oriented times three. Coherent speech. Verbalizes understanding of our discussions today. Laboratory: Test performed on Feb 01, 2022 08:20 Sodium 136 mmol/L Potassium 4.2 mmol/L Chloride 104 mmol/L CO2 22 mmol/L Anion Gap 14.2 BUN 12 mg/dL Creatinine 0.8 mg/dL Cr Clearance (Est) 86.3200 mL/min Glucose 226 mg/dL Osmolality - Calculated 289 mOsm/kg Calcium 8.8 mg/dL Protein, Total 6.5 g/dL Albumin 3.2 g/dL Globulin 3.3 g/dL Bilirubin, Total 0.2 mg/dL ALT (SGPT) 23 U/L AST (SGOT) 33 U/L Alkaline Phosphatase 299 IU/L WBC 5.6 10 3/uL RBC 3.33 10 6/uL HGB 9.7 g/dL HCT 30.9 % MCV 92.8 fl MCH 29.1 pg MCHC 31.4 g/dL RDW 15.3 % Platelet Count 329 10 3/cmm MPV 9.4 fL Neutrophils 3.95 10 3/uL Lymphocytes 0.7 10 3/uL Monocytes 0.7 10 3/uL Eosinophils 0.1 10 3/uL Basophils 0.0 10 3/uL Neutrophil % 71.1 % Lymphocyte % 11.8 % Monocyte % 11.8 % Eosinophil % 2.3 % Basophils % 0.5 % NRBC % 0 % Test performed on Jan 26, 2022 10:59 Ua Color Yellow Ua Appearance Cloudy Ua Glucose Norm Ua Bilirubin Neg Ua Ketones Negative Ua Specific [place] 1.020 Ua Blood 2+ Ua pH 6 Ua Protein Neg Ua Nitrites Negative Ua Leukocyte Esterase Negative Ua Micro: WBC 0-4 /hpf Ua Micro: RBC 5-10 /hpf Ua Micro: Squam Epith Cells 0-4 /hpf Ua Micro: Bacteria 1+ /hpf Test performed on Jan 26, 2022 08:45 Ferritin 173 ng/mL Iron 21 mcg/dL Iron Binding Capacity (TIBC) 209 mcg/dl % Iron Saturation 10.0 % UIBC 188 mcg/dL CA 19-9 414.6 U/mL Impression: A. Recurrent pancreatic cancer per CT-guided liver biopsy done on August 16, 2021 which confirmed metastatic adenocarcinoma, moderately differentiated, involving liver parenchyma, compatible with patient's known pancreatic primary And elevated CA 19???9 CT PET scan done At [place] on July 27, 2021 shows new liver lesion in the hepatic segments 2 and 6 suspicious for metastatic disease B. He is following with Dr Jefferson, local pipe line walker, for follow-up of NSTEMI status post PCI to LAD and LM. C. He has had iron deficieny anemia develop , improved with Injectafer Plan: Labs were reviewed with patient with WBC at 5.6, hemoglobin 9.7, hematocrit 30.9, platelet count 329,000, neutrophil count at 3.95. Iron studies were added to labs from last week which indicated iron saturation of 10%, ferritin was 173 and iron was 21. Patient is feeling better this week he has been on Levaquin and will complete it in 1 more day. He has not experienced any further weakness and he is voiding well. We will continue with Abraxane and gemcitabine treatment today. Patient continues to have iron deficiency anemia although he has been on oral iron. We will plan to administer Injectafer 750 mg x 2 doses when approved by insurance 1 week apart. He will return to the clinic in 1 week with CBC CMP and CA 19???9. He has been doing well with this hyperglycemia. He remains on sliding scale insulin and has been adjusting his diet to a diabetic diet. We will continue to monitor. Signed By: Charlotte Fajardo NOtoniel. <<Signature on File>>
[2022-02-08 10:27] LABS: Basophils # 0.1 10^3/uL (0.0-0.1); Basophils % 0.9 %; Eosinophils # 0.1 10^3/uL (0.0-0.8); Eosinophils % 1.4 %; Hemoglobin 9.9 g/dL (11.7-16.6); Lymphocytes # 0.8 10^3/uL (0.8-4.8); Lymphocytes % 13.7 %; Mean Corpuscular HGB Conc 30.9 g/dL (30.0-36.0); Mean Corpuscular Hemoglobin 28.4 pg (28.0-34.0); Mean Platelet Volume 9.9 fL (7.4-10.4); Monocytes # 0.3 10^3/uL (0.2-0.9); Monocytes % 5.3 %; Neutrophils # 4.42 10^3/uL (1.8-7.7); Neutrophils % 78.5 %; Nucleated Red Blood Cells % 0 %; Platelet Count 254 10^3/cmm (130-400); Red Blood Count 3.48 10^6/uL (4.1-5.3); Red Cell Distribution Width 15.5 % (12.1-15.1); White Blood Count 5.6 10^3/uL (4.0-10.0)
[2022-02-08 10:59] LABS: Alanine Aminotransferase 44 U/L (0-41); Albumin Level 3.8 g/dL (3.5-5.2); Alkaline Phosphatase 269 IU/L (40-130); Anion Gap 14.4 (5-19); Aspartate Amino Transferase 38 U/L (0-40); Blood Urea Nitrogen 21 mg/dL (8-23); Calcium 9.4 mg/dL (8.5-10.5); Carbon Dioxide 21 mmol/L (22-29); Chloride 104 mmol/L (98-107); Globulin 3.5 g/dL (1.3-4.6); Glucose 132 mg/dL (65-115); Osmolality Calculated 285 mOsm/kg (285-295); Potassium 4.4 mmol/L (3.5-5.1); Sodium 135 mmol/L (136-145); Total Bilirubin 0.2 mg/dL (0.15-1.2); Total Protein 7.3 g/dL (6.6-8.7)
[2022-02-08] MEDS: sodium chloride 0.9% 250 ML 75 ML IV (12:13)
[2022-02-08] MEDS: ondansetron 2 mg/ML SDV 2 mL 8 MG IV (12:13)
[2022-02-08] MEDS: famotidine 20 mg/2 mL INJ IVP (12:15)
--- NOTE | 2022-02-11 12:29 | ONC FU_ITS ---
Dr. Root follow up note Patient: Mauricio Powell Unit #: [id number]: [id number] Dicatated By: Danielle Root M.D.Date of Visit:Feb 08, 2022 Onc Med Follow-up/Prog Note History of Present Illness: Mr. Powell is a 71-year-old gentleman with history of progressive weakness and fatigue, acid reflux and loss of appetite. He subsequently noted change in his stool and urine color and jaundice. He also had about 25 pounds weight loss due to poor appetite and early fullness. Patient underwent CT scan of abdomen on 03/25/2019 which showed 3.3 x 2.9 x 2.9 cm soft tissue mass involving inferior pancreatic head and uncinate process. This mass was causing obstruction of common bile duct and probably also pancreatic duct and pancreatic mass abuts and distorts and may invade the medial duodenal C-loop. Patient was referred to [place] where he underwent endoscopic ultrasound and FNA done on 03/29/2019 and it confirmed adenocarcinoma subsequently underwent metal bile duct stent placement with that his jaundice improved but continued to have early fullness nausea finally underwent duodenal stent placement. Mr Powell was referred to Dr. Barbosa and as per patient, Dr. Barbosa suggested neoadjuvant chemotherapy prior to the surgery. Patient and his family decided to take second opinion and went to [facility] for evaluation. He then underwent an attempted ERCP at [facility], which was not possible due to significant luminal stenosis. The endoscopic ultrasound revealed obstructing 3.2 cm pancreatic head mass and the biopsy was positive for adenocarcinoma. Due to inability to perform ERCP, patient underwent percutaneous internal biliary stent. Later patient developed nausea vomiting for which he was readmitted to [facility] in [place] on 04/03/2019 and diagnosed with gastric outlet obstruction for that he underwent EGD with duodenal stent placement on 04/12/2019 . He then underwent pancreas protocol CT scan at [facility] as per patient he was told there could be vascular involvement with tumor so neoadjuvant chemotherapy with folfirinox was recommended. He began his first cycle on 05/27/2019. On 07/03/2019 he was admitted to [facility] with high-grade fever and diarrhea jaundice and abnormal LFTs subsequently diagnosed with sepsis being hypotensive patient was treated with IV antibiotics and CT scan of abdomen pelvis done on 07/04/2019 which showed marked biliary tract dilatation subsequently patient was transferred to [facility] in [place] for further management but his condition continued to improve GI was consulted but his LFTs continued to improve and he was discharged home on Cipro and Flagyl. Patient said he went back to [facility] and this time he underwent ERCP and not sure whether stent was replaced or cleaned. He had MRI MRCP done on 07/17/2019 which showed marked biliary tract dilatation with moderate dilatation of pancreatic duct similar to CT scan of 07/04/2019 and metallic stents obscure with radiation of pancreatic mass. Patient was on oral antibiotics ciprofloxacin and Flagyl till 07/27/2019. Mr Powell completed 6 cycles of neoadjuvant chemotherapy with folfirinox on 09/04/2019. He then underwent pancreaticoduodenectomy, resection and reconstruction of' superior mesenteric vein portal vein using Bovine pericardium patch and abdominal lymphadenectomy on 10/02/2019. His postop course was complicated by NSTEMI and he required intra-aortic balloon pump and ultimately underwent cardiac cath with placement of 4 stents (2 overlapping stents in the left main/proximal LAD and 2 overlapping stents in the RCA). Now on Brilinta and aspirin. 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 Lymphovascular, including large vessel and perineural invasion identified. Tumor invades into adjoining portal vein And superior mesenteric vein but various margins are negative for the tumor. Tumor present at uncinate margin, as foci of vascular invasion. Tumor is less than 1 cm from posterior surface; A small focus of perineural invasion is identified less than 1 cm from the bile duct margin. Pancreatic parenchymal, proximal and distal duodenal resection margins are negative for the tumor. Metastatic carcinoma involving 4 out of 25 lymph nodes ypN2. Adjuvant chemotherapy/chemoradiation was recommended at [place], but at the same time cardiology had a concern about bone marrow suppressing chemotherapy regimens and recommended avoiding these regimens as patient will require at least 6 months of continued DAPT due to recent NSTEMI and high risk PCI. Based on his final pathology report after Whipple's procedure, patient is a high risk for local recurrence and distant recurrence as there was a minimum response to the neoadjuvant chemotherapy. Lymph node positive disease with close surgical margins was identified. At that point, Mr Powell was referred to radiation oncology for adjuvant radiation therapy. He was also under consideration of low-dose Xeloda concurrently with radiation as patient is not a candidate for adjuvant chemotherapy due to high risk for bone marrow suppression and treatment rendered complication. Considering Risk versus benefit, recommended modified dose Xeloda concurrent with radiation therapy and monitor his blood counts on weekly basis and adjust chemotherapy dose accordingly to minimize bone marrow suppression. He began concurrent therapy with radiation and dose reduced Xeloda on 12/10/2019 completed on 01/16/2020. He remained on observation and followup with Dr Anthony, surgical oncologist at [facility]. 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 Tolerated Injectafer given on 01/23/2020 , for functional iron deficiency anemia Mr Powell has been followed at GI surgical oncology clinic at [place]. He underwent follow-up MRI scan of abdomen/liver on June 30, 2021 which showed 2 hepatic lesions with features suspicious for metastatic disease involving segment 6 and 2 respectively. Similar in size to the prior CT scan done on May 24, 2021. No additional suspicious liver lesions are identified. Postsurgical changes of Whipple procedure without findings of recurrent disease within the operative bed. PET/CT scan done on July 27, 2021 shows new liver lesions in the hepatic segments of 2 and 6 suspicious for metastatic disease. As per patient, his CA 19???9 was more than 400 and liver biopsy was recommended and ultrasound BX liver biopsy was attempted but on ultrasound no liver lesion was identified. A CT-guided liver biopsy obtained on August 16, 2021 shows metastatic adenocarcinoma, moderately differentiated, involving liver parenchyma compatible with patient's known history of pancreatic cancer. After obtaining clearance from his comber tender at [place], Mr Powell was started on systemic therapy with FOLFIRINOX on September 15, 2021. Follow-up CT PET scan done on on October 30, 2021 shows no evidence of active hepatic metastatic disease, there is 1.9 cm region of abnormal activity in the pancreatic tail with SUV of 4.8 and a vague peripancreatic lesion measuring up to 2.5 cm with SUV of 4.1, likely malignant lymph node., Tumor marker CA 19???9 checked on October 18, 2021 was 988.6 And repeat on November 24, 2021 was 930.5. FOLFIRINOX was discontinued after October 19, 2021 dose due to related side effect and interfering with quality of life. Started on Abraxane/gemcitabine on December 30, 2021 Came for follow-up, denies any specific complaints except weight loss, as per patient his appetite is good but he has been monitoring his blood sugar and avoiding carbohydrate and sugar to keep his blood sugar normal range. Otherwise denies any abdominal pain, denies any fever chills denies any nausea or vomiting denies any diarrhea constipation denies any jaundice denies any chest pain or shortness of breath, tolerating weekly Abraxane/gemcitabine well Medications: Albuterol Sulfate (sensor) 1 (108 (90 base) mcg/act) Aerosol Powder, Breath Activated Inhalation daily PRN, Brilinta 1 Tablet (of 90 mg) Oral b.i.d., Carvedilol 1 Tablet (of 6.25 mg) Oral b.i.d., chlorproMAZINE HCl 1 - 2 Tablet (of 25 mg) Oral q 8 hours PRN, Claritin 1 Tablet (of 10 mg) Oral daily PRN, Creon 1 Capsule (of 69606 Units) Capsule Delayed Release Particles Oral t.i.d., Ferrous Sulfate 1 Tablet (of 325 (65 fe) mg) Oral daily, Gas Relief 1 Capsule (of 180 mg) Oral PRN, HumaLOG KwikPen Subcutaneous Take as Directed, Imodium A-D 1 Capsule (of 2 mg) Oral PRN, levoFLOXacin 1 Tablet (of 500 mg) Oral daily for 7 days, Lomotil 1 Tablet (of 2.5-0.025 mg) Oral daily PRN, Multivitamin Adult 1 Tablet Oral daily, Rosuvastatin Calcium 1 Tablet (of 5 mg) Oral at bedtime, Sacubitril-Valsartan 1 Tablet (of 24-26 mg) Oral b.i.d. Allergies: No Known Allergies. Review of Systems: Review of Systems is not available for this patient. Vital Signs: Performed on Feb 08, 2022 11:42 Height - 67.00 in Weight - 154.6 lbs (LOW) BSA - 1.81 sq.m BMI - 24.21 Temperature - 96.6 F (LOW) Pulse - 57 /min (LOW) Respiration - 17 /min BP - 100/59 mm(hg) O2 Sat - 99 % Pain - 0 Fatigue - 4 Performance Status: 0 - Fully active, able to carry on all predisease activities without restrictions. (ECOG) Physical Examination: ENMT - No mouth sores, no thrush, no jaundice, no cervical lymphadenopathy, Respiratory - Lungs are clear to auscultation, Cardiovascular - Regular rate and rhythm of heart, Abdomen - Soft, bowel sounds present, Extremities - No visible edema. Lab/Imaging: Test performed on Feb 01, 2022 08:20 Sodium 136 mmol/L Potassium 4.2 mmol/L Chloride 104 mmol/L CO2 22 mmol/L Anion Gap 14.2 BUN 12 mg/dL Creatinine 0.8 mg/dL Cr Clearance (Est) 86.3200 mL/min Glucose 226 mg/dL Osmolality - Calculated 289 mOsm/kg Calcium 8.8 mg/dL Protein, Total 6.5 g/dL Albumin 3.2 g/dL Globulin 3.3 g/dL Bilirubin, Total 0.2 mg/dL ALT (SGPT) 23 U/L AST (SGOT) 33 U/L Alkaline Phosphatase 299 IU/L WBC 5.6 10 3/uL RBC 3.33 10 6/uL HGB 9.7 g/dL HCT 30.9 % MCV 92.8 fl MCH 29.1 pg MCHC 31.4 g/dL RDW 15.3 % Platelet Count 329 10 3/cmm MPV 9.4 fL Neutrophils 3.95 10 3/uL Lymphocytes 0.7 10 3/uL Monocytes 0.7 10 3/uL Eosinophils 0.1 10 3/uL Basophils 0.0 10 3/uL Neutrophil % 71.1 % Lymphocyte % 11.8 % Monocyte % 11.8 % Eosinophil % 2.3 % Basophils % 0.5 % NRBC % 0 % Test performed on Jan 26, 2022 10:59 Ua Color Yellow Ua Appearance Cloudy Ua Glucose Norm Ua Bilirubin Neg Ua Ketones Negative Ua Specific Alexander 1.020 Ua Blood 2+ Ua pH 6 Ua Protein Neg Ua Nitrites Negative Ua Leukocyte Esterase Negative Ua Micro: WBC 0-4 /hpf Ua Micro: RBC 5-10 /hpf Ua Micro: Squam Epith Cells 0-4 /hpf Ua Micro: Bacteria 1+ /hpf Test performed on Jan 26, 2022 08:45 Ferritin 173 ng/mL Iron 21 mcg/dL Iron Binding Capacity (TIBC) 209 mcg/dl % Iron Saturation 10.0 % UIBC 188 mcg/dL CA 19-9 414.6 U/mL Impression: A. Recurrent pancreatic cancer per CT-guided liver biopsy done on August 16, 2021 which confirmed metastatic adenocarcinoma, moderately differentiated, involving liver parenchyma, compatible with patient's known pancreatic primary And elevated CA 19???9 CT PET scan done At [place] on July 27, 2021 shows new liver lesion in the hepatic segments 2 and 6 suspicious for metastatic disease B. He is following with Dr Jefferson, local comber tender, for follow-up of NSTEMI status post PCI to LAD and LM. C. He has had iron deficieny anemia develop , improved with Injectafer Plan: Discussed with patient regarding his labs white blood count 5.6 hemoglobin 9.9 g medical 32 platelets 254,000 CMP within normal limit except sodium 135 glucose 132, ALT 44 compared to 23 previously. Clinically, patient doing well with no new signs symptom suggestive of disease progression, tolerating Abraxane/gemcitabine well with good quality of life, recently checked tumor marker CA 19???9 showed significant drop indicating response. Will proceed with next weekly dose of Abraxane/gemcitabine today and then he will return to clinic in 2 weeks with CBC CMP and if reasonable for next cycle of Abraxane/gemcitabine Signed By: Danielle Root M.D. <<Signature on File>>
== END 2022-02-10 23:59 | disposition home or self-care (01) ==
LOC: ONCMED 06:41
PROVIDERS: Nurse Practitioner Family; PCP Family Medicine; Visit Provider Internal Medicine Hematology & Oncology
DX: Z51.11 Encounter for antineoplastic chemotherapy (principal); C77.8 Secondary and unspecified malignant neoplasm of lymph nodes of multiple regions; C78.7 Secondary malignant neoplasm of liver and intrahepatic bile duct; D50.9 Iron deficiency anemia, unspecified; I25.2 Old myocardial infarction; R73.9 Hyperglycemia, unspecified; Z79.899 Other long term (current) drug therapy
CPT/HCPCS: 36415; 36591; 80053; 81001; 82728; 82947; 83540; 83550; 85025; 86301; 96367; 96372; 96375; 96401; 96413; 96417; 99214; 99215; J1100; J1442; J1815; J2405; J3490; J7050; J9201; J9264

== ENCOUNTER → 2022-02-15 14:32 | Outpatient (BNVA) | payer MEDICARE, SELFPAY | PROVIDERS: PCP Family Medicine; Visit Provider Internal Medicine Cardiovascular Disease | DX: I25.10 Atherosclerotic heart disease of native coronary artery without angina pectoris (principal); I10 Essential (primary) hypertension; E78.2 Mixed hyperlipidemia; C25.9 Malignant neoplasm of pancreas, unspecified; R42 Dizziness and giddiness; Z87.891 Personal history of nicotine dependence | CPT/HCPCS: 99214 ==

== ENCOUNTER 2022-03-10 06:39 | Outpatient (RCR) | payer MEDICARE, SELFPAY ==
[2022-02-22 11:48] LABS: Basophils % 0.8 %; Eosinophils % 0.8 %; Hematocrit 28.4 % (42.0-52.0); Hemoglobin 9.3 g/dL (11.7-16.6); Lymphocytes # 0.4 10^3/uL (0.8-4.8); Lymphocytes % 16.1 %; Mean Corpuscular HGB Conc 32.7 g/dL (30.0-36.0); Mean Corpuscular Hemoglobin 29.2 pg (28.0-34.0); Mean Platelet Volume 9.8 fL (7.4-10.4); Monocytes # 0.5 10^3/uL (0.2-0.9); Monocytes % 21.3 %; Neutrophils # 1.54 10^3/uL (1.8-7.7); Neutrophils % 60.6 %; Nucleated Red Blood Cells % 0 %; Platelet Count 175 10^3/cmm (130-400); Red Blood Count 3.19 10^6/uL (4.1-5.3); Red Cell Distribution Width 16.6 % (12.1-15.1); White Blood Count 2.5 10^3/uL (4.0-10.0)
[2022-02-22 12:05] LABS: Alanine Aminotransferase 24 U/L (0-41); Albumin Level 3.5 g/dL (3.5-5.2); Alkaline Phosphatase 212 IU/L (40-130); Anion Gap 12.9 (5-19); Aspartate Amino Transferase 27 U/L (0-40); Blood Urea Nitrogen 14 mg/dL (8-23); Calcium 8.7 mg/dL (8.5-10.5); Carbon Dioxide 21 mmol/L (22-29); Chloride 105 mmol/L (98-107); Globulin 2.4 g/dL (1.3-4.6); Glucose 199 mg/dL (65-115); Osmolality Calculated 286 mOsm/kg (285-295); Potassium 3.9 mmol/L (3.5-5.1); Sodium 135 mmol/L (136-145); Total Bilirubin 0.2 mg/dL (0.15-1.2); Total Protein 5.9 g/dL (6.6-8.7)
[2022-02-22] MEDS: famotidine 20 mg/2 mL INJ IVP (14:01)
[2022-02-22] MEDS: sodium chloride 0.9% 250 ML 75 ML IV (14:01)
[2022-02-22] MEDS: ondansetron 2 mg/ML SDV 2 mL 8 MG IV (14:04)
[2022-02-22 14:07] LABS: Ferritin 79 ng/mL (30-400); Iron 31 ug/dL (59-158); Percent Saturation 11.5 % (20-50); Total Iron Binding Capacity 269 mcg/dl; Unsaturated Iron Binding 238 ug/dL (112-347)
--- NOTE | 2022-02-24 21:28 | ONC FU_ITS ---
Charlotte Fajardo Progress Note Patient: Mauricio Powell Unit #: [id number]: 1950 Dicatated By: Charlotte Fajardo N.P.Date of Visit:Feb 22, 2022 Onc MED Follow-up/Prog Note Chief Complaint: Pancreatic cancer History of Present Illness: Mr. Powlel is a 71-year-old gentleman with history of progressive weakness and fatigue, acid reflux and loss of appetite. He subsequently noted change in his stool and urine color and jaundice. He also had about 25 pounds weight loss due to poor appetite and early fullness. Patient underwent CT scan of abdomen on 03/25/2019 which showed 3.3 x 2.9 x 2.9 cm soft tissue mass involving inferior pancreatic head and uncinate process. This mass was causing obstruction of common bile duct and probably also pancreatic duct and pancreatic mass abuts and distorts and may invade the medial duodenal C-loop. Patient was referred to [place] where he underwent endoscopic ultrasound and FNA done on 03/29/2019 and it confirmed adenocarcinoma subsequently underwent metal bile duct stent placement with that his jaundice improved but continued to have early fullness nausea finally underwent duodenal stent placement. Mr Powell was referred to Dr. Barbosa and as per patient, Dr. Barbosa suggested neoadjuvant chemotherapy prior to the surgery. Patient and his family decided to take second opinion and went to [facility] for evaluation. He then underwent an attempted ERCP at [facility], which was not possible due to significant luminal stenosis. The endoscopic ultrasound revealed obstructing 3.2 cm pancreatic head mass and the biopsy was positive for adenocarcinoma. Due to inability to perform ERCP, patient underwent percutaneous internal biliary stent. Later patient developed nausea vomiting for which he was readmitted to [facility] on 04/03/2019 and diagnosed with gastric outlet obstruction for that he underwent EGD with duodenal stent placement on 04/12/2019 . He then underwent pancreas protocol CT scan at [facility] as per patient he was told there could be vascular involvement with tumor so neoadjuvant chemotherapy with folfirinox was recommended. He began his first cycle on 05/27/2019. On 07/03/2019 he was admitted to [facility] with high-grade fever and diarrhea jaundice and abnormal LFTs subsequently diagnosed with sepsis being hypotensive patient was treated with IV antibiotics and CT scan of abdomen pelvis done on 07/04/2019 which showed marked biliary tract dilatation subsequently patient was transferred to [facility] in [place] for further management but his condition continued to improve GI was consulted but his LFTs continued to improve and he was discharged home on Cipro and Flagyl. Patient said he went back to [facility] and this time he underwent ERCP and not sure whether stent was replaced or cleaned. He had MRI MRCP done on 07/17/2019 which showed marked biliary tract dilatation with moderate dilatation of pancreatic duct similar to CT scan of 07/04/2019 and metallic stents obscure with radiation of pancreatic mass. Patient was on oral antibiotics ciprofloxacin and Flagyl till 07/27/2019. Mr Powell completed 6 cycles of neoadjuvant chemotherapy with folfirinox on 09/04/2019. He then underwent pancreaticoduodenectomy, resection and reconstruction of' superior mesenteric vein portal vein using Bovine pericardium patch and abdominal lymphadenectomy on 10/02/2019. His postop course was complicated by NSTEMI and he required intra-aortic balloon pump and ultimately underwent cardiac cath with placement of 4 stents (2 overlapping stents in the left main/proximal LAD and 2 overlapping stents in the RCA). Now on Brilinta and aspirin. 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 Lymphovascular, including large vessel and perineural invasion identified. Tumor invades into adjoining portal vein And superior mesenteric vein but various margins are negative for the tumor. Tumor present at uncinate margin, as foci of vascular invasion. Tumor is less than 1 cm from posterior surface; A small focus of perineural invasion is identified less than 1 cm from the bile duct margin. Pancreatic parenchymal, proximal and distal duodenal resection margins are negative for the tumor. Metastatic carcinoma involving 4 out of 25 lymph nodes ypN2. Adjuvant chemotherapy/chemoradiation was recommended at [place], but at the same time cardiology had a concern about bone marrow suppressing chemotherapy regimens and recommended avoiding these regimens as patient will require at least 6 months of continued DAPT due to recent NSTEMI and high risk PCI. Based on his final pathology report after Whipple's procedure, patient is a high risk for local recurrence and distant recurrence as there was a minimum response to the neoadjuvant chemotherapy. Lymph node positive disease with close surgical margins was identified. At that point, Mr Powell was referred to radiation oncology for adjuvant radiation therapy. He was also under consideration of low-dose Xeloda concurrently with radiation as patient is not a candidate for adjuvant chemotherapy due to high risk for bone marrow suppression and treatment rendered complication. Considering Risk versus benefit, recommended modified dose Xeloda concurrent with radiation therapy and monitor his blood counts on weekly basis and adjust chemotherapy dose accordingly to minimize bone marrow suppression. He began concurrent therapy with radiation and dose reduced Xeloda on 12/10/2019 completed on 01/16/2020. He remained on observation and followup with Dr Anthony, surgical oncologist at [facility]. 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 Tolerated Injectafer given on 01/23/2020 , for functional iron deficiency anemia Mr Powell has been followed at GI surgical oncology clinic at [place]. He underwent follow-up MRI scan of abdomen/liver on June 30, 2021 which showed 2 hepatic lesions with features suspicious for metastatic disease involving segment 6 and 2 respectively. Similar in size to the prior CT scan done on May 24, 2021. No additional suspicious liver lesions are identified. Postsurgical changes of Whipple procedure without findings of recurrent disease within the operative bed. PET/CT scan done on July 27, 2021 shows new liver lesions in the hepatic segments of 2 and 6 suspicious for metastatic disease. As per patient, his CA 19???9 was more than 400 and liver biopsy was recommended and ultrasound BX liver biopsy was attempted but on ultrasound no liver lesion was identified. A CT-guided liver biopsy obtained on August 16, 2021 shows metastatic adenocarcinoma, moderately differentiated, involving liver parenchyma compatible with patient's known history of pancreatic cancer. After obtaining clearance from his head inspector at [place], Mr Powell was started on systemic therapy with FOLFIRINOX on September 15, 2021. Follow-up CT PET scan done on on October 30, 2021 shows no evidence of active hepatic metastatic disease, there is 1.9 cm region of abnormal activity in the pancreatic tail with SUV of 4.8 and a vague peripancreatic lesion measuring up to 2.5 cm with SUV of 4.1, likely malignant lymph node., Tumor marker CA 19???9 checked on October 18, 2021 was 988.6 And repeat on November 24, 2021 was 930.5. FOLFIRINOX was discontinued after October 19, 2021 dose due to related side effect and interfering with quality of life. Started on Abraxane/gemcitabine on December 30, 2021 Patient presents today for follow-up. He states he has been feeling pretty good. He has some mild fatigue. His appetite has been good. He denies fever, chills, night sweats. He has some sinus drainage but no sore throat. No shortness of breath, cough, chest pain. He has experienced some nausea especially the first day or 2 after treatment and some abdominal cramping. No vomiting, diarrhea, constipation. No urinary symptoms. No joint or bone pain. No headaches or dizziness. His primary care physician started him on Lantus 10 units at bedtime and his blood glucose levels have been very good. He has been checking his sugar 4 times a day. Review Of Symptoms: See above. Past Medical History: Eczema Gastroesophageal reflux disease Hypercholesterolemia Past Surgical History: Moderna Booster in 2021 Flu vaccine in 2020 - left deltoid Flu vaccine 7309-1170 in 2019 Stent replacement in the biliary duct in 2018 Fna of pancreas in 2018 Eyelid surgery in 1959 Tonsillectomy in 5 Allergies: No Known Allergies. Medications: Albuterol Sulfate (sensor) 1 (108 (90 base) mcg/act) Aerosol Powder, Breath Activated Inhalation daily PRN Brilinta 1 Tablet (of 90 mg) Oral b.i.d. Carvedilol 1 Tablet (of 6.25 mg) Oral b.i.d. chlorproMAZINE HCl 1 - 2 Tablet (of 25 mg) Oral q 8 hours PRN Claritin 1 Tablet (of 10 mg) Oral daily PRN Creon 1 Capsule (of 08211 Units) Capsule Delayed Release Particles Oral t.i.d. Ferrous Sulfate 1 Tablet (of 325 (65 fe) mg) Oral daily Gas Relief 1 Capsule (of 180 mg) Oral PRN HumaLOG KwikPen Subcutaneous Take as Directed Imodium A-D 1 Capsule (of 2 mg) Oral PRN Insulin Glargine 10 Unit(s) (of 100 Units/mL) Subcutaneous daily levoFLOXacin 1 Tablet (of 500 mg) Oral daily for 7 days Lomotil 1 Tablet (of 2.5-0.025 mg) Oral daily PRN Multivitamin Adult 1 Tablet Oral daily Rosuvastatin Calcium 1 Tablet (of 5 mg) Oral at bedtime Sacubitril-Valsartan 1 Tablet (of 24-26 mg) Oral b.i.d. Family History: Mr. Powell's mother at age 92: Alzheimer's Disease, and cervical cancer. Mr. Powell's father at age 63: heart disease. Social History: Mr. Powell is and he is retired. Mr. Powell has never smoked. He has no history of drinking. He has indicated exposure to the following products: marijuana. Physical Examination: Performed on Feb 22, 2022 15:07: Height - 67.00 in, Weight - 159.8 lbs (HIGH), BSA - 1.84 sq.m, BMI - 25.03, Temperature - 97.5 F (LOW), Pulse - 62 /min, Respiration - 16 /min, BP - 99/60 mm(hg), O2 Sat - 98 %, Pain - 0, and Fatigue - 2. Performance Status: 0 - Fully active, able to carry on all predisease activities without restrictions. (ECOG) Constitutional Alert, cooperative, oriented. Mood and affect appropriate. Appears close to chronological age. Well nourished. Well developed. Respiratory Lungs are clear to auscultation without rhonchi or wheezing. Cardiovascular Regular rate and rhythm of heart without murmurs, gallops or rubs. Abdomen Non-tender, non-distended, no masses, ascites or hepatosplenomegaly. Good bowel sounds. No guarding or rebound tenderness. Extremities No visible deformities, no cyanosis, clubbing or edema. Pulses 3+ and equal bilaterally. Musculoskeletal No tenderness or swelling, normal range of motion without obvious weakness. Psychiatric Alert and oriented times three. Coherent speech. Verbalizes understanding of our discussions today. Laboratory: Test performed on Feb 22, 2022 11:35 Ferritin 79 ng/mL Sodium 135 mmol/L Potassium 3.9 mmol/L Chloride 105 mmol/L CO2 21 mmol/L Anion Gap 12.9 BUN 14 mg/dL Creatinine 0.8 mg/dL Cr Clearance (Est) 81.5700 mL/min Glucose 199 mg/dL Osmolality - Calculated 286 mOsm/kg Calcium 8.7 mg/dL Protein, Total 5.9 g/dL Albumin 3.5 g/dL Globulin 2.4 g/dL Bilirubin, Total 0.2 mg/dL ALT (SGPT) 24 U/L AST (SGOT) 27 U/L Alkaline Phosphatase 212 IU/L WBC 2.5 10 3/uL RBC 3.19 10 6/uL HGB 9.3 g/dL HCT 28.4 % MCV 89.0 fl MCH 29.2 pg MCHC 32.7 g/dL RDW 16.6 % Platelet Count 175 10 3/cmm MPV 9.8 fL Neutrophils 1.54 10 3/uL Lymphocytes 0.4 10 3/uL Monocytes 0.5 10 3/uL Eosinophils 0.0 10 3/uL Basophils 0.0 10 3/uL Neutrophil % 60.6 % Lymphocyte % 16.1 % Monocyte % 21.3 % Eosinophil % 0.8 % Basophils % 0.8 % NRBC % 0 % Test performed on Jan 26, 2022 10:59 Ua Color Yellow Ua Appearance Cloudy Ua Glucose Norm Ua Bilirubin Neg Ua Ketones Negative Ua Specific [place] 1.020 Ua Blood 2+ Ua pH 6 Ua Protein Neg Ua Nitrites Negative Ua Leukocyte Esterase Negative Ua Micro: WBC 0-4 /hpf Ua Micro: RBC 5-10 /hpf Ua Micro: Squam Epith Cells 0-4 /hpf Ua Micro: Bacteria 1+ /hpf Test performed on Jan 26, 2022 08:45 CA 19-9 414.6 U/mL Impression: A. Recurrent pancreatic cancer per CT-guided liver biopsy done on August 16, 2021 which confirmed metastatic adenocarcinoma, moderately differentiated, involving liver parenchyma, compatible with patient's known pancreatic primary And elevated CA 19???9 CT PET scan done At [place] on July 27, 2021 shows new liver lesion in the hepatic segments 2 and 6 suspicious for metastatic disease B. He is following with Dr Jefferson, local head inspector, for follow-up of NSTEMI status post PCI to LAD and LM. C. He has had iron deficieny anemia develop , improved with Injectafer Plan: Labs reviewed with patient. His WBC is 2.5, hemoglobin 9.3, hematocrit 28.4, platelet count 175,000 ANC is 1.54. His glucose level today is 199. His iron was low at 31 and his percent saturation was low at 11.5%. Patient is doing well with Abraxane gemcitabine treatment. He will receive his next treatment today and receive Neupogen x2 days starting tomorrow. He will return to the clinic in 1 week with CBC, CMP, and CA 19???9. Patient icontinues to experience iron deficiency anemia even with iron supplementation. He will receive Injectafer 750 mg x 2 doses 1 week apart and then we will repeat iron studies in 1 month. Signed By: Charlotte Fajardo N.P. <<Signature on File>>
[2022-03-01 08:33] LABS: Basophils % 0.4 %; Eosinophils # 0.1 10^3/uL (0.0-0.8); Eosinophils % 1.4 %; Hematocrit 27.8 % (42.0-52.0); Hemoglobin 8.6 g/dL (11.7-16.6); Lymphocytes # 0.6 10^3/uL (0.8-4.8); Lymphocytes % 11.1 %; Mean Corpuscular HGB Conc 30.9 g/dL (30.0-36.0); Mean Corpuscular Hemoglobin 28.3 pg (28.0-34.0); Mean Corpuscular Volume 91.4 fl (80-94); Mean Platelet Volume 9.8 fL (7.4-10.4); Monocytes # 0.7 10^3/uL (0.2-0.9); Monocytes % 14.3 %; Neutrophils # 3.31 10^3/uL (1.8-7.7); Neutrophils % 66.8 %; Nucleated Red Blood Cells % 0 %; Platelet Count 234 10^3/cmm (130-400); Red Blood Count 3.04 10^6/uL (4.1-5.3); Red Cell Distribution Width 16.7 % (12.1-15.1)
[2022-03-01 08:54] LABS: Slide Review Slide Review Perform
[2022-03-01 09:01] LABS: Alanine Aminotransferase 37 U/L (0-41); Albumin Level 3.5 g/dL (3.5-5.2); Alkaline Phosphatase 285 IU/L (40-130); Anion Gap 14.1 (5-19); Aspartate Amino Transferase 40 U/L (0-40); Blood Urea Nitrogen 12 mg/dL (8-23); CA 125 14.6 U/mL (0-35); Carbon Dioxide 20 mmol/L (22-29); Chloride 107 mmol/L (98-107); Globulin 2.9 g/dL (1.3-4.6); Glucose 155 mg/dL (65-115); Osmolality Calculated 287 mOsm/kg (285-295); Potassium 4.1 mmol/L (3.5-5.1); Sodium 137 mmol/L (136-145); Total Bilirubin 0.2 mg/dL (0.15-1.2); Total Protein 6.4 g/dL (6.6-8.7)
[2022-03-01] MEDS: sodium chloride 0.9% 250 ML 75 ML IV (10:38)
[2022-03-01] MEDS: ondansetron 2 mg/ML SDV 2 mL 8 MG IV (10:38)
[2022-03-01] MEDS: famotidine 20 mg/2 mL INJ IVP (10:40)
--- NOTE | 2022-03-02 09:36 | ONC FU_ITS ---
Dr. Root follow up note Patient: Mauricio Powell Unit #: [id number]: 1950 Dicatated By: Danielle Root M.D.Date of Visit:Mar 01, 2022 Onc Med Follow-up/Prog Note History of Present Illness: Mr. Powell is a 71-year-old gentleman with history of progressive weakness and fatigue, acid reflux and loss of appetite. He subsequently noted change in his stool and urine color and jaundice. He also had about 25 pounds weight loss due to poor appetite and early fullness. Patient underwent CT scan of abdomen on 03/25/2019 which showed 3.3 x 2.9 x 2.9 cm soft tissue mass involving inferior pancreatic head and uncinate process. This mass was causing obstruction of common bile duct and probably also pancreatic duct and pancreatic mass abuts and distorts and may invade the medial duodenal C-loop. Patient was referred to [place] where he underwent endoscopic ultrasound and FNA done on 03/29/2019 and it confirmed adenocarcinoma subsequently underwent metal bile duct stent placement with that his jaundice improved but continued to have early fullness nausea finally underwent duodenal stent placement. Mr Powell was referred to Dr. Barbosa and as per patient, Dr. Barbosa suggested neoadjuvant chemotherapy prior to the surgery. Patient and his family decided to take second opinion and went to [facility] for evaluation. He then underwent an attempted ERCP at [facility], which was not possible due to significant luminal stenosis. The endoscopic ultrasound revealed obstructing 3.2 cm pancreatic head mass and the biopsy was positive for adenocarcinoma. Due to inability to perform ERCP, patient underwent percutaneous internal biliary stent. Later patient developed nausea vomiting for which he was readmitted to [facility] in [place] on 04/03/2019 and diagnosed with gastric outlet obstruction for that he underwent EGD with duodenal stent placement on 04/12/2019 . He then underwent pancreas protocol CT scan at [facility] as per patient he was told there could be vascular involvement with tumor so neoadjuvant chemotherapy with folfirinox was recommended. He began his first cycle on 05/27/2019. On 07/03/2019 he was admitted to [facility] with high-grade fever and diarrhea jaundice and abnormal LFTs subsequently diagnosed with sepsis being hypotensive patient was treated with IV antibiotics and CT scan of abdomen pelvis done on 07/04/2019 which showed marked biliary tract dilatation subsequently patient was transferred to [facility] in [place] for further management but his condition continued to improve GI was consulted but his LFTs continued to improve and he was discharged home on Cipro and Flagyl. Patient said he went back to [facility] and this time he underwent ERCP and not sure whether stent was replaced or cleaned. He had MRI MRCP done on 07/17/2019 which showed marked biliary tract dilatation with moderate dilatation of pancreatic duct similar to CT scan of 07/04/2019 and metallic stents obscure with radiation of pancreatic mass. Patient was on oral antibiotics ciprofloxacin and Flagyl till 07/27/2019. Mr Powell completed 6 cycles of neoadjuvant chemotherapy with folfirinox on 09/04/2019. He then underwent pancreaticoduodenectomy, resection and reconstruction of' superior mesenteric vein portal vein using Bovine pericardium patch and abdominal lymphadenectomy on 10/02/2019. His postop course was complicated by NSTEMI and he required intra-aortic balloon pump and ultimately underwent cardiac cath with placement of 4 stents (2 overlapping stents in the left main/proximal LAD and 2 overlapping stents in the RCA). Now on Brilinta and aspirin. 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 Lymphovascular, including large vessel and perineural invasion identified. Tumor invades into adjoining portal vein And superior mesenteric vein but various margins are negative for the tumor. Tumor present at uncinate margin, as foci of vascular invasion. Tumor is less than 1 cm from posterior surface; A small focus of perineural invasion is identified less than 1 cm from the bile duct margin. Pancreatic parenchymal, proximal and distal duodenal resection margins are negative for the tumor. Metastatic carcinoma involving 4 out of 25 lymph nodes ypN2. Adjuvant chemotherapy/chemoradiation was recommended at [facility], but at the same time cardiology had a concern about bone marrow suppressing chemotherapy regimens and recommended avoiding these regimens as patient will require at least 6 months of continued DAPT due to recent NSTEMI and high risk PCI. Based on his final pathology report after Whipple's procedure, patient is a high risk for local recurrence and distant recurrence as there was a minimum response to the neoadjuvant chemotherapy. Lymph node positive disease with close surgical margins was identified. At that point, Mr Powell was referred to radiation oncology for adjuvant radiation therapy. He was also under consideration of low-dose Xeloda concurrently with radiation as patient is not a candidate for adjuvant chemotherapy due to high risk for bone marrow suppression and treatment rendered complication. Considering Risk versus benefit, recommended modified dose Xeloda concurrent with radiation therapy and monitor his blood counts on weekly basis and adjust chemotherapy dose accordingly to minimize bone marrow suppression. He began concurrent therapy with radiation and dose reduced Xeloda on 12/10/2019 completed on 01/16/2020. He remained on observation and followup with Dr Anthony, surgical oncologist at [facility]. 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 Tolerated Injectafer given on 01/23/2020 , for functional iron deficiency anemia Mr Powell has been followed at GI surgical oncology clinic at [facility]. He underwent follow-up MRI scan of abdomen/liver on June 30, 2021 which showed 2 hepatic lesions with features suspicious for metastatic disease involving segment 6 and 2 respectively. Similar in size to the prior CT scan done on May 24, 2021. No additional suspicious liver lesions are identified. Postsurgical changes of Whipple procedure without findings of recurrent disease within the operative bed. PET/CT scan done on July 27, 2021 shows new liver lesions in the hepatic segments of 2 and 6 suspicious for metastatic disease. As per patient, his CA 19???9 was more than 400 and liver biopsy was recommended and ultrasound BX liver biopsy was attempted but on ultrasound no liver lesion was identified. A CT-guided liver biopsy obtained on August 16, 2021 shows metastatic adenocarcinoma, moderately differentiated, involving liver parenchyma compatible with patient's known history of pancreatic cancer. After obtaining clearance from his private equity analyst at [facility], Mr Powell was started on systemic therapy with FOLFIRINOX on September 15, 2021. Follow-up CT PET scan done on on October 30, 2021 shows no evidence of active hepatic metastatic disease, there is 1.9 cm region of abnormal activity in the pancreatic tail with SUV of 4.8 and a vague peripancreatic lesion measuring up to 2.5 cm with SUV of 4.1, likely malignant lymph node., Tumor marker CA 19???9 checked on October 18, 2021 was 988.6 And repeat on November 24, 2021 was 930.5. FOLFIRINOX was discontinued after October 19, 2021 dose due to related side effect and interfering with quality of life. Started on Abraxane/gemcitabine on December 30, 2021 Came for follow-up, denies any specific complaints, no fever chills, no nausea or vomiting, no diarrhea or constipation, no hemoptysis or hematemesis, as per patient he is very active for couple of days after chemotherapy then experienced fatigue and generalized weakness which improves after couple days of rest. But no new bony pains, no hemoptysis hematemesis, no abdominal pain, no peripheral neuropathy, tolerating systemic therapy with Abraxane/gemcitabine well otherwise Medications: Albuterol Sulfate (sensor) 1 (108 (90 base) mcg/act) Aerosol Powder, Breath Activated Inhalation daily PRN, Brilinta 1 Tablet (of 90 mg) Oral b.i.d., Carvedilol 1 Tablet (of 6.25 mg) Oral b.i.d., chlorproMAZINE HCl 1 - 2 Tablet (of 25 mg) Oral q 8 hours PRN, Claritin 1 Tablet (of 10 mg) Oral daily PRN, Creon 1 Capsule (of 75992 Units) Capsule Delayed Release Particles Oral t.i.d., Ferrous Sulfate 1 Tablet (of 325 (65 fe) mg) Oral daily, Gas Relief 1 Capsule (of 180 mg) Oral PRN, HumaLOG KwikPen Subcutaneous Take as Directed, Imodium A-D 1 Capsule (of 2 mg) Oral PRN, Insulin Glargine 10 Unit(s) (of 100 Units/mL) Subcutaneous daily, levoFLOXacin 1 Tablet (of 500 mg) Oral daily for 7 days, Lomotil 1 Tablet (of 2.5-0.025 mg) Oral daily PRN, Multivitamin Adult 1 Tablet Oral daily, Rosuvastatin Calcium 1 Tablet (of 5 mg) Oral at bedtime, Sacubitril-Valsartan 1 Tablet (of 24-26 mg) Oral b.i.d. Allergies: No Known Allergies. Review of Systems: Review of Systems is not available for this patient. Vital Signs: Performed on Mar 01, 2022 09:40 Height - 67.00 in Weight - 161.2 lbs (HIGH) BSA - 1.84 sq.m BMI - 25.25 Temperature - 97.3 F (LOW) Pulse - 61 /min Respiration - 16 /min BP - 130/73 mm(hg) O2 Sat - 98 % Pain - 0 Fatigue - 2 Performance Status: 0 - Fully active, able to carry on all predisease activities without restrictions. (ECOG) Physical Examination: ENMT - No mouth sores, no thrush, no jaundice, Respiratory - Lungs are clear to auscultation, Cardiovascular - Regular rate and rhythm of heart, Abdomen - Soft, bowel sounds present, Extremities - No visible edema. Lab/Imaging: Test performed on Feb 22, 2022 11:35 Ferritin 79 ng/mL Sodium 135 mmol/L Potassium 3.9 mmol/L Chloride 105 mmol/L CO2 21 mmol/L Anion Gap 12.9 BUN 14 mg/dL Creatinine 0.8 mg/dL Cr Clearance (Est) 81.5700 mL/min Glucose 199 mg/dL Osmolality - Calculated 286 mOsm/kg Calcium 8.7 mg/dL Protein, Total 5.9 g/dL Albumin 3.5 g/dL Globulin 2.4 g/dL Bilirubin, Total 0.2 mg/dL ALT (SGPT) 24 U/L AST (SGOT) 27 U/L Alkaline Phosphatase 212 IU/L WBC 2.5 10 3/uL RBC 3.19 10 6/uL HGB 9.3 g/dL HCT 28.4 % MCV 89.0 fl MCH 29.2 pg MCHC 32.7 g/dL RDW 16.6 % Platelet Count 175 10 3/cmm MPV 9.8 fL Neutrophils 1.54 10 3/uL Lymphocytes 0.4 10 3/uL Monocytes 0.5 10 3/uL Eosinophils 0.0 10 3/uL Basophils 0.0 10 3/uL Neutrophil % 60.6 % Lymphocyte % 16.1 % Monocyte % 21.3 % Eosinophil % 0.8 % Basophils % 0.8 % NRBC % 0 % Test performed on Jan 26, 2022 10:59 Ua Color Yellow Ua Appearance Cloudy Ua Glucose Norm Ua Bilirubin Neg Ua Ketones Negative Ua Specific [place] 1.020 Ua Blood 2+ Ua pH 6 Ua Protein Neg Ua Nitrites Negative Ua Leukocyte Esterase Negative Ua Micro: WBC 0-4 /hpf Ua Micro: RBC 5-10 /hpf Ua Micro: Squam Epith Cells 0-4 /hpf Ua Micro: Bacteria 1+ /hpf Test performed on Jan 26, 2022 08:45 CA 19-9 414.6 U/mL Impression: A. Recurrent pancreatic cancer per CT-guided liver biopsy done on August 16, 2021 which confirmed metastatic adenocarcinoma, moderately differentiated, involving liver parenchyma, compatible with patient's known pancreatic primary And elevated CA 19???9 CT PET scan done At [facility] on July 27, 2021 shows new liver lesion in the hepatic segments 2 and 6 suspicious for metastatic disease B. He is following with Dr Jefferson, local private equity analyst, for follow-up of NSTEMI status post PCI to LAD and LM. C. He has had iron deficieny anemia develop , improved with Injectafer Plan: Discussed with patient regarding his labs white blood count 5 hemoglobin 8.6 hematocrit 27.8 platelets 234,000 CMP within normal limit except glucose 155 Clinically, patient doing well with no new signs symptoms history of disease progression, tolerating palliative therapy well, will proceed with next weekly dose of Abraxane/gemcitabine today and then he will return to clinic in 2 weeks with CBC CMP and CA 19???9 Signed By: Danielle Root M.D. <<Signature on File>>
[2022-03-10] MEDS: acetaminophen 325 mg Tablet 650 MG PO (09:00)
[2022-03-10] MEDS: diphenhydrAMINE 50 mg/mL SDV 1mL 25 MG IVP (09:20)
[2022-03-10] MEDS: sodium chloride 0.9% 250 ML IV (09:30)
[2022-03-10] MEDS: iron dextran 25 MG in SYRINGE 1 EACH 30 MG IVP (09:30)
[2022-03-10] MEDS: iron dextran 1,500 MG in sodium chloride 0.9% 1,000 ML 250 MG IV (10:25)
== END 2022-03-12 23:59 | disposition home or self-care (01) ==
LOC: ONCMED 06:39
PROVIDERS: Internal Medicine Hematology & Oncology; PCP Family Medicine; Visit Provider Nurse Practitioner Family
DX: Z51.11 Encounter for antineoplastic chemotherapy (principal); C25.0 Malignant neoplasm of head of pancreas; C78.7 Secondary malignant neoplasm of liver and intrahepatic bile duct; I25.2 Old myocardial infarction; D50.9 Iron deficiency anemia, unspecified; R97.8 Other abnormal tumor markers; Z79.899 Other long term (current) drug therapy
CPT/HCPCS: 80053; 82728; 83540; 83550; 85025; 86304; 96365; 96366; 96367; 96372; 96375; 96413; 96417; 99215; J1100; J1200; J1750; J2405; J3490; J7030; J7050; J9201; J9264; Q5101

== ENCOUNTER 2022-04-07 08:30 | Oncology outpatient (recurring) (ONCR) | payer MEDICARE, SELFPAY ==
[2022-03-15 12:37] LABS: Basophils % 0.2 %; Eosinophils # 0.1 10^3/uL (0.0-0.8); Eosinophils % 2.5 %; Hematocrit 26.5 % (42.0-52.0); Hemoglobin 8.6 g/dL (11.7-16.6); Lymphocytes # 0.6 10^3/uL (0.8-4.8); Mean Corpuscular HGB Conc 32.5 g/dL (30.0-36.0); Mean Corpuscular Hemoglobin 29.4 pg (28.0-34.0); Mean Corpuscular Volume 90.4 fl (80-94); Mean Platelet Volume 9.8 fL (7.4-10.4); Monocytes # 0.7 10^3/uL (0.2-0.9); Monocytes % 13.7 %; Neutrophils # 3.35 10^3/uL (1.8-7.7); Neutrophils % 70.5 %; Nucleated Red Blood Cells % 0 %; Platelet Count 213 10^3/cmm (130-400); Red Blood Count 2.93 10^6/uL (4.1-5.3); Red Cell Distribution Width 18.9 % (12.1-15.1); White Blood Count 4.8 10^3/uL (4.0-10.0)
[2022-03-15 13:18] LABS: Alanine Aminotransferase 32 U/L (0-41); Albumin Level 3.3 g/dL (3.5-5.2); Alkaline Phosphatase 257 IU/L (40-130); Anion Gap 9.4 (5-19); Aspartate Amino Transferase 28 U/L (0-40); Blood Urea Nitrogen 11 mg/dL (8-23); Calcium 7.7 mg/dL (8.5-10.5); Carbon Dioxide 23 mmol/L (22-29); Chloride 107 mmol/L (98-107); Globulin 2.2 g/dL (1.3-4.6); Glucose 156 mg/dL (65-115); Osmolality Calculated 285 mOsm/kg (285-295); Potassium 3.4 mmol/L (3.5-5.1); Sodium 136 mmol/L (136-145); Total Bilirubin 0.2 mg/dL (0.15-1.2); Total Protein 5.5 g/dL (6.6-8.7)
[2022-03-15] MEDS: famotidine 20 mg/2 mL INJ IVP (14:08)
[2022-03-15] MEDS: ondansetron 2 mg/ML SDV 2 mL 8 MG IVP (14:11)
[2022-03-15] MEDS: sodium chloride 0.9% 250 ML 75 ML IV (14:19)
[2022-03-15 14:24] LABS: Cancer Antigen 19 9 210.3 U/mL (0-35)
[2022-03-15] MEDS: FLEXIBLE CONTAINER IV (14:31)
[2022-03-15] MEDS: PACLITAXEL PROTEIN BOUND IV (14:31)
[2022-03-15] MEDS: gemcitabine 1,700 MG in sodium chloride 0.9% (100 ml) 100 ML 200 MG IV (15:10)
[2022-03-15 15:35] VITALS: BP 124/59; PULSE 46; TEMP 36.8; O2SAT 99
[2022-03-31 09:55] LABS: Basophils % 0.8 %; Eosinophils # 0.1 10^3/uL (0.0-0.8); Eosinophils % 2.8 %; Hematocrit 28.2 % (42.0-52.0); Hemoglobin 8.6 g/dL (11.7-16.6); Lymphocytes # 0.6 10^3/uL (0.8-4.8); Lymphocytes % 11.4 %; Mean Corpuscular HGB Conc 30.5 g/dL (30.0-36.0); Mean Corpuscular Hemoglobin 28.7 pg (28.0-34.0); Mean Platelet Volume 9.8 fL (7.4-10.4); Monocytes # 0.6 10^3/uL (0.2-0.9); Neutrophils # 3.53 10^3/uL (1.8-7.7); Neutrophils % 71.6 %; Nucleated Red Blood Cells % 0 %; Platelet Count 194 10^3/cmm (130-400); Red Cell Distribution Width 20.7 % (12.1-15.1); White Blood Count 4.9 10^3/uL (4.0-10.0)
[2022-03-31 10:26] LABS: Alanine Aminotransferase 31 U/L (0-41); Albumin Level 3.4 g/dL (3.5-5.2); Alkaline Phosphatase 273 IU/L (40-130); Anion Gap 13.7 (5-19); Aspartate Amino Transferase 35 U/L (0-40); Blood Urea Nitrogen 9 mg/dL (8-23); Calcium 8.2 mg/dL (8.5-10.5); Carbon Dioxide 23 mmol/L (22-29); Chloride 107 mmol/L (98-107); Globulin 2.8 g/dL (1.3-4.6); Glucose 165 mg/dL (65-115); Osmolality Calculated 292 mOsm/kg (285-295); Potassium 3.7 mmol/L (3.5-5.1); Sodium 140 mmol/L (136-145); Total Bilirubin 0.3 mg/dL (0.15-1.2); Total Protein 6.2 g/dL (6.6-8.7)
[2022-03-31] MEDS: sodium chloride 0.9% 250 ML 75 ML IV (11:59)
[2022-03-31] MEDS: famotidine 20 mg/2 mL INJ IVP (12:01)
[2022-03-31] MEDS: palonosetron 0.25 mg/5 mL SDV IVP (12:06)
[2022-03-31] MEDS: FLEXIBLE CONTAINER IV (12:32)
[2022-03-31] MEDS: PACLITAXEL PROTEIN BOUND IV (12:32)
[2022-03-31] MEDS: gemcitabine 1,700 MG in sodium chloride 0.9% (100 ml) 100 ML 200 MG IV (13:12)
[2022-03-31 14:06] VITALS: BP 126/77; PULSE 53; TEMP 36.6; O2SAT 95
[2022-04-07 09:00] LABS: Basophils % 1.2 %; Eosinophils # 0.1 10^3/uL (0.0-0.8); Eosinophils % 3.1 %; Hematocrit 25.8 % (42.0-52.0); Hemoglobin 8.2 g/dL (11.7-16.6); Lymphocytes # 0.4 10^3/uL (0.8-4.8); Lymphocytes % 16.9 %; Mean Corpuscular HGB Conc 31.8 g/dL (30.0-36.0); Mean Corpuscular Hemoglobin 29.2 pg (28.0-34.0); Mean Corpuscular Volume 91.8 fl (80-94); Monocytes # 0.4 10^3/uL (0.2-0.9); Monocytes % 16.5 %; Neutrophils # 1.56 10^3/uL (1.8-7.7); Neutrophils % 61.1 %; Nucleated Red Blood Cells % 0 %; Platelet Count 157 10^3/cmm (130-400); Red Blood Count 2.81 10^6/uL (4.1-5.3); Red Cell Distribution Width 20.7 % (12.1-15.1); White Blood Count 2.6 10^3/uL (4.0-10.0)
[2022-04-07 09:22] LABS: Alanine Aminotransferase 65 U/L (0-41); Albumin Level 3.4 g/dL (3.5-5.2); Alkaline Phosphatase 414 IU/L (40-130); Anion Gap 13.8 (5-19); Aspartate Amino Transferase 68 U/L (0-40); Blood Urea Nitrogen 10 mg/dL (8-23); Calcium 8.4 mg/dL (8.5-10.5); Carbon Dioxide 22 mmol/L (22-29); Chloride 105 mmol/L (98-107); Globulin 2.2 g/dL (1.3-4.6); Glucose 186 mg/dL (65-115); Osmolality Calculated 288 mOsm/kg (285-295); Potassium 3.8 mmol/L (3.5-5.1); Sodium 137 mmol/L (136-145); Total Bilirubin 0.3 mg/dL (0.15-1.2); Total Protein 5.6 g/dL (6.6-8.7)
== END 2022-04-12 23:59 | disposition home or self-care (01) ==
PROVIDERS: PCP Family Medicine; Visit Provider Internal Medicine Hematology & Oncology
DX: C25.0 Malignant neoplasm of head of pancreas (principal); Z51.11 Encounter for antineoplastic chemotherapy; C77.8 Secondary and unspecified malignant neoplasm of lymph nodes of multiple regions; C78.7 Secondary malignant neoplasm of liver and intrahepatic bile duct; D64.9 Anemia, unspecified; D70.1 Agranulocytosis secondary to cancer chemotherapy; T45.1X5A Adverse effect of antineoplastic and immunosuppressive drugs, initial encounter; E78.5 Hyperlipidemia, unspecified; I25.5 Ischemic cardiomyopathy; Z79.899 Other long term (current) drug therapy
CPT/HCPCS: 36591; 80053; 85025; 86301; 96367; 96375; 96413; 96417; 99215; 99999; J1100; J2405; J2469; J3490; J7050; J9201; J9264

== ENCOUNTER 2022-05-03 10:51 | Outpatient (CLI) | payer MEDICARE, SELFPAY ==
--- NOTE | 2022-05-03 11:15 | USCV_ITS ---
Mauricio Powell Age: 72 Gender: M : 1950 Exam Date: 05/03/2022 11:36 Ordering Phys: Alec Jefferson MD ([email or web address]) Technologist: Exam Location: [facility] Indication: high risk meds ? ef BP: 125 / 74 HR: 71 Rhythm: Sinus Technical Quality: Adequate MEASUREMENTS (Male / Female) Normal Values 2D ECHO LV Diastolic Diameter PLAX 4.5 cm 4.2 - 5.9 / 3.9 - 5.3 cm LV Systolic Diameter PLAX 3.0 cm IVS Diastolic Thickness 1.1 cm 0.6 - 1.0 / 0.6 - 0.9 cm IVS Systolic Thickness 1.2 cm LVPW Diastolic Thickness 0.9 cm 0.6 - 1.0 / 0.6 - 0.9 cm LVPW Systolic Thickness 1.3 cm LVOT Diameter 2.0 cm LV Ejection Fraction 2D Teich 52.7 % LV Ejection Fraction MOD 2C 64.9 % LV Ejection Fraction 2C AL 61.8 % LA Diameter 3.4 cm M-MODE Aortic Annulus Diameter 3.1 cm LA Ao Ratio MM 1.0 MV E Point Septal Separation 2.6 cm FINDINGS Left Ventricle Diffuse hypokinesia left ventricular ejection fraction of 45% Right Ventricle Normal RV size ejection fraction. TAPSE of 2.45 cm Right Atrium The right atrium is normal in size. Left Atrium The left atrium is normal in size. Mitral Valve Thickened mitral valve. Aortic Valve Thickened aortic valve. Tricuspid Valve No gross abnormality noted Pulmonic Valve No gross abnormality noted Pericardium Normal pericardium without effusion. Aorta Normal aortic annulus size. IVC Not visualized CONCLUSIONS Diffuse hypokinesia left ventricular ejection fraction of 45%. (Visual) Normal cardiac chamber sizes. No intracardiac masses. The ejection fraction estimation by MOD need to be repeated on the study. Compared to the study from 11/19/2020, there may not be a significant change Dr Alec Jefferson MD [facility] (Electronically Signed) Final Date: 04 May 2022 20:36 S
== END 2022-05-03 10:52 | disposition home or self-care (01) ==
PROVIDERS: PCP Family Medicine; Visit Provider Internal Medicine Cardiovascular Disease
DX: I42.9 Cardiomyopathy, unspecified (principal)
CPT/HCPCS: 93308

== ENCOUNTER 2022-05-12 08:30 | Oncology outpatient (recurring) (ONCR) | payer MEDICARE, SELFPAY ==
[2022-04-14 08:45] LABS: Basophils % 0.5 %; Eosinophils # 0.1 10^3/uL (0.0-0.8); Eosinophils % 2.5 %; Hematocrit 26.8 % (42.0-52.0); Hemoglobin 8.5 g/dL (11.7-16.6); Lymphocytes # 0.5 10^3/uL (0.8-4.8); Lymphocytes % 8.1 %; Mean Corpuscular HGB Conc 31.7 g/dL (30.0-36.0); Mean Corpuscular Hemoglobin 29.3 pg (28.0-34.0); Mean Corpuscular Volume 92.4 fl (80-94); Monocytes # 0.7 10^3/uL (0.2-0.9); Neutrophils # 4.34 10^3/uL (1.8-7.7); Neutrophils % 76.4 %; Nucleated Red Blood Cells % 0 %; Platelet Count 174 10^3/cmm (130-400); Red Cell Distribution Width 21.2 % (12.1-15.1); White Blood Count 5.7 10^3/uL (4.0-10.0)
[2022-04-14 09:02] LABS: Alanine Aminotransferase 40 U/L (0-41); Albumin Level 3.4 g/dL (3.5-5.2); Alkaline Phosphatase 424 IU/L (40-130); Anion Gap 14.7 (5-19); Aspartate Amino Transferase 40 U/L (0-40); Blood Urea Nitrogen 7 mg/dL (8-23); Calcium 8.1 mg/dL (8.5-10.5); Carbon Dioxide 19 mmol/L (22-29); Chloride 110 mmol/L (98-107); Globulin 2.6 g/dL (1.3-4.6); Glucose 191 mg/dL (65-115); Osmolality Calculated 293 mOsm/kg (285-295); Potassium 3.7 mmol/L (3.5-5.1); Sodium 140 mmol/L (136-145); Total Bilirubin 0.3 mg/dL (0.15-1.2)
[2022-04-21 08:37] VITALS: BMI 24.3
[2022-04-21 08:40] LABS: Basophils % 0.5 %; Eosinophils # 0.2 10^3/uL (0.0-0.8); Eosinophils % 3.2 %; Hematocrit 29.2 % (42.0-52.0); Hemoglobin 9.4 g/dL (11.7-16.6); Lymphocytes # 0.5 10^3/uL (0.8-4.8); Lymphocytes % 9.7 %; Mean Corpuscular HGB Conc 32.2 g/dL (30.0-36.0); Mean Corpuscular Hemoglobin 29.7 pg (28.0-34.0); Mean Corpuscular Volume 92.4 fl (80-94); Mean Platelet Volume 9.6 fL (7.4-10.4); Monocytes # 0.5 10^3/uL (0.2-0.9); Monocytes % 9.7 %; Neutrophils # 4.28 10^3/uL (1.8-7.7); Neutrophils % 76.5 %; Nucleated Red Blood Cells % 0 %; Platelet Count 251 10^3/cmm (130-400); Red Blood Count 3.16 10^6/uL (4.1-5.3); Red Cell Distribution Width 21.2 % (12.1-15.1); White Blood Count 5.6 10^3/uL (4.0-10.0)
[2022-04-21 09:15] LABS: Alanine Aminotransferase 49 U/L (0-41); Albumin Level 3.7 g/dL (3.5-5.2); Alkaline Phosphatase 450 IU/L (40-130); Anion Gap 14.7 (5-19); Aspartate Amino Transferase 64 U/L (0-40); Blood Urea Nitrogen 8 mg/dL (8-23); Calcium 8.4 mg/dL (8.5-10.5); Cancer Antigen 19 9 231.6 U/mL (0-35); Carbon Dioxide 20 mmol/L (22-29); Chloride 110 mmol/L (98-107); Globulin 2.7 g/dL (1.3-4.6); Glucose 161 mg/dL (65-115); Osmolality Calculated 294 mOsm/kg (285-295); Potassium 3.7 mmol/L (3.5-5.1); Sodium 141 mmol/L (136-145); Total Bilirubin 0.2 mg/dL (0.15-1.2); Total Protein 6.4 g/dL (6.6-8.7)
[2022-04-21] MEDS: sodium chloride 0.9% 250 ML 75 ML IV (10:43)
[2022-04-21] MEDS: famotidine 20 mg/2 mL INJ IVP (10:48)
[2022-04-21] MEDS: palonosetron 0.25 mg/5 mL SDV IVP (10:51)
[2022-04-21] MEDS: PACLITAXEL PROTEIN BOUND IV (11:53)
[2022-04-21] MEDS: FLEXIBLE CONTAINER IV (11:53)
[2022-04-21] MEDS: gemcitabine 1,600 MG in sodium chloride 0.9% (100 ml) 100 ML 200 MG IV (12:50)
[2022-04-21 13:42] VITALS: BP 118/70; PULSE 57; RESP 18; TEMP 35.9; O2SAT 97
[2022-04-28 09:05] LABS: Basophils % 0.7 %; Eosinophils # 0.1 10^3/uL (0.0-0.8); Eosinophils % 2.5 %; Hematocrit 27.1 % (42.0-52.0); Hemoglobin 8.8 g/dL (11.7-16.6); Lymphocytes # 0.4 10^3/uL (0.8-4.8); Lymphocytes % 15.1 %; Mean Corpuscular HGB Conc 32.5 g/dL (30.0-36.0); Mean Corpuscular Hemoglobin 29.8 pg (28.0-34.0); Mean Corpuscular Volume 91.9 fl (80-94); Mean Platelet Volume 10.5 fL (7.4-10.4); Monocytes # 0.4 10^3/uL (0.2-0.9); Neutrophils # 1.88 10^3/uL (1.8-7.7); Neutrophils % 67.3 %; Nucleated Red Blood Cells % 0 %; Platelet Count 130 10^3/cmm (130-400); Red Blood Count 2.95 10^6/uL (4.1-5.3); Red Cell Distribution Width 20.3 % (12.1-15.1); White Blood Count 2.8 10^3/uL (4.0-10.0)
[2022-04-28 09:26] LABS: Alanine Aminotransferase 86 U/L (0-41); Albumin Level 3.5 g/dL (3.5-5.2); Alkaline Phosphatase 532 IU/L (40-130); Anion Gap 15.7 (5-19); Aspartate Amino Transferase 97 U/L (0-40); Blood Urea Nitrogen 11 mg/dL (8-23); Calcium 8.8 mg/dL (8.5-10.5); Carbon Dioxide 21 mmol/L (22-29); Chloride 104 mmol/L (98-107); Globulin 2.7 g/dL (1.3-4.6); Glucose 196 mg/dL (65-115); Osmolality Calculated 289 mOsm/kg (285-295); Potassium 3.7 mmol/L (3.5-5.1); Sodium 137 mmol/L (136-145); Total Bilirubin 0.2 mg/dL (0.15-1.2); Total Protein 6.2 g/dL (6.6-8.7)
[2022-04-28] MEDS: sodium chloride 0.9% 250 ML 75 ML IV (11:28)
[2022-04-28] MEDS: famotidine 20 mg/2 mL INJ IVP (11:29)
[2022-04-28] MEDS: palonosetron 0.25 mg/5 mL SDV IVP (11:34)
[2022-04-28] MEDS: FLEXIBLE CONTAINER IV (12:28)
[2022-04-28] MEDS: PACLITAXEL PROTEIN BOUND IV (12:28)
[2022-04-28] MEDS: gemcitabine 1,600 MG in sodium chloride 0.9% (100 ml) 100 ML 200 MG IV (13:18)
[2022-04-28 14:05] VITALS: BP 113/62; PULSE 52; TEMP 36.5; O2SAT 99
[2022-05-12 09:15] LABS: Basophils % 0.3 %; Eosinophils # 0.1 10^3/uL (0.0-0.8); Eosinophils % 3.9 %; Hematocrit 26.6 % (42.0-52.0); Hemoglobin 8.6 g/dL (11.7-16.6); Lymphocytes # 0.5 10^3/uL (0.8-4.8); Lymphocytes % 13.8 %; Mean Corpuscular HGB Conc 32.3 g/dL (30.0-36.0); Mean Corpuscular Hemoglobin 30.1 pg (28.0-34.0); Mean Platelet Volume 10.1 fL (7.4-10.4); Monocytes # 0.5 10^3/uL (0.2-0.9); Monocytes % 16.2 %; Neutrophils # 2.17 10^3/uL (1.8-7.7); Neutrophils % 65.2 %; Nucleated Red Blood Cells % 0 %; Platelet Count 215 10^3/cmm (130-400); Red Blood Count 2.86 10^6/uL (4.1-5.3); Red Cell Distribution Width 20.1 % (12.1-15.1); White Blood Count 3.3 10^3/uL (4.0-10.0)
[2022-05-12 09:37] LABS: Alanine Aminotransferase 30 U/L (0-41); Albumin Level 3.4 g/dL (3.5-5.2); Alkaline Phosphatase 468 IU/L (40-130); Anion Gap 14.4 (5-19); Aspartate Amino Transferase 33 U/L (0-40); Blood Urea Nitrogen 10 mg/dL (8-23); Carbon Dioxide 20 mmol/L (22-29); Chloride 110 mmol/L (98-107); Globulin 2.7 g/dL (1.3-4.6); Glucose 173 mg/dL (65-115); Osmolality Calculated 295 mOsm/kg (285-295); Potassium 3.4 mmol/L (3.5-5.1); Sodium 141 mmol/L (136-145); Total Bilirubin 0.2 mg/dL (0.15-1.2); Total Protein 6.1 g/dL (6.6-8.7)
[2022-05-12 10:19] LABS: Cancer Antigen 19 9 188.6 U/mL (0-35)
[2022-05-12] MEDS: sodium chloride 0.9% 250 ML 100 ML IV (11:28)
[2022-05-12] MEDS: famotidine 20 mg/2 mL INJ IVP (11:28)
[2022-05-12] MEDS: palonosetron 0.25 mg/5 mL SDV IVP (11:45)
[2022-05-12] MEDS: FLEXIBLE CONTAINER IV (12:16)
[2022-05-12] MEDS: PACLITAXEL PROTEIN BOUND IV (12:16)
[2022-05-12] MEDS: gemcitabine 1,700 MG in sodium chloride 0.9% (100 ml) 100 ML 200 MG IV (13:14)
[2022-05-12 14:11] VITALS: BP 141/75; PULSE 49; TEMP 36.7; O2SAT 99
== END 2022-05-12 23:59 | disposition home or self-care (01) ==
PROVIDERS: Nurse Practitioner Family; PCP Family Medicine; Visit Provider Internal Medicine Hematology & Oncology
DX: Z51.11 Encounter for antineoplastic chemotherapy (principal); C25.8 Malignant neoplasm of overlapping sites of pancreas; C78.7 Secondary malignant neoplasm of liver and intrahepatic bile duct; C77.8 Secondary and unspecified malignant neoplasm of lymph nodes of multiple regions; R17 Unspecified jaundice; K52.1 Toxic gastroenteritis and colitis; T47.5X5A Adverse effect of digestants, initial encounter; D50.9 Iron deficiency anemia, unspecified; R91.1 Solitary pulmonary nodule; D70.1 Agranulocytosis secondary to cancer chemotherapy; T45.1X5A Adverse effect of antineoplastic and immunosuppressive drugs, initial encounter; Z79.899 Other long term (current) drug therapy
CPT/HCPCS: 36591; 80053; 85025; 86301; 96367; 96375; 96413; 96417; 99215; J1100; J2469; J2704; J3490; J7050; J9201; J9264

== ENCOUNTER 2022-06-09 08:30 | Oncology outpatient (recurring) (ONCR) | payer MEDICARE, SELFPAY ==
[2022-05-13 10:46] VITALS: BP 109/62; PULSE 48; RESP 18; TEMP 36.1; O2SAT 98
[2022-05-17 15:35] VITALS: BP 97/56; PULSE 66; RESP 16; TEMP 36.7; O2SAT 99
[2022-05-19 08:45] LABS: Basophils # 0.1 10^3/uL (0.0-0.1); Basophils % 0.5 %; Eosinophils % 0.3 %; Hemoglobin 8.5 g/dL (11.7-16.6); Lymphocytes # 0.6 10^3/uL (0.8-4.8); Lymphocytes % 4.6 %; Mean Corpuscular HGB Conc 31.5 g/dL (30.0-36.0); Mean Corpuscular Hemoglobin 30.6 pg (28.0-34.0); Mean Corpuscular Volume 97.1 fl (80-94); Mean Platelet Volume 10.1 fL (7.4-10.4); Monocytes % 7.6 %; Neutrophils # 10.95 10^3/uL (1.8-7.7); Neutrophils % 84.5 %; Nucleated Red Blood Cells % 0 %; Platelet Count 167 10^3/cmm (130-400); Red Blood Count 2.78 10^6/uL (4.1-5.3); Red Cell Distribution Width 19.8 % (12.1-15.1)
[2022-05-19 09:08] LABS: Alanine Aminotransferase 42 U/L (0-41); Albumin Level 3.3 g/dL (3.5-5.2); Alkaline Phosphatase 451 IU/L (40-130); Anion Gap 15.9 (5-19); Aspartate Amino Transferase 43 U/L (0-40); Blood Urea Nitrogen 8 mg/dL (8-23); Calcium 8.3 mg/dL (8.5-10.5); Carbon Dioxide 23 mmol/L (22-29); Chloride 104 mmol/L (98-107); Globulin 2.3 g/dL (1.3-4.6); Glucose 226 mg/dL (65-115); Osmolality Calculated 293 mOsm/kg (285-295); Potassium 3.9 mmol/L (3.5-5.1); Sodium 139 mmol/L (136-145); Total Bilirubin 0.2 mg/dL (0.15-1.2); Total Protein 5.6 g/dL (6.6-8.7)
[2022-05-19 09:17] LABS: Slide Review Slide Review Perform
[2022-05-19] MEDS: sodium chloride 0.9% 250 ML 75 ML IV (11:14)
[2022-05-19] MEDS: famotidine 20 mg/2 mL INJ IVP (11:14)
[2022-05-19] MEDS: palonosetron 0.25 mg/5 mL SDV IVP (11:22)
[2022-05-19] MEDS: FLEXIBLE CONTAINER IV (12:06)
[2022-05-19] MEDS: PACLITAXEL PROTEIN BOUND IV (12:06)
[2022-05-19] MEDS: gemcitabine 1,700 MG in sodium chloride 0.9% (100 ml) 100 ML 200 MG IV (12:54)
[2022-05-19 13:34] VITALS: BP 119/63; PULSE 53; TEMP 36.2; O2SAT 99
[2022-06-09 08:51] LABS: Basophils # 0.1 10^3/uL (0.0-0.1); Basophils % 0.8 %; Eosinophils # 0.2 10^3/uL (0.0-0.8); Eosinophils % 2.9 %; Hematocrit 30.5 % (42.0-52.0); Hemoglobin 9.6 g/dL (11.7-16.6); Lymphocytes # 0.7 10^3/uL (0.8-4.8); Lymphocytes % 10.3 %; Mean Corpuscular HGB Conc 31.5 g/dL (30.0-36.0); Mean Corpuscular Hemoglobin 30.2 pg (28.0-34.0); Mean Corpuscular Volume 95.9 fl (80-94); Mean Platelet Volume 9.5 fL (7.4-10.4); Monocytes # 0.9 10^3/uL (0.2-0.9); Neutrophils # 4.74 10^3/uL (1.8-7.7); Neutrophils % 71.4 %; Nucleated Red Blood Cells % 0 %; Platelet Count 296 10^3/cmm (130-400); Red Blood Count 3.18 10^6/uL (4.1-5.3); Red Cell Distribution Width 19.2 % (12.1-15.1); White Blood Count 6.6 10^3/uL (4.0-10.0)
[2022-06-09 09:26] LABS: Alanine Aminotransferase 24 U/L (0-41); Albumin Level 3.5 g/dL (3.5-5.2); Alkaline Phosphatase 529 IU/L (40-130); Aspartate Amino Transferase 35 U/L (0-40); Blood Urea Nitrogen 10 mg/dL (8-23); Calcium 8.5 mg/dL (8.5-10.5); Cancer Antigen 19 9 213.3 U/mL (0-35); Carbon Dioxide 24 mmol/L (22-29); Chloride 105 mmol/L (98-107); Globulin 2.5 g/dL (1.3-4.6); Glucose 185 mg/dL (65-115); Osmolality Calculated 290 mOsm/kg (285-295); Sodium 138 mmol/L (136-145); Total Bilirubin 0.2 mg/dL (0.15-1.2)
[2022-06-09] MEDS: sodium chloride 0.9% 250 ML 100 ML IV (11:55)
[2022-06-09] MEDS: famotidine 20 mg/2 mL INJ IVP (11:57)
[2022-06-09] MEDS: palonosetron 0.25 mg/5 mL SDV IVP (12:05)
[2022-06-09] MEDS: PACLITAXEL PROTEIN BOUND IV (12:41)
[2022-06-09] MEDS: FLEXIBLE CONTAINER IV (12:41)
[2022-06-09] MEDS: gemcitabine 1,700 MG in sodium chloride 0.9% (100 ml) 100 ML 200 MG IV (13:22)
== END 2022-06-12 23:59 | disposition home or self-care (01) ==
PROVIDERS: PCP Family Medicine; Visit Provider Internal Medicine Hematology & Oncology
DX: Z51.11 Encounter for antineoplastic chemotherapy (principal); C25.0 Malignant neoplasm of head of pancreas; Z79.52 Long term (current) use of systemic steroids; Z79.899 Other long term (current) drug therapy; C78.7 Secondary malignant neoplasm of liver and intrahepatic bile duct; D70.1 Agranulocytosis secondary to cancer chemotherapy; D64.9 Anemia, unspecified; T45.1X5A Adverse effect of antineoplastic and immunosuppressive drugs, initial encounter
CPT/HCPCS: 80053; 85025; 86301; 96367; 96372; 96375; 96413; 96417; 99214; 99215; J1100; J2469; J3490; J7050; J9201; J9264; Q5101

== ENCOUNTER 2022-07-07 08:30 | Oncology outpatient (recurring) (ONCR) | payer MEDICARE, SELFPAY ==
[2022-06-16 08:32] LABS: Basophils % 0.6 %; Eosinophils # 0.1 10^3/uL (0.0-0.8); Eosinophils % 1.5 %; Hematocrit 29.5 % (42.0-52.0); Hemoglobin 9.5 g/dL (11.7-16.6); Lymphocytes # 0.5 10^3/uL (0.8-4.8); Lymphocytes % 7.5 %; Mean Corpuscular HGB Conc 32.2 g/dL (30.0-36.0); Mean Corpuscular Hemoglobin 30.1 pg (28.0-34.0); Mean Corpuscular Volume 93.4 fl (80-94); Mean Platelet Volume 10.2 fL (7.4-10.4); Monocytes # 0.4 10^3/uL (0.2-0.9); Monocytes % 6.3 %; Neutrophils # 5.42 10^3/uL (1.8-7.7); Neutrophils % 83.5 %; Nucleated Red Blood Cells % 0 %; Platelet Count 145 10^3/cmm (130-400); Red Blood Count 3.16 10^6/uL (4.1-5.3); Red Cell Distribution Width 18.7 % (12.1-15.1); White Blood Count 6.5 10^3/uL (4.0-10.0)
[2022-06-16 08:53] LABS: Alanine Aminotransferase 58 U/L (0-41); Albumin Level 3.4 g/dL (3.5-5.2); Alkaline Phosphatase 569 IU/L (40-130); Anion Gap 13.2 (5-19); Aspartate Amino Transferase 61 U/L (0-40); Blood Urea Nitrogen 11 mg/dL (8-23); Calcium 8.4 mg/dL (8.5-10.5); Carbon Dioxide 23 mmol/L (22-29); Chloride 106 mmol/L (98-107); Globulin 2.6 g/dL (1.3-4.6); Glucose 173 mg/dL (65-115); Osmolality Calculated 290 mOsm/kg (285-295); Potassium 4.2 mmol/L (3.5-5.1); Sodium 138 mmol/L (136-145); Total Bilirubin 0.2 mg/dL (0.15-1.2)
[2022-06-16] MEDS: sodium chloride 0.9% 250 ML 100 ML IV (10:11)
[2022-06-16] MEDS: palonosetron 0.25 mg/5 mL SDV IVP (10:13)
[2022-06-16] MEDS: famotidine 20 mg/2 mL INJ IVP (10:14)
[2022-06-16] MEDS: PACLITAXEL PROTEIN BOUND IV (11:05)
[2022-06-16] MEDS: FLEXIBLE CONTAINER IV (11:05)
[2022-06-16] MEDS: gemcitabine 1,700 MG in sodium chloride 0.9% (100 ml) 100 ML 200 MG IV (11:43)
[2022-06-16 12:26] VITALS: BP 113/60; PULSE 66; RESP 16; TEMP 37.4
[2022-06-30 08:36] LABS: Basophils % 0.8 %; Eosinophils # 0.1 10^3/uL (0.0-0.8); Eosinophils % 5.4 %; Hematocrit 26.3 % (42.0-52.0); Hemoglobin 8.1 g/dL (11.7-16.6); Lymphocytes # 0.5 10^3/uL (0.8-4.8); Mean Corpuscular HGB Conc 30.8 g/dL (30.0-36.0); Mean Corpuscular Hemoglobin 29.1 pg (28.0-34.0); Mean Corpuscular Volume 94.6 fl (80-94); Mean Platelet Volume 9.7 fL (7.4-10.4); Monocytes # 0.5 10^3/uL (0.2-0.9); Monocytes % 18.8 %; Neutrophils # 1.49 10^3/uL (1.8-7.7); Nucleated Red Blood Cells % 0 %; Platelet Count 206 10^3/cmm (130-400); Red Blood Count 2.78 10^6/uL (4.1-5.3); Red Cell Distribution Width 18.3 % (12.1-15.1); White Blood Count 2.6 10^3/uL (4.0-10.0)
[2022-06-30 09:11] LABS: Alanine Aminotransferase 22 U/L (0-41); Albumin Level 3.2 g/dL (3.5-5.2); Alkaline Phosphatase 531 U/L (40-130); Anion Gap 16.5 (5-19); Aspartate Amino Transferase 26 U/L (0-40); Blood Urea Nitrogen 6 mg/dL (8-23); Calcium 8.4 mg/dL (8.5-10.5); Cancer Antigen 19 9 145.8 U/mL (0-35); Carbon Dioxide 21 mmol/L (22-29); Chloride 108 mmol/L (98-107); Globulin 2.6 g/dL (1.3-4.6); Glucose 172 mg/dL (65-115); Osmolality Calculated 296 mOsm/kg (285-295); Potassium 3.5 mmol/L (3.5-5.1); Sodium 142 mmol/L (136-145); Total Bilirubin 0.2 mg/dL (0.15-1.2); Total Protein 5.8 g/dL (6.6-8.7)
[2022-06-30 09:38] LABS: Slide Review Slide Review Perform
[2022-06-30] MEDS: sodium chloride 0.9% 250 ML 100 ML IV (10:37)
[2022-06-30] MEDS: palonosetron 0.25 mg/5 mL SDV IVP (10:38)
[2022-06-30] MEDS: famotidine 20 mg/2 mL INJ IVP (10:38)
[2022-06-30] MEDS: gemcitabine 1,700 MG in sodium chloride 0.9% (100 ml) 100 ML 200 MG IV (11:07)
[2022-07-05] VITALS (12 sets, daily range): BP systolic 87–124; BP diastolic 53–78; PULSE 55–68; RESP 18; TEMP 36.1–36.6; O2SAT 18–98
[2022-07-05 11:14] LABS: Basophils % 0.8 %; Eosinophils # 0.1 10^3/uL (0.0-0.8); Lymphocytes # 0.4 10^3/uL (0.8-4.8); Lymphocytes % 15.8 %; Mean Corpuscular HGB Conc 31.7 g/dL (30.0-36.0); Mean Corpuscular Hemoglobin 29.7 pg (28.0-34.0); Mean Corpuscular Volume 93.6 fl (80-94); Mean Platelet Volume 9.7 fL (7.4-10.4); Monocytes # 0.3 10^3/uL (0.2-0.9); Monocytes % 11.3 %; Neutrophils % 67.6 %; Nucleated Red Blood Cells % 0 %; Platelet Count 241 10^3/cmm (130-400); Red Blood Count 2.19 10^6/uL (4.1-5.3); Red Cell Distribution Width 17.7 % (12.1-15.1); White Blood Count 2.7 10^3/uL (4.0-10.0)
[2022-07-05] MEDS: sodium chloride 0.9% 1,000 ML 999 ML IV (11:19)
[2022-07-05 11:23] LABS: Hemoglobin 6.5 g/dL (11.7-16.6)
[2022-07-05 11:24] LABS: Hematocrit 20.5 % (42.0-52.0)
[2022-07-05 11:34] LABS: Alanine Aminotransferase 31 U/L (0-41); Albumin Level 3.1 g/dL (3.5-5.2); Alkaline Phosphatase 471 U/L (40-130); Anion Gap 13.9 (5-19); Aspartate Amino Transferase 26 U/L (0-40); Blood Urea Nitrogen 9 mg/dL (8-23); Calcium 7.9 mg/dL (8.5-10.5); Carbon Dioxide 24 mmol/L (22-29); Chloride 106 mmol/L (98-107); Globulin 1.8 g/dL (1.3-4.6); Glucose 218 mg/dL (65-115); Osmolality Calculated 295 mOsm/kg (285-295); Potassium 3.9 mmol/L (3.5-5.1); Sodium 140 mmol/L (136-145); Total Bilirubin 0.2 mg/dL (0.15-1.2); Total Protein 4.9 g/dL (6.6-8.7)
[2022-07-05] MEDS: acetaminophen 325 mg Tablet 650 MG PO (12:53)
[2022-07-05] MEDS: diphenhydrAMINE 25 mg Capsule PO (12:54)
[2022-07-05] MEDS: FUROsemide 10 mg/mL SDV 2mL 20 MG IVP (15:51)
[2022-07-05] MEDS: sodium chloride 0.9% (100 ml) 100 ML 75 ML (15:52)
[2022-07-07 08:57] LABS: Basophils % 0.4 %; Eosinophils % 0.6 %; Lymphocytes # 0.6 10^3/uL (0.8-4.8); Lymphocytes % 10.6 %; Mean Corpuscular HGB Conc 32.7 g/dL (30.0-36.0); Mean Corpuscular Hemoglobin 30.3 pg (28.0-34.0); Mean Corpuscular Volume 92.7 fl (80-94); Mean Platelet Volume 9.7 fL (7.4-10.4); Monocytes % 17.8 %; Neutrophils # 3.59 10^3/uL (1.8-7.7); Neutrophils % 66.5 %; Nucleated Red Blood Cells % 0.4 %; Platelet Count 158 10^3/cmm (130-400); Red Blood Count 2.18 10^6/uL (4.1-5.3); Red Cell Distribution Width 17.4 % (12.1-15.1); White Blood Count 5.4 10^3/uL (4.0-10.0)
[2022-07-07 09:31] LABS: Hematocrit 20.2 % (42.0-52.0); Hemoglobin 6.6 g/dL (11.7-16.6)
[2022-07-07 09:34] LABS: Alanine Aminotransferase 36 U/L (0-41); Albumin Level 2.9 g/dL (3.5-5.2); Alkaline Phosphatase 552 U/L (40-130); Anion Gap 14.7 (5-19); Aspartate Amino Transferase 39 U/L (0-40); Blood Urea Nitrogen 14 mg/dL (8-23); Calcium 8.2 mg/dL (8.5-10.5); Carbon Dioxide 24 mmol/L (22-29); Chloride 104 mmol/L (98-107); Globulin 2.4 g/dL (1.3-4.6); Glucose 183 mg/dL (65-115); Osmolality Calculated 293 mOsm/kg (285-295); Potassium 3.7 mmol/L (3.5-5.1); Sodium 139 mmol/L (136-145); Total Bilirubin 0.3 mg/dL (0.15-1.2); Total Protein 5.3 g/dL (6.6-8.7)
== END 2022-07-13 23:59 | disposition home or self-care (01) ==
PROVIDERS: Nurse Practitioner Family; PCP Family Medicine; Visit Provider Internal Medicine Hematology & Oncology
DX: C25.0 Malignant neoplasm of head of pancreas (principal)
CPT/HCPCS: 36415; 36430; 36591; 80053; 82274; 85025; 86301; 86850; 86900; 86920; 96367; 96375; 96413; 96417; 99214; 99215; J0461; J1100; J1940; J2469; J2704; J3490; J7030; J7050; J9201; J9264; P9016

== ENCOUNTER 2022-07-07 09:57 | Inpatient (IN) | payer MEDICARE, SELFPAY ==
[2022-07-07] VITALS (22 sets, daily range): BP systolic 81–130; BP diastolic 46–67; PULSE 50–71; RESP 12–19; TEMP 36.3–37; O2SAT 93–100; BMI 25.0
--- NOTE | 2022-07-07 10:19 | ECG_ITS ---
[facility] Test Date: 2022-07-07 Pat Name: Mauricio Powell Department: Room: Gender: Male Silk Weaver: : 1950 Requested By: Td Naranjo Order Number: [id number] Jaun MD: Emilie Quevedo M.D. Measurements Intervals [place] Rate: 67 P: 43 NV: 143 QRS: -8 QRSD: 104 T: 38 QT: 406 QTc: 431 Interpretive Statements SINUS RHYTHM LOW QRS VOLTAGE [QRS DEFLECTION < 0.5/1.0 mV IN LIMB/CHEST LEADS] Compared to ECG 07/17/2019 01:20:50 Myocardial infarct finding no longer present Electronically Signed On 07-08-2022 6:21:31 CDT by Emilie Quevedo M.D. [id number]
[2022-07-07 10:37] LABS: Basophils % 0.3 %; Eosinophils % 0.5 %; Lymphocytes # 0.6 10^3/uL (0.8-4.8); Lymphocytes % 10.6 %; Mean Corpuscular HGB Conc 31.3 g/dL (30.0-36.0); Mean Corpuscular Hemoglobin 29.5 pg (28.0-34.0); Mean Corpuscular Volume 94.5 fl (80-94); Mean Platelet Volume 9.6 fL (7.4-10.4); Monocytes # 1.1 10^3/uL (0.2-0.9); Monocytes % 18.7 %; Neutrophils # 3.76 10^3/uL (1.8-7.7); Neutrophils % 65.2 %; Nucleated Red Blood Cells % 0.3 %; Platelet Count 161 10^3/cmm (130-400); Red Cell Distribution Width 17.6 % (12.1-15.1); White Blood Count 5.8 10^3/uL (4.0-10.0)
[2022-07-07 10:44] LABS: INR 1.13 (0.8-1.2)
[2022-07-07 10:45] LABS: Partial Thromboplastin Time 31.4 SECONDS (23.9-36.7)
[2022-07-07 10:49] LABS: Hemoglobin 6.5 g/dL (11.7-16.6)
[2022-07-07 10:50] LABS: Hematocrit 20.8 % (42.0-52.0)
[2022-07-07 11:06] LABS: Alanine Aminotransferase 34 U/L (0-41); Albumin Level 2.8 g/dL (3.5-5.2); Alkaline Phosphatase 521 U/L (40-130); Anion Gap 14.8 (5-19); Aspartate Amino Transferase 35 U/L (0-40); Blood Urea Nitrogen 15 mg/dL (8-23); Calcium 8.1 mg/dL (8.5-10.5); Carbon Dioxide 23 mmol/L (22-29); Chloride 103 mmol/L (98-107); Globulin 2.3 g/dL (1.3-4.6); Glucose 199 mg/dL (65-115); Osmolality Calculated 290 mOsm/kg (285-295); Potassium 3.8 mmol/L (3.5-5.1); Sodium 137 mmol/L (136-145); Total Bilirubin 0.3 mg/dL (0.15-1.2); Total Protein 5.1 g/dL (6.6-8.7)
--- NOTE | 2022-07-07 11:33 | ED_ITS ---
HPI - Recheck/Abnormal Lab/Rx General: Chief Complaint: Recheck/Abnormal Lab/Rx Stated Complaint: Bloody stool Time Seen by Provider: 07/07/22 10:20 Source: patient Mode of arrival: ambulatory Limitations: no limitations History of Present Illness: 72-year-old male presents emergency room with what he describes as dark stools. He states he has had over the last 4 days he was transfused 2 days ago. He is scheduled for a consult for endoscopy today. States she generally feels weak and has had continued what he describes as bloody stools denies abdominal pain shortness of breath chest pain no esmer temesis or coffee-ground emesis Associated symptoms: other (Dark stools) Treatments prior to arrival: other (Transfusion 2 days ago) Review of Systems Const: Denies: fever(s), chills, body aches, change in appetite, fatigue or malaise ENMT: Denies: throat pain, ear or mastoid pain, nasal discharge or nasal congestion Card: Denies: chest pain, edema, dyspnea on exertion or orthopnea Resp: Denies: dyspnea, productive cough or non-productive cough GI: Denies: abdominal pain, nausea, vomiting, hematemesis, coffee ground emesis, diarrhea, constipation, bloating, hematochezia or melena : Denies: flank pain, dysuria, urinary frequency or urinary urgency Skin/Breast: Denies: rash or pruritus PFSH ED PFSH: Medical History 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 Cardiomyopathy Chemotherapy-induced neutropenia Diabetes mellitus Heart failure Hyperlipidemia Hypertension 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 Pancreatic cancer Recent non-ST elevation myocardial infarction (NSTEMI) Surgical History History of coronary angioplasty (~2019) History of pancreatic surgery History of tonsillectomy and adenoidectomy History of Whipple procedure Family History Father CAD (coronary artery disease), Onset Age: 43 in his 60s with HI Sister CAD (coronary artery disease), Onset Age: 70 had PCI in her 70s Hypertension Mother Cancer Dementia Hypertension Denies family history of Diabetes Clotting disorder Hyperlipidemia Chronic kidney disease (CKD) Suicide Anesthesia complication Bleeding disorder Lung disease Stroke Social History Smoking and tobacco status: former smoker (Social smoker, quit over 40 years ago) Alcohol intake: current Alcohol intake frequency: holidays/special occasions only Alcohol type: beer Physical Exam Const: GENERAL APPEARANCE: cooperative and comfortable ORIENTATION/CONSCIOUSNESS: Yes awake, Yes oriented to person, Yes oriented to place and Yes oriented to time HENMT: COMMON NORMALS: normocephalic, atraumatic and hearing grossly normal b ilaterally HEAD & SCALP: normocephalic and atraumatic Resp: COMMON NORMALS: normal respiratory effort, No retractions, No use of accessory muscles and clear to auscultation bilaterally AUSCULTATION: clear to auscultation bilaterally Cardio: COMMON NORMALS: regular rate, regular rhythm and No murmurs present (Cardio) RATE: regular rate RHYTHM: regular rhythm GI: COMMON NORMALS: Soft to palpation and No hepatosplenomegaly present AUSCULTATION: Yes normoactive bowel sounds PALPATION: Yes Soft to palpation, No Tenderness to palpation present (GI), No Guarding due to palpation present (GI) and Yes No hepatosplenomegaly present Extremity: COMMON NORMALS: normal to inspection, capillary refill normal, no clubbing, cyanosis or edema, no calf tenderness and no pedal edema Neuro: SENSORIUM/ORIENTATION: Yes oriented to person, Yes oriented to place and Yes oriented to time Skin: COMMON NORMALS: no rashes or lesions noted GENERAL SKIN EXAM: no rashes or lesions noted Course Vital Signs: Vital signs: Vital Signs Temperature 97.9 F 07/10/22 19:59 Pulse Rate 79 07/10/22 19:59 Respiratory Rate 19 H 07/10/22 19:59 Blood Pressure 130/70 07/10/22 19:59 Pulse Oximetry 100 07/10/22 19:59 Oxygen Delivery Me thod 07/10/22 12:00 Oxygen Flow Rate 3 07/08/22 13:40 MDM - Recheck/Abnormal Lab/Rx Medical Decision Making Labs and imaging reviewed. Hemoglobin at 6 5 we will admit transfuse consult for endoscopy Medical Records I reviewed the patient's medical records. Lab Data I reviewed the patient's lab results. : 07/10/22 04:39 07/10/22 04:39 Radiology Impressions Abdomen/Pelvis CT 07/08/22 08:10 IMPRESSION: 1. Postsurgical changes consistent with Whipple procedure. No evidence for pancreatic tumor recurrence or metastasis. 2. Pneumobilia with choledochojejunostomy. 3. Mildly dilated loops of proximal small bowel could represent mild ileus or enteritis. No obstruction. 4. Small nonobstructing left renal calculus. 5. Mild body wall edema. 6. Trace left pleural effusion. 7. Stool volume in the colon could indicate constipation. COMMENTS: Consistent with the [employer]'s Incidental Findings Committee white paper (J Am Gina Radiol 2018): Any incidental renal lesion less than 1 cm or classified as too small to characterize, or any incidental cystic renal lesion characterized as simple-appearing, is likely benign. No follow-up imaging is recommended for these lesions per consensus recommendations based on imaging criteria. Laboratory Results WBC 4.4 10^3/uL (4.0-10.0) 07/08/22 02:20 RBC 2.03 10^6/uL (4.1-5.3) L 07/08/22 02:20 Hgb 6.2 g/dL (11.7-16.6) L* 07/08/22 02:20 Hct 19.5 % (42.0-52.0) L* 07/08/22 02:20 MCV 96.1 fl (80-94) H 07/08/22 02:20 MCH 30.5 pg (28.0-34.0) 07/08/22 02:20 MCHC 31.8 g/dL (30.0-36.0) 07/08/22 02:20 RDW 16.9 % (12.1-15.1) H 07/08/22 02:20 Plt Count 113 10^3/cmm (130-400) L 07/08/22 02:20 MPV 9.8 fL (7.4-10.4) 07/08/22 02:20 Neut % (Auto) 60.7 % 07/08/22 02:20 Lymph % (Auto) 16.2 % 07/08/22 02:20 [place] % (Auto) 16.7 % 07/08/22 02:20 Eos % (Auto) 0.9 % 07/08/22 02:20 Baso % (Auto) 0.5 % 07/08/22 02:20 Neut # (Auto) 2.65 10^3/uL (1.8-7.7) 07/08/22 02:20 Lymph # (Auto) 0.7 10^3/uL (0.8-4.8) L 07/08/22 02:20 [place] # (Auto) 0.7 10^3/uL (0.2-0.9) 07/08/22 02:20 Eos # (Auto) 0.0 10^3/uL (0.0-0.8) 07/08/22 02:20 Baso # (Auto) 0.0 10^3/uL (0.0-0.1) 07/08/22 02:20 Nucleated RBC % (auto) 0.5 % 07/08/22 02:20 Nucleated RBCs # 0.0 /100WBC 07/08/22 02:20 PT 14.80 SECONDS (12.1-14.9) 07/07/22 10:22 INR 1.13 (0.8-1.2) 07/07/22 10:22 APTT 31.4 SECONDS (23.9-36.7) 07/07/22 10:22 Sodium 142 mmol/L (136-145) 07/08/22 02:20 Sodium Cancelled 07/08/22 02:20 Potassium 3.0 mmol/L (3.5-5.1) L 07/08/22 02:20 Potassium Cancelled 07/08/22 02:20 Chloride 112 mmol/L (98-107) H 07/08/22 02:20 Chloride Cancelled 07/08/22 02:20 Carbon Dioxide 21 mmol/L (22-29) L 07/08/22 02:20 Carbon Dioxide Cancelled 07/08/22 02:20 Anion Gap 12.0 (5-19) 07/08/22 02:20 Anion Gap Cancelled 07/08/22 02:20 BUN 15 mg/dL (8-23) 07/08/22 02:20 BUN Cancelled 07/08/22 02:20 Creatinine 0.6 mg/dL (0.7-1.2) L 07/08/22 02:20 Creatinine Cancelled 07/08/22 02:20 GFR Calculation Cancelled 07/08/22 02:20 GFR Calculation Not Reportable 07/08/22 02:20 Glucose 116 mg/dL (65-115) H 07/08/22 02:20 Glucose Cancelled 07/08/22 02:20 POC Glucose 125 mg/dL (70-110) H 07/08/22 06:24 Calculated Osmolality 296 mOsm/kg (285-295) H 07/08/22 02:20 Calculated Osmolality Cancelled 07/08/22 02:20 Calcium 7.1 mg/dL (8.5-10.5) L 07/08/22 02:20 Calcium Cancelled 07/08/22 02:20 Phosphorus 3.1 mg/dL (2.5-4.5) 07/08/22 02:20 Magnesium 1.6 mg/dL (1.7-2.3) L 07/08/22 02:20 Iron 37 ug/dL (59-158) L 07/07/22 10:25 Total Bilirubin 0.4 mg/dL (0.15-1.2) 07/08/22 02:20 AST 29 U/L (0-40) 07/08/22 02:20 ALT 27 U/L (0-41) 07/08/22 02:20 Alkaline Phosphatase 426 U/L (40-130) H 07/08/22 02:20 Total Protein 4.1 g/dL (6.6-8.7) L 07/08/22 02:20 Albumin 2.0 g/dL (3.5-5.2) L 07/08/22 02:20 Globulin 2.1 g/dL (1.3-4.6) 07/08/22 02:20 Vitamin B12 635 pg/mL (232-1245) 07/07/22 10:25 Blood Type A Negative 07/07/22 10:22 Rho(D) Type Negative 07/07/22 10:22 Antibody Screen Negative 07/07/22 10:22 Crossmatch See Detail 07/07/22 10:22 Discharge Plan Discharge Patient Disposition: Admitted As Inpatient Admit Provider: Yony Préez Clinical Impression: Anemia, Acute blood loss anemia, 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, Malignant neoplasm of head of pancreas, Gastrointestinal bleeding, Atherosclerotic cerebrovascular disease Condition: Stable Discharge Diet: As Directed Discharge Activity: Resume usual activity Coding Level of Care Code ED Drama Therapist for Lorna Foster
--- NOTE | 2022-07-07 11:41 | PC.NURSE ---
ERP aware of BP verbal orders given. Awaiting blood from lab
[2022-07-07] MEDS: sodium chloride 0.9% 1,000 ML 999 ML IV (11:50)
[2022-07-07] MEDS: sodium chloride 0.9% (100 ml) 100 ML 200 ML (13:50)
[2022-07-07 13:58] LABS: Iron 37 ug/dL (59-158)
[2022-07-07 14:13] LABS: Vitamin B12 635 pg/mL (232-1245)
--- NOTE | 2022-07-07 14:18 | P.HP_ITS ---
Providers/Chief Complaint Primary Care Provider: Ana Maria Pérez MD Chief Complaint: Bloody stool History of Present Illness Mauricio Powell is a 72 year old male with history of pancreatic cancer that presented to the emergency department for anemia. He was recently seen at his oncologist office where he was found to be anemic on the . 3 days ago he noted some dark stool, to bloody stool. He had no abdominal pain, heartburn, reflux. He is on the antiplatelet medication Brilinta but takes no anticoagulants other antiplatelets or anticoagulants. Hemoglobin was 6.5 on July 05, and received 2 units of packed red blood cells. Hemoglobin is 6.5 on repeat today. He has had about 2 bowel movements in the last 24 hours. Review of Systems Const: Denies: fever(s) or chills Eyes: Denies: change in vision ENMT: Denies: throat pain Card: Denies: chest pain Resp: Denies: dyspnea GI: Reports: hematochezia; Denies: abdominal pain, nausea, vomiting, hematemesis or diarrhea : Denies: flank pain Musc: Denies: neck pain Skin/Breast: Denies: rash Neuro: Denies: headache(s) Psych: Denies: anxiety or depression Endo: Denies: polyuria Jose A/Lymph: Denies: easy bruising All/Imm: Denies: urticaria Medications/Allergies Home Medications Medication Instructions Recorded Confirmed Last Taken Type acetaminophen 500 mg capsule 500 mg PO Q6H PRN Pain 12/11/19 07/07/22 Unknown History loratadine 10 mg tablet (Claritin) 10 mg PO QDAY 12/11/19 07/07/22 Unknown History loperamide 2 mg capsule (Imodium 2 mg PO QID PRN Diarrhea 10/28/20 07/07/22 Unknown History A-D) multivitamin 1 tab PO DAILY 10/28/20 07/07/22 Unknown History nitroglycerin 0.4 mg sublingual 0.4 mg sublingual Q5M PRN Chest 10/28/20 07/07/22 Unknown History tablet (Nitrostat) Pain carvedilol 6.25 mg tablet 6.25 mg PO BID 90 days #180 tabs 10/25/21 07/07/22 07/07/22 Rx sacubitril 49 mg-valsartan 51 mg 1 tab PO BID 30 days #180 tabs 11/08/21 07/07/22 07/07/22 Rx tablet (Entresto) ticagrelor 90 mg tablet (Brilinta) 90 mg PO BID #180 tabs 02/07/22 07/07/22 07/07/22 Rx insulin lispro 100 unit/mL See Rx Instructions .Route 02/15/22 07/07/22 Unknown History subcutaneous pen .COMPLEX PRN blood sugar pen needle, diabetic 32 gauge x #120 ea 04/04/22 07/07/22 Unknown Rx (BD Mariama 2nd Gen Pen Needle) calcium carbonate 200 mg calcium 200 mg PO BID PRN Acid Reflux 06/16/22 07/07/22 Unknown History (500 mg) chewable tablet (Tums) [id number] 1 cap PO BID 06/16/22 07/07/22 07/07/22 History 24,000-76,000-120,000 unit capsule,delayed rel (Creon) blood sugar diagnostic (OneTouch #100 ea 06/30/22 07/07/22 Unknown Rx Ultra Test) albuterol sulfate 90 mcg/actuation 1 puff inhalation Q6H 07/07/22 07/07/22 Unknown History aerosol inhaler rosuvastatin 5 mg tablet 5 mg PO BEDTIME 07/07/22 07/07/22 07/06/22 History simethicone 125 mg tablet 125 mg PO DAILY PRN 07/07/22 07/07/22 Unknown History Gastrointestinal Spasms Or Cramping Allergies Allergy/AdvReac Type Severity Reaction Status Date / Time cat dander Allergy Unknown sneezing Verified 07/07/22 10:58 grass pollen Allergy Unknown sneezing Verified 07/07/22 10:58 PFSH Acute PFSH: Medical History (Updated 07/07/22 @ 14:41 by Yony Pérez MD) 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 Cardiomyopathy Chemotherapy-induced neutropenia Diabetes mellitus Heart failure Hyperlipidemia Hypertension 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 Pancreatic cancer Recent non-ST elevation myocardial infarction (NSTEMI) Surgical History (Updated 07/07/22 @ 14:31 by Yony Pérez MD) History of coronary angioplasty (~2018) History of pancreatic surgery History of tonsillectomy and adenoidectomy History of Whipple procedure Family History Father CAD (coronary artery disease), Onset Age: 43 in his 60s with [place] Sister CAD (coronary artery disease), Onset Age: 70 had PCI in her 70s Hypertension Mother Cancer Dementia Hypertension Denies family history of Diabetes Clotting disorder Hyperlipidemia Chronic kidney disease (CKD) Suicide Anesthesia complication Bleeding disorder Lung disease Stroke Social History Smoking and tobacco status: never smoked Alcohol intake: current Alcohol intake frequency: holidays/special occasions only Alcohol type: beer Vitals/I&O/Wt Last Vital Signs Temp 98.1 F 07/07/22 13:47 Pulse 55 L 07/07/22 13:47 Resp 16 07/07/22 13:47 BP 100/53 07/07/22 13:47 Pulse Ox 100 07/07/22 13:47 O2 Del Method 07/07/22 12:33 07/06/22 07/07/22 07/07/22 22:59 06:59 14:59 Intake Total 1350 / 1350 Balance 1350 / 1350 Weight last 48 hrs Weight 72.575 kg Physical Exam Narrative: General exam is an intelligent male in no apparent distress who relates his history well. HEENT: Atraumatic normocephalic. Pupils equally round. Oropharynx clear. Neck is supple no lymphadenopathy thyromegaly Cardiovascular regular rate and rhythm with a 2/6 systolic murmur, port is present left chest with no evidence of erythema or infection Lungs clear no wheezing or crackles Abdomen is soft nontender with positive bowel sounds. Surgical scar noted. exam is deferred Extremities no cyanosis clubbing or edema, cap refill brisk Skin no rash Neuro no focal deficits Data : 07/07/22 10:22 07/07/22 10:22 Other Labs: EKG demonstrates sinus rhythm, no acute changes Previous echo April 2022 demonstrates ejection fraction of 45% INR is 1.13 Calcium 8.1 LFTs normal with exception of alk phos of 521 Albumin 2.8 A&P Assessment and plan (1) Gastrointestinal bleeding: Patient presents with history of blood in stool, significant anemia. Discontinue his Brilinta GI consult for possible endoscopy Transfusion, 2 units packed red blood cells and repeat hemoglobin following Protonix 40 mg IV every 12 hours NPO Considering blood transfusion, stability of vital signs, ejection fraction of 45% on previous echo we will try not to over hydrate. IVF's 50 cc/hour Stool Hemoccult Status: Acute (2) Anemia: Consistent with acute blood loss anemia, from GI bleeding Baseline hemoglobin may be around 9. Status: Acute (3) Pancreatic cancer: Patient with history of pancreatic carcinoma, Whipple procedure, currently on maintenance treatment. Currently on gemcitabine Status: Acute (4) Atherosclerotic heart disease of [place] coronary artery without angina pectoris: Patient with history of previous stenting. However, this is been over a year ago. Discontinue Brilinta After GI evaluation, will decide when this can be resumed. Status: Acute Qualifiers: [place] vs. transplanted heart: [place] heart Qualified Code(s): I25.10 - Atherosclerotic heart disease of [place] coronary artery without angina pectoris Plan Diabetes mellitus. Sliding scale insulin. Ischemic cardiomyopathy. Continue home medications. 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 transplanted heart: [place] heart
--- NOTE | 2022-07-07 16:12 | PC.NURSE ---
Report called to GARLAND Henao
--- NOTE | 2022-07-07 16:22 | PC.NURSE ---
Patient arrived to ER with left subclavian port accessed from chemo center
[2022-07-07 17:29] LABS: Glucose Point of Care 152 mg/dL (70-110)
[2022-07-07] MEDS: sodium chloride 0.9% 1,000 ML 50 ML IV (18:03)
[2022-07-07] MEDS: pantoprazole 40 mg SDV IVP (18:08)
[2022-07-07] MEDS: carvedilol 6.25 mg Tablet PO (18:11)
[2022-07-07] MEDS: sacubitril/valsartan 24-26 mg Tablet 2 EACH PO (18:14)
--- NOTE | 2022-07-07 18:20 | PC.NURSE ---
Insulin not given for Blood Sugar of 152. Patient NPO for a procedure.
[2022-07-07 18:43] LABS: Hemoglobin 6.4 g/dL (11.7-16.6)
[2022-07-07 18:44] LABS: Hematocrit 20.3 % (42.0-52.0)
[2022-07-07] MEDS: albuterol 8 gm MDI 1 PUFF INHALATION (20:21)
[2022-07-07 20:41] LABS: Glucose Point of Care 142 mg/dL (70-110)
[2022-07-07] MEDS: atorvastatin 40 mg Tablet 20 MG PO (22:08)
[2022-07-07] MEDS: sodium chloride 0.9% (100 ml) 100 ML 10 ML (23:13)
[2022-07-08] VITALS (16 sets, daily range): BP systolic 86–117; BP diastolic 46–71; PULSE 56–72; RESP 15–24; TEMP 36.1–36.7; O2SAT 94–100
[2022-07-08] MEDS: pantoprazole 40 mg SDV IVP ×2 (01:06→16:18)
--- NOTE | 2022-07-08 01:06 | PC.NURSE ---
Unable to get 0005 blood vitals due to emergent situation in room 264.
[2022-07-08 02:44] LABS: Basophils % 0.5 %; Eosinophils % 0.9 %; Lymphocytes # 0.7 10^3/uL (0.8-4.8); Lymphocytes % 16.2 %; Mean Corpuscular HGB Conc 31.8 g/dL (30.0-36.0); Mean Corpuscular Hemoglobin 30.5 pg (28.0-34.0); Mean Corpuscular Volume 96.1 fl (80-94); Mean Platelet Volume 9.8 fL (7.4-10.4); Monocytes # 0.7 10^3/uL (0.2-0.9); Monocytes % 16.7 %; Neutrophils # 2.65 10^3/uL (1.8-7.7); Neutrophils % 60.7 %; Nucleated Red Blood Cells % 0.5 %; Platelet Count 113 10^3/cmm (130-400); Red Blood Count 2.03 10^6/uL (4.1-5.3); Red Cell Distribution Width 16.9 % (12.1-15.1); White Blood Count 4.4 10^3/uL (4.0-10.0)
--- NOTE | 2022-07-08 02:50 | ECG_ITS ---
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 Measurements Intervals [place] Rate: 56 P: 42 [place]: 140 QRS: -20 QRSD: 108 T: 10 QT: 425 QTc: 412 Interpretive Statements SINUS BRADYCARDIA LOW QRS VOLTAGE [QRS DEFLECTION < 0.5/1.0 mV IN LIMB/CHEST LEADS] INFERIOR MYOCARDIAL INFARCTION , PROBABLY OLD [40+ ms Q WAVE AND/OR ST/T ABNORMALITY IN II/aVF] Compared to ECG 07/07/2022 10:19:29 Myocardial infarct finding now present Sinus rhythm no longer present Electronically Signed On 07-09-2022 9:26:58 CDT by Elio Grady M.D. [email or web address]
--- NOTE | 2022-07-08 02:59 | PC.NURSE ---
Patient showed abnormal rhythm on monitor for short period of time. Dr. Ramesh notified. Patient asymptomatic. See vital signs. EKG ordered. Labs ordered.
[2022-07-08] MEDS: sodium chloride 0.9% 250 ML IV (03:11)
[2022-07-08 03:13] LABS: Magnesium 1.6 mg/dL (1.7-2.3)
--- NOTE | 2022-07-08 03:32 | PC.NURSE ---
Dr. Ramesh notified of potassium of 3.0 and magnessium of 1.6. See orders/mar.
[2022-07-08 03:35] LABS: Blood Urea Nitrogen 15 mg/dL (8-23); Carbon Dioxide 21 mmol/L (22-29); Chloride 112 mmol/L (98-107); Glucose 116 mg/dL (65-115)
[2022-07-08 03:49] LABS: Alanine Aminotransferase 27 U/L (0-41); Alkaline Phosphatase 426 U/L (40-130); Aspartate Amino Transferase 29 U/L (0-40); Globulin 2.1 g/dL (1.3-4.6); Phosphorus 3.1 mg/dL (2.5-4.5); Total Bilirubin 0.4 mg/dL (0.15-1.2); Total Protein 4.1 g/dL (6.6-8.7)
[2022-07-08] MEDS: magnesium sulfate premix 4 GM/100 ML PREMIX IV (03:56)
[2022-07-08 04:02] LABS: Calcium 7.1 mg/dL (8.5-10.5); Osmolality Calculated 296 mOsm/kg (285-295); Sodium 142 mmol/L (136-145)
[2022-07-08] MEDS: potassium chloride ER 20 mEq Tablet PO (04:08)
[2022-07-08 04:29] LABS: Hematocrit 19.5 % (42.0-52.0); Hemoglobin 6.2 g/dL (11.7-16.6)
[2022-07-08] MEDS: lidocaine 1% 5 ML in potassium chloride premix 100 ML 25 ML IV ×2 (04:48→16:17)
--- NOTE | 2022-07-08 05:15 | PC.NURSE ---
Bright red blood noted in patient's stool.
[2022-07-08 06:26] LABS: Glucose Point of Care 125 mg/dL (70-110)
[2022-07-08] MEDS: sodium chloride 0.9% (100 ml) 100 ML (07:48)
--- NOTE | 2022-07-08 08:10 | CTR_ITS ---
PROCEDURE INFORMATION: Exam: CT Abdomen And Pelvis With Contrast Exam date and time: 07/08/2022 5:18 PM Age: 72 years old Clinical indication: Other: Gi bleed; Prior surgery; Surgery type: Cbd stent; Additional info: Gi bleed, pancreatic CA TECHNIQUE: Imaging protocol: Computed tomography of the abdomen and pelvis with contrast. Radiation optimization: All CT scans at this facility use at least one of these dose optimization techniques: automated exposure control; mA and/or kV adjustment per patient size (includes targeted exams where dose is matched to clinical indication); or iterative reconstruction. Contrast material: OMNI 3550; Contrast volume: 80 ml; Contrast route: INTRAVENOUS (IV); COMPARISON: MR MRCP [id number] 07/17/2019 4:37 PM RADIATION DOSE METRICS: Total DLP (mGy-cm): 485.02 FINDINGS: Lungs: Mild atelectasis or scarring in the lung bases. Pleural spaces: Trace left pleural effusion. Heart: Coronary artery calcifications. Liver: Cyst in the right liver lobe, Hounsfield units 20 or less. No follow-up imaging recommended. Focal scar in the right liver lobe. Gallbladder and bile ducts: Choledochojejunostomy with pneumobilia. Pancreas: Resection of the pancreatic head. The remainder of the pancreas is atrophic. Spleen: Normal. No splenomegaly. Adrenal glands: Normal. No mass. Kidneys and ureters: Hypodensity in the right kidney is too small to characterize but is most likely a cyst. No follow-up imaging is recommended. 3 mm calculus in the left kidney. No hydronephrosis. Bilateral perinephric stranding is likely physiologic. Stomach and bowel: Resection of the distal stomach. The remaining stomach is unremarkable. Moderate stool and gas scattered throughout the colon. A portion of the transverse colon is contained within a small umbilical hernia. No wall thickening or obstruction. Partial small bowel resection. There are multiple loops of mildly dilated proximal small bowel measuring up to 4.4 cm. No obstruction. Appendix: The appendix is visualized and is normal. Intraperitoneal space: Unremarkable. No free air. No significant fluid collection. Vasculature: Arterial calcifications. No aneurysm. Lymph nodes: Unremarkable. No enlarged lymph nodes. Urinary bladder: Unremarkable as visualized. Reproductive: Calcifications in the prostate. Bones/joints: Degenerative changes of the spine. No fracture or lytic lesion. Soft tissues: Small umbilical hernia containing fat and a small portion of the transverse colon. Mild body wall edema. CT/CT abdomen pelvis w con* [id number] IMPRESSION: 1. Postsurgical changes consistent with Whipple procedure. No evidence for pancreatic tumor recurrence or metastasis. 2. Pneumobilia with choledochojejunostomy. 3. Mildly dilated loops of proximal small bowel could represent mild ileus or enteritis. No obstruction. 4. Small nonobstructing left renal calculus. 5. Mild body wall edema. 6. Trace left pleural effusion. 7. Stool volume in the colon could indicate constipation. COMMENTS: Consistent with the [employer]'s Incidental Findings Committee white paper (J Am Gina Radiol 2018): Any incidental renal lesion less than 1 cm or classified as too small to characterize, or any incidental cystic renal lesion characterized as simple-appearing, is likely benign. No follow-up imaging is recommended for these lesions per consensus recommendations based on imaging criteria.
--- NOTE | 2022-07-08 08:20 | P.PN_ITS ---
Subjective Subjective: Mauricio reports 4-5 bloody stools since admission. Hemoglobin repeated early this morning still significantly low and another unit was ordered which is still hanging, set to complete around noon. No abdominal pain, nausea. Reports of bleeding, frequent frequent stools have significantly improved in the last 3 to 4 hours. Medications: Reviewed: Yes Vitals/I&O/Wt Last Vital Signs Temp 98.0 F 07/08/22 07:59 Pulse 59 L 07/08/22 07:59 Resp 15 07/08/22 07:32 BP 107/64 07/08/22 07:59 Pulse Ox 96 07/08/22 07:59 O2 Del Method 07/08/22 07:32 07/07/22 07/08/22 07/08/22 22:59 06:59 14:59 Intake Total 675.833 / 2025.833 450 / 2475.833 105 / 105 Balance 675.833 / 2025.833 450 / 2475.833 105 / 105 Weight last 48 hrs Weight 72.575 kg Physical Exam Narrative: General exam no distress Neck is supple no lymphadenopathy thyromegaly Cardiovascular regular rate and rhythm with a 2/6 systolic murmur, port is present left chest with no evidence of erythema or infection Lungs clear no wheezing or crackles Abdomen is soft nontender with positive bowel sounds. Surgical scar noted. Extremities no cyanosis clubbing or edema, cap refill brisk Skin no rash Data : 07/08/22 02:20 07/08/22 02:20 A&P Assessment and plan (1) Gastrointestinal bleeding: Patient presents with history of blood in stool, significant anemia. Brilinta has been discontinued currently GI consult for possible endoscopy He has received 3 units this hospitalization for his GI bleeding. He received 2 units of blood on 05 July. Continue Protonix 40 mg IV every 12 hours NPO Considering blood transfusion, stability of vital signs, ejection fraction of 45% on previous echo we will try not to over hydrate. IVF's 50 cc/hour Repeat hemoglobin following transfusion, try to transfuse to hemoglobin greater than [address] abdomen and pelvis May require colonoscopy as well as EGD. Status: Acute (2) Anemia: Consistent with acute blood loss anemia, from GI bleeding Baseline hemoglobin may be around 9. Status: Acute (3) Pancreatic cancer: Patient with history of pancreatic carcinoma, Whipple procedure, currently on maintenance treatment. Currently on gemcitabine Status: Acute (4) Atherosclerotic heart disease of [place] coronary artery without angina pectoris: Patient with history of previous stenting. However, this is been over a year ago. Discontinue Brilinta After GI evaluation, will decide when this can be resumed. Associated with cardiomyopathy with EF of 45%. Hold carvedilol, Entresto secondary to borderline hypotension currently. Restart when able. Status: Acute Qualifiers: [place] vs. transplanted heart: [place]inez heart Qualified Code(s): I25.10 - Atherosclerotic heart disease of [place] coronary artery without angina pectoris Plan Nonsustained ventricular tachycardia noted last night, and when electrolytes repeated hypomagnesemia and hypokalemia were noted. These were both supplemented IV. Repeat levels with hemoglobin once blood transfusion comp leted. No further arrhythmias have been noted since supplementation of electrolytes. Hypomagnesemia, supplemented. Repeat level later today Hypokalemia. Supplemented. Repeat level later today. Diabetes mellitus. Sliding scale insulin. Ischemic cardiomyopathy. Continue home medications. Multiple other medical problems as outlined in past medical history Full code SCDs for DVT prophylaxis secondary to GI bleeding Attestations Medical Necessity Statement*: Needs continued hospital stay secondary to GI bleeding requiring multiple transfusions, nonsustained V. tach with electrolyte abnormalities. Changed to full admission. 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 transplanted heart: [place] heart
--- NOTE | 2022-07-08 10:18 | P.ANESASSM_ITS ---
Pre-Anesthetic Assessment Height/Weight: Height 1.7 m Weight 72.575 kg Temp Pulse Resp BP Pulse Ox O2 Del Method 98.0 F 58 L 17 107/64 96 07/08/22 07:59 07/08/22 08:34 07/08/22 08:34 07/08/22 07:59 07/08/22 08:34 07/08/22 08:34 Preop Diagnosis: GI Bleed Operation Date: 07/08/22 13:30 Proposed Procedures p EGD(Not Applicable) - Owen Hodgson DO Familial anesthetic complications: none Was Beta Eugenia taken within 24 hours: Yes Was Clonidine taken within 24 hours: N/A Last intake: 07/07/22 Social No alcohol and No tobacco Exam alert, oriented x 3, clear to auscultation bilaterally and regular rate & rhythm Airway Submandibular: within normal limits Cervical ROM: within normal limits Mallampati: Class II Dentition: full Pulmonary None reported CV/HEM Anemia, Coronary Artery Disease (Hx of 3 stents ~ 3 years ago ), Congestive Heart Failure, Hypertension and Myocardial Infarction Cardiomyopathy hx Orthostatic dizziness Hgb 6.2 on 07/08/22 @ 0220 repeat @1128 on 07/08/22 8.0 Able to ascend a flight of stairs w/o CP/SOB EKG 07/08/22 Interpretive Statements SINUS BRADYCARDIA LOW QRS VOLTAGE? [QRS DEFLECTION < 0.5/1.0 mV IN LIMB/CHEST LEADS] INFERIOR MYOCARDIAL INFARCTION , PROBABLY OLD [40+ ms Q WAVE AND/OR ST/T ABNORMALITY IN II/aVF] Compared to ECG 07/07/2022 10:19:29 Myocardial infarct finding now present Sinus rhythm no longer present [id number] TTE 05/03/22 ?CONCLUSIONS ?Diffuse hypokinesia left ventricular ejection fraction of 45%. ?(Visual) ?Normal cardiac chamber sizes. ?No intracardiac masses. ?The ejection fraction estimation by MOD need to be repeated on ?the study. ?Compared to the study from 11/19/2020, there may not be a ?significant change K 3.0 07/08/22 @ 0220 repeat 3.5 @ 1128 on 07/08/22 Hepatic Livers metastasis Elevated alk phos GI Metastatic pancreatic cancer GI Bleed Metabolic Diabetes Mellitus [facility] [place] [place] [facility] None reported Neuropsych None reported Anesthetic Plan ASA status: 3 Anesthesia: Anesthesia Evaluation, General and MAC Other: I discussed with the patient risks, goals, and benefits of MAC and general anesthesia. We discussed spectrum of MAC anesthesia including conversion to general as well as possibility of recall of intraoperative stimuli including discomfort/pain. Patient agrees to proceed with MAC. Risk of > 500 ml blood loss (7ml/kg in children): No Medications/Allergies Home Medications Medication Instructions Recorded Confirmed Last Taken Type acetaminophen 500 mg capsule 500 mg PO Q6H PRN Pain 12/11/19 07/07/22 Unknown History loratadine 10 mg tablet (Claritin) 10 mg PO QDAY 12/11/19 07/07/22 Unknown History loperamide 2 mg capsule (Imodium 2 mg PO QID PRN Diarrhea 10/28/20 07/07/22 Unkn own History A-D) multivitamin 1 tab PO DAILY 10/28/20 07/07/22 Unknown History nitroglycerin 0.4 mg sublingual 0.4 mg sublingual Q5M PRN Chest 10/28/20 07/07/22 Unknown History tablet (Nitrostat) Pain carvedilol 6.25 mg tablet 6.25 mg PO BID 90 days #180 tabs 10/25/21 07/07/22 07/07/22 Rx sacubitril 49 mg-valsartan 51 mg 1 tab PO BID 30 days #180 tabs 11/08/21 07/07/22 07/07/22 Rx tablet (Entresto) ticagrelor 90 mg tablet (Brilinta) 90 mg PO BID #180 tabs 02/07/22 07/07/22 07/07/22 Rx insulin lispro 100 unit/mL See Rx Instructions .Route 02/15/22 07/07/22 Unknown History subcutaneous pen .COMPLEX PRN blood sugar pen needle, diabetic 32 gauge x #120 ea 04/04/22 07/07/22 Unknown Rx (BD Mariama 2nd Gen Pen Needle) calcium carbonate 200 mg calcium 200 mg PO BID PRN Acid Reflux 06/16/22 07/07/22 Unknown History (500 mg) chewable tablet (Tums) [id number] 1 cap PO BID 06/16/22 07/07/22 07/07/22 History 24,000-76,000-120,000 unit capsule,delayed rel (Creon) blood sugar diagnostic (JoshuaTouch #100 ea 06/30/22 07/07/22 Unknown Rx Ultra Test) albuterol sulfate 90 mcg/actuation 1 puff inhalation Q6H 07/07/22 07/07/22 Unknown History aerosol inhaler rosuvastatin 5 mg tablet 5 mg PO BEDTIME 07/07/22 07/07/22 07/06/22 History simethicone 125 mg tablet 125 mg PO DAILY PRN 07/07/22 07/07/22 Unknown History Gastrointestinal Spasms Or Cramping Allergies Allergy/AdvReac Type Severity Reaction Status Date / Time cat dander Allergy Unknown sneezing Verified 07/07/22 10:58 grass pollen Allergy Unknown sneezing Verified 07/07/22 10:58 Current Medications Generic Name Dose Route Start Last Admin Trade Name Freq PRN Reason Stop Dose Admin Albuterol Sulfate 1 puff 07/07/22 16:39 07/08/22 05:14 Albuterol 8 Gm Mdi INHALATION Not Given Q6H PETAR Atorvastatin Calcium 20 mg 07/07/22 21:00 07/07/22 22:08 Atorvastatin 40 Mg Tablet PO 20 mg BEDTIME PETAR Administration Carvedilol 6.25 mg 07/07/22 18:00 07/07/22 18:11 Carvedilol 6.25 Mg Tablet PO 6.25 mg BID PETAR Administration Sodium Chloride 1,000 mls @ 50 mls/hr 07/07/22 16:39 07/08/22 01:08 Sodium Chloride 0.9% IV 50 mls/hr .Q20H PETAR Infusion Insulin Human Lispro 0 unit 07/07/22 18:00 07/08/22 07:57 Insulin Lispro 100 Unit/1 Ml SUBCUT Not Given WM&BEDTIME PETAR Protocol Pantoprazole Sodium 40 mg 07/07/22 15:00 07/08/22 01:06 Pantoprazole 40 Mg Sdv IVP 40 mg Q12H PETAR Administration Sacubitril/Valsartan 2 each 07/07/22 18:00 07/07/22 18:14 Sacubitril/Valsartan 24-26 Mg Tablet PO 2 each BID PETAR Administration PFSH Anesthesia Medical History 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 Cardiomyopathy Chemotherapy-induced neutropenia Diabetes mellitus Heart failure Hyperlipidemia Hypertension 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 Pancreatic cancer Recent non-ST elevation myocardial infarction (NSTEMI) Surgical History History of coronary angioplasty (~2019) History of pancreatic surgery History of tonsillectomy and adenoidectomy History of Whipple procedure Family History Father CAD (coronary artery disease), Onset Age: 43 in his 60s with VT Sister CAD (coronary artery disease), Onset Age: 70 had PCI in her 70s Hypertension Mother Cancer Dementia Hypertension Denies family history of Diabetes Clotting disorder Hyperlipidemia Chronic kidney disease (CKD) Suicide Anesthesia complication Bleeding disorder Lung disease Stroke Social History Smoking and tobacco status: never smoked Alcohol intake: current Alcohol intake frequency: holidays/special occasions on ly Alcohol type: beer Data Anesthesia : 07/08/22 11:28 07/08/22 11:28 Short CBC 07/07/22 07/07/22 07/08/22 Range/Units 10: 16:45 02:20 WBC 5.8 4.4 (4.0-10.0) 10^3/uL Hgb 6.5 L* 6.4 L* 6.2 L* (11.7-16.6) g/dL Hct 20.8 L* 20.3 L* 19.5 L* (42.0-52.0) % MCV 94.5 H 96.1 H (80-94) fl Plt Count 161 113 L (130-400) 10^3/cmm Neut % (Auto) 65.2 60.7 % Neut # (Auto) 3.76 2.65 (1.8-7.7) 10^3/uL BMP 07/07/22 07/08/22 07/08/22 10:22 02:20 02:20 Sodium 137 Cancelled 142 Potassium 3.8 Cancelled 3.0 L Chloride 103 Cancelled 112 H Carbon Dioxide 23 Cancelled 21 L BUN 15 Cancelled 15 Creatinine 0.8 Cancelled 0.6 L Glucose 199 H Cancelled 116 H Calcium 8.1 L Cancelled 7.1 L Liver Function 07/07/22 07/08/22 Range/Units 10:22 02:20 Total Bilirubin 0.3 0.4 (0.15-1.2) mg/dL AST 35 29 (0-40) U/L ALT 34 27 (0-41) U/L Alkaline Phosphatase 521 H 426 H (40-130) U/L Albumin 2.8 L 2.0 L (3.5-5.2) g/dL Blood Bank 07/07/22 10:22 Blood Type A Negative Rho(D) Type Negative Antibody Screen Negative Coags 07/07/22 10:22 PT 14.80 INR 1.13 APTT 31.4 Cardiac Studies: Echocardiogram Limited Views 05/03/22 Echocardiogram Ultrasound 11/19/20
[2022-07-08 11:08] LABS: Glucose Point of Care 121 mg/dL (70-110)
[2022-07-08 11:51] LABS: Hematocrit 25.4 % (42.0-52.0)
[2022-07-08 12:24] LABS: Magnesium 2.5 mg/dL (1.7-2.3); Potassium 3.5 mmol/L (3.5-5.1)
[2022-07-08] MEDS: sodium chloride 0.9% 1,000 ML 30 ML IV (12:48)
--- NOTE | 2022-07-08 12:53 | P.CONIM_ITS ---
Providers/Reason For Consult Consulting Physician/Specialty*: Dr. Owen Hodgson, DO/General surgery Reason for Consult*: Melena Attending Physician: Yony Pérez MD Primary Care Provider: Ana Maria Pérez MD History of Present Illness History of Present Illness Mauricio Powell is a 72 year old male with a history of recurrent pancreatic cancer, on chemotherapy, who presented to the hospital for anemia. He had a Whipple procedure approximately 2 years ago. He has been having multiple melanotic stools and has received several transfusions of PRBCs in the last 3 days. He denies any abdominal pain, nausea, emesis, constipation. He is having some diarrhea with the melena. He is on an antiplatelet drug for his heart. Review of Systems General: Reports: 10 or more systems reviewed and unremarkable except in HPI and below Medications/Allergies Home Medications Medication Instructions Recorded Confirmed Last Taken Type acetaminophen 500 mg capsule 500 mg PO Q6H PRN Pain 12/11/19 07/07/22 Unknown History loratadine 10 mg tablet (Claritin) 10 mg PO QDAY 12/11/19 07/07/22 Unknown History loperamide 2 mg capsule (Imodium 2 mg PO QID PRN Diarrhea 10/28/20 07/07/22 Unknown History A-D) multivitamin 1 tab PO DAILY 10/28/20 07/07/22 Unknown History nitroglycerin 0.4 mg sublingual 0.4 mg sublingual Q5M PRN Chest 10/28/20 07/07/22 Unknown History tablet (Nitrostat) Pain carvedilol 6.25 mg tablet 6.25 mg PO BID 90 days #180 tabs 10/25/21 07/07/22 07/07/22 Rx sacubitril 49 mg-valsartan 51 mg 1 tab PO BID 30 days #180 tabs 11/08/21 07/07/22 07/07/22 Rx tablet (Entresto) ticagrelor 90 mg tablet (Brilinta) 90 mg PO BID #180 tabs 02/07/22 07/07/22 07/07/22 Rx insulin lispro 100 unit/mL See Rx Instructions .Route 02/15/22 07/07/22 Unknown History subcutaneous pen .COMPLEX PRN blood sugar pen needle, diabetic 32 gauge x #120 ea 04/04/22 07/07/22 Unknown Rx (BD Mariama 2nd Gen Pen Needle) calcium carbonate 200 mg calcium 200 mg PO BID PRN Acid Reflux 06/16/22 07/07/22 Unknown History (500 mg) chewable tablet (Tums) [id number]-awdixyh 1 cap PO BID 06/16/22 07/07/22 07/07/22 History 24,000-76,000-120,000 unit capsule,delayed rel (Creon) blood sugar diagnostic (OneTouch #100 ea 06/30/22 07/07/22 Unknown Rx Ultra Test) albuterol sulfate 90 mcg/actuation 1 puff inhalation Q6H 07/07/22 07/07/22 Unknown History aerosol inhaler rosuvastatin 5 mg tablet 5 mg PO BEDTIME 07/07/22 07/07/22 07/06/22 History simethicone 125 mg tablet 125 mg PO DAILY PRN 07/07/22 07/07/22 Unknown History Gastrointestinal Spasms Or Cramping Allergies Allergy/AdvReac Type Severity Reaction Status Date / Time cat dander Allergy Unknown sneezing Verified 07/07/22 10:58 grass pollen Allergy Unknown sneezing Verified 07/07/22 10:58 Current Medications Generic Name Dose Route Start Last Admin Trade Name Freq PRN Reason Stop Dose Admin Albuterol Sulfate 1 puff 07/07/22 16:39 07/08/22 05:14 Albuterol 8 Gm Mdi INHALATION Not Given Q6H PETAR Atorvastatin Calcium 20 mg 07/07/22 21:00 07/07/22 22:08 Atorvastatin 40 Mg Tablet PO 20 mg BEDTIME PETAR Administration Carvedilol 6.25 mg 07/07/22 18:00 07/07/22 18:11 Carvedilol 6.25 Mg Tablet PO 6.25 mg BID PETAR Administration Sodium Chloride 1,000 mls @ 50 mls/hr 07/07/22 16:39 07/08/22 01:08 Sodium Chloride 0.9% IV 50 mls/hr .Q20H PETAR Infusion Sodium Chloride 1,000 mls @ 30 mls/hr 07/08/22 12:45 07/08/22 12:48 Sodium Chloride 0.9% IV 07/09/22 12:44 30 mls/hr .Q24H PETAR Administration Insulin Human Lispro 0 unit 07/07/22 18:00 07/08/22 07:57 Insulin Lispro 100 Unit/1 Ml SUBCUT Not Given WM&BEDTIME PETAR Protocol Pantoprazole Sodium 40 mg 07/07/22 15:00 07/08/22 01:06 Pantoprazole 40 Mg Sdv IVP 40 mg Q12H PETAR Administration Sacubitril/Valsartan 2 each 07/07/22 18:00 07/07/22 18:14 Sacubitril/Valsartan 24-26 Mg Tablet PO 2 each BID PETAR Administration PFSH Acute PFSH: Medical History 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 Cardiomyopathy Chemotherapy-induced neutropenia Diabetes mellitus Heart failure Hyperlipidemia Hypertension 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 Pancreatic cancer Recent non-ST elevation myocardial infarction (NSTEMI) Surgical History History of coronary angioplasty (~2019) History of pancreatic surgery History of tonsillectomy and adenoidectomy History of Whipple procedure Family History Father CAD (coronary artery disease), Onset Age: 43 in his 60s with [place] Sister CAD (coronary artery disease), Onset Age: 70 had PCI in her 70s Hypertension Mother Cancer Dementia Hypertension Denies family history of Diabetes Clotting disorder Hyperlipidemia Chronic kidney disease (CKD) Suicide Anesthesia complication Bleeding disorder Lung disease Stroke Social History Smoking and tobacco status: never smoked Alcohol intake: current Alcohol intake frequency: holidays/special occasions only Alcohol type: beer Vitals/I&O/Wt Last Vital Signs Temp 97 F L 07/08/22 12:35 Pulse 57 L 07/08/22 12:35 Resp 18 07/08/22 12:35 BP 116/63 07/08/22 12:35 Pulse Ox 99 07/08/22 12:35 O2 Del Method 07/08/22 12:35 07/07/22 07/08/22 07/08/22 22:59 06:59 14:59 Intake Total 675.833 / 5.833 450 / 2475.833 105 / 105 Balance 675.833 / 5.833 450 / 2475.833 105 / 105 Weight last 48 hrs Weight 160 lb Physical Exam Narrative: General : Patient is well developed , no acute distress, oriented x3 Head : Normal cephalic, a-traumatic. Ears : Pinnae and external canal are normal. Hearing is normal. Eyes : PERRLA, Sclera and injection are normal. No conjunctival discharge. Nose : Mucous membranes are without erythema. Throat : buccal mucosa is normal, gums are without significant recession or hypertrophy. Lungs : Equal chest rise bilaterally, no use of accessory muscles, trachea is midline. Cor : Rate and rhythm are normal. Abdomen : Soft, ND, NT, no g/r/m Extremities : No edema, no cyanosis or clubbing, dorsalis pedis pulses are present bilaterally, non-tender to palpation of calves. Upper extremities are normal bilaterally. Back : non-tender to palpation, no CVA tenderness. Neuro : CN II - XII intact, Upper and lower extremities have equal and full strength Data : 07/08/22 11:28 07/08/22 11:28 A&P Assessment and plan (1) Gastrointestinal bleeding: Status: Acute (2) Pancreatic cancer: Status: Acute (3) Acute blood loss anemia: Status: Acute Plan EGD The risks and benefits of the procedure, including bleeding, infection, intestinal perforation requiring surgery, missed lesion, or explained to the patient. He is understanding of the risks and wishes to proceed. I suspect that this is an upper GI bleed. 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 Diagnoses Gastrointestinal bleeding K92.2 Pancreatic cancer C25.9 Acute blood loss anemia D62
--- NOTE | 2022-07-08 13:31 | ECG_ITS ---
[facility] Test Date: 2022-07-08 Pat Name: Mauricio Powell Department: Room: 259 Gender: Male Stone Splitter: : 1950 Requested By: Magdaleno Wagoner Order Number: [id number] Reading MD: Elio Grady M.D. Measurements Intervals [place] Rate: 62 P: 52 GA: 159 QRS: -12 QRSD: 109 T: -19 QT: 431 QTc: 439 Interpretive Statements SINUS RHYTHM LOW QRS VOLTAGE IN PRECORDIAL LEADS [QRS DEFLECTION < 1.0 mV IN CHEST LEADS] Nonspecific ST and T wave changes Compared to ECG 07/08/2022 02:57:28 Sinus bradycardia no longer present Myocardial infarct finding no longer present Electronically Signed On 07-09-2022 9:20:27 CDT by Elio Grady M.D. [id number]
--- NOTE | 2022-07-08 13:40 | PM.PN ---
Vitals/I&O/Wt Last Vital Signs Temp 97 F L 07/08/22 12:35 Pulse 57 L 07/08/22 12:35 Resp 18 07/08/22 12:35 BP 116/63 07/08/22 12:35 Pulse Ox 99 07/08/22 12:35 O2 Del Method 07/08/22 12:35 07/07/22 07/08/22 07/08/22 22:59 06:59 14:59 Intake Total 675.833 / 5.833 450 / 2475.833 105 / 105 Balance 675.833 / 2025.833 450 / 2475.833 105 / 105 Weight last 48 hrs Weight 160 lb Data : 07/08/22 11:28 07/08/22 11:28 A&P Assessment and plan (1) Gastritis: Status: Acute (2) Gastrointestinal bleeding: Status: Acute Plan Severe gastritis seen on EGD. Jejunum normal. No active bleeding but friable. 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
--- NOTE | 2022-07-08 13:51 | PM.MISC ---
Miscellaneous Note Note: Called to bedside by LINE CLOSER when patient was recovering from procedure. Per report during intra op phase patient had brief hypotension to SBP in 70s associated with ST depression and bradycardia to 30s on 3 lead. BP immediately recovered with ephedrine, however bradycardia persisted ranging from 30s to 50s. 0.1 mg atropine administered by LINE CLOSER with improvement into 40s to 50s, sinus with occassional PVC. No oxygen desaturations during case per report. On my arrival BP 150/70s, p 50s, SpO2 99 - 100% on NC O2 , breathing spontaneously. Patient awakening, denies CP, SOB, arm/jaw pain, nausea. No diaphoresis. EKG did not show ST changes, troponin ordered. Suspect demand ischemia associated with hypotension and anemia in setting of known CAD and recent NSTEMI. Review of VS flowsheets show heart rate typically in 50-70 range. Case discussed with Doctor Pérez. Will monitor in recovery for 20-30 minutes. If VSS remain stable throughout will send back to floor on telemetry.
[2022-07-08 14:23] LABS: Troponin T (5th) Once 12 ng/L (0-15)
--- NOTE | 2022-07-08 15:02 | ANE.PACU2 ---
Inpatient post-anesthesia follow up: Airway intact: Yes Vital signs: Temperature 97.0 F Pulse Rate 72 Respiratory Rate 18 Blood Pressure 100/54 Pulse Oximetry 99 Oxygen Delivery Me thod Room Air Oxygen Flow Rate 3 Fraction of Inspir ed Oxygen Hydration adequate: Yes Nausea and vomiting: No Pain level: 1 Mental status: Baseline Additional Comments: No further ectopy, hypotension, or profound bradycardia noted in recovery. Patient taken to floor on telemetry.
[2022-07-08 17:05] LABS: Glucose Point of Care 99 mg/dL (70-110)
[2022-07-08] MEDS: iohexol 350 mg/mL 100 mL Btl IV (17:24)
[2022-07-08] MEDS: carvedilol 3.125 mg Tablet PO (18:25)
[2022-07-08] MEDS: sucralfate 1 gm/10 mL Oral Liq UDC PO ×2 (18:27→20:05)
[2022-07-08 18:57] LABS: Basophils % 0.3 %; Eosinophils # 0.1 10^3/uL (0.0-0.8); Eosinophils % 0.8 %; Hematocrit 27.4 % (42.0-52.0); Hemoglobin 8.9 g/dL (11.7-16.6); Lymphocytes # 0.7 10^3/uL (0.8-4.8); Lymphocytes % 11.3 %; Mean Corpuscular HGB Conc 32.5 g/dL (30.0-36.0); Mean Corpuscular Hemoglobin 30.3 pg (28.0-34.0); Mean Corpuscular Volume 93.2 fl (80-94); Mean Platelet Volume 9.7 fL (7.4-10.4); Monocytes # 0.7 10^3/uL (0.2-0.9); Monocytes % 11.1 %; Neutrophils # 4.41 10^3/uL (1.8-7.7); Neutrophils % 72.4 %; Nucleated Red Blood Cells % 0 %; Platelet Count 122 10^3/cmm (130-400); Red Blood Count 2.94 10^6/uL (4.1-5.3); Red Cell Distribution Width 17.8 % (12.1-15.1); White Blood Count 6.1 10^3/uL (4.0-10.0)
[2022-07-08] MEDS: atorvastatin 40 mg Tablet 20 MG PO (20:05)
[2022-07-08] MEDS: loratadine 10 mg Tablet PO (20:05)
[2022-07-08] MEDS: sodium chloride 0.9% 1,000 ML 50 ML IV (22:11)
[2022-07-08 22:15] LABS: Glucose Point of Care 166 mg/dL (70-110)
[2022-07-09] VITALS (9 sets, daily range): BP systolic 101–116; BP diastolic 48–72; PULSE 51–62; RESP 14–18; TEMP 36.4–36.8; O2SAT 94–99
[2022-07-09] MEDS: pantoprazole 40 mg SDV IVP ×2 (04:12→14:37)
[2022-07-09 05:34] LABS: Basophils % 0.4 %; Eosinophils # 0.1 10^3/uL (0.0-0.8); Eosinophils % 2.2 %; Hematocrit 23.4 % (42.0-52.0); Hemoglobin 7.5 g/dL (11.7-16.6); Lymphocytes # 0.6 10^3/uL (0.8-4.8); Lymphocytes % 11.2 %; Mean Corpuscular HGB Conc 32.1 g/dL (30.0-36.0); Mean Corpuscular Hemoglobin 30.4 pg (28.0-34.0); Mean Corpuscular Volume 94.7 fl (80-94); Mean Platelet Volume 9.6 fL (7.4-10.4); Monocytes # 0.7 10^3/uL (0.2-0.9); Monocytes % 12.8 %; Neutrophils # 3.81 10^3/uL (1.8-7.7); Nucleated Red Blood Cells % 0.4 %; Platelet Count 108 10^3/cmm (130-400); Red Blood Count 2.47 10^6/uL (4.1-5.3); Red Cell Distribution Width 18.4 % (12.1-15.1); White Blood Count 5.4 10^3/uL (4.0-10.0)
[2022-07-09 05:57] LABS: Alanine Aminotransferase 29 U/L (0-41); Albumin Level 2.2 g/dL (3.5-5.2); Alkaline Phosphatase 527 U/L (40-130); Anion Gap 11.6 (5-19); Aspartate Amino Transferase 29 U/L (0-40); Blood Urea Nitrogen 15 mg/dL (8-23); Calcium 7.3 mg/dL (8.5-10.5); Carbon Dioxide 20 mmol/L (22-29); Chloride 115 mmol/L (98-107); Globulin 1.9 g/dL (1.3-4.6); Glucose 102 mg/dL (65-115); Magnesium 2.1 mg/dL (1.7-2.3); Osmolality Calculated 297 mOsm/kg (285-295); Potassium 3.6 mmol/L (3.5-5.1); Sodium 143 mmol/L (136-145); Total Bilirubin 0.3 mg/dL (0.15-1.2); Total Protein 4.1 g/dL (6.6-8.7)
[2022-07-09 06:22] LABS: Glucose Point of Care 107 mg/dL (70-110)
[2022-07-09] MEDS: sucralfate 1 gm/10 mL Oral Liq UDC PO ×4 (06:29→20:31)
[2022-07-09] MEDS: albuterol 8 gm MDI 1 PUFF INHALATION ×2 (08:10→19:38)
[2022-07-09] MEDS: carvedilol 3.125 mg Tablet PO ×2 (08:32→17:47)
[2022-07-09 11:47] LABS: Glucose Point of Care 182 mg/dL (70-110)
[2022-07-09] MEDS: insulin lispro 100 unit/1 mL SUBCUT (12:08)
--- NOTE | 2022-07-09 16:35 | P.PN_ITS ---
Subjective Subjective: Status post EGD yesterday which showed gastritis with friable mucosa and some bleeding. He continues to have melanotic bowel movements today. Has had 2 episodes since this morning. Hemoglobin at 7.5 this morning. No hematemesis. Medications: Reviewed: Yes Vitals/I&O/Wt Last Vital Signs Temp 97.5 F L 07/09/22 12:00 Pulse 51 L 07/09/22 14:00 Resp 14 07/09/22 12:00 BP 101/63 07/09/22 12:00 Pulse Ox 99 07/09/22 12:00 O2 Del Method 07/09/22 12:00 O2 Flow Rate 3 07/08/22 13:40 07/09/22 07/09/22 07/09/22 06:59 14:59 22:59 Intake Total 585 / 585 Balance 585 / 585 Physical Exam Narrative: General: No acute distress, AO x3 HEENT: PERRLA, pupils bilaterally equal and reactive, pallors not present Chest: Normal vesicular breath sounds, no added sounds, equal good air entry bilaterally CVS: S1-S2 regular, no murmurs, no tachycardia, no gallops, no rubs Abdomen: Soft, nontender, no organomegaly, bowel sounds present Neuro: No focal deficits, no facial deformity, AO x3, power 5/5 in all limbs Data : 07/09/22 05:26 07/09/22 05:26 A&P Assessment and plan (1) Gastrointestinal bleeding: Patient presents with history of blood in stool, significant anemia. Brilinta has been discontinued currently He has received 3 units this hospitalization for his GI bleeding. He received 2 units of blood on 05 July. Endoscopy showed evidence of gastritis with bleeding. He has had 2 melanotic bowel movements today. Hemoglobin stable at 7.5 today. We will recheck again at 6 PM and then again tomorrow morning given ongoing dark stools. Continue Protonix 40 mg IV every 12 hours; sucralfate has been added twice daily additionally Considering blood transfusion, stability of vital signs, ejection fraction of 45% on previous echo we will try not to over hydrate. IVF's 50 cc/hour Status: Acute (2) Anemia: Consistent with acute blood loss anemia, from GI bleeding Baseline hemoglobin may be around 9. H&H at 6 PM Status: Acute (3) Pancreatic cancer: Patient with history of pancreatic carcinoma, Whipple procedure, currently on maintenance treatment. Currently on gemcitabine Status: Acute (4) Atherosclerotic heart disease of [place] coronary artery without angina pectoris: Patient with history of previous stenting. However, this is been over a year ago. Discontinue Brilinta Associated with cardiomyopathy with EF of 45%. Hold carvedilol, Entresto secondary to borderline hypotension and bradycardia currently. Restart when able. Status: Acute Qualifiers: [place] vs. transplanted heart: [place] heart Qualified Code(s): I25.10 - Atherosclerotic heart disease of [place] coronary artery without angina pectoris Plan Hypomagnesemia, supplemented. Hypokalemia. Supplemented. Diabetes mellitus. Sliding scale insulin. Ischemic cardiomyopathy. Continue home medications. Multiple other medical problems as outlined in past medical history Full code SCDs for DVT prophylaxis secondary to GI bleeding Attestations Medical Necessity Statement*: Ongoing melena, continued need to trend hemoglobin. 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 transplanted heart: [place] heart
[2022-07-09] MEDS: sodium chloride 0.9% 1,000 ML 50 ML IV (17:55)
[2022-07-09 18:01] LABS: Glucose Point of Care 125 mg/dL (70-110)
[2022-07-09 18:21] LABS: Hematocrit 24.3 % (42.0-52.0); Hemoglobin 7.8 g/dL (11.7-16.6)
[2022-07-09] MEDS: atorvastatin 40 mg Tablet 20 MG PO (20:31)
[2022-07-09 22:02] LABS: Glucose Point of Care 128 mg/dL (70-110)
[2022-07-10] VITALS (14 sets, daily range): BP systolic 95–143; BP diastolic 52–80; PULSE 45–79; RESP 12–19; TEMP 36.3–37.1; O2SAT 96–100
[2022-07-10] MEDS: pantoprazole 40 mg SDV IVP ×2 (03:00→14:22)
[2022-07-10 04:59] LABS: Basophils % 0.3 %; Eosinophils # 0.1 10^3/uL (0.0-0.8); Eosinophils % 2.2 %; Hematocrit 23.1 % (42.0-52.0); Hemoglobin 7.3 g/dL (11.7-16.6); Lymphocytes # 0.6 10^3/uL (0.8-4.8); Lymphocytes % 9.4 %; Mean Corpuscular HGB Conc 31.6 g/dL (30.0-36.0); Mean Corpuscular Volume 95.1 fl (80-94); Mean Platelet Volume 9.7 fL (7.4-10.4); Monocytes # 0.8 10^3/uL (0.2-0.9); Monocytes % 13.5 %; Neutrophils # 4.28 10^3/uL (1.8-7.7); Neutrophils % 73.1 %; Nucleated Red Blood Cells % 0 %; Platelet Count 107 10^3/cmm (130-400); Red Blood Count 2.43 10^6/uL (4.1-5.3); Red Cell Distribution Width 18.3 % (12.1-15.1); White Blood Count 5.9 10^3/uL (4.0-10.0)
[2022-07-10 05:21] LABS: Alanine Aminotransferase 28 U/L (0-41); Albumin Level 2.6 g/dL (3.5-5.2); Alkaline Phosphatase 603 U/L (40-130); Anion Gap 8.9 (5-19); Aspartate Amino Transferase 32 U/L (0-40); Blood Urea Nitrogen 10 mg/dL (8-23); Calcium 7.8 mg/dL (8.5-10.5); Carbon Dioxide 20 mmol/L (22-29); Chloride 113 mmol/L (98-107); Globulin 1.7 g/dL (1.3-4.6); Glucose 93 mg/dL (65-115); Osmolality Calculated 287 mOsm/kg (285-295); Sodium 139 mmol/L (136-145); Total Bilirubin 0.3 mg/dL (0.15-1.2); Total Protein 4.3 g/dL (6.6-8.7)
[2022-07-10 06:04] LABS: Magnesium 1.9 mg/dL (1.7-2.3)
[2022-07-10 06:18] LABS: Glucose Point of Care 113 mg/dL (70-110)
[2022-07-10] MEDS: sucralfate 1 gm/10 mL Oral Liq UDC PO ×3 (06:19→17:33)
[2022-07-10 06:25] LABS: Potassium 2.9 mmol/L (3.5-5.1)
[2022-07-10] MEDS: lidocaine 1% 5 ML in potassium chloride premix 100 ML 25 ML IV (07:03)
[2022-07-10] MEDS: albuterol 8 gm MDI 1 PUFF INHALATION (08:12)
[2022-07-10] MEDS: carvedilol 3.125 mg Tablet PO (09:42)
--- NOTE | 2022-07-10 10:09 | PM.PN ---
Subjective Subjective: Patient reports that he is still having some bloody bowel movements, however the rate and amount has decreased significantly. Hemoglobin was 7.5 yesterday morning and is 7.3 today, without additional transfusion. Denies any nausea or vomiting Vitals/I&O/Wt Last Vital Signs Temp 97.4 F L 07/10/22 04:00 Pulse 58 L 07/10/22 08:13 Resp 16 07/10/22 08:13 BP 124/69 07/10/22 07:40 Pulse Ox 96 07/10/22 08:13 O2 Del Method 07/10/22 08:13 O2 Flow Rate 3 07/08/22 13:40 07/09/22 07/10/22 07/10/22 22:59 06:59 14:59 Intake Total 1586.667 / 2171.667 0 / 2171.667 360 / 360 Output Total 0 / 0 Balance 1586.667 / 2171.667 0 / 2171.667 360 / 360 Physical Exam Narrative: General : Patient is well developed , no acute distress, oriented x3 Head : Normal cephalic, a-traumatic. Ears : Pinnae and external canal are normal. Hearing is normal. Eyes : PERRLA, Sclera and injection are normal. No conjunctival discharge. Nose : Mucous membranes are without erythema. Throat : buccal mucosa is normal, gums are without significant recession or hypertrophy. Lungs : Equal chest rise bilaterally, no use of accessory muscles, trachea is midline. Cor : Rate and rhythm are normal. Abdomen : Soft, ND, NT, no g/r/m Extremities : No edema, no cyanosis or clubbing, dorsalis pedis pulses are present bilaterally, non-tender to palpation of calves. Upper extremities are normal bilaterally. Back : non-tender to palpation, no CVA tenderness. Neuro : CN II - XII intact, Upper and lower extremities have equal and full strength Data : 07/10/22 04:39 07/10/22 04:39 A&P Assessment and plan (1) Gastritis: Status: Acute (2) Gastrointestinal bleeding: Status: Acute Plan Severe gastritis seen on EGD. Jejunum normal. 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
[2022-07-10 11:06] LABS: Glucose Point of Care 117 mg/dL (70-110)
--- NOTE | 2022-07-10 11:33 | P.DS_ITS ---
Discharge Providers Date of Admission: 07/08/22 09:19 Date of Discharge: July 10, 2022 Attending Provider at Admission: Yony Pérez MD Attending Provider at Discharge: Kirsty Oneal MD Consults: Owen Hodgson MD Primary Care Provider: Ana Maria Pérez MD Diagnoses at Discharge Discharge Diagnosis (1) Gastritis: Status: Acute (2) Gastrointestinal bleeding: Status: Acute Reason for Visit Reason for Visit: Bloody stool Brief History: ?72 year old male with history of pancreatic cancer that presented to the emergency department for anemia.? He was recently seen at his oncologist office where he was found to be anemic on the .? 3 days ago he noted some dark stool, to bloody stool Hospital Course Hospital Course He underwent EGD which showed Severe gastritis. ?No active bleeding but friable. He has been on treatment with iv protonix 40mg BID and sucralfate which is to continue for 6 weeks at BID dosing and then once daily. He is passing a few clots with his BM however frequency is currently down to once a day from 4-5 episodes previously. His brilinta has been on hold due to the bleed and we will hold it for another 2-3 days post discharge to allow bleeding to stop. His last cardiac stenting was in 2019. He follows with Dr. herzog and Dr. Root locally. He has received total 4 units transfusion this admission. His Hb goal is at 8. Physical Exam Narrative: General: No acute distress, AO x3 HEENT: PERRLA, pupils bilaterally equal and reactive, pallors not present Chest: Normal vesicular breath sounds, no added sounds, equal good air entry bilaterally CVS: S1-S2 regular, no murmurs, no tachycardia, no gallops, no rubs Abdomen: Soft, nontender, no organomegaly, bowel sounds present Neuro: No focal deficits, no facial deformity, AO x3, power 5/5 in all limbs Discharge Data Studies Completed and Pending Completed Studies During Hospitalization Category Date Time Status CT abdomen pelvis w con* [id number] Routine Cat Scan 07/08/22 08:10 Completed Pending at discharge Category Date Time Status Leukocyte Reduced RBC Routine Lab 07/10/22 11:28 Ordered Leukocyte Reduced RBC Stat Lab 07/07/22 10:22 Results Type and Screen Routine Lab 07/10/22 11:28 Ordered Type and Screen Stat Lab 07/07/22 10:22 Results Pathology: Surgical [PTH] Routine Pth 07/08/22 13:26 Received Radiology Impressions Abdomen/Pelvis CT 07/08/22 08:10 IMPRESSION: 1. Postsurgical changes consistent with Whipple procedure. No evidence for pancreatic tumor recurrence or metastasis. 2. Pneumobilia with choledochojejunostomy. 3. Mildly dilated loops of proximal small bowel could represent mild ileus or enteritis. No obstruction. 4. Small nonobstructing left renal calculus. 5. Mild body wall edema. 6. Trace left pleural effusion. 7. Stool volume in the colon could indicate constipation. COMMENTS: Consistent with the [employer]'s Incidental Findings Committee white paper (J Am Gina Radiol 2018): Any incidental renal lesion less than 1 cm or classified as too small to characterize, or any incidental cystic renal lesion characterized as simple-appearing, is likely benign. No follow-up imaging is recommended for these lesions per consensus recommendations based on imaging criteria. Laboratory Results WBC 5.9 10^3/uL (4.0-10.0) 07/10/22 04:39 RBC 2.43 10^6/uL (4.1-5.3) L 07/10/22 04:39 Hgb 7.3 g/dL (11.7-16.6) L 07/10/22 04:39 Hct 23.1 % (42.0-52.0) L 07/10/22 04:39 MCV 95.1 fl (80-94) H 07/10/22 04:39 MCH 30.0 pg (28.0-34.0) 07/10/22 04:39 MCHC 31.6 g/dL (30.0-36.0) 07/10/22 04:39 RDW 18.3 % (12.1-15.1) H 07/10/22 04:39 Plt Count 107 10^3/cmm (130-400) L 07/10/22 04:39 MPV 9.7 fL (7.4-10.4) 07/10/22 04:39 Neut % (Auto) 73.1 % 07/10/22 04:39 Lymph % (Auto) 9.4 % 07/10/22 04:39 [place] % (Auto) 13.5 % 07/10/22 04:39 Eos % (Auto) 2.2 % 07/10/22 04:39 Baso % (Auto) 0.3 % 07/10/22 04:39 Neut # (Auto) 4.28 10^3/uL (1.8-7.7) 07/10/22 04:39 Lymph # (Auto) 0.6 10^3/uL (0.8-4.8) L 07/10/22 04:39 [place] # (Auto) 0.8 10^3/uL (0.2-0.9) 07/10/22 04:39 Eos # (Auto) 0.1 10^3/uL (0.0-0.8) 07/10/22 04:39 Baso # (Auto) 0.0 10^3/uL (0.0-0.1) 07/10/22 04:39 Nucleated RBC % (auto) 0 % 07/10/22 04:39 Nucleated RBCs # 0.0 /100WBC 07/10/22 04:39 PT 14.80 SECONDS (12.1-14.9) 07/07/22 10:22 INR 1.13 (0.8-1.2) 07/07/22 10:22 APTT 31.4 SECONDS (23.9-36.7) 07/07/22 10:22 Sodium 139 mmol/L (136-145) 07/10/22 04:39 Potassium 2.9 mmol/L (3.5-5.1) L 07/10/22 04:39 Chloride 113 mmol/L (98-107) H 07/10/22 04:39 Carbon Dioxide 20 mmol/L (22-29) L 07/10/22 04:39 Anion Gap 8.9 (5-19) 07/10/22 04:39 BUN 10 mg/dL (8-23) 07/10/22 04:39 Creatinine 0.7 mg/dL (0.7-1.2) 07/10/22 04:39 GFR Calculation Not Reportable 07/10/22 04:39 Glucose 93 mg/dL (65-115) 07/10/22 04:39 POC Glucose 117 mg/dL (70-110) H 07/10/22 11:02 Calculated Osmolality 287 mOsm/kg (285-295) 07/10/22 04:39 Calcium 7.8 mg/dL (8.5-10.5) L 07/10/22 04:39 Phosphorus 3.1 mg/dL (2.5-4.5) 07/08/22 02:20 Magnesium 1.9 mg/dL (1.7-2.3) 07/10/22 04:39 Iron 37 ug/dL (59-158) L 07/07/22 10:25 Total Bilirubin 0.3 mg/dL (0.15-1.2) 07/10/22 04:39 AST 32 U/L (0-40) 07/10/22 04:39 ALT 28 U/L (0-41) 07/10/22 04:39 Alkaline Phosphatase 603 U/L (40-130) H 07/10/22 04:39 Troponin T Gen 5 ng/L 12 ng/L (0-15) 07/08/22 13:45 Total Protein 4.3 g/dL (6.6-8.7) L 07/10/22 04:39 Albumin 2.6 g/dL (3.5-5.2) L 07/10/22 04:39 Globulin 1.7 g/dL (1.3-4.6) 07/10/22 04:39 Vitamin B12 635 pg/mL (232-1245) 07/07/22 10:25 Blood Type A Negative 07/07/22 10:22 Rho(D) Type Negative 07/07/22 10:22 Antibody Screen Negative 07/07/22 10:22 Crossmatch See Detail 07/07/22 10:22 Vitals Last Vital Signs Temp 97.4 F L 07/10/22 04:00 Pulse 58 L 07/10/22 08:13 Resp 16 07/10/22 08:13 BP 124/69 07/10/22 07:40 Pulse Ox 96 07/10/22 08:13 O2 Del Method 07/10/22 08:13 O2 Flow Rate 3 07/08/22 13:40 Discharge Plan Discharge Patient Disposition: Home Condition: Stable Prescriptions: New sucralfate 100 mg/mL Suspension 1 g PO AC&BEDTIME 42 Days Qty: 84 0RF pantoprazole [Protonix] 40 mg tablet,delayed release (DR/EC) 40 mg PO BID 42 Days Qty: 84 0RF Continued multivitamin Tablet 1 tab PO DAILY loperamide [Imodium A-D] 2 mg capsule 2 mg PO QID PRN (Reason: Diarrhea) nitroglycerin [Nitrostat] 0.4 mg tablet, sublingual 0.4 mg sublingual Q5M PRN (Reason: Chest Pain) Rx Instructions: do not exceed 3 doses per episode calcium carbonate [Tums] 200 mg calcium (500 mg) tablet,chewable 200 mg PO BID PRN (Reason: Acid Reflux) acetaminophen 500 mg capsule 500 mg PO Q6H PRN (Reason: Pain) loratadine [Claritin] 10 mg tablet 10 mg PO QDAY Creon 24,000-76,000 -120,000 unit capsule,delayed release(DR/EC) 1 cap PO BID Rx Instructions: administer with meals and/or snacks insulin lispro 100 unit/mL insulin pen See Rx Instructions .ROUTE .COMPLEX PRN (Reason: blood sugar) Rx Instructions: sliding scale dose subcutaneously as needed after chemo (DME) OneTouch Ultra Test Strip See Rx Instructions .ROUTE .COMPLEX Qty: 100 3RF Dose Instruction: USE 1 STRIP TO CHECK GLUCOSE BEFORE MEAL(S) AND AT BEDTIME Rx Instructions: USE 1 STRIP TO CHECK GLUCOSE BEFORE MEAL(S) AND AT BEDTIME Entresto 49-51 mg tablet 1 tab PO BID 30 Days Qty: 180 2RF (DME) pen needle, diabetic [BD Mariama 2nd Gen Pen Needle] 32 gauge x 5/32 needle See Rx Instructions .ROUTE .COMPLEX Qty: 120 0RF Dose Instruction: USE WITH INSULIN PEN Rx Instructions: USE WITH INSULIN PEN simethicone 125 mg Tablet 125 mg PO DAILY PRN (Reason: Gastrointestinal Spasms Or Cramping) rosuvastatin 5 mg tablet 5 mg PO BEDTIME albuterol sulfate 90 mcg/actuation HFA aerosol inhaler 1 puff INHALATION Q6H Changed carvedilol 6.25 mg tablet 3.125 mg PO BID 90 Days Qty: 180 3RF Held Brilinta 90 mg tablet 90 mg PO BID Qty: 180 3RF Hold Instructions: Resume on 07/12/22. Discharge Orders: Discharge Order (Routine); Ordered 07/10/22 Ordered By: Kirsty Oneal Referrals: Owen Hodgson DO [Physician] - 2 weeks (Tele) Ana Maria Pérez MD [Primary Care Provider] - Danielle Root MD [Staff Physician] - 4-7 days Discharge Diet: As Directed Discharge Activity: Resume usual activity Patient Instructions: GI Discharge Instructions, Opioid Safety Discharge Attestations Time Spent in Discharge Care*: greater than 30 min Quality Metrics Clinical Quality Measures [ No reported AMI, CVA or VTE this stay] Coding Level of Care Code Acute g FW TN note Diagnoses Gastritis K29.70 Gastrointestinal bleeding K92.2
[2022-07-10 16:54] LABS: Glucose Point of Care 112 mg/dL (70-110)
[2022-07-10] MEDS: sodium chloride 0.9% (100 ml) 100 ML (18:46)
== END 2022-07-10 20:01 | disposition home or self-care (01) | DRG 378 ==
LOC: ER 11:36 → MEDSURG 15:29
PROVIDERS: Family Medicine; Surgery; Admitting Provider Internal Medicine; Emergency Provider Family Medicine; PCP Family Medicine; Visit Provider Student in an Organized Health Care Education/Training Program
PROC: 0DJ08ZZ Inspection of Upper Intestinal Tract, Via Natural or Artificial Opening Endoscopic (ICD-10-PCS; CPT 43235; principal; 2022-07-08 13:30)
DX: K29.01 Acute gastritis with bleeding (principal); C25.9 Malignant neoplasm of pancreas, unspecified; I47.2 Ventricular tachycardia; D62 Acute posthemorrhagic anemia; I97.191 Other postprocedural cardiac functional disturbances following other surgery; I25.10 Atherosclerotic heart disease of native coronary artery without angina pectoris; Z95.5 Presence of coronary angioplasty implant and graft; Z79.01 Long term (current) use of anticoagulants; Z79.02 Long term (current) use of antithrombotics/antiplatelets; I10 Essential (primary) hypertension; E87.6 Hypokalemia; E83.42 Hypomagnesemia; I25.5 Ischemic cardiomyopathy; Z79.899 Other long term (current) drug therapy; I95.81 Postprocedural hypotension; E11.9 Type 2 diabetes mellitus without complications; Z79.4 Long term (current) use of insulin; Z87.891 Personal history of nicotine dependence
CPT/HCPCS: 36415; 36416; 36430; 36591; 43239; 74177; 80053; 82274; 82607; 82962; 83540; 83735; 84100; 84132; 84484; 85014; 85018; 85025; 85610; 85730; 86850; 86900; 86920; 88305; 88342; 93005; 94640; 96360; 96372; 96375; 99285; C9113; G0378; J0461; J1815; J1940; J2704; J3475; J3480; J3535; J7030; J7050; P9016; Q9967

== ENCOUNTER 2022-08-03 11:30 | Oncology outpatient (recurring) (ONCR) | payer MEDICARE, SELFPAY ==
[2022-07-14 14:59] LABS: Basophils % 0.6 %; Eosinophils # 0.1 10^3/uL (0.0-0.8); Eosinophils % 1.8 %; Hematocrit 30.7 % (42.0-52.0); Hemoglobin 9.7 g/dL (11.7-16.6); Lymphocytes # 0.6 10^3/uL (0.8-4.8); Lymphocytes % 8.6 %; Mean Corpuscular HGB Conc 31.6 g/dL (30.0-36.0); Mean Corpuscular Hemoglobin 29.9 pg (28.0-34.0); Mean Corpuscular Volume 94.8 fl (80-94); Mean Platelet Volume 10.2 fL (7.4-10.4); Monocytes # 0.8 10^3/uL (0.2-0.9); Monocytes % 11.5 %; Neutrophils # 5.52 10^3/uL (1.8-7.7); Neutrophils % 76.7 %; Nucleated Red Blood Cells % 0 %; Platelet Count 205 10^3/cmm (130-400); Red Blood Count 3.24 10^6/uL (4.1-5.3); Red Cell Distribution Width 17.7 % (12.1-15.1); White Blood Count 7.2 10^3/uL (4.0-10.0)
[2022-07-14 15:17] LABS: Alanine Aminotransferase 23 U/L (0-41); Albumin Level 2.8 g/dL (3.5-5.2); Alkaline Phosphatase 640 U/L (40-130); Anion Gap 12.2 (5-19); Aspartate Amino Transferase 28 U/L (0-40); Blood Urea Nitrogen 6 mg/dL (8-23); Calcium 8.3 mg/dL (8.5-10.5); Carbon Dioxide 23 mmol/L (22-29); Chloride 105 mmol/L (98-107); Globulin 2.5 g/dL (1.3-4.6); Glucose 110 mg/dL (65-115); Osmolality Calculated 282 mOsm/kg (285-295); Potassium 3.2 mmol/L (3.5-5.1); Sodium 137 mmol/L (136-145); Total Bilirubin 0.4 mg/dL (0.15-1.2); Total Protein 5.3 g/dL (6.6-8.7)
[2022-08-03 12:15] LABS: Basophils % 0.7 %; Eosinophils # 0.3 10^3/uL (0.0-0.8); Eosinophils % 4.5 %; Hematocrit 31.6 % (42.0-52.0); Hemoglobin 9.8 g/dL (11.7-16.6); Lymphocytes # 0.7 10^3/uL (0.8-4.8); Mean Corpuscular Hemoglobin 30.1 pg (28.0-34.0); Mean Corpuscular Volume 96.9 fl (80-94); Mean Platelet Volume 9.7 fL (7.4-10.4); Monocytes # 0.6 10^3/uL (0.2-0.9); Neutrophils # 4.01 10^3/uL (1.8-7.7); Neutrophils % 71.4 %; Nucleated Red Blood Cells % 0 %; Platelet Count 173 10^3/cmm (130-400); Red Blood Count 3.26 10^6/uL (4.1-5.3); Red Cell Distribution Width 17.5 % (12.1-15.1); White Blood Count 5.6 10^3/uL (4.0-10.0)
[2022-08-03 12:35] LABS: Alanine Aminotransferase 28 U/L (0-41); Albumin Level 3.1 g/dL (3.5-5.2); Alkaline Phosphatase 440 U/L (40-130); Anion Gap 13.8 (5-19); Aspartate Amino Transferase 42 U/L (0-40); Blood Urea Nitrogen 8 mg/dL (8-23); Calcium 8.5 mg/dL (8.5-10.5); Carbon Dioxide 24 mmol/L (22-29); Chloride 107 mmol/L (98-107); Globulin 2.8 g/dL (1.3-4.6); Glucose 195 mg/dL (65-115); Osmolality Calculated 296 mOsm/kg (285-295); Potassium 3.8 mmol/L (3.5-5.1); Sodium 141 mmol/L (136-145); Total Bilirubin 0.3 mg/dL (0.15-1.2); Total Protein 5.9 g/dL (6.6-8.7)
[2022-08-03 13:03] LABS: Cancer Antigen 19 9 168.9 U/mL (0-35)
== END 2022-08-12 23:59 | disposition home or self-care (01) ==
PROVIDERS: Nurse Practitioner Family; PCP Family Medicine; Visit Provider Internal Medicine Hematology & Oncology
DX: Z53.9 Procedure and treatment not carried out, unspecified reason (principal); C25.8 Malignant neoplasm of overlapping sites of pancreas; C78.7 Secondary malignant neoplasm of liver and intrahepatic bile duct; D50.9 Iron deficiency anemia, unspecified; R53.1 Weakness; R53.0 Neoplastic (malignant) related fatigue; D70.1 Agranulocytosis secondary to cancer chemotherapy; T45.1X5A Adverse effect of antineoplastic and immunosuppressive drugs, initial encounter; Z79.899 Other long term (current) drug therapy; Z87.891 Personal history of nicotine dependence
CPT/HCPCS: 36591; 80053; 85025; 86301; 99214

== ENCOUNTER → 2022-08-09 15:09 | Outpatient (BNVA) | payer MEDICARE, SELFPAY | PROVIDERS: PCP Family Medicine; Visit Provider Internal Medicine Cardiovascular Disease | DX: I67.2 Cerebral atherosclerosis (principal); I10 Essential (primary) hypertension; Z87.891 Personal history of nicotine dependence; E78.2 Mixed hyperlipidemia; I25.5 Ischemic cardiomyopathy; K92.2 Gastrointestinal hemorrhage, unspecified | CPT/HCPCS: 99214 ==

== ENCOUNTER 2022-08-18 07:05 | Outpatient (CLI) | payer MEDICARE, SELFPAY ==
--- NOTE | 2022-08-18 07:21 | MR_ITS ---
WS: [id number] MRI ABDOMEN with and without CONTRAST. COMPARISON: Prior MRCP 07/17/2019. PET CT 07/23/[address] abdomen and pelvis 07/08/2022 Multiplanar, multisequence imaging is performed with contrast. Patient is status post Whipple's procedure. Marked atrophy of the body and tail of the pancreas. No r ecurrent enhancing mass at the region of the pancreatic head or duodenum. There is mild intrahepatic bile duct dilatation. No thrombus in the portal vein. 10 x 8 mm mildly enhancing lesion in the precision agriculture specialist ior inferior RIGHT lobe of the liver corresponds to the lesion seen on the recent PET/CT. Suspicious for metastatic lesion. The nonmass-like enhancement within the more anterior RIGHT lobe of the liver is not identified as a discrete mass by MRI. No additional masses in the liver. Spleen is negative. No adrenal mass. Visualized kidneys are negative. No adenopathy or ascites. No le sions at the lung bases. No pleural effusion. MR/MR abdomen wo/w con* [id number] IMPRESSION: 1. Status post Whipple procedure for pancreatic neoplasm. 2. Single metastatic lesion measuring 10 x 8 mm in the posterior inferior RIGH T lobe of the liver corresponds to the finding on the recent PET/CT. 3. The nonmasslike enhancement within the anterior RIGHT lobe seen by recent P ET/CT is not identified as a discrete mass. 4. Stable intrahepatic bile duct dilatation. 5. No ascites. 6. No recurrent mass at the pancreatic head resection site.
== END 2022-08-18 07:06 | disposition home or self-care (01) ==
PROVIDERS: PCP Family Medicine; Visit Provider Internal Medicine Hematology & Oncology
DX: C25.9 Malignant neoplasm of pancreas, unspecified (principal); C78.7 Secondary malignant neoplasm of liver and intrahepatic bile duct; C77.8 Secondary and unspecified malignant neoplasm of lymph nodes of multiple regions; C25.0 Malignant neoplasm of head of pancreas; K76.9 Liver disease, unspecified
CPT/HCPCS: 74183; A9577

== ENCOUNTER 2022-09-07 14:26 | Oncology outpatient (recurring) (ONCR) | payer MEDICARE, SELFPAY ==
--- NOTE | 2022-08-24 10:54 | N.ONRAD NP_ITS ---
Radiation Oncology Consultation Patient Name: Mauricio Powlel Date of : 1950 Date of Service: 08/24/2022 Attending Physician: Phill Clark M.D. Mauricio Powell was seen in consultation this morning at the request of Thuan Root M.D. for consideration of stereotactic ablative body radiotherapy in the management of metastatic pancreatic cancer. He was diagnosed in March of 2019 with an adenocarcinoma of the pancreas after being evaluated for jaundice and early satiety subsequent to an endoscopic ultrasonography with fine-needle aspiration. The initial abdominal CT scan identified a 3.3 cm mass involving the pancreatic head and uncinate process. A second opinion was solicited at [facility] in [place], [place]. An endoscopic retrograde cholangiopancreatography was unable to be performed resulting in placements of an internal biliary and duodenal stents. Neoadjuvant chemotherapy was administered consisting of 6 cycles of FOLFIRINOX (May 27, 2019 through September 04, 2019). A Whipple procedure with abdominal lymphadenectomy and reconstruction of the superior mesenteric vein was completed on October 02, 2019 by Ric Anthony M.D. The pathology report described a residual 4.5 cm poorly differentiated pancreatic head tumor invading the portal and superior mesenteric vein with lymphovascular a large vessel, and perineural invasion present. The uncinate margin was positive for malignancy. A total 25 lymph nodes were harvested with 4 harboring metastatic disease. Postoperative chemoradiotherapy was administered. A cumulative dose of 50.4 Gy was delivered in 28 fractions between the dates of December 09, 2019 through January 16, 2020. Xeloda was prescribed concurrently with radiation therapy. A PET scan ordered in July of 2021 demonstrated [address]-guided biopsy confirmed metastatic disease. The tumor did not demonstrate any targetable mutations, PD-L1 was 0%, and BRCA was not mutated. FOLFIRINOX was prescribed. A PET scan obtained in October of 2021 demonstrated resolution of the liver metastases despite a markedly elevated CA???19 9. At the suggestion of the patient, a less toxic chemotherapy regimen was requested for which Abraxane and gemcitabine was recommended (first cycle - December 30, 2021). A repeat PET scan completed in March of 2022 reported a new posterior right hepatic lobe lesion measuring 2 cm suspicious for metastatic disease. A re-evaluation PET scan authorized on July 23, 2022 affirmed FDG uptake in segments GLENN (SUV 4.3) and (SUV 5.4). An MRI of the abdomen (independently visualized in Synapse) obtained on August 18, 2022 demonstrated a 1 cm x 0.8 cm enhancing lesion within the postero-inferior right lobe of the liver that corresponded to the PET abnormality. A recent CA 19???9 level was 168.9 U/mL. The patient was referred for stereotactic ablative body radiotherapy for the hepatic metastasis. I discussed with Mr. Powell the role of stereotactic ablative body radiotherapy for the management of metastatic pancreatic cancer. I also reviewed the SABR-COMET trial that enrolled patients with a controlled primary malignancy and 1-5 metastatic lesions to SBRT or palliative standard of care. This radiotherapy modality provided a 22-month median overall survival benefit in comparison to palliative management. I anticipate an ultra-hypofractionated course of stereotactic radiotherapy. A 4-dimensional computed tomographic radiotherapy planning will be acquired to delineate the gross tumor volume preceding implementation of treatment. Potential toxicities of stereotactic body radiotherapy to the liver were reviewed. The patient has verbalized understanding and would like to proceed as recommended. His medical treatment plan was discussed with Thuan Root M.D. Signed by: Dr. Phill Clark 08/24/2022 10:53:01 AM
--- NOTE | 2022-09-01 | CT_ITS ---
Radiation Therapy Planning CT images; total exam DLP: 1367.95 mGy-cm MTDD
[2022-09-01 08:44] LABS: Basophils % 0.7 %; Eosinophils # 0.2 10^3/uL (0.0-0.8); Hematocrit 34.6 % (42.0-52.0); Hemoglobin 10.9 g/dL (11.7-16.6); Lymphocytes # 0.6 10^3/uL (0.8-4.8); Lymphocytes % 12.6 %; Mean Corpuscular HGB Conc 31.5 g/dL (30.0-36.0); Mean Corpuscular Hemoglobin 30.6 pg (28.0-34.0); Mean Corpuscular Volume 97.2 fl (80-94); Mean Platelet Volume 9.9 fL (7.4-10.4); Monocytes # 0.4 10^3/uL (0.2-0.9); Monocytes % 9.9 %; Neutrophils # 3.22 10^3/uL (1.8-7.7); Neutrophils % 72.4 %; Nucleated Red Blood Cells % 0 %; Platelet Count 135 10^3/cmm (130-400); Red Blood Count 3.56 10^6/uL (4.1-5.3); Red Cell Distribution Width 16.7 % (12.1-15.1); White Blood Count 4.5 10^3/uL (4.0-10.0)
[2022-09-01 09:19] LABS: Alanine Aminotransferase 57 U/L (0-41); Albumin Level 3.5 g/dL (3.5-5.2); Alkaline Phosphatase 444 U/L (40-130); Anion Gap 12.7 (5-19); Aspartate Amino Transferase 78 U/L (0-40); Blood Urea Nitrogen 10 mg/dL (8-23); Cancer Antigen 19 9 208.9 U/mL (0-35); Carbon Dioxide 22 mmol/L (22-29); Chloride 107 mmol/L (98-107); Globulin 3.2 g/dL (1.3-4.6); Glucose 144 mg/dL (65-115); Osmolality Calculated 288 mOsm/kg (285-295); Potassium 3.7 mmol/L (3.5-5.1); Sodium 138 mmol/L (136-145); Total Bilirubin 0.3 mg/dL (0.15-1.2); Total Protein 6.7 g/dL (6.6-8.7)
== END 2022-09-12 23:59 | disposition home or self-care (01) ==
PROVIDERS: Internal Medicine Hematology & Oncology; PCP Family Medicine; Visit Provider Radiology Radiation Oncology
DX: C25.8 Malignant neoplasm of overlapping sites of pancreas
CPT/HCPCS: 36591; 77300; 77301; 77334; 77338; 77470; 80053; 85025; 86301; 99205; 99214

== ENCOUNTER 2023-02-14 12:22 | Observation (INO) | payer MEDICARE, SELFPAY ==
[2023-02-14] VITALS (56 sets, daily range): BP systolic 91–130; BP diastolic 52–76; PULSE 52–73; RESP 5–46; TEMP 36–36.8; O2SAT 91–100; BMI 24.7
--- NOTE | 2023-02-14 12:52 | ECG_ITS ---
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 Measurements Intervals [place] Rate: 64 P: 87 ID: [id number] QRS: -12 QRSD: 119 T: 67 QT: 420 QTc: 436 Interpretive Statements SINUS RHYTHM MODERATE INTRAVENTRICULAR CONDUCTION DELAY [110+ ms QRS DURATION] Compared to ECG 07/08/2022 13:36:19 Intraventricular conduction delay now present T-wave abnormality no longer present Electronically Signed On 02-14-2023 17:27:37 CDT by Chavo Sanchez M.D. [email or web address]
--- NOTE | 2023-02-14 12:57 | W.ED.GIBLEED ---
HPI - GI Bleed General: Chief complaint: GI Bleed Stated complaint: Dark stolls Time Seen by Provider: 02/14/23 12:37 History of Present Illness: Patient presents to the ER with complaints of black and tarry stools over the last 2 days. Patient also reports fatigue and weakness. Patient had history of GI bleed in June 2022, patient is on Brilinta, patient does not appear pale and in triage she had a blood pressure 91/52. MD complaint: melena Onset (ago): day(s) (2 days ago) Relieving factors: none Exacerbating factors: bowel movement Context: history of GI bleed and anticoagulant use Associated symptoms: Reports no associated symptoms; Denies abdominal pain, chills, easy bruising, fever(s), headache(s), nausea, rash or vomiting Treatments Prior to Arrival: none Review of Systems General: Reports: 10 or more systems reviewed and unremarkable except in HPI and below Const: Denies: fever(s) or chills Eyes: Denies: change in vision ENMT: Denies: throat pain or odynophagia Card: Denies: chest pain, palpitations, irregular heart rhythm or edema Resp: Denies: dyspnea, productive cough or non-productive cough GI: Reports: melena; Denies: abdominal pain, nausea, vomiting or diarrhea : Denies: flank pain, difficulty urinating or dysuria Musc: Denies: neck pain or back pain Skin/Breast: Denies: rash or pruritus Neuro: Denies: headache(s), numbness in extremities or weakness in extremities Psych: Denies: anxiety or depression Endo: Denies: polyuria or polydipsia Jose A/Lymph: Denies: easy bruising or easy bleeding PFSH ED PFSH: Medical History 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 Cardiomyopathy Chemotherapy-induced neutropenia Diabetes mellitus Heart failure Hyperlipidemia Hypertension 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 Pancreatic cancer Recent non-ST elevation myocardial infarction (NSTEMI) Surgical History History of coronary angioplasty (~2019) History of pancreatic surgery History of tonsillectomy and adenoidectomy History of Whipple procedure Family History Father CAD (coronary artery disease), Onset Age: 43 in his 60s with OR Sister CAD (coronary artery disease), Onset Age: 70 had PCI in her 70s Hypertension Mother Cancer Dementia Hypertension Denies family history of Diabetes Clotting disorder Hyperlipidemia Chronic kidney disease (CKD) Suicide Anesthesia complication Bleeding disorder Lung disease Stroke Social History Smoking and tobacco status: former smoker (Social smoker, quit over 40 years ago) Alcohol intake: current Alcohol intake frequency: holidays/special occasions only Alcohol type: beer Physical Exam Const: COMMON NORMALS: no acute distress, average body habitus, patient oriented x3, no limitations, healthy appearing, alert and well nourished HENMT: COMMON NORMALS: normocephalic, atraumatic, hearing grossly normal bilaterally, external ears normal, Normal external nose present and moist oral mucous membranes HEAD & SCALP: normocephalic and atraumatic NOSE: Normal external nose present EXTERNAL EAR: Yes external ears normal Neck/C-Spine: COMMON NORMALS: full ROM, no lymphadenopathy, supple, no meningeal signs, no JVD and Thyroid normal THYROID: Thyroid normal Chest: COMMONS NORMALS: normal inspection of the chest and normal palpation of entire chest wall Resp: COMMON NORMALS: normal respiratory effort, No retractions, No use of accessory muscles and clear to auscultation bilaterally AUSCULTATION: clear to auscultation bilaterally Cardio: COMMON NORMALS: no JVD, regular rate, regular rhythm, S1 normal heart sound present and S2 normal heart sound present RATE: regular rate RHYTHM: regular rhythm HEART SOUNDS: S1 normal heart sound present and S2 normal heart sound present GI: COMMON NORMALS: Normal to inspection, nondistended, normoactive bowel sounds present, Soft to palpation, non-tender, No hepatosplenomegaly present and no masses PALPATION: Yes Soft to palpation and Yes No hepatosplenomegaly present : COMMON NORMALS: Yes no CVA tenderness BLADDER/KIDNEY EXAM: Yes no CVA tenderness Back/Pelvis: COMMON NORMALS: no CVA tenderness Neuro: COMMON NORMALS: patient oriented x3, CN's II-XII intact bilaterally, moves all extremities, no focal motor deficits and no sensory deficits noted SENSORIUM/ORIENTATION: Yes alert MENINGEAL SIGNS: Yes no meningeal signs Course Vital Signs: Vital signs: Vital Signs Temperature 96.8 F L 02/14/23 12:27 Pulse Rate 72 02/14/23 12:27 Respiratory Rate 16 02/14/23 12:27 Blood Pressure 91/52 02/14/23 12:27 Pulse Oximetry 100 02/14/23 12:27 MDM - GI Bleed Medical Decision Making Patient presents to the ER with complaints of black and tarry stools. Patient is on Brilinta. Patient does have a currently diagnosis of cancer, last seen his oncologist 2 weeks ago and had what sounds like an abdominal MRI. Patient's been having black and tarry stools for last 2 days. He does have a history of a GI bleed approximately 1 year ago which required transfusions. Patient appears stable clinically at this time however lab work was obtained which showed a hemoglobin of 6.2. This was discussed with the patient and Dr. Hwang and was decided patient would be put inpatient and be given 2 units of blood. General surgery will be consulted as patient may need upper and/or lower endoscopy. Dr. Moser surgery notified Differential Diagnosis Likely gastritis and melena; Unlikely hemorrhoids or infectious diarrhea Lab Data 02/14/23 14:28 02/14/23 14:28 Laboratory Results WBC 5.7 10^3/uL (4.0-10.0) 02/14/23 14: RBC 2.11 10^6/uL (4.1-5.3) L 02/14/23 14:28 Hgb 6.2 g/dL (11.7-16.6) L* 02/14/23 14:28 Hct 20.3 % (42.0-52.0) L* 02/14/23 14:28 MCV 96.2 fl (80-94) H 02/14/23 14:28 MCH 29.4 pg (28.0-34.0) 02/14/23 14:28 MCHC 30.5 g/dL (30.0-36.0) 02/14/23 14:28 RDW 14.9 % (12.1-15.1) 02/14/23 14:28 Plt Count 146 10^3/cmm (130-400) 02/14/23 14:28 MPV 10.5 fL (7.4-10.4) H 02/14/23 14:28 Neut % (Auto) 76.5 % 02/14/23 14:28 Lymph % (Auto) 12.9 % 02/14/23 14:28 [place] % (Auto) 8.2 % 02/14/23 14:28 Eos % (Auto) 1.6 % 02/14/23 14:28 Baso % (Auto) 0.5 % 02/14/23 14:28 Neut # (Auto) 4.37 10^3/uL (1.8-7.7) 02/14/23 14:28 Lymph # (Auto) 0.7 10^3/uL (0.8-4.8) L 02/14/23 14:28 [place] # (Auto) 0.5 10^3/uL (0.2-0.9) 02/14/23 14:28 Eos # (Auto) 0.1 10^3/uL (0.0-0.8) 02/14/23 14: Baso # (Auto) 0.0 10^3/uL (0.0-0.1) 02/14/23 14: Nucleated RBC % (auto) 0 % 02/14/23 14: Nucleated RBCs # 0.0 /100WBC 02/14/23 14:28 PT 14.40 SECONDS (12.1-14.9) 02/14/23 14: INR 1.08 (0.8-1.2) 02/14/23 14:28 Chloride 102 mmol/L (98-107) 02/14/23 14:28 BUN 23 mg/dL (8-23) 02/14/23 14:28 Creatinine 0.9 mg/dL (0.7-1.2) 02/14/23 14:28 GFR Calculation Not Reportable 02/14/23 14:28 Calculated Osmolality 287 mOsm/kg (285-295) 02/14/23 14:28 Total Bilirubin 0.3 mg/dL (0.15-1.2) 02/14/23 14: ALT 29 U/L (0-41) 02/14/23 14:28 Globulin 2.6 g/dL (1.3-4.6) 02/14/23 14:28 Urine Color Yellow (Yellow) 02/14/23 14:28 Urine Appearance Clear (CLEAR) 02/14/23 14:28 Urine pH 6 (5-7) 02/14/23 14:28 Ur Specific Holcomb 1.010 (1.005-1.030) 02/14/23 14:28 Urine Protein Neg (Negative) 02/14/23 14:28 Urine Glucose (UA) Norm (Normal) 02/14/23 14:28 Urine Ketones Negative (Negative) 02/14/23 14:28 Urine Blood Neg (Negative) 02/14/23 14:28 Urine Nitrate Negative (Negative) 02/14/23 14:28 Urine Bilirubin Neg (Negative) 02/14/23 14:28 Urine Urobilinogen Norm mg/dL (Negative) 02/14/23 14:28 Ur Leukocyte Esterase Negative (Negative) 02/14/23 14:28 EKG Data EKG 1: I personally reviewed and interpreted this EKG as follows: EKG interpretation date: 02/14/23 EKG interpretation time: 12:52 Prior EKG tracings: not available for review Interpretation: EKG shows normal sinus rhythm at 64 bpm, [place] interval 158, QRS duration 119, QTc of 430, moderate intraventricular conduction delay, Discharge Plan Discharge Patient Disposition: Admitted As Inpatient Clinical Impression: Gastrointestinal bleeding Qualifiers: GI bleed type/associated pathology: melena Qualified Code(s): K92.1 - Melena Anemia Qualifiers: Anemia type: other cause Condition: Stable Coding Level of Care Code ED Senior Control Systems Engineer for Lorna Foster
[2023-02-14] MEDS: sodium chloride 0.9% 1,000 ML 999 ML IV (14:24)
[2023-02-14 14:38] LABS: Add Urine Microscopic? NO; Charge for UA Resulting for Rev
[2023-02-14 14:43] LABS: Bilirubin Urine Neg (Negative); Blood Urine Neg (Negative); Glucose Urine UA Norm (Normal); Ketones Urine Negative (Negative); Leukocyte Esterase Urine Negative (Negative); Nitrate Urine Negative (Negative); Protein Urine Neg (Negative); Urine Appearance Clear (CLEAR); Urine Color Yellow (Yellow); Urobilinogen Urine Norm (Negative); pH Urine 6 (5-7)
[2023-02-14 14:50] LABS: Basophils % 0.5 %; Eosinophils # 0.1 10^3/uL (0.0-0.8); Eosinophils % 1.6 %; Lymphocytes # 0.7 10^3/uL (0.8-4.8); Lymphocytes % 12.9 %; Mean Corpuscular HGB Conc 30.5 g/dL (30.0-36.0); Mean Corpuscular Hemoglobin 29.4 pg (28.0-34.0); Mean Corpuscular Volume 96.2 fl (80-94); Mean Platelet Volume 10.5 fL (7.4-10.4); Monocytes # 0.5 10^3/uL (0.2-0.9); Monocytes % 8.2 %; Neutrophils # 4.37 10^3/uL (1.8-7.7); Neutrophils % 76.5 %; Nucleated Red Blood Cells % 0 %; Platelet Count 146 10^3/cmm (130-400); Red Blood Count 2.11 10^6/uL (4.1-5.3); Red Cell Distribution Width 14.9 % (12.1-15.1); White Blood Count 5.7 10^3/uL (4.0-10.0)
[2023-02-14 14:56] LABS: Hematocrit 20.3 % (42.0-52.0); Hemoglobin 6.2 g/dL (11.7-16.6)
[2023-02-14 15:12] LABS: INR 1.08 (0.8-1.2)
[2023-02-14 15:15] LABS: Alanine Aminotransferase 29 U/L (0-41); Albumin Level 3.2 g/dL (3.5-5.2); Alkaline Phosphatase 574 U/L (40-130); Aspartate Amino Transferase 43 U/L (0-40); Blood Urea Nitrogen 23 mg/dL (8-23); Calcium 8.1 mg/dL (8.5-10.5); Carbon Dioxide 21 mmol/L (22-29); Chloride 102 mmol/L (98-107); Globulin 2.6 g/dL (1.3-4.6); Glucose 222 mg/dL (65-115); Osmolality Calculated 287 mOsm/kg (285-295); Sodium 133 mmol/L (136-145); Total Bilirubin 0.3 mg/dL (0.15-1.2); Total Protein 5.8 g/dL (6.6-8.7)
[2023-02-14 15:34] LABS: Anion Gap 14.1 (5-19); Potassium 4.1 mmol/L (3.5-5.1)
--- NOTE | 2023-02-14 15:34 | PM.HP ---
Providers/Chief Complaint Primary Care Provider: Ana Maria Pérez MD Chief Complaint: Dark stolls History of Present Illness Mauricio Powell is a 72 year old male with past medical history of pancreatic cancer with mets to the liver, post Whipple's procedure of chemoradiation therapy for last 4 months who follows up with oncology at [facility] and with Dr. Root, history of gastric ulcer GI bleed 6 months ago, CAD post PCI for non-ST elevation [place], systolic congestive heart failure secondary to ischemic cardiomyopathy with a known EF of 45% presented to the ER today because of ongoing black tarry diarrhea bowel movements for last 2 days with last episode today morning associated with lightheadedness on standing up but no chest pain, dizziness, shortness of breath. On previous admission for GI bleed when he underwent endoscopy his procedure was complicated by him developing hypotension and bradycardia which resolved after coming out of anesthesia but bradycardia continued for 24 hours postprocedure. In the ER patient's blood work showed hemoglobin of 6.2 and a white count of 5.7, sodium of 133, creatinine 0.9, alkaline phosphatase of 574 with UA negative for signs of UTI Review of Systems General: Reports: 10 or more systems reviewed and unremarkable except in HPI and below Const: Denies: fever(s), chills, body aches, change in appetite, change in weight, malaise, night sweats, diaphoresis, change in sleep pattern, daytime sleepiness or snoring Eyes: Denies: change in vision, blurry vision, photophobia, eye discomfort or eye discharge ENMT: Denies: throat pain, enlarged tonsils, hoarseness, mouth pain, oral sores, dry mouth, tinnitus, nasal congestion or post nasal drip Card: Denies: chest pain, palpitations, irregular heart rhythm, edema, swelling of feet/ankles, lightheadedness, syncope, pre-syncope, dyspnea on exertion, orthopnea, leg pain with exertion or acrocyanosis Resp: Denies: dyspnea, productive cough, non-productive cough, wheezing, stridor, pain on inspiration, change in phlegm color, hemoptysis or chest congestion GI: Denies: abdominal pain, nausea, vomiting, hematemesis, coffee ground emesis, dysphagia, heartburn, diarrhea, constipation, bloating, GI cramping, change in bowel habits, pain on defecation, hematochezia or melena : Denies: flank pain, difficulty urinating, dysuria, urinary frequency, urinary urgency, urinary hesitancy, urinary dribbling, difficulty starting urination, change in urine stream, nocturia or hematuria Musc: Denies: neck pain, back pain, extremity pain, joint pain, joint swelling, joint redness, joint stiffness or limited range of motion Neuro: Denies: headache(s), numbness in extremities, weakness in extremities, sensory changes, lack of coordination, difficulty walking, frequent falls, dizziness, vertigo, confusion, Slurred speech present, difficulty communicating thoughts or seizure-like activity Psych: Denies: anxiety, depression, mood swings, panic attacks, hopelessness or irritability Endo: Denies: polyuria, polydipsia, tired all the time, cold intolerance, excessive sweating, flushing or heat intolerance Jose A/Lymph: Denies: easy bruising or easy bleeding All/Imm: Denies: tongue swelling, facial swelling or acute wheezing Medications/Allergies Home Medications Medication Instructions Recorded Confirmed Last Taken Type acetaminophen 500 mg capsule 500 mg PO Q6H PRN Pain 12/11/19 02/14/23 Unknown History loperamide 2 mg capsule (Imodium 2 mg PO QID PRN Diarrhea 10/28/20 02/14/23 Unknown History A-D) nitroglycerin 0.4 mg sublingual 0.4 mg sublingual Q5M PRN Chest 10/28/20 02/14/23 Unknown History tablet (Nitrostat) Pain pen needle, diabetic 32 gauge x #120 ea 04/04/22 02/14/23 Unknown Rx (BD Mariama 2nd Gen Pen Needle) calcium carbonate 200 mg calcium 200 mg PO BID PRN Acid Reflux 06/16/22 02/14/23 Unknown History (500 mg) chewable tablet (Tums) blood sugar diagnostic (OneTouch #100 ea 06/30/22 02/14/23 Unknown Rx Ultra Test strips) albuterol sulfate 90 mcg/actuation 2 puff inhalation Q6H PRN 07/07/22 02/14/23 Unknown History aerosol inhaler Shortness Of Breath carvedilol 3.125 mg tablet 3.125 mg PO BID #180 tabs 07/19/22 02/14/23 02/14/23 08:00 Rx rosuvastatin 5 mg tablet 5 mg PO BEDTIME #90 tabs 08/02/22 02/14/23 02/13/23 Rx sacubitril 49 mg-valsartan 51 mg 1 tab PO BID 30 days #180 tabs 08/19/22 02/14/23 02/14/23 08:00 Rx tablet (Entresto) loratadine 10 mg tablet (Claritin) 10 mg PO BEDTIME 09/01/22 02/14/23 02/13/23 History ticagrelor 90 mg tablet (Brilinta) 90 mg PO BID #180 tabs 02/06/23 02/14/23 02/14/23 08:00 Rx [id number] 1 - 2 cap PO TID 02/14/23 02/14/23 02/13/23 History 24,000-76,000-120,000 unit capsule,delayed rel (Creon) simethicone 80 mg chewable tablet 80 mg PO DAILY PRN unknown 02/14/23 02/14/23 Unknown History Allergies Allergy/AdvReac Type Severity Reaction Status Date / Time cat dander Allergy Unknown sneezing Verified 09/01/22 11:13 grass pollen Allergy Unknown sneezing Verified 09/01/22 11:13 PFSH Acute PFSH: Medical History (Updated 02/14/23 @ 16:13 by Enrique Mckinney MD) 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 Cardiac LV ejection fraction of 40-49% Cardiomyopathy Chemotherapy-induced neutropenia Diabetes mellitus Heart failure Hyperlipidemia Hypertension 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 Pancreatic cancer Raynauds disease Recent non-ST elevation myocardial infarction (NSTEMI) Surgical History (Updated 02/14/23 @ 16:13 by Enrique Mckinney MD) History of coronary angioplasty (~2019) History of pancreatic surgery History of tonsillectomy and adenoidectomy History of Whipple procedure Hx of esophagogastroduodenoscopy Family History Father CAD (coronary artery disease), Onset Age: 43 in his 60s with [place] Sister CAD (coronary artery disease), Onset Age: 70 had PCI in her 70s Hypertension Mother Cancer Dementia Hypertension Denies family history of Diabetes Clotting disorder Hyperlipidemia Chronic kidney disease (CKD) Suicide Anesthesia complication Bleeding disorder Lung disease Stroke Social History Smoking and tobacco status: former smoker (Social smoker, quit over 40 years ago) Alcohol intake: current Alcohol intake frequency: holidays/special occasions only Alcohol type: beer Vitals/I&O/Wt Last Vital Signs Temp 96.8 F L 02/14/23 12:27 Pulse 72 02/14/23 12:27 Resp 16 02/14/23 12:27 BP 91/52 02/14/23 12:27 Pulse Ox 100 02/14/23 12:27 Weight last 48 hrs Weight 71.668 kg Physical Exam Narrative: General: No acute distress, AO x3, pallor present HEENT: PERRLA, pupils bilaterally equal and reactive Chest: Normal vesicular breath sounds, no added sounds, equal good air entry bilaterally, medical port present on left hemithorax CVS: S1-S2 regular, no murmurs, no tachycardia, no gallops, no rubs Abdomen: Soft, nontender, no organomegaly, bowel sounds present Neuro: No focal deficits, no facial deformity, AO x3, power 5/5 in all limbs Data 02/14/23 14:28 02/14/23 14:28 A&P Assessment and plan (1) Gastrointestinal bleeding: Most likely upper GI. Surgery consulted. Plan for endoscopy in a.m. 2 units PRBC transfusion. Start on IV protonix 40 mg BID, zofran as needed. Npo for now. Hold off on home dose of brillinta for now. Plan for holding off for 2 weeks. As this is the 2nd event in last 6 months patient would benefit from switching to aspirin. Wants to confirm with outpatient child advocate before doing same. Monitor hemoglobin q12h. Qualifiers: GI bleed type/associated pathology: melena Qualified Code(s): K92.1 - Melena (2) Acute blood loss anemia: Check iron panel,vit b12, folate levels. Replete accordingly. Start on oral iron supplementation. 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 Root and [facility]. Off chemoradiation. Found to have new mets to liver and lung recently. (4) Atherosclerotic cerebrovascular disease: No active chest pain. Hold Brillinta. C/w statin. (5) Cardiomyopathy: Last known echocardiogram showed an EF of 45%. No acute decompensation for now. Qualifiers: Cardiomyopathy type: ischemic Qualified Code(s): I25.5 - Ischemic cardiomyopathy (6) Hypertension: Goal bp less than 140/90 mmhg. BP soft with positive orthostatic. Hold entresto and coreg. Continue to monitor. Qualifiers: Hypertension type: essential hypertension Qualified Code(s): I10 - Essential (primary) hypertension (7) Hyperlipidemia: Qualifiers: Hyperlipidemia type: mixed hyperlipidemia Qualified Code(s): E78.2 - Mixed hyperlipidemia Plan CODE STATUS: Discussed in detail with the patient and patient's at bedside. Patient will be the DPOA. Patient is okay with chest compressions but does not want intubation. CODE STATUS changed to limited resuscitation only to chest compressions but not to intubation. Protonix for PUD prophylaxis. SCDs for DVT prophylaxis Attestations Medical Necessity Statement*: Admission for more than 2 midnights for management of acute anemia secondary to GI bleed in setting of pancreatic cancer with mets to liver post Whipple's Diagnoses Gastrointestinal bleeding K92.1 GI bleed type/associated pathology: melena Acute blood loss anemia D62 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 C25.9; C78.7 Atherosclerotic cerebrovascular disease I67.2 Cardiomyopathy I25.5 Cardiomyopathy type: ischemic Hypertension I10 Hypertension type: essential hypertension Hyperlipidemia E78.2 Hyperlipidemia type: mixed hyperlipidemia
--- NOTE | 2023-02-14 15:39 | PC.PHAR ---
pt and pts verified pts medications-pt states he is no longer using insulins states he hasnt taken for 6 months since chemo-pt states no longer taking protonix 40mg daily 12/20/22 30d/s-
--- NOTE | 2023-02-14 15:51 | P.CONIM_ITS ---
Providers/Reason For Consult Consulting Physician/Specialty*: Consulted by the ER physician Reason for Consult*: Possible upper GI bleed Primary Care Provider: Ana Maria Pérez MD History of Present Illness History of Present Illness Mauricio Powell is a 72 year old male Who has a history of pancreatic cancer. The patient underwent Whipple operation in 2019 at [facility]. The patient also underwent chemotherapy. The patient had a recent MRI which showed spread of his pancreatic cancer to the liver and to the lung. The patient has a scheduled appointment with his oncologist at [facility] for further chemotherapy. The patient also has a history of an upper GI bleed. It reportedly is from gastritis. The patient was scoped at the time. The patient was placed on Protonix. The patient had resolution of his upper GI bleed. The patient presents now with a 2 day history of black, tarry stools. The patient also has increased weakness. He states he was feeling good until a couple days ago. Now he has dizziness when he stands up. He denies nausea or vomiting. He denies constipation or diarrhea. Review of Systems General: Reports: 10 or more systems reviewed and unremarkable except in HPI and below Medications/Allergies Home Medications Medication Instructions Recorded Confirmed Last Taken Type acetaminophen 500 mg capsule 500 mg PO Q6H PRN Pain 12/11/19 02/14/23 Unknown History loperamide 2 mg capsule (Imodium 2 mg PO QID PRN Diarrhea 10/28/20 02/14/23 Unknown History A-D) nitroglycerin 0.4 mg sublingual 0.4 mg sublingual Q5M PRN Chest 10/28/20 02/14/23 Unknown History tablet (Nitrostat) Pain pen needle, diabetic 32 gauge x #120 ea 04/04/22 02/14/23 Unknown Rx (BD Mariama 2nd Gen Pen Needle) calcium carbonate 200 mg calcium 200 mg PO BID PRN Acid Reflux 06/16/22 02/14/23 Unknown History (500 mg) chewable tablet (Tums) blood sugar diagnostic (OneTouch #100 ea 06/30/22 02/14/23 Unknown Rx Ultra Test strips) albuterol sulfate 90 mcg/actuation 2 puff inhalation Q6H PRN 07/07/22 02/14/23 Unknown History aerosol inhaler Shortness Of Breath carvedilol 3.125 mg tablet 3.125 mg PO BID #180 tabs 07/19/22 02/14/23 02/14/23 08:00 Rx rosuvastatin 5 mg tablet 5 mg PO BEDTIME #90 tabs 08/02/22 02/14/23 02/13/23 Rx sacubitril 49 mg-valsartan 51 mg 1 tab PO BID 30 days #180 tabs 08/19/2202/14/23 08:00 Rx tablet (Entresto) loratadine 10 mg tablet (Claritin) 10 mg PO BEDTIME 09/01/22 02/14/23 02/13/23 History ticagrelor 90 mg tablet (Brilinta) 90 mg PO BID #180 tabs 02/06/23 02/14/23 02/14/23 08:00 Rx [id number] 1 - 2 cap PO TID 02/14/23 02/14/23 02/13/23 History 24,000-76,000-120,000 unit capsule,delayed rel (Creon) simethicone 80 mg chewable tablet 80 mg PO DAILY PRN unknown 02/14/23 02/14/23 Unknown History Allergies Allergy/AdvReac Type Severity Reaction Status Date / Time cat dander Allergy Unknown sneezing Verified 09/01/22 11:13 grass pollen Allergy Unknown sneezing Verified 09/01/22 11:13 PFSH Acute PFSH: Medical History 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 Cardiomyopathy Chemotherapy-induced neutropenia Diabetes mellitus Heart failure Hyperlipidemia Hypertension 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 Pancreatic cancer Recent non-ST elevation myocardial infarction (NSTEMI) Surgical History History of coronary angioplasty (~2019) History of pancreatic surgery History of tonsillectomy and adenoidectomy History of Whipple procedure Family History Father CAD (coronary artery disease), Onset Age: 43 in his 60s with [place] Sister CAD (coronary artery disease), Onset Age: 70 had PCI in her 70s Hypertension Mother Cancer Dementia Hypertension Denies family history of Diabetes Clotting disorder Hyperlipidemia Chronic kidney disease (CKD) Suicide Anesthesia complication Bleeding disorder Lung disease Stroke Social History Smoking and tobacco status: former smoker (Social smoker, quit over 40 years ago) Alcohol intake: current Alcohol intake frequency: holidays/special occasions only Alcohol type: beer Vitals/I&O/Wt Last Vital Signs Temp 96.8 F L 02/14/23 12:27 Pulse 72 02/14/23 12:27 Resp 16 02/14/23 12:27 BP 91/52 02/14/23 12:27 Pulse Ox 100 02/14/23 12:27 Weight last 48 hrs Weight 158 lb Physical Exam Narrative: Generally: No acute distress HEENT: Normocephalic atraumatic, pupils equal round and reactive to light. The patient is somewhat pale appearing. Neck: Free range of motion, there are no masses. The patient's trachea is midline. The patient has no thyromegaly. Lungs: Clear to auscultation and percussion. There is no wheezes or rales Heart: Tachycardic rate and rhythm. The patient has a soft 2/6 systolic ejection murmur. There is no S3 or S4 that I can appreciate. The patient has no clubbing, cyanosis or edema Abdomen: Soft, nontender without masses. I do not appreciate any hepatomegaly. There are no hernias that I can appreciate. There is no focal tenderness. The patient has NABS Pelvis: Stable to both AP and medial compression Extremities: There is no obvious deformities or point tenderness suggestive of a fracture. Neurologic: The patient is awake, alert, oriented ?3. The patient's glascow coma scale is 15. The patient moves all 4 extremities is without difficulty. T he patient's sensation is intact to light touch throughout. Data 02/14/23 14:28 02/14/23 14:28 Attestation for Other Data: I personally reviewed and interpreted the following: (All the patient's labs are available) A&P Assessment and plan (1) GI bleeds, multiple, pre-transplant: (2) Gastritis: (3) Anemia: Qualifiers: Anemia type: other cause Plan Probable upper GI bleeding: We will schedule the patient for an EGD tomorrow. I suspect the patient has gastritis like he has had in the past. We will start the patient on Protonix. The patient can probably also benefit from Carafate. The possibility of a mass eroding into the stomach is also a possibility. Coding Level of Care Code 37036 Diagnoses GI bleeds, multiple, pre-transplant K92.2 Gastritis K29.70 Anemia D64.9 Anemia type: other cause
[2023-02-14] MEDS: pantoprazole 40 mg SDV IVP (16:15)
--- NOTE | 2023-02-14 16:34 | PC.NURSE ---
Report called to Petty HAQUE
[2023-02-14 16:38] LABS: Lactic Sepsis W/Reflex 0.8 mmol/L (0.5-2.2)
[2023-02-14 16:58] LABS: Iron 20 ug/dL (59-158); Percent Saturation 6.3 % (20-50); Total Iron Binding Capacity 313 mcg/dl; Unsaturated Iron Binding 293 ug/dL (112-347); Vitamin B12 446 pg/mL (232-1245)
[2023-02-14 18:13] LABS: Folate Level 15.7 ng/mL (4.5-32.2)
[2023-02-14] MEDS: iron sucrose 200 MG in sodium chloride 0.9% (100 ml) 100 ML 220 MG IV (21:17)
[2023-02-14] MEDS: atorvastatin 40 mg Tablet 20 MG PO (21:17)
--- NOTE | 2023-02-14 21:55 | PC.NURSE ---
Patient had BM and had nurse inspect it. BM moderate in size, brown, and appeared to have paper-like layers to it. No tarry-like appearance or blood noted. Patient remains NPO except sips, chips, and meds.
[2023-02-15] VITALS (14 sets, daily range): BP systolic 91–132; BP diastolic 53–69; PULSE 55–78; RESP 16–18; TEMP 36.2–37.1; O2SAT 97–100; BMI 24.7
[2023-02-15 05:12] LABS: Basophils % 0.4 %; Eosinophils # 0.2 10^3/uL (0.0-0.8); Eosinophils % 3.4 %; Lymphocytes # 0.6 10^3/uL (0.8-4.8); Lymphocytes % 13.3 %; Mean Corpuscular HGB Conc 30.7 g/dL (30.0-36.0); Mean Corpuscular Hemoglobin 28.5 pg (28.0-34.0); Mean Corpuscular Volume 92.8 fl (80-94); Mean Platelet Volume 10.4 fL (7.4-10.4); Monocytes # 0.5 10^3/uL (0.2-0.9); Monocytes % 9.7 %; Neutrophils # 3.44 10^3/uL (1.8-7.7); Nucleated Red Blood Cells % 0 %; Platelet Count 120 10^3/cmm (130-400); Red Blood Count 2.21 10^6/uL (4.1-5.3); Red Cell Distribution Width 15.9 % (12.1-15.1); White Blood Count 4.7 10^3/uL (4.0-10.0)
[2023-02-15 05:31] LABS: Hemoglobin 6.3 g/dL (11.7-16.6)
[2023-02-15 05:32] LABS: Hematocrit 20.5 % (42.0-52.0)
[2023-02-15 05:39] LABS: Alanine Aminotransferase 42 U/L (0-41); Albumin Level 2.8 g/dL (3.5-5.2); Alkaline Phosphatase 612 U/L (40-130); Anion Gap 10.8 (5-19); Aspartate Amino Transferase 87 U/L (0-40); Blood Urea Nitrogen 16 mg/dL (8-23); Calcium 7.8 mg/dL (8.5-10.5); Carbon Dioxide 20 mmol/L (22-29); Chloride 114 mmol/L (98-107); Chol HDL Ratio 2.11 mg/dL (1.0-5.00); Cholesterol 78 mg/dL (0-200); Globulin 2.4 g/dL (1.3-4.6); Glucose 118 mg/dL (65-115); HDL Cholesterol 37 mg/dL (60-100); LDL Cholesterol Calculated 22 mg/dL (50-129); LDL HDL Ratio 0.59 RATIO (0.00-3.22); Osmolality Calculated 294 mOsm/kg (285-295); Phosphorus 2.3 mg/dL (2.5-4.5); Potassium 3.8 mmol/L (3.5-5.1); Sodium 141 mmol/L (136-145); Total Bilirubin 0.8 mg/dL (0.15-1.2); Total Protein 5.2 g/dL (6.6-8.7); Triglycerides 93 mg/dL (0-150)
[2023-02-15 05:49] LABS: Estmated Average Glucose 137; Hemoglobin A1C 6.4 % (4.0-6.0)
--- NOTE | 2023-02-15 06:05 | PC.NURSE ---
Critical of Hgb and Hct called to this nurse. Dr Ma was notified of the critical labs. Dr Ma instructed to given previously ordered 1 unit RBC.
[2023-02-15] MEDS: pantoprazole 40 mg SDV IVP ×2 (08:02→17:34)
--- NOTE | 2023-02-15 09:35 | P.ANESASSM_ITS ---
Pre-Anesthetic Assessment Height/Weight: Height 1.7 m Weight 71.668 kg Temp Pulse Resp BP Pulse Ox O2 Del Method O2 Flow Rate 98.1 F 56 L 16 93/56 100 21 02/15/23 08:00 02/15/23 08:00 02/15/23 08:00 02/15/23 08:00 02/15/23 08:00 02/15/23 08:00 02/14/23 17:34 Preop Diagnosis: GI Bleed Operation Date: 02/15/23 11:00 Proposed Procedures p EGD(Not Applicable) - Alexis Moser MD Familial anesthetic complications: bradycardia w/ brief hypotension with prior endoscopy, treated w/ ephedrine and atropine 0.1 mg Was Beta Eugenia taken within 24 hours: N/A Was Clonidine taken within 24 hours: N/A Last intake: > 8h rs Social No alcohol and No tobacco vapes cannabis Exam alert, oriented x 3, clear to auscultation bilaterally and regular rate & rhythm Airway Mallampati: Class II Dentition: full Pulmonary lung metastasis CV/HEM Anemia, Coronary Artery Disease (PCI) and Myocardial Infarction Agranulocytosis ?05/04 echo CONCLUSIONS ?Diffuse hypokinesia left ventricular ejection fraction of 45%. ?(Visual) ?Normal cardiac chamber sizes. ?No intracardiac masses. ?The ejection fraction estimation by MOD need to be repeated on ?the study. ?Compared to the study from 11/19/2020, there may not be a ?significant change MELISSA Hepatic live metastasis GI Gastroesophageal Reflux Disease pancreatic cancer Gi bleeds Anesthetic Plan ASA status: 4 Anesthesia: MAC Risk of > 500 ml blood loss (7ml/kg in children): No Medications/Allergies Home Medications Medication Instructions Recorded Confirmed Last Taken Type acetaminophen 500 mg capsule 500 mg PO Q6H PRN Pain 12/11/19 02/14/23 Unknown History loperamide 2 mg capsule (Imodium 2 mg PO QID PRN Diarrhea 10/28/20 02/14/23 Unknown History A-D) nitroglycerin 0.4 mg sublingual 0.4 mg sublingual Q5M PRN Chest 10/28/20 02/14/23 Unknown History tablet (Nitrostat) Pain pen needle, diabetic 32 gauge x #120 ea 04/04/22 02/14/23 Unknown Rx (BD Mariama 2nd Gen Pen Needle) calcium carbonate 200 mg calcium 200 mg PO BID PRN Acid Reflux 06/16/22 02/14/23 Unknown History (500 mg) chewable tablet (Tums) blood sugar diagnostic (OneTouch #100 ea 06/30/22 02/14/23 Unknown Rx Ultra Test strips) albuterol sulfate 90 mcg/actuation 2 puff inhalation Q6H PRN 07/07/22 02/14/23 Unknown History aerosol inhaler Shortness Of Breath carvedilol 3.125 mg tablet 3.125 mg PO BID #180 tabs 07/19/22 02/14/23 02/14/23 08:00 Rx rosuvastatin 5 mg tablet 5 mg PO BEDTIME #90 tabs 08/02/22 02/14/23 02/13/23 Rx sacubitril 49 mg-valsartan 51 mg 1 tab PO BID 30 days #180 tabs 08/19/22 02/14/23 02/14/23 08:00 Rx tablet (Entresto) loratadine 10 mg tablet (Claritin) 10 mg PO BEDTIME 09/01/22 02/14/23 02/13/23 History ticagrelor 90 mg tablet (Brilinta) 90 mg PO BID #180 tabs 02/06/23 02/14/23 02/14/23 08:00 Rx [id number] 1 - 2 cap PO TID 02/14/23 02/14/23 02/13/23 History 24,000-76,000-120,000 unit capsule,delayed rel (Creon) simethicone 80 mg chewable tablet 80 mg PO DAILY PRN unknown 02/14/23 02/14/23 Unknown History Allergies Allergy/AdvReac Type Severity Reaction Status Date / Time cat dander Allergy Unknown sneezing Verified 09/01/22 11:13 grass pollen Allergy Unknown sneezing Verified 09/01/22 11:13 Current Medications Generic Name Dose Route Start Last Admin Trade Name Freq PRN Reason Stop Dose Admin Atorvastatin Calcium 20 mg 02/14/23 21:00 02/14/23 21:17 Atorvastatin 40 Mg Tablet PO 20 mg BEDTIME PETAR Administration Iron Sucrose 200 mg/ Sodium 110 mls @ 220 mls/hr 02/14/23 18:00 02/14/23 21:52 Chloride IV 02/18/23 18:29 Infused Q24H PETAR Infusion Pantoprazole Sodium 40 mg 02/14/23 16:00 02/15/23 08:02 Pantoprazole 40 Mg Sdv IVP 40 mg Q12H PETAR Administration PFSH Anesthesia Medical History (Updated 02/14/23 @ 16:13 by Enrique Mckinney MD) 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 Cardiac LV ejection fraction of 40-49% Cardiomyopathy Chemotherapy-induced neutropenia Diabetes mellitus Heart failure Hyperlipidemia Hypertension 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 Pancreatic cancer Raynauds disease Recent non-ST elevation myocardial infarction (NSTEMI) Surgical History (Updated 02/14/23 @ 16:13 by Enrique Mckinney MD) History of coronary angioplasty (~2019) History of pancreatic surgery History of tonsillectomy and adenoidectomy History of Whipple procedure Hx of esophagogastroduodenoscopy Family History Father CAD (coronary artery disease), Onset Age: 43 in his 60s with [place] Sister CAD (coronary artery disease), Onset Age: 70 had PCI in her 70s Hypertension Mother Cancer Dementia Hypertension Denies family history of Diabetes Clotting disorder Hyperlipidemia Chronic kidney disease (CKD) Suicide Anesthesia complication Bleeding disorder Lung disease Stroke Social History Smoking and tobacco status: former smoker (Social smoker, quit over 40 years ago) Alcohol intake: current Alcohol intake frequency: holidays/special occasions only Alcohol type: beer Data Anesthesia 02/15/23 04:35 02/15/23 04:35 Short CBC 02/14/23 02/15/23 Range/Units 14:28 04:35 WBC 5.7 4.7 (4.0-10.0) 10^3/uL Hgb 6.2 L* 6.3 L* (11.7-16.6) g/dL Hct 20.3 L* 20.5 L* (42.0-52.0) % MCV 96.2 H 92.8 (80-94) fl Plt Count 146 120 L (130-400) 10^3/cmm Neut % (Auto) 76.5 73.0 % Neut # (Auto) 4.37 3.44 (1.8-7.7) 10^3/uL BMP 02/14/23 02/15/23 14:28 04:35 Sodium 133 L 141 Potassium 4.1 3.8 Chloride 102 114 H Carbon Dioxide 21 L 20 L BUN 23 16 Creatinine 0.9 0.9 Glucose 222 H 118 H Calcium 8.1 L 7.8 L Liver Function 02/14/23 02/15/23 Range/Units 14:28 04:35 Total Bilirubin 0.3 0.8 (0.15-1.2) mg/dL AST 43 H 87 H (0-40) U/L ALT 29 42 H (0-41) U/L Alkaline Phosphatase 574 H 612 H (40-130) U/L Albumin 3.2 L 2.8 L (3.5-5.2) g/dL Urine 02/14/23 Range/Units 14:28 Urine Color Yellow (Yellow) Urine Appearance Clear (CLEAR) Urine pH 6 (5-7) Ur Specific [place] 1.010 (1.005-1.030) Urine Protein Neg (Negative) Urine Glucose (UA) Norm (Normal) Urine Ketones Negative (Negative) Urine Nitrate Negative (Negative) Urine Bilirubin Neg (Negative) Ur Leukocyte Esterase Negative (Negative) Blood Bank 02/14/23 14:28 Blood Type A Negative Rho(D) Type Negative Antibody Screen Negative Coags 02/14/23 14:28 PT 14.40 INR 1.08 Cardiac Studies: Echocardiogram Limited Views 05/03/22 Echocardiogram Ultrasound 11/19/20
--- NOTE | 2023-02-15 09:41 | PC.CHAP ---
Pastoral Care Encounter/Spiritual Assessment Type of Contact [] Declined oil rigger visit [] Patient/Family/Request visit [] Outpatient visit [] Follow-up visit [] Physician referral [] Code/Alert [x] Routine visit [] Staff referral [] Actively dying [] Patient sleeping [] Family support [] [] Out of room [] Palliative care [] [] Receiving care in room [] Pre-surgical visit [] Trauma [] Long length of stay [] ICU visit [] Other: Relational/Emotional Strength [x] Patient feels connected with others/family/visitors/staff [] Distress [] Loneliness/isolation [] Abandonment Spirituality of Patient [] Person of Shalini [] Attends Faith of their Shalini [] Believes in Prayer [] Reads Bible or Lutheran materials [x] There are Spiritual issues to be addressed Ski Base Trimmer Interventions [] Prayer [x] Active listening [x] Non-anxious presence [x] Spiritual/emotional support [] Crisis/trauma care [] Spiritual counseling [] Bereavement support [] Provided bereavement packet [] Provided Bible/devotional materials [] Provided toy/stuffed animal, coloring book to patient or family member [] Provided Communion [] Anointing/[place] [] Salvation [x] Completed spiritual assessment [] Other: Impact on Illness or Injury [] Angry [] Fearful [] Anxious [] Often cries [] Exhaustion [] Unable to work [] Unable to attend congregation [] Unable to walk/stand [] Unable to read [] Unable to drive [] Unable to eat/drink [] Unable to sleep [] Unable to be with family [] Patient intubated [] Other: Summary Pt will undergo a procedure later and hopes to be able to go home today. Pt is not a person of shalini but is not opposed to shalini. We did talk about latter day and his views. Pleasant man to speak with. Originally from [place] area but has lived near [facility]. [facility] since 2004 Time spent with patient 15 m
[2023-02-15 11:04] LABS: Hematocrit 24.9 % (42.0-52.0)
[2023-02-15] MEDS: sodium chloride 0.9% 1,000 ML 30 ML IV (11:35)
--- NOTE | 2023-02-15 12:51 | PM.PN ---
Subjective Subjective: No acute events overnight. Patient only received 1 unit of PRBC yesterday. Second unit was ordered but never given. Denies any nausea, vomiting, headache. No further episodes of melena. Still complaining of dizziness. Second unit being given right now. Having overnight bradycardia. Plan for EGD today. Vitals/I&O/Wt Last Vital Signs Temp 97.2 F L 02/15/23 12:37 Pulse 76 02/15/23 12:42 Resp 18 02/15/23 12:42 BP 93/62 02/15/23 12:42 Pulse Ox 100 02/15/23 12:42 O2 Del Method 02/15/23 12:42 O2 Flow Rate 3 02/15/23 12:37 02/14/23 02/15/23 02/15/23 22:59 06:59 14:59 Intake Total 1460 / 1460 0 / 1460 Output Total 200 / 200 350 / 350 Balance 1260 / 1260 0 / 1260 -350 / -350 Weight last 48 hrs Weight 71.668 kg Weight 71.668 kg Physical Exam Narrative: General: No acute distress, AO x3, pallor present HEENT: PERRLA, pupils bilaterally equal and reactive Chest: Normal vesicular breath sounds, no added sounds, equal good air entry bilaterally, medical port present on left hemithorax CVS: S1-S2 regular, no murmurs, no tachycardia, no gallops, no rubs Abdomen: Soft, nontender, no organomegaly, bowel sounds present Neuro: No focal deficits, no facial deformity, AO x3, power 5/5 in all limbs Data 02/15/23 10:45 02/15/23 04:35 A&P Assessment and plan (1) Gastrointestinal bleeding: Plan for endoscopy today. Appreciate surgical recommendations. Overall 2 units of blood transfusion. IV Protonix twice daily, Carafate ACHS. Post EGD will start on clear liquid diet. Monitor hemoglobin every 12 hourly. Hold off on home dose of brillinta for now. Plan for holding off for 2 weeks. As this is the 2nd event in last 6 months patient would benefit from switching to aspirin. Wants to confirm with outpatient heel seater before doing same. Plan for endoscopy discussed in detail with the patient. All the questions were answered. Qualifiers: GI bleed type/associated pathology: melena Qualified Code(s): K92.1 - Melena (2) Acute blood loss anemia: Iron deficiency anemia. Continue with oral supplementation. 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 Root and [facility]. Off chemoradiation. Found to have new mets to liver and lung recently. (4) Atherosclerotic cerebrovascular disease: No active chest pain. Hold Brillinta. C/w statin. (5) Cardiomyopathy: Last known echocardiogram showed an EF of 45%. No acute decompensation for now. Qualifiers: Cardiomyopathy type: ischemic Qualified Code(s): I25.5 - Ischemic cardiomyopathy (6) Hypertension: Goal bp less than 140/90 mmhg. BP soft with positive orthostatic. Hold entresto and coreg. Continue to monitor. Qualifiers: Hypertension type: essential hypertension Qualified Code(s): I10 - Essential (primary) hypertension (7) Hyperlipidemia: Qualifiers: Hyperlipidemia type: mixed hyperlipidemia Qualified Code(s): E78.2 - Mixed hyperlipidemia Plan CODE STATUS: Discussed in detail with the patient and patient's at bedside. Patient will be the DPOA. Patient is okay with chest compressions but does not want intubation. CODE STATUS changed to limited resuscitation only to chest compressions but not to intubation. Protonix for PUD prophylaxis. 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
--- NOTE | 2023-02-15 13:17 | ANE.PACU2 ---
Inpatient post-anesthesia follow up: Airway intact: Yes Vital signs: Temperature 97.2 F Pulse Rate 72 Respiratory Rate 18 Blood Pressure 118/69 Pulse Oximetry 99 Oxygen Delivery Me thod Room Air Oxygen Flow Rate 3 Fraction of Inspir ed Oxygen Hydration adequate: Yes Nausea and vomiting: No Pain level: 1 Mental status: Baseline
[2023-02-15 16:39] LABS: Free T4 Free Thyroxine 1.34 ng/dL (0.82-1.77); T3 Free 2.4 PG/ML (2.0-4.4)
[2023-02-15] MEDS: sucralfate 1 gm/10 mL Oral Liq UDC PO ×2 (17:34→22:25)
[2023-02-15] MEDS: iron sucrose 200 MG in sodium chloride 0.9% (100 ml) 100 ML 220 MG IV (17:39)
[2023-02-15] MEDS: atorvastatin 40 mg Tablet 20 MG PO (22:25)
[2023-02-16] VITALS: BP 110/61; PULSE 49; RESP 17; TEMP 37.1; O2SAT 97
[2023-02-16 03:38] VITALS: BP 100/55; PULSE 48; RESP 16; TEMP 36.8; O2SAT 97
[2023-02-16] MEDS: pantoprazole 40 mg SDV IVP (04:27)
[2023-02-16 05:33] VITALS: PULSE 47
[2023-02-16 05:36] LABS: Basophils % 0.9 %; Eosinophils # 0.2 10^3/uL (0.0-0.8); Eosinophils % 5.2 %; Hematocrit 24.8 % (42.0-52.0); Hemoglobin 7.7 g/dL (11.7-16.6); Lymphocytes # 0.5 10^3/uL (0.8-4.8); Lymphocytes % 12.8 %; Mean Corpuscular Hemoglobin 28.6 pg (28.0-34.0); Mean Corpuscular Volume 92.2 fl (80-94); Mean Platelet Volume 10.1 fL (7.4-10.4); Monocytes # 0.5 10^3/uL (0.2-0.9); Monocytes % 10.6 %; Neutrophils # 2.96 10^3/uL (1.8-7.7); Nucleated Red Blood Cells % 0 %; Platelet Count 129 10^3/cmm (130-400); Red Blood Count 2.69 10^6/uL (4.1-5.3); Red Cell Distribution Width 16.1 % (12.1-15.1); White Blood Count 4.2 10^3/uL (4.0-10.0)
[2023-02-16] MEDS: sucralfate 1 gm/10 mL Oral Liq UDC PO ×2 (07:08→10:25)
[2023-02-16 08:00] VITALS: BP 114/54; PULSE 55; RESP 16; TEMP 36.8; O2SAT 96
--- NOTE | 2023-02-16 10:08 | PM.DCS ---
Discharge Providers Date of Admission: 02/14/23 16:35 Date of Discharge: February 16, 2023 Attending Provider at Admission: Enrique Mckinney MD Attending Provider at Discharge: Enrique Mckinney MD Consults: Surgery: Dr. 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: Status: Acute (4) Atherosclerotic cerebrovascular disease: Status: Acute (5) Cardiomyopathy: Status: Acute Qualifiers: Cardiomyopathy type: ischemic Qualified Code(s): I25.5 - Ischemic cardiomyopathy (6) Hypertension: Status: Acute Qualifiers: Hypertension type: essential hypertension Qualified Code(s): I10 - Essential (primary) hypertension (7) Hyperlipidemia: Status: Acute Qualifiers: Hyperlipidemia type: mixed hyperlipidemia Qualified Code(s): E78.2 - Mixed hyperlipidemia (8) GI bleeds, multiple, pre-transplant: Status: Acute (9) Gastritis: Status: Acute (10) Bradycardia: Status: Acute Reason for Visit Reason for Visit: [facility] Course Hospital Course Mauricio Powell is a 72 year old male with past medical history of pancreatic cancer with mets to the liver, post Whipple's procedure of chemoradiation therapy for last 4 months who follows up with oncology at [facility] and with Dr. Root, history of gastric ulcer GI bleed 6 months ago, CAD post PCI for non-ST elevation CT, systolic congestive heart failure secondary to ischemic cardiomyopathy with a known EF of 45% presented to the ER today because of ongoing black tarry diarrhea bowel movements for last 2 days with last episode today morning associated with lightheadedness on standing up but no chest pain, dizziness, shortness of breath.? On previous admission for GI bleed when he underwent endoscopy his procedure was complicated by him developing hypotension and bradycardia which resolved after coming out of anesthesia but bradycardia continued for 24 hours postprocedure. In the ER patient's blood work showed hemoglobin of 6.2 and a white count of 5.7, sodium of 133, creatinine 0.9, alkaline phosphatase of 574 with UA negative for signs of UTI. Admitted to the hospital for further evaluation and management of significant anemia secondary GI bleed. He was started on IV Protonix and was kept NPO. Surgery was consulted and he underwent endoscopy which showed patchy gastritis without any active bleed. During hospitalization off antihypertensives patient continued to have low normal blood pressure with episodes of bradycardia. On further review it seems patient has had chronic bradycardia. Overall he required 2 unit of blood transfusion during hospitalization and his hemoglobin remained stable. He has been discharged in hemodynamically stable condition with advised to follow-up with a primary care provider within next 1 week for repeat CBC. Take oral iron supplementation as an outpatient. He is advised to hold off on taking his home dose of Entresto and Coreg for now. He is advised to check his blood pressure daily at home and maintain a blood pressure diary and follow-up with the primary care provider for further adjustment of antihypertensives. He is advised to have blood pressures go over 140 systolics he should start his home dose of antihypertensives. He is advised to hold off from taking Brilinta for next 2 weeks and as at this is a second episode of GI bleed within last 6 weeks he should switch to aspirin which she wants to confirm with his primary dispatcher radioactive waste disposal prior to doing. He is advised to take Protonix twice daily for next 4 weeks followed by daily. He is advised to take Carafate AC and with meals for next 4 weeks. Physical Exam Narrative: General: No acute distress, AO x3, pallor present HEENT: PERRLA, pupils bilaterally equal and reactive Chest: Normal vesicular breath sounds, no added sounds, equal good air entry bilaterally, medical port present on left hemithorax CVS: S1-S2 regular, no murmurs, no tachycardia, no gallops, no rubs Abdomen: Soft, nontender, no organomegaly, bowel sounds present Neuro: No focal deficits, no facial deformity, AO x3, power 5/5 in all limbs Discharge Data Studies Completed and Pending Pending at discharge Category Date Time Status Leukocyte Reduced RBC Stat Lab 02/14/23 14:28 Results Type and Screen Stat Lab 02/14/23 14:28 Results Pathology: Surgical [PTH] Routine Pth 02/15/23 12:35 Received Laboratory Results WBC 4.2 10^3/uL (4.0-10.0) 02/16/23 05:06 RBC 2.69 10^6/uL (4.1-5.3) L 02/16/23 05:06 Hgb 7.7 g/dL (11.7-16.6) L 02/16/23 05:06 Hct 24.8 % (42.0-52.0) L 02/16/23 05:06 MCV 92.2 fl (80-94) 02/16/23 05:06 MCH 28.6 pg (28.0-34.0) 02/16/23 05:06 MCHC 31.0 g/dL (30.0-36.0) 02/16/23 05:06 RDW 16.1 % (12.1-15.1) H 02/16/23 05:06 Plt Count 129 10^3/cmm (130-400) L 02/16/23 05:06 MPV 10.1 fL (7.4-10.4) 02/16/23 05:06 Neut % (Auto) 70.0 % 02/16/23 05:06 Lymph % (Auto) 12.8 % 02/16/23 05:06 Worth % (Auto) 10.6 % 02/16/23 05:06 Eos % (Auto) 5.2 % 02/16/23 05:06 Baso % (Auto) 0.9 % 02/16/23 05:06 Neut # (Auto) 2.96 10^3/uL (1.8-7.7) 02/16/23 05:06 Lymph # (Auto) 0.5 10^3/uL (0.8-4.8) L 02/16/23 05:06 Worth # (Auto) 0.5 10^3/uL (0.2-0.9) 02/16/23 05:06 Eos # (Auto) 0.2 10^3/uL (0.0-0.8) 02/16/23 05:06 Baso # (Auto) 0.0 10^3/uL (0.0-0.1) 02/16/23 05:06 Nucleated RBC % (auto) 0 % 02/16/23 05:06 Nucleated RBCs # 0.0 /100WBC 02/16/23 05:06 PT 14.40 SECONDS (12.1-14.9) 02/14/23 14:28 INR 1.08 (0.8-1.2) 02/14/23 14:28 Sodium 141 mmol/L (136-145) 02/15/23 04:35 Potassium 3.8 mmol/L (3.5-5.1) 02/15/23 04:35 Chloride 114 mmol/L (98-107) H 02/15/23 04:35 Carbon Dioxide 20 mmol/L (22-29) L 02/15/23 04:35 Anion Gap 10.8 (5-19) 02/15/23 04:35 BUN 16 mg/dL (8-23) 02/15/23 04:35 Creatinine 0.9 mg/dL (0.7-1.2) 02/15/23 04:35 GFR Calculation Not Reportable 02/15/23 04:35 Glucose 118 mg/dL (65-115) H 02/15/23 04:35 Estimat Average Glucose 137 02/15/23 04:35 Hemoglobin A1c 6.4 % (4.0-6.0) H 02/15/23 04:35 Calculated Osmolality 294 mOsm/kg (285-295) 02/15/23 04:35 Lactic Acid 0.8 mmol/L (0.5-2.2) 02/14/23 16:06 Calcium 7.8 mg/dL (8.5-10.5) L 02/15/23 04:35 Phosphorus 2.3 mg/dL (2.5-4.5) L 02/15/23 04:35 Magnesium 2.0 mg/dL (1.7-2.3) 02/15/23 04:35 Iron 20 ug/dL (59-158) L 02/14/23 16:06 TIBC 313 mcg/dl 02/14/23 16:06 % Saturation 6.3 % (20-50) L 02/14/23 16:06 Unsat Iron Binding 293 ug/dL (112-347) 02/14/23 16:06 Total Bilirubin 0.8 mg/dL (0.15-1.2) 02/15/23 04:35 AST 87 U/L (0-40) H 02/15/23 04:35 ALT 42 U/L (0-41) H 02/15/23 04:35 Alkaline Phosphatase 612 U/L (40-130) H 02/15/23 04:35 Total Protein 5.2 g/dL (6.6-8.7) L 02/15/23 04:35 Albumin 2.8 g/dL (3.5-5.2) L 02/15/23 04:35 Globulin 2.4 g/dL (1.3-4.6) 02/15/23 04:35 Triglycerides 93 mg/dL (0-150) 02/15/23 04:35 Cholesterol 78 mg/dL (0-200) 02/15/23 04:35 LDL Cholesterol, Calc 22 mg/dL (50-129) L 02/15/23 04:35 HDL Cholesterol 37 mg/dL (60-100) L 02/15/23 04:35 LDL/HDL Ratio 0.59 RATIO (0.00-3.22) 02/15/23 04:35 Cholesterol/HDL Ratio 2.11 mg/dL (1.0-5.00) 02/15/23 04:35 Vitamin B12 446 pg/mL (232-1245) 02/14/23 16:06 Folate 15.7 ng/mL (4.5-32.2) 02/14/23 16:06 TSH 4.30 uIU/mL (0.27-4.20) H 02/14/23 16:06 Free T4 1.34 ng/dL (0.82-1.77) 02/15/23 04:35 Free T3 2.4 PG/ML (2.0-4.4) 02/15/23 04:35 Urine Color Yellow (Yellow) 02/14/23 14:28 Urine Appearance Clear (CLEAR) 02/14/23 14:28 Urine pH 6 (5-7) 02/14/23 14:28 Ur Specific [place] 1.010 (1.005-1.030) 02/14/23 14:28 Urine Protein Neg (Negative) 02/14/23 14:28 Urine Glucose (UA) Norm (Normal) 02/14/23 14:28 Urine Ketones Negative (Negative) 02/14/23 14:28 Urine Blood Neg (Negative) 02/14/23 14:28 Urine Nitrate Negative (Negative) 02/14/23 14:28 Urine Bilirubin Neg (Negative) 02/14/23 14:28 Urine Urobilinogen Norm mg/dL (Negative) 02/14/23 14:28 Ur Leukocyte Esterase Negative (Negative) 02/14/23 14:28 Blood Type A Negative 02/14/23 14:28 Rho(D) Type Negative 02/14/23 14:28 Antibody Screen Negative 02/14/23 14:28 Crossmatch See Detail 02/14/23 14:28 Vitals Last Vital Signs Temp 98.2 F 02/16/23 08:00 Pulse 55 L 02/16/23 08:00 Resp 16 02/16/23 08:00 BP 114/54 02/16/23 08:00 Pulse Ox 96 02/16/23 08:00 O2 Del Method 02/16/23 03:38 O2 Flow Rate 3 02/15/23 12:37 Discharge Plan Discharge Patient Disposition: Home Condition: Stable Prescriptions: New Protonix 40 mg tablet,delayed release (DR/EC) See Rx Instructions .ROUTE .COMPLEX 90 Days Qty: 120 0RF Rx Instructions: Take twice daily for 4 weeks and then daily Carafate 1 gram tablet 1 g PO TID 28 Days Qty: 84 0RF Continued loperamide [Imodium A-D] 2 mg capsule 2 mg PO QID PRN (Reason: Diarrhea) nitroglycerin [Nitrostat] 0.4 mg tablet, sublingual 0.4 mg sublingual Q5M PRN (Reason: Chest Pain) Rx Instructions: do not exceed 3 doses per episode calcium carbonate [Tums] 200 mg calcium (500 mg) tablet,chewable 200 mg PO BID PRN (Reason: Acid Reflux) acetaminophen 500 mg capsule 500 mg PO Q6H PRN (Reason: Pain) loratadine [Claritin] 10 mg tablet 10 mg PO BEDTIME (DME) OneTouch Ultra Test Strip See Rx Instructions .ROUTE .COMPLEX Qty: 100 3RF Dose Instruction: USE 1 STRIP TO CHECK GLUCOSE BEFORE MEAL(S) AND AT BEDTIME Rx Instructions: USE 1 STRIP TO CHECK GLUCOSE BEFORE MEAL(S) AND AT BEDTIME (DME) pen needle, diabetic [BD Mariama 2nd Gen Pen Needle] 32 gauge x 5/32 needle See Rx Instructions .ROUTE .COMPLEX Qty: 120 0RF Dose Instruction: USE WITH INSULIN PEN Rx Instructions: USE WITH INSULIN PEN rosuvastatin 5 mg tablet 5 mg PO BEDTIME Qty: 90 3RF simethicone 80 mg Tablet,Chewable 80 mg PO DAILY PRN (Reason: unknown) Creon 24,000-76,000 -120,000 unit capsule,delayed release(DR/EC) 1 - 2 cap PO TID Rx Instructions: administer with meals and/or snacks albuterol sulfate 90 mcg/actuation HFA aerosol inhaler 2 puff INHALATION Q6H PRN (Reason: Shortness Of Breath) Held carvedilol 3.125 mg tablet 3.125 mg PO BID Qty: 180 3RF Hold Instructions: Resume on 02/23/23. Entresto 49-51 mg tablet 1 tab PO BID 30 Days Qty: 180 3RF Hold Instructions: Resume on 02/23/23. Brilinta 90 mg tablet 90 mg PO BID Qty: 180 3RF Hold Instructions: Resume on 03/02/23. Discharge Orders: Discharge Order (Routine); Ordered 02/16/23 Ordered By: Enrique Mckinney Referrals: Ana Maria Pérez MD [Primary Care Provider] - 02/20/23 1:30 pm Discharge Diet: Cardiac Discharge Activity: Resume usual activity and Increase activity as tolerated Patient Instructions: Sucralfate (By mouth), Pantoprazole (By mouth), Gastritis (DC), GI Discharge Instructions Activity Restrictions/Additional Instructions: Follow-up with a primary care provider within next 1 week for repeat CBC. Take oral iron supplementation as an outpatient. He is advised to hold off on taking his home dose of Entresto and Coreg for now. He is advised to check his blood pressure daily at home and maintain a blood pressure diary and follow-up with the primary care provider for further adjustment of antihypertensives. He is advised to have blood pressures go over 140 systolics he should start his home dose of antihypertensives. He is advised to hold off from taking Brilinta for next 2 weeks and as at this is a second episode of GI bleed within last 6 weeks he should switch to aspirin which he wants to confirm with his primary dispatcher radioactive waste disposal prior to doing. He is advised to take Protonix twice daily for next 4 weeks followed by daily. He is advised to take Carafate AC and with meals for next 4 weeks. Discharge Attestations Time Spent in Discharge Care*: greater than 30 min Specific Discharge Activities: educating patient, educating and/or supporting family/caregiver, discussing with pcp/other providers, discussing with case preparer and liner/social workers/dc planners, documenting/other paperwork and evaluating patient/reviewing data Status at Discharge: Cognitive status at discharge: cognitively intact, Behavioral status at discharge: cooperative, Functional status at discharge: independent ambulation, Overall status at discharge: patient is back to baseline Quality Metrics Clinical Quality Measures [ No reported AMI, CVA or VTE this stay] Coding Level of Care Code 05506 Total time (in minutes) for Discharge: 60 Diagnoses Gastrointestinal bleeding K92.1 GI bleed type/associated pathology: melena Acute blood loss anemia D62 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
[2023-02-16 11:56] VITALS: BP 114/54; PULSE 55; RESP 16; TEMP 36.8; O2SAT 96
== END 2023-02-16 11:57 | disposition home or self-care (01) ==
LOC: ER 15:17 → MEDSURG 19:38
PROVIDERS: Surgery Surgical Critical Care; Admitting Provider Student in an Organized Health Care Education/Training Program; Emergency Provider Emergency Medicine; PCP Family Medicine; Visit Provider Student in an Organized Health Care Education/Training Program
PROC: 0DJ08ZZ Inspection of Upper Intestinal Tract, Via Natural or Artificial Opening Endoscopic (ICD-10-PCS; CPT 43235; principal; 2023-02-15 11:00)
DX: K92.1 Melena (principal); K29.60 Other gastritis without bleeding; C25.9 Malignant neoplasm of pancreas, unspecified; C78.00 Secondary malignant neoplasm of unspecified lung; C78.7 Secondary malignant neoplasm of liver and intrahepatic bile duct; I11.0 Hypertensive heart disease with heart failure; I50.20 Unspecified systolic (congestive) heart failure; E11.9 Type 2 diabetes mellitus without complications; I25.5 Ischemic cardiomyopathy; D62 Acute posthemorrhagic anemia; E78.2 Mixed hyperlipidemia; R00.1 Bradycardia, unspecified; I25.10 Atherosclerotic heart disease of native coronary artery without angina pectoris; I25.2 Old myocardial infarction; Z87.891 Personal history of nicotine dependence; Z92.21 Personal history of antineoplastic chemotherapy
CPT/HCPCS: 36415; 36430; 43239; 80053; 80061; 81003; 82607; 82746; 83036; 83540; 83550; 83605; 83735; 84100; 84439; 84443; 84481; 85014; 85018; 85025; 85610; 86850; 86900; 86920; 88305; 93005; 94664; 96360; 99285; C9113; G0378; J1756; J2370; J2704; J3490; J7030; P9016

== ENCOUNTER 2023-04-12 09:15 | Oncology outpatient (recurring) (ONCR) | payer MEDICARE, SELFPAY ==
[2023-04-05] VITALS (9 sets, daily range): BP systolic 101–146; BP diastolic 62–79; PULSE 50–60; RESP 18; TEMP 36.4–36.6; O2SAT 96–100
[2023-04-05 09:12] LABS: Basophils % 0.8 %; Eosinophils # 0.1 10^3/uL (0.0-0.8); Eosinophils % 3.6 %; Hematocrit 21.9 % (42.0-52.0); Hemoglobin 6.6 g/dL (11.7-16.6); Lymphocytes # 0.4 10^3/uL (0.8-4.8); Lymphocytes % 11.3 %; Mean Corpuscular HGB Conc 30.1 g/dL (30.0-36.0); Mean Corpuscular Hemoglobin 27.4 pg (28.0-34.0); Mean Corpuscular Volume 90.9 fl (80-94); Mean Platelet Volume 9.6 fL (7.4-10.4); Monocytes # 0.4 10^3/uL (0.2-0.9); Monocytes % 10.2 %; Neutrophils # 2.88 10^3/uL (1.8-7.7); Neutrophils % 73.6 %; Nucleated Red Blood Cells % 0 %; Platelet Count 113 10^3/cmm (130-400); Red Blood Count 2.41 10^6/uL (4.1-5.3); White Blood Count 3.9 10^3/uL (4.0-10.0)
[2023-04-05] MEDS: sodium chloride 0.9% 250 mL Bag IV (10:40)
[2023-04-05] MEDS: acetaminophen 325 mg Tablet 650 MG PO (10:41)
[2023-04-05] MEDS: diphenhydrAMINE 25 mg Capsule PO (10:42)
[2023-04-05] MEDS: FUROsemide 10 mg/mL SDV 2mL 20 MG IVP (13:46)
[2023-04-12] VITALS (11 sets, daily range): BP systolic 97–123; BP diastolic 62–73; PULSE 64–79; RESP 16–18; TEMP 35.9–36.6; O2SAT 94–100; BMI 24.4
[2023-04-12 09:54] LABS: Basophils % 0.6 %; Eosinophils # 0.1 10^3/uL (0.0-0.8); Eosinophils % 3.3 %; Hematocrit 26.1 % (42.0-52.0); Hemoglobin 7.8 g/dL (11.7-16.6); Lymphocytes # 0.4 10^3/uL (0.8-4.8); Lymphocytes % 10.8 %; Mean Corpuscular HGB Conc 29.9 g/dL (30.0-36.0); Mean Corpuscular Hemoglobin 27.6 pg (28.0-34.0); Mean Corpuscular Volume 92.2 fl (80-94); Mean Platelet Volume 10.5 fL (7.4-10.4); Monocytes # 0.3 10^3/uL (0.2-0.9); Monocytes % 9.1 %; Neutrophils # 2.75 10^3/uL (1.8-7.7); Neutrophils % 75.9 %; Nucleated Red Blood Cells % 0 %; Platelet Count 134 10^3/cmm (130-400); Red Blood Count 2.83 10^6/uL (4.1-5.3); Red Cell Distribution Width 16.7 % (12.1-15.1); White Blood Count 3.6 10^3/uL (4.0-10.0)
[2023-04-12 10:14] LABS: Alanine Aminotransferase 27 U/L (0-41); Albumin Level 3.5 g/dL (3.5-5.2); Alkaline Phosphatase 623 U/L (40-130); Anion Gap 11.8 (5-19); Aspartate Amino Transferase 31 U/L (0-40); Blood Urea Nitrogen 13 mg/dL (8-23); Calcium 7.9 mg/dL (8.5-10.5); Carbon Dioxide 20 mmol/L (22-29); Chloride 109 mmol/L (98-107); Ferritin 22 ng/mL (30-400); Globulin 2.7 g/dL (1.3-4.6); Glucose 152 mg/dL (65-115); Iron 31 ug/dL (59-158); Osmolality Calculated 287 mOsm/kg (285-295); Percent Saturation 9.9 % (20-50); Potassium 3.8 mmol/L (3.5-5.1); Sodium 137 mmol/L (136-145); Total Bilirubin 0.4 mg/dL (0.15-1.2); Total Iron Binding Capacity 312 mcg/dl; Total Protein 6.2 g/dL (6.6-8.7); Unsaturated Iron Binding 281 ug/dL (112-347)
[2023-04-12] MEDS: acetaminophen 325 mg Tablet 650 MG PO (13:09)
[2023-04-12] MEDS: diphenhydrAMINE 50 mg/mL SDV 1mL 25 MG IVP (13:12)
[2023-04-12] MEDS: sodium chloride 0.9% 100 mL Bag 50 ML IV (13:34)
[2023-04-12] MEDS: FUROsemide 10 mg/mL SDV 2mL 20 MG IVP (15:25)
[2023-04-12] MEDS: sodium chloride 0.9% (100 ml) 100 ML 75 ML (15:50)
== END 2023-04-12 23:59 | disposition home or self-care (01) ==
PROVIDERS: Nurse Practitioner; PCP Family Medicine; Visit Provider Internal Medicine Hematology & Oncology
DX: C25.8 Malignant neoplasm of overlapping sites of pancreas (principal); C78.7 Secondary malignant neoplasm of liver and intrahepatic bile duct; D50.0 Iron deficiency anemia secondary to blood loss (chronic); K29.70 Gastritis, unspecified, without bleeding; Z79.899 Other long term (current) drug therapy; Z92.21 Personal history of antineoplastic chemotherapy; Z92.3 Personal history of irradiation
CPT/HCPCS: 36430; 36591; 80053; 82728; 83540; 83550; 85025; 86850; 86900; 86920; 96374; 96375; 99215; J1200; J1642; J1940; J7050; P9016

== ENCOUNTER 2023-04-28 10:00 | Oncology outpatient (recurring) (ONCR) | payer MEDICARE, SELFPAY ==
[2023-04-18 13:25] VITALS: BP 99/62; PULSE 58; RESP 16; TEMP 36; O2SAT 98
[2023-04-18] MEDS: sodium chloride 0.9% 250 ML 75 ML IV (13:43)
[2023-04-18] MEDS: iron sucrose 200 MG in sodium chloride 0.9% (100 ml) 100 ML 220 MG IV (14:09)
[2023-04-18 15:03] VITALS: BP 113/62; PULSE 61; RESP 18; TEMP 35.9; O2SAT 99
[2023-04-20 13:45] VITALS: BP 109/68; PULSE 65; RESP 18; TEMP 36.6; O2SAT 98
[2023-04-20] MEDS: iron sucrose 200 MG in sodium chloride 0.9% (100 ml) 100 ML 220 MG IV (14:01)
[2023-04-20 15:55] VITALS: BP 120/78; PULSE 68; RESP 18; TEMP 36.6; O2SAT 98
[2023-04-24 13:32] VITALS: BP 125/70; PULSE 49; RESP 16; TEMP 36.2; O2SAT 98
[2023-04-24] MEDS: sodium chloride 0.9% 250 ML 50 ML IV (13:44)
[2023-04-24] MEDS: iron sucrose 200 MG in sodium chloride 0.9% (100 ml) 100 ML 220 MG IV (13:51)
[2023-04-24 14:47] VITALS: BP 119/70; PULSE 53; RESP 18; TEMP 35.9; O2SAT 98
[2023-04-26] MEDS: iron sucrose 200 MG in sodium chloride 0.9% (100 ml) 100 ML 220 MG IV (14:00)
[2023-04-26 14:35] VITALS: BP 103/62; PULSE 61; RESP 18; TEMP 36.6; O2SAT 98
--- NOTE | 2023-04-26 16:02 | PC.NURSE ---
Patient tolerated the iron sucrose infusion with no issues or concerns. He is aware of the next follow up appointment.[email or web address]
[2023-04-28] MEDS: iron sucrose 200 MG in sodium chloride 0.9% (100 ml) 100 ML 220 MG IV (10:48)
[2023-04-28 11:19] VITALS: BP 117/62; PULSE 59; RESP 18; TEMP 36.7; O2SAT 97
== END 2023-05-12 23:59 | disposition home or self-care (01) ==
PROVIDERS: PCP Family Medicine; Visit Provider Internal Medicine Hematology & Oncology
DX: D50.9 Iron deficiency anemia, unspecified (principal)
CPT/HCPCS: 96365; 96366; J1642; J1756; J7050

== ENCOUNTER 2023-06-02 14:55 | Outpatient (CLI) | payer MEDICARE, SELFPAY ==
[2023-06-02] VITALS (10 sets, daily range): BP systolic 95–123; BP diastolic 57–73; PULSE 53–64; RESP 16; TEMP 36.4; O2SAT 99–100
--- NOTE | 2023-06-02 16:17 | PC.NURSE ---
port accessed with 19G and applied 2x2 and tegaderm for blood transfusion.
[2023-06-02] MEDS: sodium chloride 0.9% (100 ml) 100 ML 150 ML (16:40)
[2023-06-02] MEDS: sodium chloride 0.9% 100 mL Bag 50 ML IV (18:42)
--- NOTE | 2023-06-02 21:15 | PC.NURSE ---
Patient port flushed with 20mL sterile saline. First flush fast, second flush pulsed. Port deaccessed at this time, intact. 2x2 dressing with tape placed. Patient tolerated well.
== END 2023-06-02 21:15 | disposition home or self-care (01) ==
LOC: OPMS 14:57 → MEDSURG 15:08
PROVIDERS: PCP Family Medicine; Visit Provider Internal Medicine Hematology & Oncology
DX: D50.9 Iron deficiency anemia, unspecified (principal); Z79.899 Other long term (current) drug therapy; C25.9 Malignant neoplasm of pancreas, unspecified
CPT/HCPCS: 36430; 36591; 80053; 85025; 86850; 86900; 86920; 99214; J1642; P9016

== ENCOUNTER 2023-06-09 08:30 | Oncology outpatient (recurring) (ONCR) | payer MEDICARE, SELFPAY ==
[2023-06-02 08:52] VITALS: BMI 23.1
[2023-06-02 08:53] VITALS: BP 91/53; PULSE 72; RESP 18; TEMP 36.6; O2SAT 100
[2023-06-02 09:30] LABS: Basophils % 0.4 %; Eosinophils # 0.2 10^3/uL (0.0-0.8); Eosinophils % 4.8 %; Hematocrit 22.6 % (42.0-52.0); Hemoglobin 6.9 g/dL (11.7-16.6); Lymphocytes # 0.4 10^3/uL (0.8-4.8); Lymphocytes % 9.2 %; Mean Corpuscular HGB Conc 30.5 g/dL (30.0-36.0); Mean Corpuscular Hemoglobin 29.7 pg (28.0-34.0); Mean Corpuscular Volume 97.4 fl (80-94); Mean Platelet Volume 10.4 fL (7.4-10.4); Monocytes # 0.5 10^3/uL (0.2-0.9); Monocytes % 10.9 %; Neutrophils # 3.42 10^3/uL (1.8-7.7); Neutrophils % 74.5 %; Nucleated Red Blood Cells % 0 %; Platelet Count 132 10^3/cmm (130-400); Red Blood Count 2.32 10^6/uL (4.1-5.3); Red Cell Distribution Width 17.7 % (12.1-15.1); White Blood Count 4.6 10^3/uL (4.0-10.0)
[2023-06-02 09:42] LABS: Alanine Aminotransferase 32 U/L (0-41); Albumin Level 3.4 g/dL (3.5-5.2); Alkaline Phosphatase 856 U/L (40-130); Anion Gap 13.9 (5-19); Aspartate Amino Transferase 35 U/L (0-40); Blood Urea Nitrogen 16 mg/dL (8-23); Calcium 8.6 mg/dL (8.5-10.5); Carbon Dioxide 21 mmol/L (22-29); Chloride 104 mmol/L (98-107); Globulin 2.7 g/dL (1.3-4.6); Glucose 252 mg/dL (65-115); Osmolality Calculated 290 mOsm/kg (285-295); Potassium 3.9 mmol/L (3.5-5.1); Sodium 135 mmol/L (136-145); Total Bilirubin 0.4 mg/dL (0.15-1.2); Total Protein 6.1 g/dL (6.6-8.7)
[2023-06-09 08:36] VITALS: BMI 23.1
[2023-06-09 08:38] VITALS: BP 98/59; PULSE 58; RESP 18; TEMP 36; O2SAT 94
[2023-06-09 09:04] LABS: Basophils % 0.9 %; Eosinophils # 0.2 10^3/uL (0.0-0.8); Eosinophils % 5.7 %; Hematocrit 26.4 % (42.0-52.0); Hemoglobin 8.1 g/dL (11.7-16.6); Lymphocytes # 0.5 10^3/uL (0.8-4.8); Lymphocytes % 10.9 %; Mean Corpuscular HGB Conc 30.7 g/dL (30.0-36.0); Mean Corpuscular Hemoglobin 29.9 pg (28.0-34.0); Mean Corpuscular Volume 97.4 fl (80-94); Mean Platelet Volume 9.9 fL (7.4-10.4); Monocytes # 0.5 10^3/uL (0.2-0.9); Monocytes % 10.7 %; Neutrophils # 3.02 10^3/uL (1.8-7.7); Neutrophils % 71.6 %; Nucleated Red Blood Cells % 0 %; Platelet Count 112 10^3/cmm (130-400); Red Blood Count 2.71 10^6/uL (4.1-5.3); Red Cell Distribution Width 16.8 % (12.1-15.1); White Blood Count 4.2 10^3/uL (4.0-10.0)
[2023-06-09 09:40] LABS: Alanine Aminotransferase 36 U/L (0-41); Albumin Level 3.4 g/dL (3.5-5.2); Alkaline Phosphatase 876 U/L (40-130); Anion Gap 13.5 (5-19); Aspartate Amino Transferase 56 U/L (0-40); Blood Urea Nitrogen 12 mg/dL (8-23); Calcium 8.7 mg/dL (8.5-10.5); Carbon Dioxide 23 mmol/L (22-29); Chloride 104 mmol/L (98-107); Globulin 2.3 g/dL (1.3-4.6); Glucose 314 mg/dL (65-115); Osmolality Calculated 294 mOsm/kg (285-295); Potassium 4.5 mmol/L (3.5-5.1); Sodium 136 mmol/L (136-145); Total Bilirubin 0.4 mg/dL (0.15-1.2); Total Protein 5.7 g/dL (6.6-8.7)
== END 2023-06-12 23:59 | disposition home or self-care (01) ==
PROVIDERS: Nurse Practitioner; PCP Family Medicine; Visit Provider Internal Medicine Hematology & Oncology
DX: C25.8 Malignant neoplasm of overlapping sites of pancreas (principal); C78.7 Secondary malignant neoplasm of liver and intrahepatic bile duct; G62.9 Polyneuropathy, unspecified; D50.9 Iron deficiency anemia, unspecified; K29.70 Gastritis, unspecified, without bleeding; Z79.899 Other long term (current) drug therapy; C78.01 Secondary malignant neoplasm of right lung; C78.02 Secondary malignant neoplasm of left lung; C78.6 Secondary malignant neoplasm of retroperitoneum and peritoneum; C25.9 Malignant neoplasm of pancreas, unspecified
CPT/HCPCS: 36415; 36591; 80053; 85025; 99214; J1642

== ENCOUNTER 2023-06-21 12:54 | Emergency (ER) | payer MEDICARE, SELFPAY ==
[2023-06-21] VITALS (38 sets, daily range): BP systolic 87–128; BP diastolic 54–78; PULSE 55–82; RESP 14–27; TEMP 36.4–36.8; O2SAT 97–100; BMI 23.6
--- NOTE | 2023-06-21 14:11 | ED_ITS ---
HPI - Recheck/Abnormal Lab/Rx General: Chief Complaint: Recheck/Abnormal Lab/Rx Stated Complaint: sent by martinez/abn labs Time Seen by Provider: 06/21/23 13:22 History of Present Illness: Presents to the ER after going to his oncologist appointment. Patient had labs through an his hemoglobin was 7.0. Patient was told to come to the ER for further evaluation and treatment. Hemoglobin 1 week ago was 8.5 tends to run in between the sixes and eights for the last year or so. Patient states he is not tachycardic, short of breath does not have any chest pain or generalized weakness. Patient has no complaints at all at this moment. Patient denies any gross hematuria or blood in his stool. Patient also denies any black tarry stools at this time. Patient already has a appointment with Dr. 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 Pancreatic cancer Raynauds disease Recent non-ST elevation myocardial infarction (NSTEMI) Surgical History History of coronary angioplasty (~2019) History of pancreatic surgery History of tonsillectomy and adenoidectomy History of Whipple procedure Hx of esophagogastroduodenoscopy Family History Father CAD (coronary artery disease), Onset Age: 43 in his 60s with AL Sister CAD (coronary artery disease), Onset Age: 70 had PCI in her 70s Hypertension Mother Cancer Dementia Hypertension Denies family history of Diabetes Clotting disorder Hyperlipidemia Chronic kidney disease (CKD) Suicide Anesthesia complication Bleeding disorder Lung disease Stroke Social History Smoking and tobacco status: former smoker (Social smoker, quit over 40 years ago) Alcohol intake: current Alcohol intake frequency: holidays/special occasions only Alcohol type: beer Substance/Drug Use: current Substance/Drug use frequency: few times a week Other substance/drug use details: cannibus Physical Exam Const: COMMON NORMALS: no acute distress, average body habitus, patient oriented x3, no limitations, healthy appearing, alert and well nourished HENMT: COMMON NORMALS: normocephalic, atraumatic, hearing grossly normal bilaterally, external ears normal, Normal external nose present and moist oral mucous membranes HEAD & SCALP: normocephalic and atraumatic NOSE: Normal external nose present EXTERNAL EAR: Yes external ears normal Neck/C-Spine: COMMON NORMALS: full ROM, no lymphadenopathy, supple, no meningeal signs, no JVD and Thyroid normal THYROID: Thyroid normal Chest: COMMONS NORMALS: normal inspection of the chest and normal palpation of entire chest wall Resp: COMMON NORMALS: normal respiratory effort, No retractions, No use of accessory muscles and clear to auscultation bilaterally AUSCULTATION: clear to auscultation bilaterally Cardio: COMMON NORMALS: no JVD, regular rate, regular rhythm, S1 normal heart sound present, S2 normal heart sound present, No gallops present (Cardio), No clicks present (Cardio), No murmurs present (Cardio) and No rub (Cardio) RATE: regular rate RHYTHM: regular rhythm HEART SOUNDS: S1 normal heart sound present and S2 normal heart sound present GI: COMMON NORMALS: Normal to inspection, nondistended, normoactive bowel sounds present, Soft to palpation, non-tender, No hepatosplenomegaly present and no masses PALPATION: Yes Soft to palpation and Yes No hepatosplenomegaly present : COMMON NORMALS: Yes no CVA tenderness BLADDER/KIDNEY EXAM: Yes no CVA tenderness Back/Pelvis: COMMON NORMALS: no CVA tenderness Neuro: COMMON NORMALS: patient oriented x3 SENSORIUM/ORIENTATION: Yes alert MENINGEAL SIGNS: Yes no meningeal signs Course Vital Signs: Vital signs: Vital Signs Temperature 98.2 F 06/21/23 13:14 Pulse Rate 59 L 06/21/23 13:14 Respiratory Rate 18 06/21/23 13:14 Blood Pressure 99/65 06/21/23 13:14 Pulse Oximetry 100 06/21/23 13:14 Oxygen Delivery Me thod Room Air 06/21/23 13:14 MDM - Recheck/Abnormal Lab/Rx Medical Decision Making Patient presents to the ER with complaints of hemoglobin of 7.0. Patient is on Brilinta patient denies any gross active forms of bleeding. Patient already has appointment set up with a general surgeon to talk about EGD and colonoscopy. Patient be transfused 1 unit of packed red cells in the GI lab and will be discharged to keep his appointment with the surgeon tomorrow. Differential Diagnosis Unlikely encounter for medication refill, encounter for wound recheck, encounter for recheck of burn, encounter for removal of sutures or warfarin-induced coagulopathy Medical Records I reviewed the patient's medical records. Lab Data I reviewed the patient's lab results. Laboratory Results Blood Type A Negative 06/21/23 10:40 Rho(D) Type Negative 06/21/23 10:40 Antibody Screen Negative 06/21/23 10:40 Discharge Plan Discharge Patient Disposition: Home Clinical Impression: Iron deficiency anemia Qualifiers: Iron deficiency anemia type: unspecified iron deficiency Qualified Code(s): D50.9 - Iron deficiency anemia, unspecified Condition: Stable Prescriptions: No Action loperamide [Imodium A-D] 2 mg capsule 2 mg PO QID PRN (Reason: Diarrhea) calcium carbonate [Tums] 200 mg calcium (500 mg) tablet,chewable 200 mg PO BID PRN (Reason: Acid Reflux) acetaminophen 500 mg capsule 500 mg PO Q6H PRN (Reason: Pain) loratadine [Claritin] 10 mg tablet 10 mg PO BEDTIME sucralfate [Carafate] 100 mg/mL suspension 10 ml PO BID carvedilol 3.125 mg tablet 3.125 mg PO BID Qty: 180 3RF Hold Instructions: Resume on 02/23/23. rosuvastatin 5 mg tablet 5 mg PO BEDTIME Qty: 90 3RF Entresto 49-51 mg tablet 1 tab PO BID 30 Days Qty: 180 3RF Hold Instructions: Resume on 02/23/23. Brilinta 90 mg tablet 90 mg PO BID Qty: 180 3RF Hold Instructions: Resume on 03/02/23. simethicone 80 mg Tablet,Chewable 80 mg PO DAILY PRN (Reason: Acid Reflux) Creon 24,000-76,000 -120,000 unit capsule,delayed release(DR/EC) 1 - 2 cap PO TID Rx Instructions: administer with meals and/or snacks albuterol sulfate 90 mcg/actuation HFA aerosol inhaler 2 puff INHALATION Q6H PRN (Reason: Shortness Of Breath) pantoprazole 40 mg tablet,delayed release (DR/EC) 40 mg PO .DAILY EVENING Discharge Orders: Discharge ED (Routine); Ordered 06/21/23 Ordered By: Jason Anderson Referrals: Ana Maria Pérez MD [Primary Care Provider] - 1 week Patient Instructions: Anemia (ED) Activity Restrictions/Additional Instructions: Please keep your appointment with Dr. Hodgson tomorrow to talk about your EGD and colonoscopy. Please keep your regular appointments with your oncologist and family practice doctor to have your repeat blood check. You received 1 unit of packed red cells in the ER today which should bring her hemoglobin up to approximately 8.0. Coding Level of Care Code ED Transportation Modeler for Lorna Foster
[2023-06-21 15:07] LABS: Basophils % 0.5 %; Eosinophils # 0.2 10^3/uL (0.0-0.8); Eosinophils % 4.4 %; Hematocrit 20.9 % (42.0-52.0); Lymphocytes # 0.5 10^3/uL (0.8-4.8); Lymphocytes % 11.6 %; Mean Corpuscular HGB Conc 31.1 g/dL (30.0-36.0); Mean Corpuscular Hemoglobin 30.2 pg (28.0-34.0); Mean Corpuscular Volume 97.2 fl (80-94); Mean Platelet Volume 10.1 fL (7.4-10.4); Monocytes # 0.5 10^3/uL (0.2-0.9); Monocytes % 13.1 %; Neutrophils # 2.72 10^3/uL (1.8-7.7); Neutrophils % 69.9 %; Nucleated Red Blood Cells % 0 %; Platelet Count 108 10^3/cmm (130-400); Red Blood Count 2.15 10^6/uL (4.1-5.3); Red Cell Distribution Width 15.6 % (12.1-15.1); White Blood Count 3.9 10^3/uL (4.0-10.0)
[2023-06-21 15:09] LABS: Hemoglobin 6.5 g/dL (11.7-16.6)
== END 2023-06-21 18:27 | disposition home or self-care (01) ==
PROVIDERS: Emergency Provider Emergency Medicine; PCP Family Medicine
DX: D50.9 Iron deficiency anemia, unspecified (principal); I11.0 Hypertensive heart disease with heart failure; I50.9 Heart failure, unspecified; E11.9 Type 2 diabetes mellitus without complications; I25.10 Atherosclerotic heart disease of native coronary artery without angina pectoris; I25.2 Old myocardial infarction; E78.5 Hyperlipidemia, unspecified; Z79.02 Long term (current) use of antithrombotics/antiplatelets; Z79.899 Other long term (current) drug therapy
CPT/HCPCS: 36415; 36430; 36593; 85025; 86850; 86900; 86920; 99284; J1642; J2997; P9040

== ENCOUNTER → 2023-06-22 10:14 | Outpatient (BNVA) | payer MEDICARE, SELFPAY | PROVIDERS: PCP Family Medicine; Visit Provider Surgery | DX: D50.9 Iron deficiency anemia, unspecified (principal); K92.1 Melena; C25.9 Malignant neoplasm of pancreas, unspecified; C78.7 Secondary malignant neoplasm of liver and intrahepatic bile duct | CPT/HCPCS: 99203; 99214 ==

== ENCOUNTER 2023-07-12 08:00 | Oncology outpatient (recurring) (ONCR) | payer MEDICARE, SELFPAY ==
[2023-06-14 09:31] VITALS: BP 101/58; PULSE 63; RESP 18; TEMP 36.3; O2SAT 94
[2023-06-14 09:32] VITALS: BMI 23.4
[2023-06-14 09:51] LABS: Basophils % 0.7 %; Eosinophils # 0.2 10^3/uL (0.0-0.8); Eosinophils % 2.9 %; Hematocrit 26.9 % (42.0-52.0); Hemoglobin 8.5 g/dL (11.7-16.6); Lymphocytes # 0.6 10^3/uL (0.8-4.8); Lymphocytes % 9.5 %; Mean Corpuscular HGB Conc 31.6 g/dL (30.0-36.0); Mean Corpuscular Hemoglobin 30.6 pg (28.0-34.0); Mean Corpuscular Volume 96.8 fl (80-94); Mean Platelet Volume 10.1 fL (7.4-10.4); Monocytes # 0.6 10^3/uL (0.2-0.9); Monocytes % 9.5 %; Neutrophils # 4.45 10^3/uL (1.8-7.7); Neutrophils % 77.1 %; Nucleated Red Blood Cells % 0 %; Platelet Count 126 10^3/cmm (130-400); Red Blood Count 2.78 10^6/uL (4.1-5.3); Red Cell Distribution Width 15.9 % (12.1-15.1); White Blood Count 5.8 10^3/uL (4.0-10.0)
[2023-06-14 10:12] LABS: Ferritin 60 ng/mL (30-400); Iron 54 ug/dL (59-158); Percent Saturation 18.6 % (20-50); Total Iron Binding Capacity 289 mcg/dl; Unsaturated Iron Binding 235 ug/dL (112-347)
[2023-06-14 12:06] LABS: Erythrocyte Sedimentation Rate 5 mm/hr (0-10)
[2023-06-14 12:09] LABS: Reticulocyte % 2.4 % (0.5-2.0)
[2023-06-14 12:56] LABS: Vitamin B12 602 pg/mL (232-1245)
[2023-06-14 13:41] LABS: Folate Level 15.4 ng/mL (4.5-32.2)
[2023-06-15 11:34] LABS: Lactate Dehydrogenase 137 U/L (135-225)
[2023-06-16 18:29] LABS: Zinc Level, Serum or Plasma 50 mcg/dL (60-130)
[2023-06-20 11:03] LABS: Copper Level 108 mcg/dL (70-175)
[2023-06-21 10:42] VITALS: BP 101/63; PULSE 73; RESP 18; TEMP 36.6; O2SAT 98
[2023-06-21 11:11] VITALS: BMI 23.6
[2023-06-21 11:14] LABS: Basophils % 0.7 %; Eosinophils # 0.2 10^3/uL (0.0-0.8); Eosinophils % 3.5 %; Hematocrit 23.3 % (42.0-52.0); Lymphocytes # 0.5 10^3/uL (0.8-4.8); Lymphocytes % 10.9 %; Mean Corpuscular Hemoglobin 30.6 pg (28.0-34.0); Mean Corpuscular Volume 101.7 fl (80-94); Mean Platelet Volume 10.3 fL (7.4-10.4); Monocytes # 0.5 10^3/uL (0.2-0.9); Monocytes % 11.3 %; Neutrophils # 3.16 10^3/uL (1.8-7.7); Neutrophils % 73.1 %; Nucleated Red Blood Cells % 0 %; Platelet Count 104 10^3/cmm (130-400); Red Blood Count 2.29 10^6/uL (4.1-5.3); Red Cell Distribution Width 15.9 % (12.1-15.1); White Blood Count 4.3 10^3/uL (4.0-10.0)
[2023-06-21] MEDS: alteplase 1 mg/mL SDV 2 mL 2 MG INTRACATH (11:30)
[2023-06-21 12:39] VITALS: BP 112/68; PULSE 64; RESP 18; TEMP 36.6; O2SAT 97
--- NOTE | 2023-06-21 15:31 | PC.NURSE ---
Patients labs results with anemia and patient is having fatigue and slightly short of breath more so with Dr Correa suggestion to go to ER and be evaluated since he is scheduled to see Dr Hodgson for the EDG soon. He is aware of the plan of care.mm
[2023-06-28 10:13] VITALS: BMI 24.3
[2023-06-28 10:16] VITALS: BP 112/70; PULSE 66; RESP 18; TEMP 36.4; O2SAT 98
[2023-06-28 10:35] LABS: Basophils % 0.7 %; Eosinophils # 0.1 10^3/uL (0.0-0.8); Eosinophils % 3.3 %; Hematocrit 21.9 % (42.0-52.0); Hemoglobin 6.6 g/dL (11.7-16.6); Lymphocytes # 0.5 10^3/uL (0.8-4.8); Lymphocytes % 11.4 %; Mean Corpuscular HGB Conc 30.1 g/dL (30.0-36.0); Mean Corpuscular Hemoglobin 28.3 pg (28.0-34.0); Mean Platelet Volume 10.9 fL (7.4-10.4); Monocytes # 0.4 10^3/uL (0.2-0.9); Neutrophils % 74.4 %; Nucleated Red Blood Cells % 0 %; Platelet Count 114 10^3/cmm (130-400); Red Blood Count 2.33 10^6/uL (4.1-5.3); Red Cell Distribution Width 15.5 % (12.1-15.1); White Blood Count 4.3 10^3/uL (4.0-10.0)
[2023-06-29] VITALS (10 sets, daily range): BP systolic 91–114; BP diastolic 53–68; PULSE 56–67; RESP 17–18; TEMP 36.2–36.8; O2SAT 94–99
[2023-06-29] MEDS: acetaminophen 325 mg Tablet 650 MG PO (10:45)
[2023-06-29] MEDS: sodium chloride 0.9% 250 mL Bag IV (10:45)
[2023-06-29] MEDS: diphenhydrAMINE 25 mg Capsule PO (10:45)
[2023-07-05 09:00] VITALS: BP 107/74; BP 108/74; PULSE 71; PULSE 74; RESP 18; TEMP 36.1; TEMP 36.6; O2SAT 97; O2SAT 98
[2023-07-05 09:44] LABS: Basophils % 0.8 %; Eosinophils # 0.1 10^3/uL (0.0-0.8); Eosinophils % 2.7 %; Hematocrit 25.1 % (37-53); Lymphocytes # 0.5 10^3/uL (0.8-4.8); Lymphocytes % 9.2 %; Mean Corpuscular HGB Conc 30.7 g/dL (30-55); Mean Corpuscular Hemoglobin 28.4 pg (27-33); Mean Corpuscular Volume 92.6 fl (82-101); Mean Platelet Volume 11.4 fL (7.4-10.4); Monocytes # 0.5 10^3/uL (0.2-0.9); Monocytes % 10.4 %; Neutrophils # 3.99 10^3/uL (1.8-7.7); Neutrophils % 76.5 %; Nucleated Red Blood Cells % 0 %; Platelet Count 109 10^3/cmm (157-399); Red Blood Count 2.71 10^6/uL (3.85-5.65); Red Cell Distribution Width 14.6 % (12.1-15.1); White Blood Count 5.21 10^3/uL (3.29-11.43)
[2023-07-12] MEDS: alteplase 1 mg/mL SDV 2 mL 2 MG INTRACATH (08:41)
[2023-07-12 09:42] VITALS: BP 105/74; PULSE 74; RESP 18; TEMP 36.4; O2SAT 96
[2023-07-12 09:47] LABS: Basophils % 0.7 %; Eosinophils # 0.1 10^3/uL (0.0-0.8); Eosinophils % 3.5 %; Hematocrit 24.3 % (37-53); Lymphocytes # 0.4 10^3/uL (0.8-4.8); Lymphocytes % 10.9 %; Mean Corpuscular HGB Conc 30.5 g/dL (30-55); Mean Corpuscular Hemoglobin 27.9 pg (27-33); Mean Corpuscular Volume 91.7 fl (82-101); Mean Platelet Volume 10.6 fL (7.4-10.4); Monocytes # 0.5 10^3/uL (0.2-0.9); Monocytes % 13.1 %; Neutrophils % 71.6 %; Nucleated Red Blood Cells % 0 %; Platelet Count 115 10^3/cmm (157-399); Red Blood Count 2.65 10^6/uL (3.85-5.65); Red Cell Distribution Width 14.3 % (12.1-15.1); White Blood Count 4.05 10^3/uL (3.29-11.43)
== END 2023-07-13 23:59 | disposition home or self-care (01) ==
PROVIDERS: Nurse Practitioner Family; PCP Family Medicine; Visit Provider Internal Medicine Medical Oncology
DX: D50.9 Iron deficiency anemia, unspecified (principal)
CPT/HCPCS: 36415; 36430; 36591; 36593; 82525; 82607; 82728; 82746; 83010; 83540; 83550; 83615; 84630; 85025; 85045; 85651; 86850; 86900; 86920; 99214; J1642; J2997; J7050; P9016

== ENCOUNTER → 2023-08-01 10:37 | Outpatient (BNVA) | payer MEDICARE, SELFPAY | PROVIDERS: PCP Family Medicine; Visit Provider Surgery | DX: Z09 Encounter for follow-up examination after completed treatment for conditions other than malignant neoplasm (principal); K29.70 Gastritis, unspecified, without bleeding; D64.9 Anemia, unspecified; K59.00 Constipation, unspecified; K43.2 Incisional hernia without obstruction or gangrene | CPT/HCPCS: 99214 ==

== ENCOUNTER 2023-08-06 16:11 | Emergency (ER) | payer MEDICARE, SELFPAY ==
[2023-08-06 16:17] VITALS: BP 113/72; PULSE 66; RESP 18; TEMP 36.4; O2SAT 96; BMI 24.3
--- NOTE | 2023-08-06 16:26 | XRR_ITS ---
PROCEDURE INFORMATION: Exam: XR Chest Exam date and time: 08/06/2023 4:36 PM Age: 73 years old Clinical indication: Cough and dyspnea; Additional info: Dyspnea/cough TECHNIQUE: Imaging protocol: Radiologic exam of the chest. Views: 1 view. COMPARISON: CR XR chest 1V [id number] 07/16/2019 10:01 PM FINDINGS: Tubes, catheters and devices: Central line in place with its tip in the mid SVC. Lungs: See Pleural spaces finding. Pleural spaces: Moderate bilateral pleural effusions and basilar infiltrates which are new in comparison to the prior study. Heart/Mediastinum: Coronary artery calcifications. Bones/joints: Unremarkable. XR/XR chest 1V portable [id number] IMPRESSION: Moderate bilateral pleural effusions and basilar infiltrates which are new in comparison to the prior study.
--- NOTE | 2023-08-06 16:26 | ECG_ITS ---
[facility] Test Date: 2023-08-06 Pat Name: Mauricio Powell Department: Room: Gender: Male Devops Developer: : [id number] Requested By: Td Naranjo Order Number: [id number] Jaun MD: Chavo Sanchez M.D. Measurements Intervals [place] Rate: 65 P: 44 AK: 157 QRS: -22 QRSD: 114 T: 43 QT: 427 QTc: 446 Interpretive Statements SINUS RHYTHM PROBABLE ANTEROLATERAL MYOCARDIAL INFARCTION , PROBABLY OLD [35 ms Q WAVE IN I/aVL/V3-V6] Compared to ECG 02/14/2023 12:52:09 Myocardial infarct finding now present Intraventricular conduction delay no longer present Electronically Signed On 08-07-2023 16:17:16 CDT by Chavo Sanchez M.D. [email or web address]
[2023-08-06 16:48] VITALS: BP 118/67; PULSE 69; RESP 16; O2SAT 98
[2023-08-06 17:02] LABS: Basophils % 0.6 %; Eosinophils # 0.1 10^3/uL (0.0-0.8); Eosinophils % 1.6 %; Hematocrit 24.3 % (37-53); Lymphocytes # 0.5 10^3/uL (0.8-4.8); Lymphocytes % 10.6 %; Mean Corpuscular Hemoglobin 25.7 pg (27-33); Mean Corpuscular Volume 85.6 fl (82-101); Mean Platelet Volume 10.6 fL (7.4-10.4); Monocytes # 0.7 10^3/uL (0.2-0.9); Monocytes % 13.8 %; Neutrophils # 3.64 10^3/uL (1.8-7.7); Nucleated Red Blood Cells % 0 %; Platelet Count 131 10^3/cmm (157-399); Red Blood Count 2.84 10^6/uL (3.85-5.65); Red Cell Distribution Width 14.9 % (12.1-15.1); White Blood Count 4.99 10^3/uL (3.29-11.43)
[2023-08-06 17:05] VITALS: BP 118/67; PULSE 67; RESP 23; O2SAT 98
--- NOTE | 2023-08-06 17:09 | W.ED.SOB ---
Documented by User: Td Smith DO 08/07/23 06:26 HPI - SOB/Dyspnea General: Chief Complaint: Shortness of Breath/Dyspnea Stated Complaint: SOB Time Seen by Provider: 08/06/23 16:25 Source: patient Mode of arrival: ambulatory History of Present Illness: HPI Narrative: 73-year-old male presents to the emergency room with complaints of shortness of breath and generally feeling weak and some worse over the last 2 days. Symptoms worse with exertion and when supine. No chest pain. Patient has a history of pancreatic cancer he initially had a Whipple surgery about 4 years ago during that time he had an ME and he had several stents placed he recovered from his pancreatic cancer but now has had a recurrence he has mets to lung and liver he recently did complete a course of treatment however his oncologist advised him there is really not many treatment options left and at this point to consider palliative care and hospice. He is denying any chest pain at this time. No fever sweats or chills. Patient does have a history of ischemic cardiomyopathy with a slightly reduced ejection fraction about 40% MD elicited complaint: shortness of breath and cough Pertinent past history: congestive heart failure Onset (ago): day(s) (2) Severity: moderate Exacerbating factors: exertion Relieving factors: nothing Known history of: congestive heart failure Associated symptoms: Deny abdominal pain, chest congestion, chest pain, cough, diaphoresis, dizziness, extremity pain, fever(s), hemoptysis, lightheadedness, myalgias, nausea, orthopnea, palpitations, paresthesias, polydipsia, polyuria, rash, sense of impending doom, syncope or vomiting Treatment prior to arrival: none Review of Systems Const: Denies: fever(s) or diaphoresis Card: Denies: chest pain, palpitations, lightheadedness, syncope or orthopnea Resp: Denies: hemoptysis or chest congestion GI: Denies: abdominal pain, nausea or vomiting Musc: Denies: extremity pain Neuro: Denies: dizziness Endo: Denies: polyuria or polydipsia PFSH ED PFSH: Medical History 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 Bradycardia Cardiac LV ejection fraction of 40-49% Cardiomyopathy Chemotherapy-induced neutropenia Diabetes mellitus Heart failure Hyperlipidemia Hypertension 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 Pancreatic cancer Raynauds disease Recent non-ST elevation myocardial infarction (NSTEMI) Surgical History History of coronary angioplasty (~2019) History of pancreatic surgery History of tonsillectomy and adenoidectomy History of Whipple procedure Hx of esophagogastroduodenoscopy Family History Father CAD (coronary artery disease), Onset Age: 43 in his 60s with ME Sister CAD (coronary artery disease), Onset Age: 70 had PCI in her 70s Hypertension Mother Cancer Dementia Hypertension Denies family history of Diabetes Clotting disorder Hyperlipidemia Chronic kidney disease (CKD) Suicide Anesthesia complication Bleeding disorder Lung disease Stroke Social History Smoking and tobacco status: former smoker (Social smoker, quit over 40 years ago) Alcohol intake: current Alcohol intake frequency: holidays/special occasions only Alcohol type: beer Substance/Drug Use: current Substance/Drug use frequency: few times a week Other substance/drug use details: cannibus Physical Exam Const: GENERAL APPEARANCE: cooperative and comfortable ORIENTATION/CONSCIOUSNESS: Yes awake, Yes oriented to person, Yes oriented to place and Yes oriented to time HENMT: COMMON NORMALS: normocephalic, atraumatic and hearing grossly normal bilaterally HEAD & SCALP: normocephalic and atraumatic Resp: COMMON NORMALS: normal respiratory effort, No retractions, No use of accessory muscles and clear to auscultation bilaterally AUSCULTATION: clear to auscultation bilaterally Cardio: COMMON NORMALS: regular rate, regular rhythm and No murmurs present (Cardio) RATE: regular rate RHYTHM: regular rhythm GI: COMMON NORMALS: Soft to palpation and No hepatosplenomegaly present AUSCULTATION: Yes normoactive bowel sounds PALPATION: Yes Soft to palpation, No Tenderness to palpation present (GI), No Guarding due to palpation present (GI) and Yes No hepatosplenomegaly present Extremity: COMMON NORMALS: normal to inspection, capillary refill normal and no calf tenderness GENERAL: Yes edema (+2) Neuro: SENSORIUM/ORIENTATION: Yes oriented to person, Yes oriented to place and Yes oriented to time Skin: COMMON NORMALS: no rashes or lesions noted GENERAL SKIN EXAM: no rashes or lesions noted Course Vital Signs: Vital signs: Vital Signs Temperature 97.6 F 08/06/23 16:17 Pulse Rate 64 08/06/23 19:18 Respiratory Rate 16 08/06/23 19:18 Blood Pressure 118/67 08/06/23 17:05 Pulse Oximetry 96 08/06/23 20:03 Oxygen Delivery Me thod Room Air 08/06/23 19:18 MDM - SOB/Dyspnea Medical Decision Making Care signed out to Dr. Hawkins at change of shift. See final notes for diagnosis and disposition. 73-year-old male checked out to me by Dr. Smith at shift change. This gentleman has advanced pancreatic cancer. He has reduced EF of 45% or so. He presents short of breath. He has a history of anemia also, and has had transfusions in the past. His hemoglobin is 7.3. White count 4.99, platelet count 131. BMP is not terribly remarkable. Chest x-ray shows bilateral pleural effusions. He is given IV Lasix here, and has begun to diurese. I would argue that with a reduced EF, hemoglobin is 7.3 he is transfused blood. He was given this option in the ER [facility]. He is supposed to see his oncologist at noon tomorrow. He and his are electing to wait until that appointment to see if the lubricating specialist/oncologist wants to transfuse him then. He will go home on a few days of diuretic for the pleural effusions. Pleural effusions could be due to anemia exacerbated heart failure as well. Lab Data 08/06/23 16:46 08/06/23 16:46 Labs/Radiology: Radiology Impressions Chest X-Ray 08/06/23 16:26 IMPRESSION: Moderate bilateral pleural effusions and basilar infiltrates which are new in comparison to the prior study. Laboratory Results WBC 4.99 10^3/uL (3.29-11.43) 08/06/23 16:46 RBC 2.84 10^6/uL (3.85-5.65) L 08/06/23 16:46 Hgb 7.30 g/dL (11.27-16.99) L 08/06/23 16:46 Hct 24.3 % (37-53) L 08/06/23 16:46 MCV 85.6 fl (82-101) 08/06/23 16:46 MCH 25.7 pg (27-33) L 08/06/23 16:46 MCHC 30.0 g/dL (30-55) 08/06/23 16:46 RDW 14.9 % (12.1-15.1) 08/06/23 16:46 Plt Count 131 10^3/cmm (157-399) L 08/06/23 16:46 MPV 10.6 fL (7.4-10.4) H 08/06/23 16:46 Neut % (Auto) 73.0 % 08/06/23 16:46 Lymph % (Auto) 10.6 % 08/06/23 16:46 Catron % (Auto) 13.8 % 08/06/23 16:46 Eos % (Auto) 1.6 % 08/06/23 16:46 Baso % (Auto) 0.6 % 08/06/23 16:46 Neut # (Auto) 3.64 10^3/uL (1.8-7.7) 08/06/23 16:46 Lymph # (Auto) 0.5 10^3/uL (0.8-4.8) L 08/06/23 16:46 Catron # (Auto) 0.7 10^3/uL (0.2-0.9) 08/06/23 16:46 Eos # (Auto) 0.1 10^3/uL (0.0-0.8) 08/06/23 16:46 Baso # (Auto) 0.0 10^3/uL (0.0-0.1) 08/06/23 16:46 Nucleated RBC % (auto) 0 % 08/06/23 16:46 Nucleated RBCs # 0.0 /100WBC 08/06/23 16:46 Sodium 131 mmol/L (136-145) L 08/06/23 16:46 Potassium 3.8 mmol/L (3.5-5.1) 08/06/23 16:46 Chloride 98 mmol/L (98-107) 08/06/23 16:46 Carbon Dioxide 23 mmol/L (22-29) 08/06/23 16:46 Anion Gap 13.8 (5-19) 08/06/23 16:46 BUN 11 mg/dL (8-23) 08/06/23 16:46 Creatinine 0.8 mg/dL (0.7-1.2) 08/06/23 16:46 GFR Calculation Not Reportable 08/06/23 16:46 Glucose 192 mg/dL (65-115) H 08/06/23 16:46 Calculated Osmolality 277 mOsm/kg (285-295) L 08/06/23 16:46 Calcium 8.0 mg/dL (8.5-10.5) L 08/06/23 16:46 Total Bilirubin 0.5 mg/dL (0.15-1.2) 08/06/23 16:46 AST 30 U/L (0-40) 08/06/23 16:46 ALT 21 U/L (0-41) 08/06/23 16:46 Alkaline Phosphatase 716 U/L (40-130) H 08/06/23 16:46 Troponin T Baseline 14 ng/L (0-15) 08/06/23 16:46 Troponin T 120 Minute 14.64 ng/L (0-15) 08/06/23 19:00 Delta Troponin T 0.64 ABS# (0-10) 08/06/23 19:00 NT-Pro-B Natriuret Pep 127 pg/mL (0-450) 08/06/23 16:46 Total Protein 5.7 g/dL (6.6-8.7) L 08/06/23 16:46 Albumin 3.0 g/dL (3.5-5.2) L 08/06/23 16:46 Globulin 2.7 g/dL (1.3-4.6) 08/06/23 16:46 Discharge Plan Discharge Patient Disposition: Home Clinical Impression: Anemia, Cardiomyopathy, Pleural effusion due to CHF (congestive heart failure) Condition: Stable Prescriptions: New Lasix 20 mg tablet 20 mg PO DAILY Qty: 7 0RF No Action loperamide [Imodium A-D] 2 mg capsule 2 mg PO QID PRN (Reason: Diarrhea) calcium carbonate [Tums] 200 mg calcium (500 mg) tablet,chewable 200 mg PO BID PRN (Reason: Acid Reflux) acetaminophen 500 mg capsule 500 mg PO Q6H PRN (Reason: Pain) loratadine [Claritin] 10 mg tablet 10 mg PO BEDTIME sucralfate [Carafate] 100 mg/mL suspension 10 ml PO BID carvedilol 3.125 mg tablet 3.125 mg PO BID Qty: 180 3RF Hold Instructions: Resume on 02/23/23. Entresto 49-51 mg tablet 1 tab PO BID 30 Days Qty: 180 3RF Hold Instructions: Resume on 02/23/23. Brilinta 90 mg tablet 90 mg PO BID Qty: 180 3RF Hold Instructions: Resume on 03/02/23. rosuvastatin 5 mg tablet 5 mg PO BEDTIME Qty: 90 3RF simethicone 80 mg Tablet,Chewable 80 mg PO DAILY PRN (Reason: Acid Reflux) Creon 24,000-76,000 -120,000 unit capsule,delayed release(DR/EC) 1 - 2 cap PO TID Rx Instructions: administer with meals and/or snacks Protonix 40 mg tablet,delayed release (DR/EC) 40 mg PO BID 42 Days Qty: 84 1RF albuterol sulfate 90 mcg/actuation HFA aerosol inhaler 2 puff INHALATION Q6H PRN (Reason: Shortness Of Breath) pantoprazole 40 mg tablet,delayed release (DR/EC) 40 mg PO .DAILY EVENING Hold Instructions: Resume on 10/18/23. Discharge Orders: Discharge ED (Routine); Ordered 08/06/23 Ordered By: Hipolito Hawkins Referrals: Ana Maria Pérez MD [Primary Care Provider] - 1-3 days Patient Instructions: Pulmonary Edema (ED), Anemia (ED), Pleural Effusion Activity Restrictions/Additional Instructions: Medication as directed. Once daily for 7 days. Consider eating foods that are high in potassium such as bananas, spinach, etc. Return for worsening shortness of breath despite treatment. Return for significant chest discomfort, fever, other concerning symptoms. Let your oncologist know you were seen here in the morning. They may wish to have transfuse you tomorrow. 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 Bradycardia Cardiac LV ejection fraction of 40-49% Cardiomyopathy Chemotherapy-induced neutropenia Diabetes mellitus Heart failure Hyperlipidemia Hypertension 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 Pancreatic cancer Raynauds disease Recent non-ST elevation myocardial infarction (NSTEMI) Surgical History History of coronary angioplasty (~2019) History of pancreatic surgery History of tonsillectomy and adenoidectomy History of Whipple procedure Hx of esophagogastroduodenoscopy Family History Father CAD (coronary artery disease), Onset Age: 43 in his 60s with ME Sister CAD (coronary artery disease), Onset Age: 70 had PCI in her 70s Hypertension Mother Cancer Dementia Hypertension Denies family history of Diabetes Clotting disorder Hyperlipidemia Chronic kidney disease (CKD) Suicide Anesthesia complication Bleeding disorder Lung disease Stroke Social History Smoking and tobacco status: former smoker (Social smoker, quit over 40 years ago) Alcohol intake: current Alcohol intake frequency: holidays/special occasions only Alcohol type: beer Substance/Drug Use: current Substance/Drug use frequency: few times a week Other substance/drug use details: cannibus Course Vital Signs: Vital signs: Vital Signs Temperature 97.6 F 08/06/23 16:17 Pulse Rate 64 08/06/23 19:18 Respiratory Rate 16 08/06/23 19:18 Blood Pressure 118/67 08/06/23 17:05 Pulse Oximetry 96 08/06/23 20:03 Oxygen Delivery Me thod Room Air 08/06/23 19:18 MDM - SOB/Dyspnea Medical Decision Making 73-year-old male checked out to me by Dr. Smith at shift change. This gentleman has advanced pancreatic cancer. He has reduced EF of 45% or so. He presents short of breath. He has a history of anemia also, and has had transfusions in the past. His hemoglobin is 7.3. White count 4.99, platelet count 131. BMP is not terribly remarkable. Chest x-ray shows bilateral pleural effusions. He is given IV Lasix here, and has begun to diurese. I would argue that with a reduced EF, hemoglobin is 7.3 he is transfused blood. He was given this option in the ER [facility]. He is supposed to see his oncologist at noon tomorrow. He and his are electing to wait until that appointment to see if the lubricating specialist/oncologist wants to transfuse him then. He will go home on a few days of diuretic for the pleural effusions. Pleural effusions could be due to anemia exacerbated heart failure as well. Lab Data 08/06/23 16:46 08/06/23 16:46 Labs/Radiology: Radiology Impressions Chest X-Ray 08/06/23 16:26 IMPRESSION: Moderate bilateral pleural effusions and basilar infiltrates which are new in comparison to the prior study. Laboratory Results WBC 4.99 10^3/uL (3.29-11.43) 08/06/23 16:46 RBC 2.84 10^6/uL (3.85-5.65) L 08/06/23 16:46 Hgb 7.30 g/dL (11.27-16.99) L 08/06/23 16:46 Hct 24.3 % (37-53) L 08/06/23 16:46 MCV 85.6 fl (82-101) 08/06/23 16:46 MCH 25.7 pg (27-33) L 08/06/23 16:46 MCHC 30.0 g/dL (30-55) 08/06/23 16:46 RDW 14.9 % (12.1-15.1) 08/06/23 16:46 Plt Count 131 10^3/cmm (157-399) L 08/06/23 16:46 MPV 10.6 fL (7.4-10.4) H 08/06/23 16:46 Neut % (Auto) 73.0 % 08/06/23 16:46 Lymph % (Auto) 10.6 % 08/06/23 16:46 Catron % (Auto) 13.8 % 08/06/23 16:46 Eos % (Auto) 1.6 % 08/06/23 16:46 Baso % (Auto) 0.6 % 08/06/23 16:46 Neut # (Auto) 3.64 10^3/uL (1.8-7.7) 08/06/23 16:46 Lymph # (Auto) 0.5 10^3/uL (0.8-4.8) L 08/06/23 16:46 Catron # (Auto) 0.7 10^3/uL (0.2-0.9) 08/06/23 16:46 Eos # (Auto) 0.1 10^3/uL (0.0-0.8) 08/06/23 16:46 Baso # (Auto) 0.0 10^3/uL (0.0-0.1) 08/06/23 16:46 Nucleated RBC % (auto) 0 % 08/06/23 16:46 Nucleated RBCs # 0.0 /100WBC 08/06/23 16:46 Sodium 131 mmol/L (136-145) L 08/06/23 16:46 Potassium 3.8 mmol/L (3.5-5.1) 08/06/23 16:46 Chloride 98 mmol/L (98-107) 08/06/23 16:46 Carbon Dioxide 23 mmol/L (22-29) 08/06/23 16:46 Anion Gap 13.8 (5-19) 08/06/23 16:46 BUN 11 mg/dL (8-23) 08/06/23 16:46 Creatinine 0.8 mg/dL (0.7-1.2) 08/06/23 16:46 GFR Calculation Not Reportable 08/06/23 16:46 Glucose 192 mg/dL (65-115) H 08/06/23 16:46 Calculated Osmolality 277 mOsm/kg (285-295) L 08/06/23 16:46 Calcium 8.0 mg/dL (8.5-10.5) L 08/06/23 16:46 Total Bilirubin 0.5 mg/dL (0.15-1.2) 08/06/23 16:46 AST 30 U/L (0-40) 08/06/23 16:46 ALT 21 U/L (0-41) 08/06/23 16:46 Alkaline Phosphatase 716 U/L (40-130) H 08/06/23 16:46 Troponin T Baseline 14 ng/L (0-15) 08/06/23 16:46 Troponin T 120 Minute 14.64 ng/L (0-15) 08/06/23 19:00 Delta Troponin T 0.64 ABS# (0-10) 08/06/23 19:00 NT-Pro-B Natriuret Pep 127 pg/mL (0-450) 08/06/23 16:46 Total Protein 5.7 g/dL (6.6-8.7) L 08/06/23 16:46 Albumin 3.0 g/dL (3.5-5.2) L 08/06/23 16:46 Globulin 2.7 g/dL (1.3-4.6) 08/06/23 16:46 All radiology interpretation(s) finalized by discharge Discharge Plan Discharge Patient Disposition: Home Clinical Impression: Anemia, Cardiomyopathy, Pleural effusion due to CHF (congestive heart failure) Condition: Stable Prescriptions: New Lasix 20 mg tablet 20 mg PO DAILY Qty: 7 0RF No Action loperamide [Imodium A-D] 2 mg capsule 2 mg PO QID PRN (Reason: Diarrhea) calcium carbonate [Tums] 200 mg calcium (500 mg) tablet,chewable 200 mg PO BID PRN (Reason: Acid Reflux) acetaminophen 500 mg capsule 500 mg PO Q6H PRN (Reason: Pain) loratadine [Claritin] 10 mg tablet 10 mg PO BEDTIME sucralfate [Carafate] 100 mg/mL suspension 10 ml PO BID carvedilol 3.125 mg tablet 3.125 mg PO BID Qty: 180 3RF Hold Instructions: Resume on 02/23/23. Entresto 49-51 mg tablet 1 tab PO BID 30 Days Qty: 180 3RF Hold Instructions: Resume on 02/23/23. Brilinta 90 mg tablet 90 mg PO BID Qty: 180 3RF Hold Instructions: Resume on 03/02/23. rosuvastatin 5 mg tablet 5 mg PO BEDTIME Qty: 90 3RF simethicone 80 mg Tablet,Chewable 80 mg PO DAILY PRN (Reason: Acid Reflux) Creon 24,000-76,000 -120,000 unit capsule,delayed release(DR/EC) 1 - 2 cap PO TID Rx Instructions: administer with meals and/or snacks Protonix 40 mg tablet,delayed release (DR/EC) 40 mg PO BID 42 Days Qty: 84 1RF albuterol sulfate 90 mcg/actuation HFA aerosol inhaler 2 puff INHALATION Q6H PRN (Reason: Shortness Of Breath) pantoprazole 40 mg tablet,delayed release (DR/EC) 40 mg PO .DAILY EVENING Hold Instructions: Resume on 10/18/23. Discharge Orders: Discharge ED (Routine); Ordered 08/06/23 Ordered By: Hipolito Hawkins Referrals: Ana Maria Pérez MD [Primary Care Provider] - 1-3 days Patient Instructions: Pulmonary Edema (ED), Anemia (ED), Pleural Effusion Activity Restrictions/Additional Instructions: Medication as directed. Once daily for 7 days. Consider eating foods that are high in potassium such as bananas, spinach, etc. Return for worsening shortness of breath despite treatment. Return for significant chest discomfort, fever, other concerning symptoms. Let your oncologist know you were seen here in the morning. They may wish to have transfuse you tomorrow. 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 Lorna Foster
[2023-08-06 17:29] LABS: Alanine Aminotransferase 21 U/L (0-41); Alkaline Phosphatase 716 U/L (40-130); Anion Gap 13.8 (5-19); Aspartate Amino Transferase 30 U/L (0-40); Blood Urea Nitrogen 11 mg/dL (8-23); Carbon Dioxide 23 mmol/L (22-29); Chloride 98 mmol/L (98-107); Globulin 2.7 g/dL (1.3-4.6); Glucose 192 mg/dL (65-115); Osmolality Calculated 277 mOsm/kg (285-295); Potassium 3.8 mmol/L (3.5-5.1); Sodium 131 mmol/L (136-145); Total Bilirubin 0.5 mg/dL (0.15-1.2); Total Protein 5.7 g/dL (6.6-8.7); Troponin(5th) Baseline 14 ng/L (0-15)
[2023-08-06] MEDS: FUROsemide 10 mg/mL SDV 2mL 20 MG IVP (17:29)
[2023-08-06 18:08] LABS: NT Pro B Type Natriuretic Pept 127 pg/mL (0-450)
--- NOTE | 2023-08-06 18:09 | ECG_ITS ---
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 Measurements Intervals Kerrick Rate: 60 P: 21 AR: 113 QRS: -24 QRSD: 109 T: 15 QT: 417 QTc: 420 Interpretive Statements SINUS RHYTHM WITH SHORT AR INTERVAL POSSIBLE LATERAL MYOCARDIAL INFARCTION , PROBABLY OLD [30 ms Q WAVE IN I/aVL/V5/V6] Compared to ECG 08/06/2023 16:31:47 Short AR interval now present Myocardial infarct finding still present Electronically Signed On 08-07-2023 16:19:48 CDT by Chavo Sanchez M.D. [id number]
[2023-08-06 18:21] VITALS: O2SAT 91; O2SAT 96
[2023-08-06 19:18] VITALS: PULSE 64; RESP 16; O2SAT 99
[2023-08-06 19:37] LABS: Troponin 5 2HR 14.64 ng/L (0-15); Troponin 5 2HR Delta 0.64 ABS# (0-10)
--- NOTE | 2023-08-06 19:59 | PC.NURSE ---
home o2 eval pt o2 eval performed. pt walked approx 300 ft. pt o2 sat remained at 96% during entire trial. this nurse advised that if pt is having trouble at home still to contact pcp to obtain a prescription on a non emergent basis.
[2023-08-06 20:03] VITALS: O2SAT 96
== END 2023-08-06 20:05 | disposition home or self-care (01) ==
PROVIDERS: Family Medicine; Emergency Provider Emergency Medicine; PCP Family Medicine
DX: I11.0 Hypertensive heart disease with heart failure (principal); I50.9 Heart failure, unspecified; I42.9 Cardiomyopathy, unspecified; D64.9 Anemia, unspecified; Z87.891 Personal history of nicotine dependence; I25.10 Atherosclerotic heart disease of native coronary artery without angina pectoris; E11.9 Type 2 diabetes mellitus without complications; E78.5 Hyperlipidemia, unspecified; Z85.46 Personal history of malignant neoplasm of prostate; Z85.05 Personal history of malignant neoplasm of liver; I25.2 Old myocardial infarction; Z98.61 Coronary angioplasty status
CPT/HCPCS: 71045; 80053; 83880; 84484; 85025; 93005; 96374; 99285; J1940

== ENCOUNTER 2023-08-08 08:00 | Oncology outpatient (recurring) (ONCR) | payer MEDICARE, SELFPAY ==
[2023-07-18 10:00] VITALS: BP 99/61; PULSE 102; RESP 18; TEMP 36.7; O2SAT 94
[2023-07-18 10:15] VITALS: BP 99/61; PULSE 102; RESP 18; TEMP 36.7; O2SAT 97
[2023-07-18 10:18] LABS: Basophils % 0.7 %; Eosinophils # 0.1 10^3/uL (0.0-0.8); Eosinophils % 3.2 %; Hematocrit 26.4 % (37-53); Lymphocytes # 0.5 10^3/uL (0.8-4.8); Lymphocytes % 11.4 %; Mean Corpuscular HGB Conc 30.7 g/dL (30-55); Mean Corpuscular Hemoglobin 27.6 pg (27-33); Mean Corpuscular Volume 89.8 fl (82-101); Mean Platelet Volume 10.4 fL (7.4-10.4); Monocytes # 0.5 10^3/uL (0.2-0.9); Monocytes % 12.1 %; Neutrophils # 3.16 10^3/uL (1.8-7.7); Neutrophils % 72.1 %; Nucleated Red Blood Cells % 0 %; Platelet Count 132 10^3/cmm (157-399); Red Blood Count 2.94 10^6/uL (3.85-5.65); Red Cell Distribution Width 13.9 % (12.1-15.1); White Blood Count 4.38 10^3/uL (3.29-11.43)
[2023-07-19] VITALS (8 sets, daily range): BP systolic 89–109; BP diastolic 55–68; PULSE 58–62; RESP 17–18; TEMP 36.1–36.6; O2SAT 96–99
[2023-07-19] MEDS: acetaminophen 325 mg Tablet 650 MG PO (08:22)
[2023-07-19] MEDS: sodium chloride 0.9% 250 mL Bag IV (08:23)
[2023-07-19] MEDS: diphenhydrAMINE 25 mg Capsule PO (08:23)
--- NOTE | 2023-07-19 12:28 | PC.NURSE ---
patient here at this time to get one unit of PRBC prior to GI procedure later this morning. IV port a cath accessed using sterile technique with good blood return. Blood infused without events. His port a cath flushed with normal saline and heparin lock flush. Left accessed for the upcoming procedure.[email or web address]
[2023-07-26 13:00] VITALS: BP 127/73; PULSE 60; RESP 18; TEMP 36.1; O2SAT 100
[2023-07-26 13:05] VITALS: BP 127/73; PULSE 60; RESP 18; TEMP 36.1; O2SAT 100
[2023-07-26 13:17] LABS: Basophils % 0.5 %; Eosinophils # 0.1 10^3/uL (0.0-0.8); Eosinophils % 1.8 %; Hematocrit 25.5 % (37-53); Lymphocytes # 0.5 10^3/uL (0.8-4.8); Lymphocytes % 12.4 %; Mean Corpuscular Hemoglobin 27.4 pg (27-33); Mean Corpuscular Volume 88.5 fl (82-101); Monocytes # 0.5 10^3/uL (0.2-0.9); Monocytes % 11.6 %; Neutrophils # 2.91 10^3/uL (1.8-7.7); Neutrophils % 73.4 %; Nucleated Red Blood Cells % 0 %; Platelet Count 88 10^3/cmm (157-399); Red Blood Count 2.88 10^6/uL (3.85-5.65); Red Cell Distribution Width 14.6 % (12.1-15.1); White Blood Count 3.96 10^3/uL (3.29-11.43)
[2023-07-31 08:40] VITALS: BP 100/64; PULSE 62; RESP 16; TEMP 36.3; O2SAT 97
[2023-07-31 08:57] LABS: Basophils % 0.6 %; Eosinophils # 0.1 10^3/uL (0.0-0.8); Eosinophils % 1.8 %; Hematocrit 25.5 % (37-53); Lymphocytes # 0.5 10^3/uL (0.8-4.8); Lymphocytes % 7.2 %; Mean Corpuscular HGB Conc 31.4 g/dL (30-55); Mean Corpuscular Volume 86.1 fl (82-101); Mean Platelet Volume 10.5 fL (7.4-10.4); Monocytes # 0.7 10^3/uL (0.2-0.9); Monocytes % 11.1 %; Neutrophils # 5.26 10^3/uL (1.8-7.7); Neutrophils % 78.9 %; Nucleated Red Blood Cells % 0 %; Platelet Count 129 10^3/cmm (157-399); Red Blood Count 2.96 10^6/uL (3.85-5.65); Red Cell Distribution Width 14.6 % (12.1-15.1); White Blood Count 6.67 10^3/uL (3.29-11.43)
[2023-08-07 12:41] VITALS: BP 98/59; PULSE 67; RESP 17; TEMP 36.3; O2SAT 95
[2023-08-07 12:41] LABS: Basophils % 0.8 %; Eosinophils # 0.1 10^3/uL (0.0-0.8); Eosinophils % 1.6 %; Hematocrit 22.9 % (37-53); Lymphocytes # 0.5 10^3/uL (0.8-4.8); Lymphocytes % 9.3 %; Mean Corpuscular HGB Conc 30.1 g/dL (30-55); Mean Corpuscular Hemoglobin 25.9 pg (27-33); Mean Corpuscular Volume 86.1 fl (82-101); Monocytes # 0.7 10^3/uL (0.2-0.9); Monocytes % 13.3 %; Neutrophils # 3.75 10^3/uL (1.8-7.7); Neutrophils % 74.2 %; Nucleated Red Blood Cells % 0 %; Platelet Count 125 10^3/cmm (157-399); Red Blood Count 2.66 10^6/uL (3.85-5.65); White Blood Count 5.05 10^3/uL (3.29-11.43)
[2023-08-07 12:43] VITALS: BMI 24.5
[2023-08-07] MEDS: acetaminophen 325 mg Tablet 650 MG PO (14:34)
[2023-08-07] MEDS: diphenhydrAMINE 25 mg Capsule PO (14:34)
[2023-08-07] MEDS: sodium chloride 0.9% 250 mL Bag IV (14:40)
[2023-08-07 14:55] VITALS: BP 94/59; PULSE 62; RESP 16; TEMP 36; O2SAT 100
[2023-08-07 15:10] VITALS: BP 110/55; PULSE 70; RESP 16; TEMP 35.7; TEMP 35.8; O2SAT 93
[2023-08-07 15:25] VITALS: BP 105/58; PULSE 63; RESP 16; TEMP 35.7; O2SAT 95
[2023-08-07 16:25] VITALS: BP 112/70; PULSE 94; RESP 16; TEMP 35.7; O2SAT 94
[2023-08-07 16:48] VITALS: BP 118/63; PULSE 63; RESP 16; TEMP 35.6; O2SAT 100
[2023-08-08 08:20] VITALS: BP 106/56; PULSE 62; RESP 16; TEMP 36.5; O2SAT 100; BMI 23.5
[2023-08-08] MEDS: sodium chloride 0.9% 250 ML 25 ML IV (08:39)
[2023-08-08] MEDS: acetaminophen 325 mg Tablet 650 MG PO (08:39)
[2023-08-08] MEDS: diphenhydrAMINE 25 mg Capsule PO (08:40)
[2023-08-08 09:05] VITALS: BP 112/65; PULSE 60; RESP 16; TEMP 36.6; O2SAT 93
[2023-08-08 09:20] VITALS: BP 106/62; PULSE 62; RESP 16; TEMP 36.5; O2SAT 92
[2023-08-08 09:35] VITALS: BP 126/68; PULSE 62; RESP 16; TEMP 36.3; O2SAT 95
[2023-08-08 10:35] VITALS: BP 128/77; PULSE 61; RESP 17; TEMP 36.3; O2SAT 97
[2023-08-08 11:00] VITALS: BP 128/76; PULSE 60; RESP 16; TEMP 36.3; O2SAT 96
== END 2023-08-12 23:59 | disposition home or self-care (01) ==
PROVIDERS: PCP Family Medicine; Visit Provider Internal Medicine Medical Oncology
DX: C25.0 Malignant neoplasm of head of pancreas; D64.9 Anemia, unspecified
CPT/HCPCS: 36415; 36430; 36591; 43239; 45378; 85025; 86850; 86900; 86920; 88305; 88342; 99214; J1642; J2704; J7030; J7050; P9016

== ENCOUNTER 2023-08-15 14:30 | Oncology outpatient (recurring) (ONCR) | payer MEDICARE, SELFPAY ==
[2023-08-15 14:47] VITALS: BP 96/64; PULSE 64; RESP 16; TEMP 36.6; O2SAT 99
[2023-08-15 14:59] LABS: Basophils % 0.3 %; Eosinophils # 0.1 10^3/uL (0.0-0.8); Eosinophils % 0.9 %; Hematocrit 31.5 % (37-53); Lymphocytes # 0.4 10^3/uL (0.8-4.8); Lymphocytes % 5.1 %; Mean Corpuscular HGB Conc 32.4 g/dL (30-55); Mean Corpuscular Hemoglobin 27.1 pg (27-33); Mean Corpuscular Volume 83.6 fl (82-101); Mean Platelet Volume 10.9 fL (7.4-10.4); Monocytes # 0.8 10^3/uL (0.2-0.9); Monocytes % 11.3 %; Neutrophils # 5.67 10^3/uL (1.8-7.7); Nucleated Red Blood Cells % 0 %; Platelet Count 112 10^3/cmm (157-399); Red Blood Count 3.77 10^6/uL (3.85-5.65); Red Cell Distribution Width 15.7 % (12.1-15.1); White Blood Count 6.91 10^3/uL (3.29-11.43)
[2023-08-15 15:24] LABS: Anion Gap 13.7 (5-19); Blood Urea Nitrogen 12 mg/dL (8-23); Calcium 8.1 mg/dL (8.5-10.5); Carbon Dioxide 26 mmol/L (22-29); Chloride 95 mmol/L (98-107); Glucose 202 mg/dL (65-115); Osmolality Calculated 278 mOsm/kg (285-295); Potassium 3.7 mmol/L (3.5-5.1); Sodium 131 mmol/L (136-145)
== END 2023-09-12 23:59 | disposition home or self-care (01) ==
PROVIDERS: PCP Family Medicine; Visit Provider Internal Medicine Medical Oncology
DX: D50.9 Iron deficiency anemia, unspecified (principal); C25.0 Malignant neoplasm of head of pancreas
CPT/HCPCS: 36591; 80048; 85025; 86850; 86900; J1642